=== PATIENT | male | born 1970 | race Caucasian/White ===

== ENCOUNTER 2017-08-20 18:58 | Emergency (ER) | payer OTHER ==
[~2017-08-20] VITALS: Ht 180.3 cm; Wt 113.4 kg
--- NOTE | 2017-08-20 19:17 | ED DYSPNEA/ASTHMA COMPLAINT ---
History of Present Illness General Chief Complaint: Dyspnea (COPD, CHF, Other) Stated Complaint: BIBA FOR EVAL DIFF BREATHING Source: patient, family Exam Limitations: no limitations Vital Signs & Intake/Output Vital Signs & Intake/Output Vital Signs Date Time Temp Pulse Resp B/P B/P Pulse O2 O2 Flow FiO2 Mean Ox Delivery Rate 08/20 2146 97.8 110 20 138/90 94 Room Air 08/20 1942 90 08/20 1903 97.9 124 26 178/99 94 Room Air Allergies Coded Allergies: No Known Allergies (08/20/17) Reconcile Medications Albuterol Sulfate (Proair Hfa) 90 MCG HFA.AER.AD 2 PUF INH Q4-6 PRN PRN SOB Amoxicillin/Potassium Clav (Augmentin 875-125 Tablet) 875 MG-125 MG TABLET 1 TAB PO BID PNEUMONIA Azithromycin 250 MG TABLET 1 DP PO AD PNEUMONIA 2 the first day followed by 1 for days 2-5 Codeine Phosphate/Guaifenesi (Codeine-Guaifen 10-100 MG/5 Ml) 10 MG-100 MG/5 ML LIQUID 15 ML PO Q12P PRN COUGH Prednisone 20 MG TABLET 1 TAB PO BID COUGH Triage Note: PT TO ED FOR WORSENING SOB OVER PAST WEEK, RECENTLY DX'ED WITH FLU. Triage Nurses Notes Reviewed? yes HPI: 47M PMH HTN, diet controlled DM with 1 week of viral syndrome with weakness, diffuse myalgia, and upper respiratory symptoms, diagnosed with flu by an online physician and given Tamiflu (no positive influenza test), was improving slightly , but for the past 3 days has had worsening dry cough, dyspnea, unable to take a deep breath, and dyspnea with minimal exertion. Denies fever, chills, headache, sore throat, chest pain, palpitations, abdominal pain, diarrhea, dysuria. Past History Travel History Traveled to [place] past 21 day No Medical History Any Pertinent Medical History? see below for history Neurological: NONE EENT: NONE Cardiovascular: hypertension Respiratory: NONE Gastrointestinal: NONE Hepatic: NONE Renal: NONE Musculoskeletal: NONE Psychiatric: NONE Endocrine: diabetes Blood Disorders: NONE Cancer(s): NONE Surgical History Surgical History: non-contributory Psychosocial History What is your primary language Indonesian Tobacco Use: Never used ETOH Use: occasional use Illicit Drug Use: denies illicit drug use Family History Hx Contributory? No Review of Systems Review of Systems Constitutional: Reports: no symptoms. EENTM: Reports: no symptoms. Respiratory: Reports: see HPI. Cardiovascular: Reports: no symptoms. GI: Reports: no symptoms. Genitourinary: Reports: no symptoms. Musculoskeletal: Reports: no symptoms. Skin: Reports: no symptoms. Neurological/Psychological: Reports: no symptoms. Hematologic/Endocrine: Reports: no symptoms. Immunologic/Allergic: Reports: no symptoms. All Other Systems: Reviewed and Negative Physical Exam Physical Exam General Appearance: well developed/nourished, moderate distress Head: atraumatic, normal appearance Eyes: Bilateral: normal appearance. Ears, Nose, Throat: normal pharynx, normal ENT inspection, hearing grossly normal Neck: normal inspection, supple, full range of motion Respiratory: bilateral wheezing Cardiovascular: regular rate/rhythm Gastrointestinal: soft, non-tender Extremities: normal inspection, normal capillary refill, normal range of motion Neurologic/Psych: awake, alert, oriented x 3, normal mood/affect Skin: intact, normal color, warm/dry Core Measures ACS in differential dx? No CVA/TIA Diagnosis No Sepsis Present: No Sepsis Focused Exam Completed? No Progress Differential Diagnosis: asthma, AMI, altitude sickness, bronchitis, costochondritis, CHF, COPD, musculoskeletal pain, pericarditis, pulmonary embolism, pneumonia, pneumothorax, rib fracture, unstable angina Plan of Care: Orders Procedure Date/time Status RAPID VIRAL INFLUENZA A 08/20 1922 Complete COMPREHENSIVE METABOLIC PANEL 08/20 1922 Complete CBC WITHOUT DIFFERENTIAL 08/20 1922 Complete EKG 08/20 1922 Active Laboratory Tests 08/20/17 2030: Anion Gap 12, Estimated GFR > 60, BUN/Creatinine Ratio 42.0 H, Glucose 324 H, Calcium 8.3 L, Total Bilirubin 1.6 H, AST 51, ALT 58, Alkaline Phosphatase 83, Total Protein 5.9 L, Albumin 3.2 L, Globulin 2.7, Albumin/Globulin Ratio 1.2 08/20/17 2015: CBC w Diff MAN DIFF ORDERED, RBC 5.98, MCV 81.0, MCH 26.9 L, MCHC 33.3, RDW 13.4, MPV 8.6, Gran % 86.1 H, Lymphocytes % 7.4 L, Monocytes % 6.1, Eosinophils % 0.3, Basophils % 0.1, Absolute Granulocytes 19.1 H, Segmented Neutrophils 71, Band Neutrophils 12 H, Absolute Lymphocytes 1.6, Lymphocytes 8 L, Monocytes 8, Absolute Monocytes 1.4 H, Eosinophils 1, Absolute Eosinophils 0.1, Absolute Basophils 0, Platelet Estimate ADEQUATE, Normocytic RBCs VERIFIED, Normochromic RBCs VERIFIED, Fld Total RBCs Counted 100 Microbiology 08/20 1939 NASOPHARYN: Influenza Virus A & B Rapid Smear - COMP Diagnostic Imaging: Viewed by Me: Radiology Read. Discussed w/RAD: Radiology Read. Radiology Impression: PATIENT: JERAD SHEA PRESENT AGE: 47 PATIENT ACCOUNT NO: [id number] : 68 LOCATION: [facility] ORDERING PHYSICIAN: Vish Stahl MD SERVICE DATE: 08/20/17 EXAM TYPE : RAD - XRY-CHEST XRAY, TWO VIEWS EXAMINATION: XR CHEST CLINICAL INFORMATION: Cough with dyspnea and right lower lobe rhonchi. COMPARISON: None TECHNIQUE: 2 views of the chest were obtained. FINDINGS: Mild reticular airspace opacities are noted of both lower lobes. There is a tiny right pleural effusion. No left pleural effusion. The upper lung quiñones are clear. Cardiomediastinal silhouette and pulmonary vasculature are within normal limits. No acute osseous findings. IMPRESSION: Mild bilateral reticular airspace opacities with a trace right pleural effusion. These constellation of findings suggests an atypical/viral pneumonia. Correlate clinically. DICTATED BY: Vitaliy Hendrickson MD DATE/TIME DICTATED:08/20/172010 SCHEDULING ASSISTANT:MAKAYLA DATE/TIME TRANSCRIBED:2010 Initial ED EKG: normal sinus rhythm, no ST T wave changes Departure Departure Disposition: LEFT AGAINST MEDICAL ADVICE Condition: Stable Clinical Impression Primary Impression: Pneumonia of both lower lobes Secondary Impressions: Hyponatremia Referrals: Jalyn TAPIA,Merrill Reza (PCP/Family) Additional Instructions: Follow up with your primary care provider. If your breathing worsens, if you experience chest pain, or if you have any new or worsening symptoms, return to emergency department. Departure Forms: Customer Survey General Discharge Information Prescriptions: Current Visit Scripts Prednisone 1 TAB PO BID #10 TAB Amoxicillin/Potassium Clav (Augmentin 875-125 Tablet) 1 TAB PO BID #14 TAB Azithromycin 1 DP PO AD #6 TAB 2 the first day followed by 1 for days 2-5 Albuterol Sulfate (Proair Hfa) 2 PUF INH Q4-6 PRN PRN SOB #1 INHAL Codeine Phosphate/Guaifenesi (Codeine-Guaifen 10-100 MG/5 Ml) 15 ML PO Q12P PRN COUGH #200 ML Critical Care Note Critical Care Note Critical Care Time: 30-74 min
--- NOTE | 2017-08-20 20:16 | RADIOLOGY REPORT ---
EXAMINATION: XR CHEST CLINICAL INFORMATION: Cough with dyspnea and right lower lobe rhonchi. COMPARISON: None TECHNIQUE: 2 views of the chest were obtained. FINDINGS: Mild reticular airspace opacities are noted of both lower lobes. There is a tiny right pleural effusion. No left pleural effusion. The upper lung quiñones are clear. Cardiomediastinal silhouette and pulmonary vasculature are within normal limits. No acute osseous findings. IMPRESSION: Mild bilateral reticular airspace opacities with a trace right pleural effusion. These constellation of findings suggests an atypical/viral pneumonia. Correlate clinically.
[2017-08-20 20:27] LABS: ABSOLUTE BASOPHIL COUNT 0 /CUMM (0.0-0.2); ABSOLUTE EOSINOPHIL COUNT 0.1 /CUMM (0.0-0.7); ABSOLUTE GRANULOCYTE CT 19.1 /CUMM (1.4-6.5); ABSOLUTE LYMPH COUNT 1.6 /CUMM (1.2-3.4); ABSOLUTE MONOCYTE COUNT 1.4 /CUMM (0.10-0.60); BASOPHIL % 0.1 % (0.0-2.0); EOSINOPHIL % 0.3 % (0-5); GRANULOCYTE % 86.1 % (42.2-75.2); HEMATOCRIT 48.5 % (42-52); MEAN CORPUSCULAR HGB 26.9 PG (27.0-31.0); MEAN CORPUSCULAR HGB CONC 33.3 G/DL (33.0-37.0); MEAN PLATELET VOLUME 8.6 FL (7.4-10.4); PLATELET COUNT 242 /CUMM (130-400); RBC DISTRIBUTION WIDTH 13.4 % (11.5-14.5); RED BLOOD CELL CT 5.98 /CUMM (4.70-6.10); WHITE BLOOD CELL COUNT 22.1 /CUMM (4.8-10.8)
[2017-08-20] MEDS ORDERED: AUGMENTIN 875-1 EACH PO (20:35)
[2017-08-20] MEDS ORDERED: PREDNISONE20 M1 PO (20:35)
[2017-08-20] MEDS ORDERED: PROAIR HFA8.5 GM INH (20:35)
[2017-08-20] MEDS ORDERED: AZITHROMYCIN250 M1 PO (20:35)
[2017-08-20] MEDS ORDERED: CODEINE-GUAIFE120 M1 PO (20:35)
[2017-08-20 21:47] VITALS: BP 138/90
== END 2017-08-20 23:26 | disposition left against medical advice (07) ==
LOC: ERH 18:58
PROVIDERS: Internal Medicine
DX: J18.9 Pneumonia, unspecified organism (principal); E87.1 Hypo-osmolality and hyponatremia; I10 Essential (primary) hypertension; E11.9 Type 2 diabetes mellitus without complications
CPT/HCPCS: 1263; 71046; 87804; 87804-59; 93005; 93010; 96374; 96375; J0696; J2930

== ENCOUNTER 2017-08-31 21:20 | Emergency (ER) | payer OTHER ==
[~2017-08-31] VITALS: Ht 180.3 cm; Wt 113.4 kg
[~2017-08-31 21:20] MED LIST: AUGMENTIN 875-1 EACH PO; AZITHROMYCIN250 M1 PO; CODEINE-GUAIFE120 M1 PO; PREDNISONE20 M1 PO; PROAIR HFA8.5 GM INH
[2017-08-31 21:29] VITALS: BP 151/97
--- NOTE | 2017-08-31 22:52 | RADIOLOGY REPORT ---
EXAMINATION: XR CHEST CLINICAL INFORMATION: Cough and fever COMPARISON: Chest x-ray 08/20/2017 TECHNIQUE: 2 views of the chest were obtained. FINDINGS: No significant abnormality is noted involving the heart, lungs, mediastinum, bony thorax or soft tissues. IMPRESSION: Unremarkable examination.
--- NOTE | 2017-08-31 23:17 | ED INFLUENZA/URI COMPLAINT ---
History of Present Illness General Chief Complaint: Upper Respiratory Sx/Fever Stated Complaint: SEEN ON 08/20 FOR PNEMONIA, SAME COMPLAINT Source: patient, old records Exam Limitations: no limitations Vital Signs & Intake/Output Vital Signs & Intake/Output Vital Signs Date Time Temp Pulse Resp B/P B/P Pulse O2 O2 Flow FiO2 Mean Ox Delivery Rate 09/01 0030 95 08/31 2154 Room Air 08/31 2154 125 95 Room Air 08/31 2129 97.7 125 18 151/97 95 Room Air ED Intake and Output 09/01 0000 08/31 1200 Intake Total Output Total Balance Patient 250 lb Weight Weight Reported by Patient Measurement Method Allergies Coded Allergies: No Known Allergies (08/20/17) Reconcile Medications Albuterol Sulfate (Proair Hfa) 90 MCG HFA.AER.AD 2 PUF INH Q4-6 PRN PRN SOB Albuterol Sulfate 1.25 MG/3 ML VIAL.NEB 1 Vial INH/MESHA Q4-6 PRN COUGH/SOB Amoxicillin/Potassium Clav (Augmentin 875-125 Tablet) 875 MG-125 MG TABLET 1 TAB PO BID PNEUMONIA Azithromycin 250 MG TABLET 1 DP PO AD PNEUMONIA 2 the first day followed by 1 for days 2-5 Codeine Phosphate/Guaifenesi (Codeine-Guaifen 10-100 MG/5 Ml) 10 MG-100 MG/5 ML LIQUID 15 ML PO Q12P PRN COUGH Codeine Phosphate/Guaifenesi (Cheratussin AC Syrup) 10 MG-100 MG/5 ML LIQUID 10 ML PO Q6H PRN COUGH Doxycycline Monohydrate (Avidoxy) 100 MG TABLET 1 TAB PO BID BRONCHITIS Prednisone 20 MG TABLET 1 TAB PO BID COUGH Prednisone (Deltasone) 20 MG TABLET 2 TAB PO ONCE DAILY BRONCHITIS Triage Note: PT FROM HOME C/O SOB, PRODUCTIVE COUGH WITH SPUTUM (CLEAR). PT STATES TREATED 08/20/17 FOR PNEUMONIA, PT STATES FINISHED FULL COURSE OF MEDICATION 3 DAYS PRIOR. PT STATES "I FEEL THE SAME, NOTHING HAS CHANGED" PT STATES USED INHALER LAST YESTERDAY WITH NO RELIEF. PT IN NO ACUTE DISTRESS IN TRIAGE, ALTHOUGH 02 SAT ON RA 94-95%. Triage Nurses Notes Reviewed? yes Onset: Abrupt Duration: week(s): (2), changing over time, continues in ED Timing: single episode today Severity: mild, moderate Severity Numbers: 7 Prior Episodes/Possible Cause: occassional episodes No Modifying Factors: none Associated Symptoms: cough, nasal congestion, nasal drainage, shortness of breath, wheezing HPI: 47-year-old male past medical history of hypertension diabetes presents for evaluation of cough, congestion, wheezing. Patient was diagnosed with pneumonia about 2 weeks ago. He completed a course of antibiotics and steroids. He states that he feels he's like he still has a significant cough wheezing and shortness of breath. He says the cough is dry. Some up at night. No fevers chest pain hemoptysis lower extremity edema. He has a nebulizer at home but does not have any medicine for it. He is not taking any cough medicine currently. He quit smoking many years ago. (Merrill Haider) Past History Travel History Traveled to [place] past 21 day No Medical History Any Pertinent Medical History? see below for history Neurological: NONE EENT: NONE Cardiovascular: hypertension Respiratory: NONE Gastrointestinal: NONE Hepatic: NONE Renal: NONE Musculoskeletal: NONE Psychiatric: NONE Endocrine: diabetes Blood Disorders: NONE Cancer(s): NONE Surgical History Surgical History: non-contributory Psychosocial History What is your primary language Syriac Tobacco Use: Quit >30 days ago Family History Hx Contributory? No (Merrill Haider) Review of Systems Review of Systems Constitutional: Reports: no symptoms. EENTM: Reports: no symptoms. Respiratory: Reports: see HPI, cough, short of breath, sputum production, wheezing. Cardiovascular: Reports: no symptoms. GI: Reports: no symptoms. Genitourinary: Reports: no symptoms. Musculoskeletal: Reports: no symptoms. Skin: Reports: no symptoms. Neurological/Psychological: Reports: no symptoms. Hematologic/Endocrine: Reports: no symptoms. Immunologic/Allergic: Reports: no symptoms. All Other Systems: Reviewed and Negative (Merrill Haider) Physical Exam Physical Exam General Appearance: well developed/nourished, no apparent distress, alert, awake Head: atraumatic, normal appearance Eyes: Bilateral: normal appearance, PERRL, EOMI. Ears, Nose, Throat: moist mucous membrane, hearing grossly normal, Tympanic normal, pharynx normal, nasal congestion, nasal drainage (CLEAR) Neck: normal inspection, supple, full range of motion Respiratory: chest non-tender, no respiratory distress, rhonchi, wheezing Cardiovascular: normal peripheral pulses, tachycardia (106 BPM) Peripheral Pulses: 2+ radial (R), 2+ radial (L) Gastrointestinal: normal bowel sounds, soft, non-tender, no organomegaly Back: normal inspection, normal range of motion, no vertebral tenderness Extremities: normal inspection, normal range of motion, no edema Neurologic/Psych: no motor/sensory deficits, awake, alert, oriented x 3, normal gait Skin: intact, normal color, warm/dry Core Measures Sepsis Present: No Sepsis Focused Exam Completed? No (Merrill Haider) Progress Differential Diagnosis: influenza, otitis, pneumonia, pharyngitis, sinusitis, copd EXACERBATION, ASTHMA EXACERBATION, ACUTE BRONCHITIS Plan of Care: Patient seen and evaluated. He was treated for pneumonia 2 weeks ago. He still is evidence of bronchitis on exam. Repeat chest x-ray is now clear. He is afebrile no signs of hypoxia. Patient was given a DuoNeb here he is feeling better. He will be discharged home with a short course of oral steroids doxycycline and albuterol. Also Cheratussin for cough. Follow up with primary care doctor. Discussed return precautions in detail. Patient appears well he agrees the plan. Initial ED EKG: none (Merrill Haider) Departure Departure Disposition: HOME OR SELF CARE Condition: Stable Clinical Impression Primary Impression: Acute bronchitis Qualifiers: Bronchitis organism: unspecified organism Qualified Code: J20.9 - Acute bronchitis, unspecified Referrals: Jalyn TAPIA,Merrill Reza (PCP/Family) Additional Instructions: Rest and drink plenty of fluids. Use albuterol nebulizer every 4-6 hours as needed. Cheratussin as needed for cough this may cause drowsiness. Prednisone as directed for the full course. Tylenol or ibuprofen as needed for pain or fever. Monitor symptoms closely. If you have fever or no improvement start the antibiotics for the full course. Make a follow-up appointment with YOUr primary care doctor for this coming week. Monitor symptoms return with any concerns. Departure Forms: Customer Survey General Discharge Information Prescriptions: Current Visit Scripts Prednisone (Deltasone) 2 TAB PO ONCE DAILY #10 TAB Albuterol Sulfate 1 Vial INH/MESHA Q4-6 PRN COUGH/SOB #15 ML Doxycycline Monohydrate (Avidoxy) 1 TAB PO BID #14 TAB Codeine Phosphate/Guaifenesi (Cheratussin AC Syrup) 10 ML PO Q6H PRN COUGH #240 ML (Merrill Haider) PA/SENIOR CYTOTECHNOLOGIST Co-Sign Statement Statement: ED Attending supervision documentation- I saw and evaluated the patient. I have also reviewed all the pertinent lab results and diagnostic results. I agree with the findings and the plan of care as documented in the PA's/SENIOR CYTOTECHNOLOGIST's documentation. x I have reviewed the ED Record and agree with the PA's/SENIOR CYTOTECHNOLOGIST's documentation. [] Additions or exceptions (if any) to the PAs/SENIOR CYTOTECHNOLOGIST's note and plan are summarized below: [] (Angelique TAPIA,Beny)
[2017-09-01] MEDS ORDERED: [UNRECOGNIZED DRUG - OTHER] PO (00:55)
[2017-09-01] MEDS ORDERED: DELTASONE20 MG PO (00:55)
[2017-09-01] MEDS ORDERED: ALBUTEROL1.25 MG/1 INH/SOL (00:55)
[2017-09-01] MEDS ORDERED: CHERATUSSIN AC118 M1 PO (00:56)
== END 2017-09-01 01:03 ==
LOC: ERH 21:20
DX: J20.9 Acute bronchitis, unspecified (principal); Z87.891 Personal history of nicotine dependence
CPT/HCPCS: 71046

== ENCOUNTER 2017-09-03 05:17 | Inpatient (IN) | payer OTHER ==
[~2017-09-03] VITALS: Ht 180.3 cm; Wt 116.6 kg
[~2017-09-03 05:17] MED LIST changes: +ALBUTEROL1.25 MG/1 INH/SOL; +CHERATUSSIN AC118 M1 PO; +DELTASONE20 MG PO; +[UNRECOGNIZED DRUG - OTHER] PO
--- NOTE | 2017-09-03 05:28 | ED GI/GU/ABDOMINAL COMPLAINT ---
History of Present Illness General Chief Complaint: Abdominal Pain/Flank Pain Stated Complaint: ABD PAIN Source: patient Exam Limitations: no limitations Vital Signs & Intake/Output Vital Signs & Intake/Output Vital Signs Date Time Temp Pulse Resp B/P B/P Pulse O2 O2 Flow FiO2 Mean Ox Delivery Rate 09/03 0825 98.2 104 18 112/80 95 Room Air 09/03 0822 98.2 104 18 112/80 95 Room Air 09/03 0819 98.2 104 18 112/80 95 09/03 0630 98.9 103 18 108/75 95 Room Air 09/03 0519 99.0 111 16 133/88 94 Room Air Allergies Coded Allergies: No Known Allergies (08/20/17) Reconcile Medications Albuterol Sulfate (Proair Hfa) 90 MCG HFA.AER.AD 2 PUF INH Q4-6 PRN PRN SOB Albuterol Sulfate 1.25 MG/3 ML VIAL.NEB 1 Vial INH/MESHA Q4-6 PRN COUGH/SOB Amoxicillin/Potassium Clav (Augmentin 875-125 Tablet) 875 MG-125 MG TABLET 1 TAB PO BID PNEUMONIA Azithromycin 250 MG TABLET 1 DP PO AD PNEUMONIA 2 the first day followed by 1 for days 2-5 Codeine Phosphate/Guaifenesi (Codeine-Guaifen 10-100 MG/5 Ml) 10 MG-100 MG/5 ML LIQUID 15 ML PO Q12P PRN COUGH Codeine Phosphate/Guaifenesi (Cheratussin AC Syrup) 10 MG-100 MG/5 ML LIQUID 10 ML PO Q6H PRN COUGH Doxycycline Monohydrate (Avidoxy) 100 MG TABLET 1 TAB PO BID BRONCHITIS Prednisone 20 MG TABLET 1 TAB PO BID COUGH Prednisone (Deltasone) 20 MG TABLET 2 TAB PO ONCE DAILY BRONCHITIS Triage Nurses Notes Reviewed? yes Onset: Gradual Quality/Severity: cramping Location: lower abdomen Radiation: lower abdomen Activities at Onset: coughing Prior Abdominal Problems: none Modifying Factors: Worsens With: palpation. Associated Symptoms: abdominal pain, loss of bladder control HPI: 47 yo gentleman, h/o recent influenza followed by pneumonia presentst with 2-3 days of abdominal pain. He notes that the pain is located in his lower abdomen. "I've been coughing a lot and I think that's what did it, but I noticed bruising in my lower abdomen.... I've been taking a lot of motrin and I think it really chewed up my stomach." He notes no dysuria, chest pain, fever. He notes that his stools appear loose. He has no nausea, vomiting. (Narciso Schumacher MD) Past History Travel History Traveled to [place] past 21 day No Medical History Any Pertinent Medical History? see below for history Neurological: NONE EENT: NONE Cardiovascular: hypertension Respiratory: NONE Gastrointestinal: NONE Hepatic: NONE Renal: NONE Musculoskeletal: NONE Psychiatric: NONE Endocrine: diabetes Blood Disorders: NONE Cancer(s): NONE Surgical History Surgical History: non-contributory Psychosocial History What is your primary language Bengali Family History Hx Contributory? No (Narciso Schumacher MD) Review of Systems Review of Systems Constitutional: Reports: no symptoms. EENTM: Reports: no symptoms. Respiratory: Reports: no symptoms. Cardiovascular: Reports: no symptoms. GI: Reports: no symptoms. Genitourinary: Reports: no symptoms. Musculoskeletal: Reports: no symptoms. Skin: Reports: no symptoms. Neurological/Psychological: Reports: no symptoms. Hematologic/Endocrine: Reports: no symptoms. Immunologic/Allergic: Reports: no symptoms. All Other Systems: Reviewed and Negative (Narciso Schumacher MD) Physical Exam Physical Exam General Appearance: well developed/nourished, mild distress Head: atraumatic, normal appearance Eyes: Bilateral: normal appearance. Ears, Nose, Throat, Mouth: hearing grossly normal, moist mucous membrane Neck: normal inspection, supple, full range of motion Respiratory: normal breath sounds, chest non-tender, no respiratory distress, quiet respiration, lungs clear Cardiovascular: regular rate/rhythm Gastrointestinal: normal bowel sounds, soft, tender in lower abdomen with mild ecchymosis in the midline, subumbilical space. Back: normal inspection, normal range of motion Extremities: normal range of motion, evidence of injury Neurologic/Psych: no motor/sensory deficits, awake, alert, oriented x 3 Skin: intact, normal color, warm/dry Core Measures ACS in differential dx? No Sepsis Present: No Sepsis Focused Exam Completed? No (Narciso Schumacher MD) Progress Differential Diagnosis: AAA, appendicitis, biliary colic, bowel obstruction, colon cancer, cholecystitis, diverticulitis, gastritis, hepatitis Plan of Care: Orders Procedure Date/time Status URINALYSIS 09/03 644 Active TROPONIN LEVEL 09/03 527 Complete LIPASE 09/03 527 Complete HEPATIC FUNCTION PANEL 09/03 527 Complete CBC WITHOUT DIFFERENTIAL 09/03 527 Complete BASIC METABOLIC PANEL 09/03 527 Complete AMYLASE 09/03 527 Complete EKG 09/03 527 Active Laboratory Tests 09/03/17 0700: Anion Gap 10, Estimated GFR > 60, BUN/Creatinine Ratio 41.7 H, Glucose 222 H, Calcium 9.0, Total Bilirubin 1.9 H, Direct Bilirubin 0.6 H, AST 18, ALT 51, Alkaline Phosphatase 148 H, Troponin I 0.01, Total Protein 5.8 L, Albumin 2.6 L, Amylase < 30 L, Lipase 27 09/03/17 0600: CBC w Diff MAN DIFF ORDERED, RBC 4.85, MCV 82.8, MCH 28.3, MCHC 34.2, RDW 13.8, MPV 8.1, Gran % 85.0 H, Lymphocytes % 7.2 L, Monocytes % 7.5, Eosinophils % 0.2, Basophils % 0.1, Absolute Granulocytes 22.7 H, Segmented Neutrophils 51, Band Neutrophils 26 H, Absolute Lymphocytes 1.9, Lymphocytes 11 L, Monocytes 11 H, Absolute Monocytes 2.0 H, Absolute Eosinophils 0.1, Absolute Basophils 0 , Metamyelocytes 1, Platelet Estimate INCREASED, Polychromasia 1+, Poikilocytosis 1+ Diagnostic Imaging: Viewed by Me: CT Scan. Discussed w/RAD: CT Scan. Initial ED EKG: normal axis, normal intervals, normal p-waves, normal QRS complex, nonspecific ST T wave chg Hand-Off Endorsed To: Mike Coughlin DO Endorsed Time: 0700 Pending: CT, labs (Winsome TAPIA,Narciso Escamilla) Departure Departure Disposition: STILL A PATIENT Condition: Stable Clinical Impression Primary Impression: Abdominal pain Referrals: Jalyn TAPIA,Merrill Reza (PCP/Family) Departure Forms: Customer Survey General Discharge Information (Winsome TAPIA,Narciso Escamilla) Departure Comments 09/03/17 8 AM I was notified by the radiologist that there is free air under the diaphragm. Surgical consultation was paged. I spoke to surgical PA and Dr. Leon. CT scan is pending. PATIENT: JERAD SHEA PRESENT AGE: 47 PATIENT ACCOUNT NO: [id number] : 68 LOCATION: [facility] ORDERING PHYSICIAN: Narciso Schumacher MD SERVICE DATE: 09/03/17 EXAM TYPE: CAT - CT ABD & PELVIS W IV CONTRAST EXAMINATION: CT ABDOMEN AND PELVIS WITH CONTRAST CLINICAL INFORMATION: Lower abdominal pain with ecchymosis. COMPARISON: None TECHNIQUE: Multidetector volumetric imaging was performed of the abdomen and pelvis following IV administration of 90 mL of Optiray 320 intravenous contrast. Sagittal and coronal reformatted images were obtained on the technologist's workstation. DLP: 1139 mGy-cm FINDINGS: LUNG BASES: Is patchy atelectasis in the lingula and patchy consolidation/atelectasis both lower lobes. There is underlying emphysema. No pleural effusion seen. Heart size is normal. LIVER, GALLBLADDER, AND BILIARY TREE: The liver is normal in size, shape, and attenuation. No focal hepatic lesion or biliary ductal dilatation is present. The gallbladder is unremarkable with no evidence of radiopaque gallstones, gallbladder wall thickening, or obvious pericholecystic inflammatory changes. PANCREAS: Unremarkable. SPLEEN: Unremarkable. ADRENAL GLANDS: Unremarkable. KIDNEYS AND URETERS: The kidneys are normal in size, shape, and attenuation. No hydronephrosis, hydroureter, or calculi seen. No perinephric stranding. There is a solid mass midpole right kidney measuring 2.5 x 2.5 cm suspicious for renal tumor unless proven otherwise. A 1.1 cm exophytic lesion upper pole right kidney is small but likely is cyst. BLADDER: Unremarkable. GASTROINTESTINAL TRACT: There is solitary significantly large air-fluid level collection in the small bowel mesentery secondary to perforation. The collection appears well capped and measures 16.8 x 16.5 cm. This area is surrounded by loops of small bowel containing fluid. Also visualized is fat stranding likely inflammatory process. Exact point of perforation is not seen but is most likely within proximal or mid small bowel. There is extensive scattered free air in the abdomen. There is scattered stool throughout the colon without any distention. There is small amount of free fluid in the pelvis. ABDOMINAL WALL: No significant hernia is appreciated. LYMPH NODES: Normal. VASCULAR: Abdominal aorta and the branches are widely patent. PELVIC VISCERA: Unremarkable. OSSEOUS STRUCTURES: There are degenerative disc changes at L5-S1 disc level with moderate ventral and posterior spondylosis. No lytic or sclerotic process seen. IMPRESSION: Small bowel perforation likely resulting in large free air and a large walled off air-fluid collection in the midabdomen in the small bowel mesentery. No enhancing mass seen to suggest any underlying tumor. No suggestion for ischemia or embolism. There is a solid mass midpole right kidney suspicious for primary renal tumor. Recommend further correlation with MRI abdomen. Likely small cyst upper pole right kidney. Results were discussed by phone with Dr. Coughlin at 8:25 AM. DICTATED BY: Lorne Mazariegos MD DATE/TIME DICTATED:09/03/17803 WIRELESS WATCHER:MAKAYLA DATE/TIME TRANSCRIBED:09/03/17803 CONFIDENTIAL, DO NOT COPY WITHOUT APPROPRIATE AUTHORIZATION. <Electronically signed in Other Vendor System> SIGNED BY: Lorne Mazariegos MD 09/03/1782609/03/17 The patient was evaluated by the surgical PA. He is being taken to the OR. OR/GI Note Spoke With: Edward TAPIA,Efrain Riddle ED Treatment Decision: JERAD SHEA requires urgent operative management or an emergent procedure that cannot be performed in the Emergency Room setting. (Mike Coughlin DO) <Electronically signed in Other Vendor System> SIGNED BY: Lorne Mazariegos MD 09/03/17826 (Mike Coughlin DO)
[2017-09-03 06:14] LABS: ABSOLUTE BASOPHIL COUNT 0 /CUMM (0.0-0.2); ABSOLUTE EOSINOPHIL COUNT 0.1 /CUMM (0.0-0.7); ABSOLUTE GRANULOCYTE CT 22.7 /CUMM (1.4-6.5); ABSOLUTE LYMPH COUNT 1.9 /CUMM (1.2-3.4); BASOPHIL % 0.1 % (0.0-2.0); EOSINOPHIL % 0.2 % (0-5); HEMATOCRIT 40.2 % (42-52); MEAN CORPUSCULAR HGB 28.3 PG (27.0-31.0); MEAN CORPUSCULAR HGB CONC 34.2 G/DL (33.0-37.0); MEAN CORPUSCULAR VOLUME 82.8 FL (80.0-94.0); MEAN PLATELET VOLUME 8.1 FL (7.4-10.4); PLATELET COUNT 454 /CUMM (130-400); RBC DISTRIBUTION WIDTH 13.8 % (11.5-14.5); RED BLOOD CELL CT 4.85 /CUMM (4.70-6.10); WHITE BLOOD CELL COUNT 26.7 /CUMM (4.8-10.8)
--- NOTE | 2017-09-03 07:43 | RADIOLOGY REPORT ---
EXAMINATION: XR CHEST CLINICAL INFORMATION: Pneumonia, leukocytosis. COMPARISON: None TECHNIQUE: 2 views of the chest were obtained. FINDINGS: Both lungs are well-expanded with patchy opacity air bronchogram left lower lobe suspicious for infiltrate. Rest of lungs are clear. There is mild blunting of right CP angle. Heart size and pulmonary vascularity is normal. No gross bony abnormality seen. Incidental finding of free air under both hemidiaphragms likely secondary to recent surgery or bowel perforation. IMPRESSION: Suspect left lower lobe developing infiltrate. Free air under both diaphragms suggestive of bowel perforation or recent abdominal surgery. Correlate with clinical history. Results were called immediately to Dr. Coughlin covering for Dr. Narciso Schumacher by phone at 7:38 exam.
--- NOTE | 2017-09-03 08:27 | CT SCAN REPORT ---
EXAMINATION: CT ABDOMEN AND PELVIS WITH CONTRAST CLINICAL INFORMATION: Lower abdominal pain with ecchymosis. COMPARISON: None TECHNIQUE: Multidetector volumetric imaging was performed of the abdomen and pelvis following IV administration of 90 mL of Optiray 320 intravenous contrast. Sagittal and coronal reformatted images were obtained on the technologist's workstation. DLP: 1139 mGy-cm FINDINGS: LUNG BASES: Is patchy atelectasis in the lingula and patchy consolidation/atelectasis both lower lobes. There is underlying emphysema. No pleural effusion seen. Heart size is normal. LIVER, GALLBLADDER, AND BILIARY TREE: The liver is normal in size, shape, and attenuation. No focal hepatic lesion or biliary ductal dilatation is present. The gallbladder is unremarkable with no evidence of radiopaque gallstones, gallbladder wall thickening, or obvious pericholecystic inflammatory changes. PANCREAS: Unremarkable. SPLEEN: Unremarkable. ADRENAL GLANDS: Unremarkable. KIDNEYS AND URETERS: The kidneys are normal in size, shape, and attenuation. No hydronephrosis, hydroureter, or calculi seen. No perinephric stranding. There is a solid mass midpole right kidney measuring 2.5 x 2.5 cm suspicious for renal tumor unless proven otherwise. A 1.1 cm exophytic lesion upper pole right kidney is small but likely is cyst. BLADDER: Unremarkable. GASTROINTESTINAL TRACT: There is solitary significantly large air-fluid level collection in the small bowel mesentery secondary to perforation. The collection appears well capped and measures 16.8 x 16.5 cm. This area is surrounded by loops of small bowel containing fluid. Also visualized is fat stranding likely inflammatory process. Exact point of perforation is not seen but is most likely within proximal or mid small bowel. There is extensive scattered free air in the abdomen. There is scattered stool throughout the colon without any distention. There is small amount of free fluid in the pelvis. ABDOMINAL WALL: No significant hernia is appreciated. LYMPH NODES: Normal. VASCULAR: Abdominal aorta and the branches are widely patent. PELVIC VISCERA: Unremarkable. OSSEOUS STRUCTURES: There are degenerative disc changes at L5-S1 disc level with moderate ventral and posterior spondylosis. No lytic or sclerotic process seen. IMPRESSION: Small bowel perforation likely resulting in large free air and a large walled off air-fluid collection in the midabdomen in the small bowel mesentery. No enhancing mass seen to suggest any underlying tumor. No suggestion for ischemia or embolism. There is a solid mass midpole right kidney suspicious for primary renal tumor. Recommend further correlation with MRI abdomen. Likely small cyst upper pole right kidney. Results were discussed by phone with Dr. Coughlin at 8:25 AM.
--- NOTE | 2017-09-03 09:48 | History & Physical ---
Narciso Mckenzie 09/03/17 0943: General Information and HPI History of Present Illness: This is a 47 y/o M w/ PMHx of HTN, DMII (uncontrolled), and recet hx of pneumonia that presents to [place] ED with 3 day history of abdominal pain. Patient reports being in his usual state of health until around 2 weeks ago he came to the ED for evaluation of cough, congestion, and wheezing. At that time he was diagnosed with pneumonia and sent home with abx and steroids. He began taking over the counter Motrin for pain relief. He continued this and was taking on average 20-24 pills of motrin daily. Last tuesday he had a acute onset of epigastric abdominal pain. This continued and worsened over the next couple of days to the point that he could not sleep last night. He endorses poor appetite and some nausea were present. Patient states "Penny been coughing a lot and thought that was causing my pain". The pain worsened to the point he came to the ED for evaluation. Allergies/Medications Allergies: Coded Allergies: No Known Allergies (08/20/17) Home Med list Albuterol Sulfate (Proair Hfa) 90 MCG HFA.AER.AD 2 PUF INH Q4-6 PRN PRN SOB Albuterol Sulfate 1.25 MG/3 ML VIAL.NEB 1 Vial INH/MESHA Q4-6 PRN COUGH/SOB Amoxicillin/Potassium Clav (Augmentin 875-125 Tablet) 875 MG-125 MG TABLET 1 TAB PO BID PNEUMONIA Azithromycin 250 MG TABLET 1 DP PO AD PNEUMONIA 2 the first day followed by 1 for days 2-5 Codeine Phosphate/Guaifenesi (Codeine-Guaifen 10-100 MG/5 Ml) 10 MG-100 MG/5 ML LIQUID 15 ML PO Q12P PRN COUGH Codeine Phosphate/Guaifenesi (Cheratussin AC Syrup) 10 MG-100 MG/5 ML LIQUID 10 ML PO Q6H PRN COUGH Doxycycline Monohydrate (Avidoxy) 100 MG TABLET 1 TAB PO BID BRONCHITIS Prednisone 20 MG TABLET 1 TAB PO BID COUGH Prednisone (Deltasone) 20 MG TABLET 2 TAB PO ONCE DAILY BRONCHITIS Past History Travel History Traveled to [place] past 21 day No Medical History Neurological: NONE EENT: NONE Cardiovascular: hypertension Respiratory: NONE Gastrointestinal: NONE Hepatic: NONE Renal: NONE Musculoskeletal: NONE Psychiatric: NONE Endocrine: diabetes Blood Disorders: NONE Cancer(s): NONE Surgical History Surgical History: non-contributory Past Family/Social History Psychosocial History ETOH Use: denies use Illicit Drug Use: denies illicit drug use Review of Systems Review of Systems Constitutional: Reports: see HPI. Exam & Diagnostic Data Last 24 Hrs of Vital Signs/I&O Vital Signs Date Time Temp Pulse Resp B/P B/P Pulse O2 O2 Flow FiO2 Mean Ox Delivery Rate 09/03 0949 95.7 09/03 0825 98.2 104 18 112/80 95 Room Air 09/03 0822 98.2 104 18 112/80 95 Room Air 09/03 0819 98.2 104 18 112/80 95 09/03 0630 98.9 103 18 108/75 95 Room Air 09/03 0519 99.0 111 16 133/88 94 Room Air Intake & Output 09/03 1600 09/03 0800 09/03 0000 Intake Total 1200 0 Output Total 200 Balance 1000 0 Intake, IV 1200 Intake, Oral 0 Output, Urine 200 Patient 250 lb Weight Physical Exam General Appearance Alert, Oriented X3 HEENT Atraumatic, PERRLA Neck Supple Cardiovascular Regular Rate, Normal S1, Normal S2 Lungs Some congestion in bilateral lower lung field, mild wheezing Abdomen Obese, moderate distention, typanic to percusion, bowel sounds hypoactive, moderate tenderness to palpation, eccymosis over lower abdomen and left flank Neurological Normal Speech, Strength at 5/5 X4 Ext, Cranial Nerves 3-12 NL Extremities No Edema Last 24 Hrs of Labs/Rosalino: Laboratory Tests 09/03/17 0930: Urine Color Pending, Urine Clarity Pending, Urine pH Pending, Ur Specific [place] Pending, Urine Protein Pending, Urine Ketones Pending, Urine Nitrite Pending, Urine Bilirubin Pending, Urine Urobilinogen Pending, Ur Leukocyte Esterase Pending, Ur Microscopic SEDIMENT EXAMINED, Urine RBC Pending, Urine Hemoglobin Pending, Urine Glucose Pending 09/03/17 0700: Anion Gap 10, Estimated GFR > 60, BUN/Creatinine Ratio 41.7 H, Glucose 222 H, Calcium 9.0, Total Bilirubin 1.9 H, Direct Bilirubin 0.6 H, AST 18, ALT 51, Alkaline Phosphatase 148 H, Troponin I 0.01, Total Protein 5.8 L, Albumin 2.6 L, Amylase < 30 L, Lipase 27 09/03/17 0600: CBC w Diff MAN DIFF ORDERED, RBC 4.85, MCV 82.8, MCH 28.3, MCHC 34.2, RDW 13.8, MPV 8.1, Gran % 85.0 H, Lymphocytes % 7.2 L, Monocytes % 7.5, Eosinophils % 0.2, Basophils % 0.1, Absolute Granulocytes 22.7 H, Segmented Neutrophils 51, Band Neutrophils 26 H, Absolute Lymphocytes 1.9, Lymphocytes 11 L, Monocytes 11 H, Absolute Monocytes 2.0 H, Absolute Eosinophils 0.1, Absolute Basophils 0 , Metamyelocytes 1, Platelet Estimate INCREASED, Polychromasia 1+, Poikilocytosis 1+ Assessment/Plan Assessment: This is a 47 y/o M w/ PMHx of HTN, DMII (uncontrolled), and recet hx of pneumonia that presents to [facility] ED with 3 day hx of abdominal pain with CT evidence of small bowel perforation with large amount of free air likely from perforated ulcer from overuse of Motrin. Pt is HD stable at this point and awaiting evaluation by Dr. Leon for operative intervention. Plan: -Admit to surgical service under Dr. Leon -Possible OR today -NPO -IV pain meds -IVFs -Will assess for pharm ac, diet advancement, and need for abx post op -Will d/w Dr. Leon As Ranked By This Provider Problem List: 1. Abdominal pain 2. Pneumonia of both lower lobes Core Measures/Misc (03/27) Acute Coronary Syndrome ACS Diagnosis: No Congestive Heart Failure Congestive Heart Failure Diagnosis No Cerebrovascular Accident CVA/TIA Diagnosis: No VTE (View Protocol) VTE Risk Factors Surgery No Mechanical VTE Prophylaxis d/t N/A MechProphylax Ordered No VTE Pharm Prophylaxis d/t NA PharmProphylax ordered Sepsis (View protocol) Sepsis Present: No Efrain Leon MD 09/03/17 1029: Past History Medical History Cardiovascular: hypertension, PVD Surgical History Surgical History: hernia repair-inguinal (bilateral) Past Family/Social History Psychosocial History Smoking Status: Former Smoker ETOH Use: occasional use Review of Systems Review of Systems Cardiovascular: Reports: no symptoms. Respiratory: Reports: cough. GI: Reports: see HPI. Genitourinary: Reports: no symptoms. Musculoskeletal: Reports: no symptoms. Skin: Denies: erythema. Exam & Diagnostic Data Last 24 Hrs of Vital Signs/I&O Vital Signs Date Time Temp Pulse Resp B/P B/P Pulse O2 O2 Flow FiO2 Mean Ox Delivery Rate 09/03 0951 96.7 97 18 129/83 98 09/03 0949 95.7 09/03 0825 98.2 104 18 112/80 95 Room Air 09/03 0822 98.2 104 18 112/80 95 Room Air 09/03 0819 98.2 104 18 112/80 95 09/03 0630 98.9 103 18 108/75 95 Room Air 09/03 0519 99.0 111 16 133/88 94 Room Air Intake & Output 09/03 1600 09/03 0800 09/03 0000 Intake Total 1200 0 Output Total 200 Balance 1000 0 Intake, IV 1200 Intake, Oral 0 Output, Urine 200 Patient 250 lb Weight Physical Exam Vascular non palpable pedal pulses, dependent rubor Attending MD Review Statement Attending Statement Attending MD Statement: examined this patient, discuss w/resident/PA/MISSION WORKER, reviewed images Attending Assessment/Plan: 47 yo male with uncontrolled DM presents after prolonged upper respiratory infection treated with prednisone taper and oral antibiotics. In addition to steroids, patient has been taking nonsteroidals orally for treatment of his pain symptoms. Since cessation of his oral antibiotics, he has noted for aggressive worsening periumbilical abdominal pain. There is been anorexia with nausea but no vomiting. Chills were noted at home. Examination is significant for palpable mass in the epigastric region without involuntary guarding. CT scan shows scattered free intraperitoneal air. There is additionally a very large intraperitoneal abscess contained my small bowel loops. Likely etiology is that of perforated viscus due to steroids and nonsteroidal anti-inflammatory drugs. Plan with IV broad-spectrum antibiotics and prompt exploratory laparotomy with drainage of abscess and possible bowel resection and/or Gram patch of ulcer, although by CT scan, peptic ulcer disease does not appear to be etiology. He is informed the risk of the operation going bleeding, recurrent infection and anastomotic leak. He agrees to proceed. He is at high risk for pulmonary complications given his recent pneumonia.
--- NOTE | 2017-09-03 13:37 | Operative Report ---
Operative/Inv Procedure Report Surgery Date: 09/03/17 Name of Procedure: Explored her laparotomy with drainage of 3 intraperitoneal abscesses Pre-Operative Diagnosis: Intraperitoneal abscess Perforated viscus Post-Operative Diagnosis: Peritoneal abscess Estimated Blood Loss: 200 Surgeon/Seed Production Field Supervisor: Efrain Leon M.D./Narciso KING Anesthesia: general endotracheal tube Drains: 19 [place] Iam-Spencer drain left upper quadrant exit goes to medial sigmoid colon 19 [place] Iam-Spencer drain right lower quadrant goes to pelvis Microbiology: Abscess fluid for culture Operative Indication: 47-year-old male with poorly controlled hypertension diabetes mellitus presents with 4 days of progressive abdominal pain. He is recently completed treatment for pneumonia with oral prednisone and antibiotics. Furthermore he was taking large doses of ibuprofen. He is found to have free intraperitoneal air as well as very large peritoneal abscess. He is taken for emergent exploration Operative/Procedure Note Note: After consent is brought to the operative room and laid supine. Gen. anesthesia was obtained and his abdomen was prepped and draped. A midline incision made sharply and subcutaneous tissues dissected with cautery. We incised the fascia with cautery and entered the peritoneum sharply. We encountered a very large mass in the epigastric region, below the transverse colon. It was quite fibrotic and composed of omentum encasing the abscess beneath it. We began by exploring the epigastric region. The stomach was pristine with no evidence of inflammatory changes. The duodenum looked the same. I went into the lesser sac with cautery and the area there was also pristine without evidence of infection or inflammation. It was impossible to explore the abdominal cavity further without entering this abscess. He found a plane inferiorly and and bluntly mobilized the omentum off of the small bowel loops. Copious amounts of air and approximately 400 mL of purulent material was evacuated. There was some vegetable matter as well, very scant amounts of it. A specimen of the purulence was sent for culture. Once the abscess was evacuated it was irrigated and we explored it. This cavity had been present for quite some time as noted by the chronic inflammation around it. The containment of it was medial sigmoid colon as well as multiple loops of small bowel. It was impossible to run the small bowel loops without taking down these dense adhesions. We elected to do so by first identifying the terminal ileum. Cecum was identified and was normal. The appendix was normal. We ran the small bowel loops backwards as it was easier. It appeared that the abscess was in the proximal small bowel loops. Of note the sigmoid colon was supple it out evidence of inflammation. The left colon and transverse colon was normal as well. We looked in the pelvis and there was scant amount of turbid fluid but no evidence of inflammatory process. We then proceeded to painstakingly take down these adhesions which were quite dense with small bowel loops plastered to one another. During the process we encountered 2 more discrete abscesses, interloop type. Eventually after an hour to an hour and a half of extensive lysis of adhesions, we were able to completely mobilize all small bowel loops. We ran the small bowel 3 times from the ligament Treitz to the terminal ileum. Many of the bowel loops had abscess wall on a portion of them. There is no evidence of any site of perforation. We really inspected the sigmoid colon and rectum and found no evidence of perforation there the entire peritoneal cavity above the transverse meso colon was pristine. We could not find a sinus perforation. There was no evidence of succus entericus throughout any of the exploration. The presumption was that there was a bowel perforation that had sealed spontaneously. Since the definitive site of perforation could not be identified, I elected to not perform any bowel resection. I placed 2 drains in the peritoneal cavity 1 emanating from the left upper quadrant that ended just to the medial aspect of the sigmoid colon mesentery the other came out through the right lower quadrant and into the pelvis. The peritoneal cavity was irrigated with normal saline. Omentum was placed over the small bowel and fascia closed with a running 0 Maxon suture. The wound was irrigated with saline and skin reapproximated loosely with edita. The drains were secured to the skin with 2-0 nylon sterile dressings were applied. Sponge and needle counts are correct Discharge Disposition: Critical Care Unit CC: Jalyn TAPIA,Merrill Reza
--- NOTE | 2017-09-03 15:22 | RADIOLOGY REPORT ---
EXAMINATION: XR PORTABLE CHEST CLINICAL INFORMATION: Status post central line placement. COMPARISON: Same day 09/03/2017 TECHNIQUE: Portable portable AP 95 degrees view of the chest was obtained. FINDINGS: Examination is limited by technical factors. A right-sided central line from in internal jugular venous approach is identified with tip projecting over the expected location of the mid SVC. There is no definite pneumothorax. A linear vertical structure projecting over the thoracic spine most likely represents nasogastric tube. The tip is not visualized. There is bibasilar subsegmental atelectasis. The cardiac silhouette appears stable. IMPRESSION: Technically limited portable examination. Right IJ line with tip at the mid SVC. No definite associated pneumothorax.
--- NOTE | 2017-09-03 15:36 | Cons- CRCU ---
Ignacio TAPIA,[facility] 09/03/17 1459: General Information and HPI Consulting Request Date of Consult: 09/03/17 Requested By: Reason for Consult: HTN DM Source of Information: old records History of Present Illness: Patient is 47-year-old gentleman with past medical history of diabetes mellitus and hypertension. He presented to [place] ED on 08/20/17 for 1 week of viral syndrome after taking Tamiflu prescribed by online physician. His chest x-ray was suggestive of atypical/viral pneumonia. During this visit patient left AGAINST MEDICAL ADVICE and was discharged on prednisone, Augmentin and azithromycin. He had another brief visit on 08/23/17 secondary to upper abdominal pain after coughing. He received Tylenol and breathing treatment and was discharged on his request. He presented to [place] ED again on 08/31/17 with complain of NO improvement in respiratory symptoms after being compliant to antibiotic and steroids treatment.Chest x-ray showed resolution of pnemonia but his ongoing symptoms were concerning for bronchitis This time patient was discharged on a steroid taper, doxycycline,Cheratussin AC Syrup and albuterol inhaler. Today patient presented to [place] ED with complaint of lower abdominal pain 2 to 3 days, gave history of noticing bruising in lower abdomen and consuming large dose of Motrin for pain relief to ED physician. Last tuesday patient had acute onset of epigastric pain which he attributed secondary to cough. He reported worsening of pain to a point he could not sleep. He has been consuming average 20-24 pills of motrin daily, as per surgical HnP. ROS chills and increased appetite. CXR was positive for Free air under both diaphragms suggestive of bowel perforation and left lower lobe developing infiltrate. CT scan showed scattered free intraperitoneal air Surgical service was consulted. Their examination was significant for palpable mass in the epigastric region without involuntary guarding. He underwent exploratory laparotomy with drainage of 3 intraperitoneal abscesses. There was no evidence of any site of perforation and bowel resection was not performed. Patient underwent placement of 2 drains in peritoneal cavity (left upper quadrant and right lower quadrant). He is status post right IJ placement and status post extubation The patient is being transferred to ICU. Medical team has been consulted for management of hypertension, diabetes and high risk for pulmonary complications given recent pneumonia. Allergies/Medications Allergies: Coded Allergies: No Known Allergies (08/20/17) Home Med List: Albuterol Sulfate (Proair Hfa) 90 MCG HFA.AER.AD 2 PUF INH Q4-6 PRN PRN SOB Albuterol Sulfate 1.25 MG/3 ML VIAL.NEB 1 Vial INH/MESHA Q4-6 PRN COUGH/SOB Amoxicillin/Potassium Clav (Augmentin 875-125 Tablet) 875 MG-125 MG TABLET 1 TAB PO BID PNEUMONIA Azithromycin 250 MG TABLET 1 DP PO AD PNEUMONIA 2 the first day followed by 1 for days 2-5 Codeine Phosphate/Guaifenesi (Codeine-Guaifen 10-100 MG/5 Ml) 10 MG-100 MG/5 ML LIQUID 15 ML PO Q12P PRN COUGH Codeine Phosphate/Guaifenesi (Cheratussin AC Syrup) 10 MG-100 MG/5 ML LIQUID 10 ML PO Q6H PRN COUGH Doxycycline Monohydrate (Avidoxy) 100 MG TABLET 1 TAB PO BID BRONCHITIS Prednisone 20 MG TABLET 1 TAB PO BID COUGH Prednisone (Deltasone) 20 MG TABLET 2 TAB PO ONCE DAILY BRONCHITIS Review of Systems Review of Systems Constitutional: Reports: see HPI. Past History Travel History Traveled to [place] past 21 day No Medical History Neurological: NONE EENT: NONE Cardiovascular: hypertension, PVD Respiratory: NONE Gastrointestinal: NONE Hepatic: NONE Renal: NONE Musculoskeletal: NONE Psychiatric: NONE Endocrine: diabetes Blood Disorders: NONE Cancer(s): NONE Surgical History Surgical History: hernia repair-inguinal (bilateral) Psychosocial History Primary Language: Eritre[place] Smoking Status: Former Smoker ETOH Use: occasional use Illicit Drug Use: denies illicit drug use Exam & Diagnostic Data Last 24 Hrs of Vital Signs/I&O Vital Signs Date Time Temp Pulse Resp B/P B/P Pulse O2 O2 Flow FiO2 Mean Ox Delivery Rate 09/03 0951 96.7 97 18 129/83 98 09/03 0949 95.7 09/03 0825 98.2 104 18 112/80 95 Room Air 09/03 0822 98.2 104 18 112/80 95 Room Air 09/03 0819 98.2 104 18 112/80 95 09/03 0630 98.9 103 18 108/75 95 Room Air 09/03 0519 99.0 111 16 133/88 94 Room Air Intake & Output 09/03 1600 09/03 0800 09/03 0000 Intake Total 1200 0 Output Total 200 Balance 1000 0 Intake, IV 1200 Intake, Oral 0 Output, Urine 200 Patient 250 lb Weight Last 48 Hrs of Labs/Rosalino: Laboratory Tests 09/03/17 0930: Urinalysis LIGHT H, Urine Color RENA, Urine Clarity CLEAR, Urine pH 6.5, Ur Specific [place] 1.010, Urine Protein 30 H, Urine Ketones NEG, Urine Nitrite POS H, Urine Bilirubin POS@ICTO H, Urine Urobilinogen 0.2, Ur Leukocyte Esterase NEG, Ur Microscopic SEDIMENT EXAMINED, Urine RBC 1-3, Urine WBC 3-5 H, Urine Bacteria RARE H, Hyaline Casts 50-75 H, Granular Casts 1-3 H, Urine Mucus MANY H, Urine Hemoglobin NEG, Urine Glucose NEG 09/03/17 0700: Anion Gap 10, Estimated GFR > 60, BUN/Creatinine Ratio 41.7 H, Glucose 222 H, Calcium 9.0, Total Bilirubin 1.9 H, Direct Bilirubin 0.6 H, AST 18, ALT 51, Alkaline Phosphatase 148 H, Troponin I 0.01, Total Protein 5.8 L, Albumin 2.6 L, Amylase < 30 L, Lipase 27 09/03/17 0600: CBC w Diff MAN DIFF ORDERED, RBC 4.85, MCV 82.8, MCH 28.3, MCHC 34.2, RDW 13.8, MPV 8.1, Gran % 85.0 H, Lymphocytes % 7.2 L, Monocytes % 7.5, Eosinophils % 0.2, Basophils % 0.1, Absolute Granulocytes 22.7 H, Segmented Neutrophils 51, Band Neutrophils 26 H, Absolute Lymphocytes 1.9, Lymphocytes 11 L, Monocytes 11 H, Absolute Monocytes 2.0 H, Absolute Eosinophils 0.1, Absolute Basophils 0 , Metamyelocytes 1, Platelet Estimate INCREASED, Polychromasia 1+, Poikilocytosis 1+ Diagnostic Data CXR Results Suspect left lower lobe developing infiltrate. Free air under both diaphragms suggestive of bowel perforation or recent abdominal surgery. Correlate with clinical history Other Results Small bowel perforation likely resulting in large free air and a large walled off air-fluid collection in the midabdomen in the small bowel mesentery. No enhancing mass seen to suggest any underlying tumor. No suggestion for ischemia or embolism. There is a solid mass midpole right kidney suspicious for primary renal tumor. Recommend further correlation with MRI abdomen. Likely small cyst upper pole right kidney. Assessment/Plan CRCU Impression/Plan: The patient is 47-year-old male with past medical history of diabetes mellitus, hypertension and prolonged respiratory illness (flu, ammonia, bronchitis). He presented to [place] ED on 09/03 with complaints of epigastric abdominal pain. -Vitals on presentation Tmax 99, heart rate ranging from 100s to 11 respiratory rate 18 blood pressure ranging 100s to 130s/70s to 80s and saturation 94-98 room air -Pertinent labs basic count 26.7 with left shift, bandemia 27, H/H 14/40, platelets 454 Sodium 128, potassium 5.1, creatinine 0.6, glucose 222, total bilirubin 1.9, direct bilirubin 0.6, alkaline phosphatase 148,amylase <30, lipase 27 UA positive for proteins, hyaline casts, granular casts, urine, nitrate positive , few bacteria, WBCs 3-5 -CXR and CT scan see above The patient is being treated evaluated for following conditions 1. Sepsis secondary to Intraperitoneal abscess 2. Perforated viscus 3. Thrombocytosis 4. Hyponatremia 5. Hyperbilirubinemia 6. DM 7. Questionable history of HTN 8. Solid mass midpole right kidney 9. Left lower lobe developing infiltrate #Sepsis secondary to intraperitoneal abscesses -Monitor fever and WBC curve -Follow-up abcess cultures -Consider getting BC x2 -Continue Unasyn for now pending sensitivities of culture -If spikes fever consider broadening antibiotic coverage to vancomycin and ceftazidime -Monitor drain output -Continue IVF #Perforated viscus No evidence of perforation found continue to monitor -Management per surgery -Consider IV protonix #Thrombocytosis likely in setting of sepsis -Continue to monitor #Moderate Hyponatremia Patient presented with sodium of 128 and in the past his sodium has been around 122 appears to be chronic -Continue to monitor -Consider checking serum osmolarity #Hyperbilirubinemia likely secondary insetting of sepsis -Continue to monitor -Repeat Lfts #Diabetes mellitus -Accu-Cheks before meals and at bedtime -Initiate low dose insulin sliding scale -Check HbA1c -When patient's diet was advanced as per surgical team consider starting patient on carbohydrate consistent #Questionable history of HTN -Continue to monitor blood pressures, I do not see any antihypertensive regimen in pt's EMR #Left lower lobe developing infiltrate Patient is high risk for pulmonary complications given recent history of flu, pneumonia, bronchitis. CXR positive for patchy opacity suggestive bronchogram left lower lobe suspicious for infiltrate. He is recovering from pneumonia, might be residual. As radiographic resolution can take upto 4weeks -[facility] -Incentive spirometry -Consider repeat chest x-ray in am to check for worsening -Continue Unasyn for now, if worsening consider adding atypical coverage #Solid mass midpole right kidney The finding is concerning for RCC patient will benefit from MRI evaluation -Consider Uro and nephro consult in am -Consider repeat UA in am #DVT prophylaxis all times #Consider carbohydrate consistent diet #CODE STATUS full code Problem List: 1. Hyponatremia Consult Acknowledgment - Thank you for your consult request. Sam Bocanegra MD 09/03/17 3062: Assessment/Plan CRCU Consult Acknowledgment - Thank you for your consult request. Resident Review Statement Resident Statement: examined this patient, discussed with international trade teacher, agreed with international trade teacher Other Findings: History of Present Illness 47 year old man with past medical history of diabetes mellitus, hypertension, and medication non-compliance seen for evaluation abdominal pain. Patient was seen in the [place] ED on 08/20/17 with complaints of weakness, muscle aches, and upper respiratory symptoms where Chest x-ray was suggestive of pneumonia for which he was prescribed Augmentin/Azithromycin and discharged to home. He was then seen several times for abdominal pain but declined evaluation and was given more support treatment medications. Patient returned to the ED today with persistence of his abdominal pain complaining of bruising of his abdomen. He admitted to taking excessive amounts of motrin. Abdominal X-ray demonstrated free air under the diaphragm for which a CT Abdomen/Pelvis was obtained which reported a small bowel perforation and incidentally a sold right kidney mass suspicious for RCC. General surgery consult was placed and patient subsequently underwent an exploratory laparotomy which identified three intraperitoneal abscesses. The abscesses were washed out and three drains were placed without any obvious perforation sites identified. Patient was given Unasyn for antibiotic coverage. Post-operatively patient was admitted to the ICU for closer monitoring. He is awake but not alert or following commands. He appears confused, most likely from the anesthesia, but in no acute distress. Subjective complaints and review of systems are unobtainable. Objective VS: TMAX 99.0, HR 97-111, RR 16-18, BP 108-133/75-83, O2 94-98% on Room air Physical -GEN: obese middle age man appearing confused but in no acute distress -HEENT: NCAT, PERRL, EOMI, anicteric sclera, MMM -NECK: Supple, no JVD, trachea midline, RIJ TLC in place -CARD: Normal S1/S2 w/o m/g/r; RRR -PULM: Diminished bibasilar airflow -ABD: Soft, obese, NT, ND, several drains in place draining a light red fluid, BS+ -NEURO: Awake but confused, not following commands, CN II-XII grossly intact -EXT: Normal pulses, no cyanosis, clubbing, or edema Labs/Imaging/Studies -CBC: WBC/Band 26.7/26, Hgb 13.7, Hgb 40.2, PLT 454 -BMP: Na 128, K 5.2, Cl 92, CO2 25, BUN 25, Cr 0.6, AG 10, Glu 222 -LFT: AST 18, ALT 51, ALP 148 -Misc: Trop 0.01, Amylase <30, Lipase 27 -UA: +Nitrate, 3-5 WBC with rare bacteria -CT abdomen/pelvis with IV contrast * Small bowel perforation likely resulting in large free air and a large walled off air-fluid collection in the midabdomen in the small bowel mesentery. No enhancing mass seen to suggest any underlying tumor. No suggestion for ischemia or embolism. * There is a solid mass midpole right kidney suspicious for primary renal tumor. Recommend further correlation with MRI abdomen. * Likely small cyst upper pole right kidney. Assessment 47 year old man with diabetes and hypertension seen for evaluation of abdominal pain found to have free peritoneal air concerning for perforation. Patient was urgently taken to surgery where several abscesses were identified and washed out but no obvious perforation identified. Postoperatively patient was admitted to the ICU for close monitoring. Patient remains awake and confused but otherwise hemodynamically stable. He should be empirically continue on antibiotics, Unasyn is acceptable however consideration for atypical coverage with Azithromycin should be considered if he becomes febrile or develops respiratory distress. Management of antibiotics, post-op care, and fluids by surgical team. Problem List 1. Sepsis secondary to Intraperitoneal abscess 2. Perforated viscus 3. Thrombocytosis 4. Hyponatremia 5. Hyperbilirubinemia 6. DM 7. Questionable history of HTN 8. Solid mass midpole right kidney 9. Left lower lobe developing infiltrate Recommendations: -Post op ICU monitoring -Post op care per surgical team -RIJ TLC in place -Accuchecks Q6H with Novolin SSI -Avoid NSAIDs / Nephrotoxic agents -Antitbiotics per surgical team -Zofran PRN for nausea -Fluid management per surgical team -Start protonix 40 mg IV Daily -Consult urology for renal mass -Follow cultures -Pain control PRN -NPO -DVT PPx with subcutaneous heparin -FULL CODE Resident Review Statement Pt examined & facts reviewed Yes Agree w/findings/assess/plan Yes Documenting Resident Daljit TAPIA,Sam PinaElijahamaury 09/03/17 1821: Assessment/Plan CRCU Consult Acknowledgment - Thank you for your consult request. Attending MD Review Statement Attending Statement Attending MD Statement: examined this patient, discuss w/resident/PA/AGRICULTURAL EQUIPMENT DESIGN ENGINEER, agreed w/resident/PA/AGRICULTURAL EQUIPMENT DESIGN ENGINEER, reviewed EMR data (avail) Attending Assessment/Plan: Agree with the above assessment and plan. cont iv unasyn. has high wbc and bandemia, if spikes fever will make abx broad spectrum. Add protonix given recent motrin use and surgery. pt snoring - should be screened for sleep apnea as an outpatient. DM- AIc f/u . put on SSI insulin for now.
[2017-09-03 17:00] VITALS: BP 108/64
--- NOTE | 2017-09-03 19:58 | PN- General Surgery ---
Subjective Subjective: POST OP CHECK Patient seen and evaluated in ICU. He is s/p exploratory laparotomy w/ evacuation of intra-abdominal abscess. Patient was admitted to ICU for close HD monitoring. Patient appears well, but is slightly confused - likely from anesthesia/pain meds. He remains stable and is making good UOP. Complains of mild to moderate shannon-incisional abdominal pain. Denies cp, sob, n/v, fever/ chills. All questions were answered. Objective Vital Signs and I&Os Vital Signs Date Time Temp Pulse Resp B/P B/P Pulse O2 O2 Flow FiO2 Mean Ox Delivery Rate 09/03 1700 96 Nasal 3.0L Cannula 09/03 1700 96.6 118 20 108/64 96 Nasal 3.0L Cannula 09/03 0951 96.7 97 18 129/83 98 09/03 0949 95.7 09/03 0825 98.2 104 18 112/80 95 Room Air 09/03 0822 98.2 104 18 112/80 95 Room Air 09/03 0819 98.2 104 18 112/80 95 09/03 0630 98.9 103 18 108/75 95 Room Air 09/03 0519 99.0 111 16 133/88 94 Room Air Intake & Output 09/03 1600 09/03 0800 09/03 0000 09/02 1600 09/02 0800 09/02 0000 Intake Total 1200 0 Output Total 200 Balance 1000 0 Intake, IV 1200 Intake, Oral 0 Output, Urine 200 Patient 250 lb Weight Physical Exam: General: middle age male, laying in bed, answering questions, NAD Cardiac: RRR, s1s2 Pulmonary: CTA in anterior quiñones, poor inspiratory effort abdomen: midline surgical dressings are clean/dry/intact, 2 JOSE drains present with sa discharge, moderate shannon-incisional tenderness, no gaurding extremities: warm and well perfused, a pumps in place Current Medications: Current Medications Sig/Lorie Start time Last Medication Dose Route Stop Time Status Admin Acetaminophen 1,000 MG Q6H 09/03 2000 AC N/A 1 UNIT IV 09/04 1414 Ampicillin Sodium/ 3,000 MG Q6 09/03 1800 AC 09/03 Sulbactam Sodium IV 1815 Sodium Chloride 100 ML Ampicillin Sodium/ 0 .STK-MED ONE 09/03 0916 DC Sulbactam Sodium .ROUTE Ampicillin Sodium/ 3,000 MG ONCE ONE 09/03 0830 DC 09/03 Sulbactam Sodium IV 09/03 0859 0939 Sodium Chloride 100 ML Heparin Sodium 5,000 UNIT Q8 09/03 2200 AC (Porcine) SC Hydromorphone HCl 0.5 MG Q3P PRN 09/03 1415 AC IV PUSH Hydromorphone HCl 1 MG Q3P PRN 09/03 1415 AC IV PUSH Influenza Virus 0.5 ML ONCE ONE 09/03 1930 DC Vaccine IM 09/03 193 Insulin Human Regular 0 Q6 09/03 1200 AC 09/03 SC 1816 Lactated Ringer's 1,000 ML Q10H 09/03 1430 AC 09/03 IV 1500 Morphine Sulfate 2 MG Q4P PRN 09/03 0945 DC IV Morphine Sulfate 4 MG Q3P PRN 09/03 0945 DC IV Morphine Sulfate 0 .STK-MED ONE 09/03 0915 DC .ROUTE Morphine Sulfate 4 MG ONCE ONE 09/03 0900 DC 09/03 IV 09/03 0901 0918 Ondansetron HCl 4 MG Q8P PRN 09/03 0930 AC IV Oxycodone/ 0 .STK-MED ONE 09/03 0607 DC Acetaminophen PO Oxycodone/ 1 TAB ONCE ONE 09/03 0600 DC 09/03 Acetaminophen PO 09/03 0601 0611 Pantoprazole Sodium 40 MG DAILY 09/03 1952 UNVr IV Potassium Chloride 20 MEQ .Q10H 09/03 0930 DC Dextrose/Sodium 1,000 ML IV Chloride Sodium Chloride 1,000 ML BOLUS ONE 09/03 0615 DC 09/03 IV 09/03 0714 0611 Results Last 48 Hours of Labs: Laboratory Tests 09/03 09/03 0930 0700 Chemistry Sodium (137 - 145 mmol/L) 128 L Potassium (3.5 - 5.1 mmol/L) 5.1 Chloride (98 - 107 mmol/L) 92 L Carbon Dioxide (22 - 30 mmol/L) 25 Anion Gap (5 - 16) 10 BUN (9 - 20 mg/dL) 25 H Creatinine (0.7 - 1.2 mg/dL) 0.6 L Estimated GFR (>60 ml/min) > 60 BUN/Creatinine Ratio (7 - 25 %) 41.7 H Glucose (65 - 99 mg/dL) 222 H Calcium (8.4 - 10.2 mg/dL) 9.0 Total Bilirubin (0.2 - 1.3 mg/dL) 1.9 H Direct Bilirubin (< 0.4 mg/dL) 0.6 H AST (17 - 59 U/L) 18 ALT (21 - 72 U/L) 51 Alkaline Phosphatase (< 127 U/L) 148 H Troponin I (<0.11 ng/ml) 0.01 Total Protein (6.3 - 8.2 g/dL) 5.8 L Albumin (3.5 - 5.0 g/dL) 2.6 L Amylase (30 - 110 U/L) < 30 L Lipase (23 - 300 U/L) 27 Urines Urinalysis LIGHT H Urine Color (YEL,AMB,STR) RENA Urine Clarity (CLEAR) CLEAR Urine pH (5.0 - 8.0) 6.5 Ur Specific [place] (1.001 - 1.035) 1.010 Urine Protein (NEG,<30 MG/DL) 30 H Urine Ketones (NEG) NEG Urine Nitrite (NEG) POS H Urine Bilirubin (NEG) POS@ICTO H Urine Urobilinogen (0.1 - 1.0 EU/dl) 0.2 Ur Leukocyte Esterase (NEG) NEG Ur Microscopic SEDIMENT EXAMINED Urine RBC (0 - 5 /HPF) 1-3 Urine WBC (0 - 2 /HPF) 3-5 H Urine Bacteria (NEG/NONE) RARE H Hyaline Casts (0/LPF) 50-75 H Granular Casts (NONE /LPF) 1-3 H Urine Mucus (FEW,NONE) MANY H Urine Hemoglobin (NEG) NEG Urine Glucose (N MG/DL) NEG 09/03 0600 Hematology CBC w Diff MAN DIFF ORDERED WBC (4.8 - 10.8 /CUMM) 26.7 H RBC (4.70 - 6.10 /CUMM) 4.85 Hgb (14.0 - 18.0 G/DL) 13.7 L Hct (42 - 52 %) 40.2 L MCV (80.0 - 94.0 FL) 82.8 MCH (27.0 - 31.0 PG) 28.3 MCHC (33.0 - 37.0 G/DL) 34.2 RDW (11.5 - 14.5 %) 13.8 Plt Count (130 - 400 /CUMM) 454 H MPV (7.4 - 10.4 FL) 8.1 Gran % (42.2 - 75.2 %) 85.0 H Lymphocytes % (20.5 - 51.1 %) 7.2 L Monocytes % (1.7 - 9.3 %) 7.5 Eosinophils % (0 - 5 %) 0.2 Basophils % (0.0 - 2.0 %) 0.1 Absolute Granulocytes (1.4 - 6.5 /CUMM) 22.7 H Segmented Neutrophils (42.2 - 75.2 %) 51 Band Neutrophils (0.0 - 5.0 %) 26 H Absolute Lymphocytes (1.2 - 3.4 /CUMM) 1.9 Lymphocytes (20.5 - 51.1 %) 11 L Monocytes (1.7 - 9.3 %) 11 H Absolute Monocytes (0.10 - 0.60 /CUMM) 2.0 H Absolute Eosinophils (0.0 - 0.7 /CUMM) 0.1 Absolute Basophils (0.0 - 0.2 /CUMM) 0 Metamyelocytes (0.0 - 1.0 %) 1 Platelet Estimate (ADEQUATE) INCREASED Polychromasia 1+ Poikilocytosis 1+ Assessment/Plan Assessment/Plan Assessment: This is a 47 y/o M w/ PMHx of HTN, DM, and recent pneumonia that was admitted for small bowel perforation. He is now POD#0 s/p exploratory laparotomy with evacuation of 3 abdominal abcess with washout. He remains HD and pain controlled. Making good UOP. Admitted to ICU overnight for continued HD monitoring. Plan: *Appreciate medical team recommendations GI: Keep NPO, IV protonix, NG tube to LCWS, avoid NSAIDS, zofran prn CV: monitor vitals per ICU protocol Pulm: f/u morning chest xray, high risk given recent hx of pneumonia, titrate 02 sats >92%, aggresive pulmonary toilet w/ deep breathing/coughing and frequent IS Neuro: Pain controlled with current meds - IV tylenol, PRN dilaudid ID: continue unasyn per Dr. Leon, f/u OR cultures, monitor WBC and for fevers Renal/: Will consult urology regarding renal mass tomorrow, strict monitoring of I&Os, continue lyman Endo: CBG q6hr, ISS Novolog q6hr, hypoglycemia protocol, f/u hga1c Fluids/E-lytes: Continue IVF w/ LR @100mL/hr, f/u chemistry/latic acid ordered for am Heme: f/u morning Cbc, Heparin sc, athrombic pumps Ortho: Will likely benifit from PT/OT once out of ICU Core Measures Venous Thromboembolism VTE Risk Factors Surgery No Mechanical VTE Prophylaxis d/t N/A MechProphylax Ordered No VTE Pharm Prophylaxis d/t NA PharmProphylax ordered
[2017-09-04] VITALS: BP 110/60
[2017-09-04 05:09] LABS: ABSOLUTE BASOPHIL COUNT 0.1 /CUMM (0.0-0.2); ABSOLUTE EOSINOPHIL COUNT 0 /CUMM (0.0-0.7); ABSOLUTE GRANULOCYTE CT 22.2 /CUMM (1.4-6.5); ABSOLUTE MONOCYTE COUNT 3.9 /CUMM (0.10-0.60); BASOPHIL % 0.2 % (0.0-2.0); EOSINOPHIL % 0.1 % (0-5); MEAN CORPUSCULAR HGB 29.6 PG (27.0-31.0); MEAN CORPUSCULAR HGB CONC 33.9 G/DL (33.0-37.0); MEAN PLATELET VOLUME 8.4 FL (7.4-10.4); PLATELET COUNT 445 /CUMM (130-400); RBC DISTRIBUTION WIDTH 13.4 % (11.5-14.5); RED BLOOD CELL CT 3.94 /CUMM (4.70-6.10); WHITE BLOOD CELL COUNT 29.2 /CUMM (4.8-10.8)
[2017-09-04 05:15] LABS: PT 17.4 SEC (9.4-12.5)
[2017-09-04 05:19] LABS: MEAN CORPUSCULAR VOLUME 87.3 FL (80.0-94.0)
[2017-09-04 05:20] LABS: HEMATOCRIT 34.4 % (42-52)
--- NOTE | 2017-09-04 06:03 | PN- General Surgery ---
Subjective Subjective: Patient seen and evaluated in ICU. Doing well. Reports mild/moderate abd pain with major movements. Pt states he did not sleep well overnight. remains hd stable. Denies cp, sob, n/v, fever/chills. All questions were answered. Objective Vital Signs and I&Os Vital Signs Date Time Temp Pulse Resp B/P B/P Pulse O2 O2 Flow FiO2 Mean Ox Delivery Rate 09/04 0400 96 Nasal 3.0L Cannula 09/04 0000 95 Nasal 3.0L Cannula 09/04 0000 96.0 114 22 110/60 95 Nasal 3.0L Cannula 09/03 1999 94 Nasal 3.0L Cannula 09/03 1700 96 Nasal 3.0L Cannula 09/03 1700 96.6 118 20 108/64 96 Nasal 3.0L Cannula 09/03 0951 96.7 97 18 129/83 98 09/03 0949 95.7 09/03 0825 98.2 104 18 112/80 95 Room Air 09/03 0822 98.2 104 18 112/80 95 Room Air 09/03 0819 98.2 104 18 112/80 95 09/03 0630 98.9 103 18 108/75 95 Room Air Intake & Output 09/04 0800 09/04 0000 09/03 1600 09/03 0800 09/03 0000 09/02 1600 Intake Total 1500 1200 0 Output Total 785 200 Balance 715 1000 0 Intake, IV 1500 1200 Intake, Oral 0 Output, 375 Drainage Output, 225 Gastric Drainage Output, Urine 185 200 Patient 258 lb 250 lb Weight Weight Bed scale Measurement Method Physical Exam: General: middle age male, laying in bed, answering questions, NAD Cardiac: RRR, s1s2 Pulmonary: CTA in anterior/post quiñones, poor inspiratory effort abdomen: midline surgical dressings are clean/dry/intact, 2 JOSE drains present with sa discharge, moderate shannon-incisional tenderness, no gaurding Extremities: warm and well perfused, a pumps in place : lyman draining dark yellow urine Current Medications: Current Medications Sig/Lorie Start time Last Medication Dose Route Stop Time Status Admin Acetaminophen 1,000 MG Q6H 09/03 1999 AC 09/04 N/A 1 UNIT IV 09/04 1414 0246 Ampicillin Sodium/ 3,000 MG Q6 09/03 1800 AC 09/03 Sulbactam Sodium IV 2343 Sodium Chloride 100 ML Ampicillin Sodium/ 0 .STK-MED ONE 09/03 0916 DC Sulbactam Sodium .ROUTE Ampicillin Sodium/ 3,000 MG ONCE ONE 09/03 0830 DC 09/03 Sulbactam Sodium IV 09/03 0859 0939 Sodium Chloride 100 ML Heparin Sodium 5,000 UNIT Q8 09/03 2200 AC 09/03 (Porcine) SC 2230 Hydromorphone HCl 0.5 MG Q3P PRN 09/03 1415 AC 09/03 IV PUSH 2036 Hydromorphone HCl 1 MG Q3P PRN 09/03 1415 AC IV PUSH Influenza Virus 0.5 ML ONCE ONE 09/03 1930 DC Vaccine IM 09/03 1931 Insulin Human Regular 0 Q6 09/03 1200 AC 09/03 SC 2349 Lactated Ringer's 1,000 ML ONCE ONE 09/03 2114 DC 09/03 IV 09/03 2314 2135 Lactated Ringer's 1,000 ML Q6H 09/03 2115 AC 09/03 IV 2135 Lactated Ringer's 1,000 ML Q10H 09/03 1430 DC 09/03 IV 1500 Lidocaine 20 ML .STK-MED ONE 09/03 1722 DC IA 09/03 1723 Morphine Sulfate 2 MG Q4P PRN 09/03 0945 DC IV Morphine Sulfate 4 MG Q3P PRN 09/03 0945 DC IV Morphine Sulfate 0 .STK-MED ONE 09/03 0915 DC .ROUTE Morphine Sulfate 4 MG ONCE ONE 09/03 0900 DC 09/03 IV 09/03 0901 0918 Ondansetron HCl 4 MG Q8P PRN 09/03 0930 AC IV Oxycodone/ 0 .STK-MED ONE 09/03 0607 DC Acetaminophen PO Pantoprazole Sodium 40 MG DAILY 09/03 195 AC 09/03 IV 203 Potassium Chloride 20 MEQ .Q10H 09/03 0930 DC Dextrose/Sodium 1,000 ML IV Chloride Sodium Chloride 1,000 ML BOLUS ONE 09/03 0615 DC 09/03 IV 09/03 0714 0611 Results Last 48 Hours of Labs: Laboratory Tests 09/04 09/04 0400 0400 Chemistry Sodium (137 - 145 mmol/L) 128 L Potassium (3.5 - 5.1 mmol/L) 5.5 H Chloride (98 - 107 mmol/L) 95 L Carbon Dioxide (22 - 30 mmol/L) 28 Anion Gap (5 - 16) 5 BUN (9 - 20 mg/dL) 33 H Creatinine (0.7 - 1.2 mg/dL) 1.1 Estimated GFR (>60 ml/min) > 60 BUN/Creatinine Ratio (7 - 25 %) 30.0 H Glucose (65 - 99 mg/dL) 163 H Hemoglobin A1c Pending Lactic Acid (0.7 - 2.1 mmol/L) 1.2 Calcium (8.4 - 10.2 mg/dL) 8.0 L Phosphorus (2.5 - 4.5 mg/dL) 4.9 H Magnesium (1.6 - 2.3 mg/dL) 1.6 Total Bilirubin (0.2 - 1.3 mg/dL) 2.1 H AST (17 - 59 U/L) 37 ALT (21 - 72 U/L) 46 Alkaline Phosphatase (< 127 U/L) 94 Total Protein (6.3 - 8.2 g/dL) 4.5 L Albumin (3.5 - 5.0 g/dL) 1.9 L Globulin (1.9 - 4.2 gm/dL) 2.6 Albumin/Globulin Ratio (1.1 - 2.2 %) 0.7 L Coagulation PT (9.4 - 12.5 SEC) 17.4 H INR (0.90 - 1.17) 1.67 H Hematology CBC w Diff MAN DIFF ORDERED WBC (4.8 - 10.8 /CUMM) 29.2 H RBC (4.70 - 6.10 /CUMM) 3.94 L Hgb (14.0 - 18.0 G/DL) 11.6 L Hct (42 - 52 %) 34.4 L MCV (80.0 - 94.0 FL) 87.3 MCH (27.0 - 31.0 PG) 29.6 MCHC (33.0 - 37.0 G/DL) 33.9 RDW (11.5 - 14.5 %) 13.4 Plt Count (130 - 400 /CUMM) 445 H MPV (7.4 - 10.4 FL) 8.4 Gran % (42.2 - 75.2 %) 76.0 H Lymphocytes % (20.5 - 51.1 %) 10.2 L Monocytes % (1.7 - 9.3 %) 13.5 H Eosinophils % (0 - 5 %) 0.1 Basophils % (0.0 - 2.0 %) 0.2 Absolute Granulocytes (1.4 - 6.5 /CUMM) 22.2 H Segmented Neutrophils (42.2 - 75.2 %) 67 Band Neutrophils (0.0 - 5.0 %) 12 H Absolute Lymphocytes (1.2 - 3.4 /CUMM) 3.0 Lymphocytes (20.5 - 51.1 %) 14 L Monocytes (1.7 - 9.3 %) 7 Absolute Monocytes (0.10 - 0.60 /CUMM) 3.9 H Absolute Eosinophils (0.0 - 0.7 /CUMM) 0 Absolute Basophils (0.0 - 0.2 /CUMM) 0.1 Platelet Estimate (ADEQUATE) INCREASED Normocytic RBCs VERIFIED Normochromic RBCs VERIFIED 09/03 09/03 0930 0700 Chemistry Sodium (137 - 145 mmol/L) 128 L Potassium (3.5 - 5.1 mmol/L) 5.1 Chloride (98 - 107 mmol/L) 92 L Carbon Dioxide (22 - 30 mmol/L) 25 Anion Gap (5 - 16) 10 BUN (9 - 20 mg/dL) 25 H Creatinine (0.7 - 1.2 mg/dL) 0.6 L Estimated GFR (>60 ml/min) > 60 BUN/Creatinine Ratio (7 - 25 %) 41.7 H Glucose (65 - 99 mg/dL) 222 H Calcium (8.4 - 10.2 mg/dL) 9.0 Total Bilirubin (0.2 - 1.3 mg/dL) 1.9 H Direct Bilirubin (< 0.4 mg/dL) 0.6 H AST (17 - 59 U/L) 18 ALT (21 - 72 U/L) 51 Alkaline Phosphatase (< 127 U/L) 148 H Troponin I (<0.11 ng/ml) 0.01 Total Protein (6.3 - 8.2 g/dL) 5.8 L Albumin (3.5 - 5.0 g/dL) 2.6 L Amylase (30 - 110 U/L) < 30 L Lipase (23 - 300 U/L) 27 Urines Urinalysis LIGHT H Urine Color (YEL,AMB,STR) RENA Urine Clarity (CLEAR) CLEAR Urine pH (5.0 - 8.0) 6.5 Ur Specific [place] (1.001 - 1.035) 1.010 Urine Protein (NEG,<30 MG/DL) 30 H Urine Ketones (NEG) NEG Urine Nitrite (NEG) POS H Urine Bilirubin (NEG) POS@ICTO H Urine Urobilinogen (0.1 - 1.0 EU/dl) 0.2 Ur Leukocyte Esterase (NEG) NEG Ur Microscopic SEDIMENT EXAMINED Urine RBC (0 - 5 /HPF) 1-3 Urine WBC (0 - 2 /HPF) 3-5 H Urine Bacteria (NEG/NONE) RARE H Hyaline Casts (0/LPF) 50-75 H Granular Casts (NONE /LPF) 1-3 H Urine Mucus (FEW,NONE) MANY H Urine Hemoglobin (NEG) NEG Urine Glucose (N MG/DL) NEG 09/03 0600 Hematology CBC w Diff MAN DIFF ORDERED WBC (4.8 - 10.8 /CUMM) 26.7 H RBC (4.70 - 6.10 /CUMM) 4.85 Hgb (14.0 - 18.0 G/DL) 13.7 L Hct (42 - 52 %) 40.2 L MCV (80.0 - 94.0 FL) 82.8 MCH (27.0 - 31.0 PG) 28.3 MCHC (33.0 - 37.0 G/DL) 34.2 RDW (11.5 - 14.5 %) 13.8 Plt Count (130 - 400 /CUMM) 454 H MPV (7.4 - 10.4 FL) 8.1 Gran % (42.2 - 75.2 %) 85.0 H Lymphocytes % (20.5 - 51.1 %) 7.2 L Monocytes % (1.7 - 9.3 %) 7.5 Eosinophils % (0 - 5 %) 0.2 Basophils % (0.0 - 2.0 %) 0.1 Absolute Granulocytes (1.4 - 6.5 /CUMM) 22.7 H Segmented Neutrophils (42.2 - 75.2 %) 51 Band Neutrophils (0.0 - 5.0 %) 26 H Absolute Lymphocytes (1.2 - 3.4 /CUMM) 1.9 Lymphocytes (20.5 - 51.1 %) 11 L Monocytes (1.7 - 9.3 %) 11 H Absolute Monocytes (0.10 - 0.60 /CUMM) 2.0 H Absolute Eosinophils (0.0 - 0.7 /CUMM) 0.1 Absolute Basophils (0.0 - 0.2 /CUMM) 0 Metamyelocytes (0.0 - 1.0 %) 1 Platelet Estimate (ADEQUATE) INCREASED Polychromasia 1+ Poikilocytosis 1+ Assessment/Plan Assessment/Plan Assessment: This is a 47 y/o M w/ PMHx of HTN, DM, and recent pneumonia that was admitted for small bowel perforation. He is now POD#1 s/p exploratory laparotomy with evacuation of 3 abdominal abcess with washout. He remains HD and pain controlled. Making good UOP. Admitted to ICU overnight for continued HD monitoring. Plan: *Appreciate medical team recommendations GI: Keep NPO will advance as tolerated, IV protonix, NG tube to LCWS, avoid NSAIDS, zofran prn CV: monitor vitals per ICU protocol Pulm: f/u morning chest xray, high risk given recent hx of pneumonia, titrate 02 sats >92%, aggresive pulmonary toilet w/ deep breathing/coughing and frequent IS Neuro: Pain controlled with current meds - IV tylenol, PRN dilaudid ID: continue unasyn per Dr. Leon, f/u OR cultures, monitor WBC and for fevers Renal/: Will consult urology regarding renal mass today, strict monitoring of I&Os, continue lyman Endo: CBG q6hr, ISS Novolog q6hr, hypoglycemia protocol, f/u hga1c Fluids/E-lytes: Continue IVF w/ LR @125mL/hr, f/u chemistry/latic acid ordered for am Heme: f/u morning Cbc, Heparin sc, athrombic pumps Ortho: Will likely benifit from PT/OT once out of ICU Core Measures Venous Thromboembolism VTE Risk Factors Surgery No Mechanical VTE Prophylaxis d/t N/A MechProphylax Ordered No VTE Pharm Prophylaxis d/t NA PharmProphylax ordered
[2017-09-04 08:00] VITALS: BP 104/72
--- NOTE | 2017-09-04 08:08 | RADIOLOGY REPORT ---
EXAMINATION:\H\ \N\XR CHEST CLINICAL INFORMATION: Shortness of breath, status post laparotomy, recent history of pneumonia COMPARISON: Multiple priors, most recent from 09/03/2017. TECHNIQUE: Frontal view of the chest was obtained. FINDINGS: Right IJ central line is again seen, terminating in the mid SVC. An enteric tube can be followed into the stomach. The cardiomediastinal silhouette is unchanged. Low lung volumes. Mild left basilar atelectasis. No additional focal airspace disease. No significant edema. No pleural effusion or pneumothorax. IMPRESSION: Low lung volumes with left basilar atelectasis.
--- NOTE | 2017-09-04 08:25 | PN- Medicine Consult ---
Robert Cruz 09/04/17 0824: Assessment/PlanMedical Consult Assessment/Plan Assessment: 47-year-old gentleman with past medical history of poorly controlled diabetes mellitus and hypertension. Recently presented on 08/20/17 upper respiratory symptoms, chest x-ray suggestive of atypical/viral pneumonia, he declined admission and left AMA and was discharged on prednisone, Augmentin and azithromycin. Visited [facility] again on 08/31/17 complaining of no improvement in respiratory symptoms after being compliant to antibiotic and steroids treatment. Chest x-ray showed resolution of pnemonia but his ongoing symptoms were concerning for bronchitis and at this time was patient was discharged on a steroid taper and doxycycline Current admission for 40s duration of epigastric pain found to have free intraperitoneal air as well as very large peritoneal abscess. Currently status post op day 1 exploratory laparotomy with drainage of 3 intraperitoneal abscesses He has been consuming average 20-24 pills of motrin daily, as per surgical HnP and patient mentioned this morning that he also took 7-8 pills of tylenol daily as well. Plan: problem list: 1. Sepsis secondary to Intraperitoneal abscess 2. Perforated viscus 3. Thrombocytosis 4. Hyponatremia 5. Hyperbilirubinemia 6. DM 7. Questionable history of HTN 8. Solid mass midpole right kidney 9. Left lower lobe developing infiltrate #Sepsis secondary to intraperitoneal abscesses -aFebrile overnight, labs significant for increasing leukocytosis with left shift and improving bandemia -Abcess cultures positive for GPC and GNR, continue Unasyn for now pending sensitivities of culture, recomend ID consult -Consider getting BC x2 -If spikes fever consider broadening antibiotic coverage to vancomycin and ceftazidime #Perforated viscus -Management per surgery -continue IV protonix #Thrombocytosis likely in setting of sepsis -Continue to monitor #Hyponatremia Patient presented with sodium of 128 and in the past his sodium has been around 122 appears to be chronic -recomend switching his IVFs to from ringer lactate to Normal saline -Continue to monitor #Hyperbilirubinemia likely secondary insetting of sepsis -Continue to monitor #elevated INR -secondary to NSAIDs use, LFTs normal, recommend salicylate and tyelenol level -dc IV tylenol -repeat INR tommorrow #Diabetes mellitus -Accu-Cheks before meals and at bedtime, FBS 163,196 -continue low dose NPO insulin sliding scale -HbA1c pending -carbohydrate consistent diet when able #Questionable history of HTN -stable , per pt's EMR not on antihypertensives #Left lower lobe developing infiltrate -TRC -Incentive spirometry -Consider repeat chest x-ray in am to check for worsening -Continue Unasyn for now, if worsening consider adding atypical coverage #Depression on venalfaxine, recommend restarting as soon as feasible to avoid withdrawal #Solid mass midpole right kidney The finding is concerning for RCC patient will benefit from MRI evaluation which can be done as outpatient -urology following -Consider repeat UA in am #DVT prophylaxis all times #CODE STATUS full code Thank you for your consult, will follow along with you. Problem List: 1. Pneumonia affecting 2. Bowel perforation Subjective Subjective: Seen and examined patient, family at bedside. States his pain is controlled. Eyes fever, chills, chest pain, shortness of breath Review of Systems Constitutional: Denies: chills, diaphoresis, fever, malaise, weakness, unexplained weight loss. Cardiovascular: Denies: chest pain, edema, orthopena, palpitations, peripheral edema, syncope. Respiratory: Denies: cough, hemoptysis, orthopnea, short of breath, sputum production, stridor, wheezing. Objective Last 24 Hrs of Vital Signs/I&O Vital Signs Date Time Temp Pulse Resp B/P B/P Pulse O2 O2 Flow FiO2 Mean Ox Delivery Rate 09/04 0800 99 Nasal 3.0L Cannula 09/04 0800 97.1 112 20 104/72 99 Nasal 3.0L Cannula 09/04 0400 96 Nasal 3.0L Cannula 09/04 0000 95 Nasal 3.0L Cannula 09/04 0000 96.0 114 22 110/60 95 Nasal 3.0L Cannula 09/03 1999 94 Nasal 3.0L Cannula 09/03 1700 96 Nasal 3.0L Cannula 09/03 1700 96.6 118 20 108/64 96 Nasal 3.0L Cannula Intake & Output 09/04 1600 09/04 0800 09/04 0000 Intake Total 1500 1500 Output Total 645 785 Balance 855 715 Intake, IV 1500 1500 Output, 250 375 Drainage Output, 50 225 Gastric Drainage Output, Urine 345 185 Patient 258 lb Weight Weight Bed scale Measurement Method Physical Exam General Appearance: alert, awake, comfortable Cardiovascular: regular rate/rhythm Respiratory: normal breath sounds Abdomen: distention, surgical dressing midline abdomen, 2JP drains present with serosanguinous discharge. Current Medications: Current Medications Sig/Lorie Start time Last Medication Dose Route Stop Time Status Admin Acetaminophen 1,000 MG Q6H 09/03 1999 DC 09/04 N/A 1 UNIT IV 09/04 1414 0246 Ampicillin Sodium/ 3,000 MG Q6 09/03 1800 AC 09/04 Sulbactam Sodium IV 1144 Sodium Chloride 100 ML Dextrose/Sodium 1,000 ML Q13H 09/04 1130 AC 09/04 Chloride IV 1144 Heparin Sodium 5,000 UNIT Q8 09/03 2200 AC 09/04 (Porcine) SC 0700 Hydromorphone HCl 0.5 MG Q3P PRN 09/03 1415 AC 09/03 IV PUSH 2036 Hydromorphone HCl 1 MG Q3P PRN 09/03 1415 09/04 IV PUSH 0614 Influenza Virus 0.5 ML ONCE ONE 09/03 1930 DC Vaccine IM 09/03 1931 Insulin Human Regular 0 Q6 09/03 1200 AC 09/04 SC 1232 Lactated Ringer's 1,000 ML ONCE ONE 09/03 2115 DC 09/03 IV 09/03 2314 2135 Lactated Ringer's 1,000 ML Q6H 09/03 2115 DC 09/04 IV 0615 Lactated Ringer's 1,000 ML Q10H 09/03 1430 DC 09/03 IV 1500 Lidocaine 20 ML .STK-MED ONE 09/03 1722 DC IA 09/03 1723 Morphine Sulfate 2 MG Q4P PRN 09/03 0945 DC IV Morphine Sulfate 4 MG Q3P PRN 09/03 0945 DC IV Ondansetron HCl 4 MG Q8P PRN 09/03 0930 AC IV Pantoprazole Sodium 40 MG DAILY 09/03 1953 AC 09/04 IV 1006 Potassium Chloride 20 MEQ .Q10H 09/03 0930 DC Dextrose/Sodium 1,000 ML IV Chloride Results Last 24 Hrs Lab/[place] Results: Laboratory Tests 09/04/17 0400: Hemoglobin A1c Pending 09/04/17 0400: Anion Gap 5, Estimated GFR > 60, BUN/Creatinine Ratio 30.0 H, Glucose 163 H, Lactic Acid 1.2, Calcium 8.0 L, Phosphorus 4.9 H, Magnesium 1.6, Total Bilirubin 2.1 H, AST 37, ALT 46, Alkaline Phosphatase 94, Total Protein 4.5 L, Albumin 1.9 L, Globulin 2.6, Albumin/Globulin Ratio 0.7 L, PT 17.4 H, INR 1.67 H, CBC w Diff MAN DIFF ORDERED, RBC 3.94 L, MCV 87.3, MCH 29.6, MCHC 33.9 , RDW 13.4, MPV 8.4, Gran % 76.0 H, Lymphocytes % 10.2 L, Monocytes % 13.5 H, Eosinophils % 0.1, Basophils % 0.2, Absolute Granulocytes 22.2 H, Segmented Neutrophils 67, Band Neutrophils 12 H, Absolute Lymphocytes 3.0, Lymphocytes 14 L, Monocytes 7, Absolute Monocytes 3.9 H, Absolute Eosinophils 0, Absolute Basophils 0.1, Platelet Estimate INCREASED, Normocytic RBCs VERIFIED, Normochromic RBCs VERIFIED, Acetaminophen 16.0 Microbiology 09/03 1710 GI: Surveillance Culture - RECD 09/03 165 UPPER RESP: Surveillance Culture - RECD Recent Imaging Studies: SERVICE DATE: 09/04/17-599 EXAM TYPE: RAD - XRY-CHEST XRAY, SINGLE VIEW FINDINGS: Right IJ central line is again seen, terminating in the mid SVC. An enteric tube can be followed into the stomach. The cardiomediastinal silhouette is unchanged. Low lung volumes. Mild left basilar atelectasis. No additional focal airspace disease. No significant edema. No pleural effusion or pneumothorax. IMPRESSION: Low lung volumes with left basilar atelectasis. Ny Pina 09/04/17 1425: Attending MD Review Statement Attending Sign Off Attending Cosign Statement: I have: examined this patient, reviewed [facility] EMR data, personally reviewd images, discussd w/resident/PA/[employer], discussed mgmt plan w/pt, agreed w/resident/ PA/[employer]. Reason for Cont Hospitalizatn: Medical management Other Findings: Spoke with pt and he says he has been taking tylenol 8-10 tabs a day over the last few days in addition to motrin. Added tylenol level to yest labs as well as to todays lab and they came out within normal range. NATALIE- his cr and BUN are both worse. will switch his iv fluids to NS . recheck in am the labs . Pt is npo for now . Hyponatremia- will change iv fluids to NS and will recheck in am. his sodium and chloride are both low. Leukocytosis with bandemia - in pt with sepsis secondary to intraabdomnial abscess secondary to perforation. Cultures grwoing polymicrobial infection. will get ID to evaluate the patient and will f/u on final culture results. his bandemia is better. Hyperkalemia- monitor closely. recheck in am. will hydrate . Increased INR- will recheck in am to see if it is trending down. Sleep apnea eval should be done as an ouptatient.
--- NOTE | 2017-09-04 10:20 | Cons- Urology ---
General Information and HPI Consulting Request Date of Consult: 09/04/17 Requested By: Edward TAPIA,Efrain Riddle Reason for Consult: Incidental finding of right renal mass Source of Information: patient, old records Exam Limitations: no limitations History of Present Illness: 47 year old with small bowel perforation:post op. Incidental finding of 2cm right renal mass:Discussed findings and plan for surveillance at this time until healed from SBPerf. Allergies/Medications Allergies: Coded Allergies: No Known Allergies (08/20/17) Home Med List: Albuterol Sulfate (Proair Hfa) 90 MCG HFA.AER.AD 2 PUF INH Q4-6 PRN PRN SOB Albuterol Sulfate 1.25 MG/3 ML VIAL.NEB 1 Vial INH/MESHA Q4-6 PRN COUGH/SOB Amoxicillin/Potassium Clav (Augmentin 875-125 Tablet) 875 MG-125 MG TABLET 1 TAB PO BID PNEUMONIA Azithromycin 250 MG TABLET 1 DP PO AD PNEUMONIA 2 the first day followed by 1 for days 2-5 Codeine Phosphate/Guaifenesi (Codeine-Guaifen 10-100 MG/5 Ml) 10 MG-100 MG/5 ML LIQUID 15 ML PO Q12P PRN COUGH Codeine Phosphate/Guaifenesi (Cheratussin AC Syrup) 10 MG-100 MG/5 ML LIQUID 10 ML PO Q6H PRN COUGH Doxycycline Monohydrate (Avidoxy) 100 MG TABLET 1 TAB PO BID BRONCHITIS Prednisone 20 MG TABLET 1 TAB PO BID COUGH Prednisone (Deltasone) 20 MG TABLET 2 TAB PO ONCE DAILY BRONCHITIS Current Medications: Current Medications Sig/Lorie Start time Last Medication Dose Route Stop Time Status Admin Acetaminophen 1,000 MG Q6H 09/03 1999 AC 09/04 N/A 1 UNIT IV 09/04 1414 0246 Ampicillin Sodium/ 3,000 MG Q6 09/03 1800 AC 09/04 Sulbactam Sodium IV 0614 Sodium Chloride 100 ML Heparin Sodium 5,000 UNIT Q8 09/03 2200 AC 09/04 (Porcine) SC 0700 Hydromorphone HCl 0.5 MG Q3P PRN 09/03 1415 AC 09/03 IV PUSH 2036 Hydromorphone HCl 1 MG Q3P PRN 09/03 1415 AC 09/04 IV PUSH 0614 Influenza Virus 0.5 ML ONCE ONE 09/03 1929 DC Vaccine IM 02/24 1931 Insulin Human Regular 0 Q6 09/03 1200 AC 09/04 SC 0615 Lactated Ringer's 1,000 ML ONCE ONE 09/03 2114 DC 09/03 IV 09/03 2314 2135 Lactated Ringer's 1,000 ML Q6H 09/03 2115 AC 09/04 IV 0615 Lactated Ringer's 1,000 ML Q10H 09/03 1430 DC 09/03 IV 1500 Lidocaine 20 ML .STK-MED ONE 09/03 1722 DC IA 09/03 1723 Morphine Sulfate 2 MG Q4P PRN 09/03 0945 DC IV Morphine Sulfate 4 MG Q3P PRN 09/03 0945 DC IV Ondansetron HCl 4 MG Q8P PRN 09/03 0930 AC IV Pantoprazole Sodium 40 MG DAILY 09/03 1952 AC 09/04 IV 1006 Potassium Chloride 20 MEQ .Q10H 09/03 0930 DC Dextrose/Sodium 1,000 ML IV Chloride Past History Medical History Neurological: NONE EENT: NONE Cardiovascular: hypertension, PVD Respiratory: NONE Gastrointestinal: NONE Hepatic: NONE Renal: NONE Musculoskeletal: NONE Psychiatric: NONE Endocrine: diabetes Blood Disorders: NONE Cancer(s): NONE Surgical History Pertinent Surgical History: hernia repair-inguinal (bilateral) Psychosocial History Where Do You Live? Home Primary Language: Pashto Smoking Status: Former Smoker ETOH Use: occasional use Illicit Drug Use: denies illicit drug use Review of Systems Review of Systems Constitutional: Reports: diaphoresis, malaise. EENTM: Denies: no symptoms. Cardiovascular: Denies: no symptoms. Respiratory: Denies: no symptoms. GI: Reports: abdominal pain, bloating. Genitourinary: Denies: no symptoms. Musculoskeletal: Denies: no symptoms. Exam & Diagnostic Data Vital Signs and I&O Vital Signs Date Time Temp Pulse Resp B/P B/P Pulse O2 O2 Flow FiO2 Mean Ox Delivery Rate 09/04 0400 96 Nasal 3.0L Cannula 09/04 0000 95 Nasal 3.0L Cannula 09/04 0000 96.0 114 22 110/60 95 Nasal 3.0L Cannula 09/03 1999 94 Nasal 3.0L Cannula 09/03 170 96 Nasal 3.0L Cannula 09/03 170 96.6 118 20 108/64 96 Nasal 3.0L Cannula Intake & Output 09/04 1600 09/04 0809/04 0000 09/03 1600 09/03 0800 09/03 0000 Intake Total 1500 1500 1200 0 Output Total 645 785 200 Balance 515 988 7253 0 Intake, IV 1500 1500 1200 Intake, Oral 0 Output, 250 375 Drainage Output, 50 225 Gastric Drainage Output, Urine 345 185 200 Patient 258 lb 250 lb Weight Weight Bed scale Measurement Method Physical Exam General Appearance: well developed/nourished, no apparent distress Head: atraumatic Eyes: Bilateral: normal appearance. Ears, Nose, Throat: normal pharynx Respiratory: normal breath sounds Cardiovascular: regular rate/rhythm Gastrointestinal: tenderness, incision/drains post op Back: no vertebral tenderness Extremities: normal inspection Neurologic/Psych: no motor/sensory deficits, awake, alert, oriented x 3 Reproductive: Normal male genitalia Last 24 Hours of Labs: Laboratory Tests 09/04 09/04 0400 0400 Chemistry Sodium (137 - 145 mmol/L) 128 L Potassium (3.5 - 5.1 mmol/L) 5.5 H Chloride (98 - 107 mmol/L) 95 L Carbon Dioxide (22 - 30 mmol/L) 28 Anion Gap (5 - 16) 5 BUN (9 - 20 mg/dL) 33 H Creatinine (0.7 - 1.2 mg/dL) 1.1 Estimated GFR (>60 ml/min) > 60 BUN/Creatinine Ratio (7 - 25 %) 30.0 H Glucose (65 - 99 mg/dL) 163 H Hemoglobin A1c Pending Lactic Acid (0.7 - 2.1 mmol/L) 1.2 Calcium (8.4 - 10.2 mg/dL) 8.0 L Phosphorus (2.5 - 4.5 mg/dL) 4.9 H Magnesium (1.6 - 2.3 mg/dL) 1.6 Total Bilirubin (0.2 - 1.3 mg/dL) 2.1 H AST (17 - 59 U/L) 37 ALT (21 - 72 U/L) 46 Alkaline Phosphatase (< 127 U/L) 94 Total Protein (6.3 - 8.2 g/dL) 4.5 L Albumin (3.5 - 5.0 g/dL) 1.9 L Globulin (1.9 - 4.2 gm/dL) 2.6 Albumin/Globulin Ratio (1.1 - 2.2 %) 0.7 L Coagulation PT (9.4 - 12.5 SEC) 17.4 H INR (0.90 - 1.17) 1.67 H Hematology CBC w Diff MAN DIFF ORDERED WBC (4.8 - 10.8 /CUMM) 29.2 H RBC (4.70 - 6.10 /CUMM) 3.94 L Hgb (14.0 - 18.0 G/DL) 11.6 L Hct (42 - 52 %) 34.4 L MCV (80.0 - 94.0 FL) 87.3 MCH (27.0 - 31.0 PG) 29.6 MCHC (33.0 - 37.0 G/DL) 33.9 RDW (11.5 - 14.5 %) 13.4 Plt Count (130 - 400 /CUMM) 445 H MPV (7.4 - 10.4 FL) 8.4 Gran % (42.2 - 75.2 %) 76.0 H Lymphocytes % (20.5 - 51.1 %) 10.2 L Monocytes % (1.7 - 9.3 %) 13.5 H Eosinophils % (0 - 5 %) 0.1 Basophils % (0.0 - 2.0 %) 0.2 Absolute Granulocytes (1.4 - 6.5 /CUMM) 22.2 H Segmented Neutrophils (42.2 - 75.2 %) 67 Band Neutrophils (0.0 - 5.0 %) 12 H Absolute Lymphocytes (1.2 - 3.4 /CUMM) 3.0 Lymphocytes (20.5 - 51.1 %) 14 L Monocytes (1.7 - 9.3 %) 7 Absolute Monocytes (0.10 - 0.60 /CUMM) 3.9 H Absolute Eosinophils (0.0 - 0.7 /CUMM) 0 Absolute Basophils (0.0 - 0.2 /CUMM) 0.1 Platelet Estimate (ADEQUATE) INCREASED Normocytic RBCs VERIFIED Normochromic RBCs VERIFIED Imaging Results: PATIENT: JERAD SHEA PRESENT AGE: 47 PATIENT ACCOUNT NO: [id number] : 68 LOCATION: [facility] ORDERING PHYSICIAN: Narciso Schumacher MD SERVICE DATE: 09/03/17 EXAM TYPE: CAT - CT ABD & PELVIS W IV CONTRAST There is mild mural thickening involving this redundant sigmoid colon lies adjacent to it. There are a few scattered diverticuli and there is some focal air trapping suggests into the medial border of the redundant sigmoid colon raising a possibility of perforation in the sigmoid colon more likely than small bowel. Addendum Signed by: Lorne Mazariegos MD 09/03/17 9156 EXAMINATION: CT ABDOMEN AND PELVIS WITH CONTRAST CLINICAL INFORMATION: Lower abdominal pain with ecchymosis. COMPARISON: None TECHNIQUE: Multidetector volumetric imaging was performed of the abdomen and pelvis following IV administration of 90 mL of Optiray 320 intravenous contrast. Sagittal and coronal reformatted images were obtained on the technologist's workstation. DLP: 1139 mGy-cm FINDINGS: LUNG BASES: Is patchy atelectasis in the lingula and patchy consolidation/atelectasis both lower lobes. There is underlying emphysema. No pleural effusion seen. Heart size is normal. LIVER, GALLBLADDER, AND BILIARY TREE: The liver is normal in size, shape, and attenuation. No focal hepatic lesion or biliary ductal dilatation is present. The gallbladder is unremarkable with no evidence of radiopaque gallstones, gallbladder wall thickening, or obvious pericholecystic inflammatory changes. PANCREAS: Unremarkable. SPLEEN: Unremarkable. ADRENAL GLANDS: Unremarkable. KIDNEYS AND URETERS: The kidneys are normal in size, shape, and attenuation. No hydronephrosis, hydroureter, or calculi seen. No perinephric stranding. There is a solid mass midpole right kidney measuring 2.5 x 2.5 cm suspicious for renal tumor unless proven otherwise. A 1.1 cm exophytic lesion upper pole right kidney is small but likely is cyst. BLADDER: Unremarkable. GASTROINTESTINAL TRACT: There is solitary significantly large air-fluid level collection in the small bowel mesentery secondary to perforation. The collection appears well capped and measures 16.8 x 16.5 cm. This area is surrounded by loops of small bowel containing fluid. Also visualized is fat stranding likely inflammatory process. Exact point of perforation is not seen but is most likely within proximal or mid small bowel. There is extensive scattered free air in the abdomen. There is scattered stool throughout the colon without any distention. There is small amount of free fluid in the pelvis. ABDOMINAL WALL: No significant hernia is appreciated. LYMPH NODES: Normal. VASCULAR: Abdominal aorta and the branches are widely patent. PELVIC VISCERA: Unremarkable. OSSEOUS STRUCTURES: There are degenerative disc changes at L5-S1 disc level with moderate ventral and posterior spondylosis. No lytic or sclerotic process seen. IMPRESSION: Small bowel perforation likely resulting in large free air and a large walled off air-fluid collection in the midabdomen in the small bowel mesentery. No enhancing mass seen to suggest any underlying tumor. No suggestion for ischemia or embolism. There is a solid mass midpole right kidney suspicious for primary renal tumor. Recommend further correlation with MRI abdomen. Likely small cyst upper pole right kidney. Results were discussed by phone with Dr. Coughlin at 8:25 AM. Assessment/Plan Assessment/Plan incidental finding of right renal mass; No operative intervention at this time- must recover from small bowel. small renal mass stage 1-surveillance is best for now. Copies To: Shaheed Domingo MD Consult Acknowledgment - Thank you for your consult request. Attending MD Review Statement Attending Statement Attending MD Statement: examined this patient, discuss w/resident/PA/[employer] Attending Assessment/Plan: pt with small stage 2.1 right renal mass incidentally found. would proceed with surveillance vs immediate surgical intervention at this time.
--- NOTE | 2017-09-04 14:51 | PN- General Surgery ---
Surgical Brief Attending Note Brief Attending Note: Patient recovering remarkably well. Remains hemodynamically stable with adequate uop. cultures pending. continue abx pending c/s. antipate prolonged ileus. npo/ ngt. consider d/c lyman and transfer to floor tomorrow pending overnight course. 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 Pt admits prior heavy alcohol intake. Tylenol levels normal.
[2017-09-04 16:00] VITALS: BP 108/70; BP 126/70
[2017-09-05 00:01] VITALS: BP 129/82
--- NOTE | 2017-09-05 07:43 | PN- Medicine Consult ---
Ignacio TAPIA,[facility] 09/05/17 0742: Assessment/PlanMedical Consult Assessment/Plan Assessment: The patient is 47-year-old male with past medical history of diabetes mellitus, hypertension and prolonged respiratory illness (flu, ammonia, bronchitis). He presented to [facility] ED on 09/03 with complaints of epigastric abdominal pain.He was admitted to surgical service with the constant abdominal pain and found to have intraperitoneal abscesses as well as free air under the diaphragm. Patient was taken for emergent exploration treated approximately and found to have intraperitoneal abscesses status post drainage. Respiratory #Suspected obstructive sleep apnea/Obesity hypoventilation syndrome -Outpatient evaluation for sleep study #Left lower lobe developing infiltrate likely residual Repeat chest x-ray not significant for worsening -TRC -Incentive spirometry Infection #Sepsis secondary to intraperitoneal abscesses and Perforated viscus -Aebrile overnight, labs significant for increasing leukocytosis with left shift and improving bandemia concerning for worsening of sepsis -The lab culture report has not been finalized. But specimen shows evidence of gram-negative rods, anaerobes, gram-positive cocci enterococcus and Staphylococcus. -His abx have been changed to Meropenem -Consider ID consult Cardiovascular #Questionable history of HTN -stable , per pt's EMR not on antihypertensive Hematology #Leukocytosis with bandemia secondary to sepsis -See above #Thrombocytosis likely in setting of sepsis-resvolved -Continue to monitor Metabolic #Hyponatremia-improving Patient presented with sodium of 128 and in the past his sodium has been around 122 appears to be chronic. today 134 improved with NS -Continue IVF with normal saline -Continue to monitor #Hyperbilirubinemia likely secondary insetting of sepsis-resolved -Continue to monitor #Elevated INR -secondary to NSAIDs use, LFTs normal -Salicylate and tyelenol level WNL -repeat INR tommorrow #Diabetes mellitus -FBS 127,144,121 and in acceptable range -Accu-Cheks before meals and at bedtime, -Continue low dose NPO insulin sliding scale -HbA1c 9.9 Endocrinology referral on d/c -carbohydrate consistent diet when able #Hyperkalemia-resolved -Continue to monitor Alimentary -continue IV protonix Neurology #AMS Sepsis versus alcohol/venalfaxine withdrawal versus hypercapnia -Most likely secondary to sepsis. -add on alcohol level to admission labs -Continue broad-spectrum antibiotics #Depression On venalfaxine, recommend restarting as soon as feasible to avoid withdrawal Nephrology #Solid mass midpole right kidney The finding is concerning for RCC patient will benefit from MRI evaluation which can be done as outpatient -Urology on board #NATALIE-Resolved -Continue to monitor DVT prophylaxis -Heparin Sq Plan: see above Subjective Subjective: Patient seen and examined. Early in the moring he was Resting comfortably. pain in control. Later during the day patient was hallucinating and was confused. According to patient's girlfriend, random extremity movements during sleep is very normal for him. Review of Systems Constitutional: Reports: see HPI. Objective Last 24 Hrs of Vital Signs/I&O Vital Signs Date Time Temp Pulse Resp B/P B/P Pulse O2 O2 Flow FiO2 Mean Ox Delivery Rate 09/05 0400 95 Nasal 2.0L Cannula 09/05 0001 95 Nasal 2.0L Cannula 09/05 0001 96.5 119 22 129/82 95 Nasal 2.0L Cannula 09/04 2000 96 Nasal 2.0L Cannula 09/04 1600 100 Nasal 2.0L Cannula 09/04 1600 97.1 112 21 108/70 100 Nasal 2.0L Cannula 09/04 1200 98 Nasal 3.0L Cannula Intake & Output 09/05 1600 09/05 0800 09/05 0000 Intake Total 600 600 Output Total 490 760 Balance 110 -160 Intake, IV 600 600 Output, 60 60 Drainage Output, 100 100 Gastric Drainage Output, Urine 330 600 Physical Exam General Appearance: well developed/nourished, no apparent distress, alert, awake , comfortable Head: atraumatic Neck: normal inspection Cardiovascular: regular rate/rhythm Respiratory: normal breath sounds, chest non-tender Other Physical Findings: Abdomen: distention, surgical dressing midline abdomen, 2JP drains present with serosanguinous discharge. Current Medications: Current Medications Sig/Lorie Start time Last Medication Dose Route Stop Time Status Admin Acetaminophen 1,000 MG Q6H 09/03 2000 DC 09/04 N/A 1 UNIT IV 09/04 1414 0246 Ampicillin Sodium/ 3,000 MG Q6 09/03 1800 AC 09/05 Sulbactam Sodium IV 0647 Sodium Chloride 100 ML Dextrose/Sodium 1,000 ML Q13H 09/04 1130 AC 09/05 Chloride IV 0648 Heparin Sodium 5,000 UNIT Q8 09/03 2200 AC 09/05 (Porcine) SC 0639 Hydromorphone HCl 0.5 MG Q3P PRN 09/03 1415 AC 09/05 IV PUSH 0839 Hydromorphone HCl 1 MG Q3P PRN 09/03 1415 AC 09/05 IV PUSH 0447 Insulin Human Regular 1 UNITS .STK-MED ONE 09/04 2317 DC IV 09/04 2318 Insulin Human Regular 4 UNITS .STK-MED ONE 09/04 1810 DC IV 09/04 1811 Insulin Human Regular 4 UNITS .STK-MED ONE 09/04 1231 DC IV 09/04 1232 Insulin Human Regular 0 Q6 09/03 1200 AC 09/05 SC 0640 Lactated Ringer's 1,000 ML Q6H 09/03 2115 DC 09/04 IV 0615 Lorazepam 1 MG Q4P PRN 09/04 1545 AC 09/05 IV 0828 Ondansetron HCl 4 MG Q8P PRN 09/03 0930 AC IV Pantoprazole Sodium 40 MG DAILY 09/03 1953 AC 09/04 IV 1006 Results Last 24 Hrs Lab/Rosalino Results: Laboratory Tests 09/05/17 0620: Anion Gap 7, Estimated GFR > 60, Glucose 117 H, Calcium 8.3 L, Phosphorus 3.3, Magnesium 1.9, Total Bilirubin 1.1, AST 38, ALT 45, Albumin 2.0 L, PT 15.1 H, INR 1.44 H, CBC w Diff MAN DIFF ORDERED, RBC 3.24 L, MCV 90.0, MCH 32.7 H, MCHC 36.3, RDW 13.7, MPV 8.1, Gran % 81.0 H, Lymphocytes % 9.8 L, Monocytes % 8.5, Eosinophils % 0.5, Basophils % 0.2, Absolute Granulocytes 26.5 H, Segmented Neutrophils 72, Band Neutrophils 10 H, Absolute Lymphocytes 3.2, Lymphocytes 9 L, Monocytes 7, Absolute Monocytes 2.8 H, Absolute Eosinophils 0.2, Absolute Basophils 0.1, Metamyelocytes 1, Myelocytes 1 H, Platelet Estimate INCREASED, Polychromasia 1+, Hypochromic-Microcytic 1+, Anisocytosis 1+ Malik TAPIA,Candy 09/05/17 1151: Attending MD Review Statement Attending Sign Off Attending Cosign Statement: I have: examined this patient, reviewed aval EMR data, personally reviewd images, discussd w/resident/PA/SMALL BUSINESS DIRECTOR, discussed mgmt plan w/olinda, discussed mgmt plan w/CM, agreed w/resident/PA/SMALL BUSINESS DIRECTOR, amended to note. Other Findings: Patient seen and examined, he is confused. Girl friend confirms that patient normally has restless sleep. He moves his arms and legs all the time during his sleep any event he sometimes talks. Girlfriend confirms that these random movements of his extremities is not unusual. Vital Signs Date Time Temp Pulse Resp B/P B/P Pulse O2 O2 Flow FiO2 Mean Ox Delivery Rate 09/05 0800 95 Nasal 2.0L Cannula 09/05 0800 96.7 120 20 145/0 95 Nasal 2.0L Cannula 09/05 0400 95 Nasal 2.0L Cannula 09/05 0001 95 Nasal 2.0L Cannula 09/05 0001 96.5 119 22 129/82 95 Nasal 2.0L Cannula 09/04 2000 96 Nasal 2.0L Cannula 09/04 1600 100 Nasal 2.0L Cannula 09/04 1600 97.1 112 21 108/70 100 Nasal 2.0L Cannula 09/04 1200 98 Nasal 3.0L Cannula on exam; awake, confused. cv; s1,s2, rrr resp; clear abd; soft, + dressing with drains. bs hypoactive. ext: no edema. Laboratory Tests 09/05 0620 Chemistry Sodium (137 - 145 mmol/L) 135 L Potassium (3.5 - 5.1 mmol/L) 4.8 Chloride (98 - 107 mmol/L) 97 L Carbon Dioxide (22 - 30 mmol/L) 31 H Anion Gap (5 - 16) 7 BUN (9 - 20 mg/dL) 25 H Creatinine (0.7 - 1.2 mg/dL) 0.7 Estimated GFR (>60 ml/min) > 60 Glucose (65 - 99 mg/dL) 117 H Calcium (8.4 - 10.2 mg/dL) 8.3 L Phosphorus (2.5 - 4.5 mg/dL) 3.3 Magnesium (1.6 - 2.3 mg/dL) 1.9 Total Bilirubin (0.2 - 1.3 mg/dL) 1.1 AST (17 - 59 U/L) 38 ALT (21 - 72 U/L) 45 Albumin (3.5 - 5.0 g/dL) 2.0 L Coagulation PT (9.4 - 12.5 SEC) 15.1 H INR (0.90 - 1.17) 1.44 H Hematology CBC w Diff MAN DIFF ORDERED WBC (4.8 - 10.8 /CUMM) 32.7 *H RBC (4.70 - 6.10 /CUMM) 3.24 L Hgb (14.0 - 18.0 G/DL) 10.6 L Hct (42 - 52 %) 29.2 L MCV (80.0 - 94.0 FL) 90.0 MCH (27.0 - 31.0 PG) 32.7 H MCHC (33.0 - 37.0 G/DL) 36.3 RDW (11.5 - 14.5 %) 13.7 Plt Count (130 - 400 /CUMM) 441 H MPV (7.4 - 10.4 FL) 8.1 Gran % (42.2 - 75.2 %) 81.0 H Lymphocytes % (20.5 - 51.1 %) 9.8 L Monocytes % (1.7 - 9.3 %) 8.5 Eosinophils % (0 - 5 %) 0.5 Basophils % (0.0 - 2.0 %) 0.2 Absolute Granulocytes (1.4 - 6.5 /CUMM) 26.5 H Segmented Neutrophils (42.2 - 75.2 %) 72 Band Neutrophils (0.0 - 5.0 %) 10 H Absolute Lymphocytes (1.2 - 3.4 /CUMM) 3.2 Lymphocytes (20.5 - 51.1 %) 9 L Monocytes (1.7 - 9.3 %) 7 Absolute Monocytes (0.10 - 0.60 /CUMM) 2.8 H Absolute Eosinophils (0.0 - 0.7 /CUMM) 0.2 Absolute Basophils (0.0 - 0.2 /CUMM) 0.1 Metamyelocytes (0.0 - 1.0 %) 1 Myelocytes (0 - 0 %) 1 H Platelet Estimate (ADEQUATE) INCREASED Polychromasia 1+ Hypochromic-Microcytic 1+ Anisocytosis 1+ Assessment and recommendations: 47-year-old male with past history significant for diabetes, hypertension recent treatment for pneumonia with the antibiotics and steroids who is admitted to surgical service with the constant abdominal pain and found to have intraperitoneal abscesses as well as free air under the diaphragm. Patient was taken for emergent exploration treated approximately and found two intraperitoneal drain abscesses status post drainage. Currently on broad- spectrum antibiotics. Blood sugars are running in acceptable range. We'll continue the sliding scale insulin. Upon discharge patient will be referred to customer response representative and ideally should be started on oral hypoglycemic agent. Blood pressure running in acceptable range. Body fluid growing gram-positive cocci. Patient currently on meropenem. Would recommend ID evaluation. Patient will require sleep study as an outpatient. According to patient's girlfriend, random extremity movements during sleep is very normal for him. Dvt px; hep sq. Thank you will follow along with you.
[2017-09-05 07:49] LABS: ABSOLUTE BASOPHIL COUNT 0.1 /CUMM (0.0-0.2); ABSOLUTE EOSINOPHIL COUNT 0.2 /CUMM (0.0-0.7); ABSOLUTE GRANULOCYTE CT 26.5 /CUMM (1.4-6.5); ABSOLUTE MONOCYTE COUNT 2.8 /CUMM (0.10-0.60); BASOPHIL % 0.2 % (0.0-2.0)
[2017-09-05 08:00] VITALS: BP 145/0
[2017-09-05 08:11] LABS: ABSOLUTE LYMPH COUNT 3.2 /CUMM (1.2-3.4); EOSINOPHIL % 0.5 % (0-5); MEAN CORPUSCULAR HGB CONC 36.3 G/DL (33.0-37.0); MEAN PLATELET VOLUME 8.1 FL (7.4-10.4); PLATELET COUNT 441 /CUMM (130-400); RBC DISTRIBUTION WIDTH 13.7 % (11.5-14.5); RED BLOOD CELL CT 3.24 /CUMM (4.70-6.10)
[2017-09-05 08:14] LABS: PT 15.1 SEC (9.4-12.5)
[2017-09-05 08:19] LABS: HEMATOCRIT 29.2 % (42-52); MEAN CORPUSCULAR HGB 32.7 PG (27.0-31.0); WHITE BLOOD CELL COUNT 32.7 /CUMM (4.8-10.8)
--- NOTE | 2017-09-05 08:43 | PN- General Surgery ---
See Addendum Subjective Subjective: feeling anxious. no oob, would like to get to chair today. per rn, pulling at lines/tubes while asleep. Wants lyman out. asking for food/drink. denies n/v, though has some belching. denies flatus/bm. no cp/sob/palps. Objective Vital Signs and I&Os Vital Signs Date Time Temp Pulse Resp B/P B/P Pulse O2 O2 Flow FiO2 Mean Ox Delivery Rate 09/05 0400 95 Nasal 2.0L Cannula 09/05 0001 95 Nasal 2.0L Cannula 09/05 0001 96.5 119 22 129/82 95 Nasal 2.0L Cannula 09/04 1999 96 Nasal 2.0L Cannula 09/04 1600 100 Nasal 2.0L Cannula 09/04 1599 97.1 112 21 108/70 100 Nasal 2.0L Cannula 09/04 1200 98 Nasal 3.0L Cannula Intake & Output 09/05 1600 09/05 0800 09/05 0000 09/04 1600 09/04 0800 09/04 0000 Intake Total 901 109 5405 1500 1500 Output Total 490 760 950 645 785 Balance 110 -160 426 855 715 Intake, IV 305 376 9490 1500 1500 Output, 60 60 200 250 375 Drainage Output, 100 100 100 50 225 Gastric Drainage Output, Urine 330 600 650 345 185 Patient 258 lb Weight Weight Bed scale Measurement Method Physical Exam: GEN- anxious, though NAD. disheveled, naked. CARD- s1s2 reg, tachy (hr 100s, 110s) PULM- bs thoughout, poor inspiratory effort ABD- obese, distended, no bs, dressings w minimal serosang drainage- mid- stapleline with inferior aspect open, draining scant serosang, no erythema, no flucuance. JPx2 w serosang, 30cc per shift from each, tubing milked and patent. dressings changed. - concentrated urine in lyman NGT: 100cc per shift, bilious. re-taped to nose. TLC RIJ: functioning per rn, not in use now. insertion site clean, dry. needs dressing change FS: 127 Current Medications: Current Medications Sig/Lorie Start time Last Medication Dose Route Stop Time Status Admin Acetaminophen 1,000 MG Q6H 09/03 1999 DC 09/04 N/A 1 UNIT IV 09/04 1414 0246 Ampicillin Sodium/ 3,000 MG Q6 09/03 1800 AC 09/05 Sulbactam Sodium IV 0647 Sodium Chloride 100 ML Dextrose/Sodium 1,000 ML Q13H 09/04 1130 09/05 Chloride IV 0648 Heparin Sodium 5,000 UNIT Q8 09/03 2200 AC 09/05 (Porcine) SC 0639 Hydromorphone HCl 0.5 MG Q3P PRN 09/03 1415 09/03 IV PUSH 2036 Hydromorphone HCl 1 MG Q3P PRN 09/03 1415 09/05 IV PUSH 0447 Insulin Human Regular 1 UNITS .STK-MED ONE 09/04 2317 DC IV 09/04 2318 Insulin Human Regular 4 UNITS .STK-MED ONE 09/04 1810 DC IV 09/04 1811 Insulin Human Regular 4 UNITS .STK-MED ONE 09/04 1231 DC IV 09/04 1232 Insulin Human Regular 0 Q6 09/03 1200 09/05 SC 0640 Lactated Ringer's 1,000 ML Q6H 09/03 2115 MN 09/04 IV 0615 Lorazepam 1 MG Q4P PRN 09/04 1545 09/05 IV 0828 Ondansetron HCl 4 MG Q8P PRN 09/03 0930 IV Pantoprazole Sodium 40 MG DAILY 09/03 195 09/04 IV 1006 Results Last 48 Hours of Labs: Laboratory Tests 09/05 09/04 0620 0400 Chemistry Sodium (137 - 145 mmol/L) 135 L Potassium (3.5 - 5.1 mmol/L) 4.8 Chloride (98 - 107 mmol/L) 97 L Carbon Dioxide (22 - 30 mmol/L) 31 H Anion Gap (5 - 16) 7 BUN (9 - 20 mg/dL) 25 H Creatinine (0.7 - 1.2 mg/dL) 0.7 Estimated GFR (>60 ml/min) > 60 Glucose (65 - 99 mg/dL) 117 H Hemoglobin A1c Pending Calcium (8.4 - 10.2 mg/dL) 8.3 L Phosphorus (2.5 - 4.5 mg/dL) 3.3 Magnesium (1.6 - 2.3 mg/dL) 1.9 Total Bilirubin (0.2 - 1.3 mg/dL) 1.1 AST (17 - 59 U/L) 38 ALT (21 - 72 U/L) 45 Albumin (3.5 - 5.0 g/dL) 2.0 L Coagulation PT (9.4 - 12.5 SEC) 15.1 H INR (0.90 - 1.17) 1.44 H Hematology CBC w Diff MAN DIFF ORDERED WBC (4.8 - 10.8 /CUMM) 32.7 *H RBC (4.70 - 6.10 /CUMM) 3.24 L Hgb (14.0 - 18.0 G/DL) 10.6 L Hct (42 - 52 %) 29.2 L MCV (80.0 - 94.0 FL) 90.0 MCH (27.0 - 31.0 PG) 32.7 H MCHC (33.0 - 37.0 G/DL) 36.3 RDW (11.5 - 14.5 %) 13.7 Plt Count (130 - 400 /CUMM) 441 H MPV (7.4 - 10.4 FL) 8.1 Gran % (42.2 - 75.2 %) 81.0 H Lymphocytes % (20.5 - 51.1 %) 9.8 L Monocytes % (1.7 - 9.3 %) 8.5 Eosinophils % (0 - 5 %) 0.5 Basophils % (0.0 - 2.0 %) 0.2 Absolute Granulocytes (1.4 - 6.5 /CUMM) 26.5 H Segmented Neutrophils (42.2 - 75.2 %) 72 Band Neutrophils (0.0 - 5.0 %) 10 H Absolute Lymphocytes (1.2 - 3.4 /CUMM) 3.2 Lymphocytes (20.5 - 51.1 %) 9 L Monocytes (1.7 - 9.3 %) 7 Absolute Monocytes (0.10 - 0.60 /CUMM) 2.8 H Absolute Eosinophils (0.0 - 0.7 /CUMM) 0.2 Absolute Basophils (0.0 - 0.2 /CUMM) 0.1 Metamyelocytes (0.0 - 1.0 %) 1 Myelocytes (0 - 0 %) 1 H Platelet Estimate (ADEQUATE) INCREASED Polychromasia 1+ Hypochromic-Microcytic 1+ Anisocytosis + 09/04 09/03 0400 0930 Chemistry Sodium (137 - 145 mmol/L) 128 L Potassium (3.5 - 5.1 mmol/L) 5.5 H Chloride (98 - 107 mmol/L) 95 L Carbon Dioxide (22 - 30 mmol/L) 28 Anion Gap (5 - 16) 5 BUN (9 - 20 mg/dL) 33 H Creatinine (0.7 - 1.2 mg/dL) 1.1 Estimated GFR (>60 ml/min) > 60 BUN/Creatinine Ratio (7 - 25 %) 30.0 H Glucose (65 - 99 mg/dL) 163 H Lactic Acid (0.7 - 2.1 mmol/L) 1.2 Calcium (8.4 - 10.2 mg/dL) 8.0 L Phosphorus (2.5 - 4.5 mg/dL) 4.9 H Magnesium (1.6 - 2.3 mg/dL) 1.6 Total Bilirubin (0.2 - 1.3 mg/dL) 2.1 H AST (17 - 59 U/L) 37 ALT (21 - 72 U/L) 46 Alkaline Phosphatase (< 127 U/L) 94 Total Protein (6.3 - 8.2 g/dL) 4.5 L Albumin (3.5 - 5.0 g/dL) 1.9 L Globulin (1.9 - 4.2 gm/dL) 2.6 Albumin/Globulin Ratio (1.1 - 2.2 %) 0.7 L Coagulation PT (9.4 - 12.5 SEC) 17.4 H INR (0.90 - 1.17) 1.67 H Hematology CBC w Diff MAN DIFF ORDERED WBC (4.8 - 10.8 /CUMM) 29.2 H RBC (4.70 - 6.10 /CUMM) 3.94 L Hgb (14.0 - 18.0 G/DL) 11.6 L Hct (42 - 52 %) 34.4 L MCV (80.0 - 94.0 FL) 87.3 MCH (27.0 - 31.0 PG) 29.6 MCHC (33.0 - 37.0 G/DL) 33.9 RDW (11.5 - 14.5 %) 13.4 Plt Count (130 - 400 /CUMM) 445 H MPV (7.4 - 10.4 FL) 8.4 Gran % (42.2 - 75.2 %) 76.0 H Lymphocytes % (20.5 - 51.1 %) 10.2 L Monocytes % (1.7 - 9.3 %) 13.5 H Eosinophils % (0 - 5 %) 0.1 Basophils % (0.0 - 2.0 %) 0.2 Absolute Granulocytes (1.4 - 6.5 /CUMM) 22.2 H Segmented Neutrophils (42.2 - 75.2 %) 67 Band Neutrophils (0.0 - 5.0 %) 12 H Absolute Lymphocytes (1.2 - 3.4 /CUMM) 3.0 Lymphocytes (20.5 - 51.1 %) 14 L Monocytes (1.7 - 9.3 %) 7 Absolute Monocytes (0.10 - 0.60 /CUMM) 3.9 H Absolute Eosinophils (0.0 - 0.7 /CUMM) 0 Absolute Basophils (0.0 - 0.2 /CUMM) 0.1 Platelet Estimate (ADEQUATE) INCREASED Normocytic RBCs VERIFIED Normochromic RBCs VERIFIED Toxicology Acetaminophen (10.0 - 30.0 ug/mL) 16.0 Urines Urinalysis LIGHT H Urine Color (YEL,AMB,STR) RENA Urine Clarity (CLEAR) CLEAR Urine pH (5.0 - 8.0) 6.5 Ur Specific Chicken (1.001 - 1.035) 1.010 Urine Protein (NEG,<30 MG/DL) 30 H Urine Ketones (NEG) NEG Urine Nitrite (NEG) POS H Urine Bilirubin (NEG) POS@ICTO H Urine Urobilinogen (0.1 - 1.0 EU/dl) 0.2 Ur Leukocyte Esterase (NEG) NEG Ur Microscopic SEDIMENT EXAMINED Urine RBC (0 - 5 /HPF) 1-3 Urine WBC (0 - 2 /HPF) 3-5 H Urine Bacteria (NEG/NONE) RARE H Hyaline Casts (0/LPF) 50-75 H Granular Casts (NONE /LPF) 1-3 H Urine Mucus (FEW,NONE) MANY H Urine Hemoglobin (NEG) NEG Urine Glucose (N MG/DL) NEG OR Cx: pending. GS: GPC, GNR, GPR Assessment/Plan Assessment/Plan A- POD2 sp ex lap/drainage of large multiloculated intraabdominal abscess, with persistent tachycardia due to infection vs anxiety/lack of effexor vs etoh wd ( though pt denies etoh [id number]), with leukocytosis of 32K on unasyn, gs with multiple bugs-final culture pending, with ileus- awaiting return of bowel fxn. P- OOB to chair Tasneem, hep sq dc lyman cont IVF, NGT, NPO, await bowel fxn trend daily labs watch HR ativan for anxiety cont unasyn- additional abx? ?transfer out of icu will dw atttending Core Measures Venous Thromboembolism VTE Risk Factors Surgery No Mechanical VTE Prophylaxis d/t N/A MechProphylax Ordered No VTE Pharm Prophylaxis d/t NA PharmProphylax ordered
--- NOTE | 2017-09-05 14:29 | Cons- Infect Disease ---
General Information and HPI Consulting Request Date of Consult: 09/05/17 Requested By: Edward TAPIA,Efrain Riddle Reason for Consult: antibiotic advice Source of Information: patient, primary team Exam Limitations: clinical condition History of Present Illness: This is a 47 y/o WM known w/HTN, DM2, and recent hx of pneumonia that presented to [facility] with worsening abdominal pain for few days [employer]. Patient reports being in his usual state of health until around 2 weeks ago he came to the ED for evaluation of cough, congestion, and wheezing. At that time he was diagnosed with pneumonia and sent home with abx and steroids. He began taking over the counter Motrin for pain relief. Underwent CT A/P; found to have intraperitoneal abscesses as well as free air under the diaphragm. Patient was taken for emergent exploratory laparatomy and drainage of large intraperitoneal abscess on 09/03. Currently afebrile, appears comfortable. Not passing gas. Family at the bedside inquiring about resuming Effexor. Allergies/Medications Allergies: Coded Allergies: No Known Allergies (08/20/17) Home Med List: Albuterol Sulfate (Proair Hfa) 90 MCG HFA.AER.AD 2 PUF INH Q4-6 PRN PRN SOB Albuterol Sulfate 1.25 MG/3 ML VIAL.NEB 1 Vial INH/MESHA Q4-6 PRN COUGH/SOB Amoxicillin/Potassium Clav (Augmentin 875-125 Tablet) 875 MG-125 MG TABLET 1 TAB PO BID PNEUMONIA Azithromycin 250 MG TABLET 1 DP PO AD PNEUMONIA 2 the first day followed by 1 for days 2-5 Codeine Phosphate/Guaifenesi (Codeine-Guaifen 10-100 MG/5 Ml) 10 MG-100 MG/5 ML LIQUID 15 ML PO Q12P PRN COUGH Codeine Phosphate/Guaifenesi (Cheratussin AC Syrup) 10 MG-100 MG/5 ML LIQUID 10 ML PO Q6H PRN COUGH Doxycycline Monohydrate (Avidoxy) 100 MG TABLET 1 TAB PO BID BRONCHITIS Prednisone 20 MG TABLET 1 TAB PO BID COUGH Prednisone (Deltasone) 20 MG TABLET 2 TAB PO ONCE DAILY BRONCHITIS Current Medications: Current Medications Sig/Lorie Start time Last Medication Dose Route Stop Time Status Admin Ampicillin Sodium/ 3,000 MG Q6 09/05 1200 CAN Sulbactam Sodium IV Sodium Chloride 100 ML Ampicillin Sodium/ 3,000 MG Q6 09/03 1800 DC 09/05 Sulbactam Sodium IV 0647 Sodium Chloride 100 ML Dextrose/Sodium 1,000 ML Q13H 09/04 1130 AC 09/05 Chloride IV 0648 Heparin Sodium 5,000 UNIT Q8 09/03 2200 AC 09/05 (Porcine) SC 0639 Hydromorphone HCl 0.5 MG Q3P PRN 09/03 1415 AC 09/05 IV PUSH 0839 Hydromorphone HCl 1 MG Q3P PRN 09/03 1415 AC 09/05 IV PUSH 0447 Insulin Human Regular 1 UNITS .STK-MED ONE 09/04 2317 DC IV 09/04 2318 Insulin Human Regular 4 UNITS .STK-MED ONE 09/04 1810 DC IV 09/04 1811 Insulin Human Regular 0 Q6 09/03 1200 AC 09/05 SC 0640 Lorazepam 1 MG Q4P PRN 09/04 1545 AC 09/05 IV 0828 Meropenem 1 GM Q8H 09/05 1000 AC 09/05 IV 1017 Ondansetron HCl 4 MG Q8P PRN 09/03 0930 AC IV Pantoprazole Sodium 40 MG DAILY 09/03 1953 AC 09/05 IV 1017 Past History Travel History Traveled to [place] past 21 day No Medical History Neurological: NONE EENT: NONE Cardiovascular: hypertension, PVD Respiratory: NONE Gastrointestinal: NONE Hepatic: NONE Renal: NONE Musculoskeletal: NONE Psychiatric: NONE Endocrine: diabetes Blood Disorders: NONE Cancer(s): NONE History of MRSA: No History of VRE: No History of CDIFF: No Isolation History: Standard Influenza Vaccine: 09/05/17 Surgical History Surgical History: hernia repair-inguinal (bilateral) Psychosocial History Where Do You Live? Home Primary Language: Somali Smoking Status: Former Smoker ETOH Use: occasional use Illicit Drug Use: denies illicit drug use Review of Systems Comments 12 points reviewed as noted, otherwise negative. On admission he reported poor appetite and nausea. Exam & Diagnostic Data Last 24 Hrs of Vital Signs/I&O Vital Signs Date Time Temp Pulse Resp B/P B/P Pulse O2 O2 Flow FiO2 Mean Ox Delivery Rate 09/05 0800 95 Nasal 2.0L Cannula 09/05 0800 96.7 120 20 145/0 95 Nasal 2.0L Cannula 09/05 0400 95 Nasal 2.0L Cannula 09/05 0001 95 Nasal 2.0L Cannula 09/05 0001 96.5 119 22 129/82 95 Nasal 2.0L Cannula 09/04 1999 96 Nasal 2.0L Cannula 09/04 1600 100 Nasal 2.0L Cannula 09/04 1600 97.1 112 21 108/70 100 Nasal 2.0L Cannula Intake & Output 09/05 1600 09/05 0800 09/05 0000 Intake Total 600 600 Output Total 490 760 Balance 110 -160 Intake, IV 600 600 Output, 60 60 Drainage Output, 100 100 Gastric Drainage Output, Urine 330 600 Physical Exam Other Physical Findings: GEN- NAD. d HEENT- AT, sclera anicteric NECK- No RICHARD, TLC RIJ in place, insertion site clean, dry. CARD- S1S2 present, tachycardic, no m/r/g PULM- BS thoughout, no wheezing ABD- obese, distended, no bs, dressings w minimal serosang drainage- mid- stapleline with inferior aspect open, scant SS drainage, no erythema, no flucuance. JPx2 w serosang, 30cc per shift from each. - concentrated urine in Pierson NGT: 100cc per shift Last 24 Hours of Lab Results: Laboratory Tests 09/05 0620 Chemistry Sodium (137 - 145 mmol/L) 135 L Potassium (3.5 - 5.1 mmol/L) 4.8 Chloride (98 - 107 mmol/L) 97 L Carbon Dioxide (22 - 30 mmol/L) 31 H Anion Gap (5 - 16) 7 BUN (9 - 20 mg/dL) 25 H Creatinine (0.7 - 1.2 mg/dL) 0.7 Estimated GFR (>60 ml/min) > 60 Glucose (65 - 99 mg/dL) 117 H Calcium (8.4 - 10.2 mg/dL) 8.3 L Phosphorus (2.5 - 4.5 mg/dL) 3.3 Magnesium (1.6 - 2.3 mg/dL) 1.9 Total Bilirubin (0.2 - 1.3 mg/dL) 1.1 AST (17 - 59 U/L) 38 ALT (21 - 72 U/L) 45 Albumin (3.5 - 5.0 g/dL) 2.0 L Coagulation PT (9.4 - 12.5 SEC) 15.1 H INR (0.90 - 1.17) 1.44 H Hematology CBC w Diff MAN DIFF ORDERED WBC (4.8 - 10.8 /CUMM) 32.7 *H RBC (4.70 - 6.10 /CUMM) 3.24 L Hgb (14.0 - 18.0 G/DL) 10.6 L Hct (42 - 52 %) 29.2 L MCV (80.0 - 94.0 FL) 90.0 MCH (27.0 - 31.0 PG) 32.7 H MCHC (33.0 - 37.0 G/DL) 36.3 RDW (11.5 - 14.5 %) 13.7 Plt Count (130 - 400 /CUMM) 441 H MPV (7.4 - 10.4 FL) 8.1 Gran % (42.2 - 75.2 %) 81.0 H Lymphocytes % (20.5 - 51.1 %) 9.8 L Monocytes % (1.7 - 9.3 %) 8.5 Eosinophils % (0 - 5 %) 0.5 Basophils % (0.0 - 2.0 %) 0.2 Absolute Granulocytes (1.4 - 6.5 /CUMM) 26.5 H Segmented Neutrophils (42.2 - 75.2 %) 72 Band Neutrophils (0.0 - 5.0 %) 10 H Absolute Lymphocytes (1.2 - 3.4 /CUMM) 3.2 Lymphocytes (20.5 - 51.1 %) 9 L Monocytes (1.7 - 9.3 %) 7 Absolute Monocytes (0.10 - 0.60 /CUMM) 2.8 H Absolute Eosinophils (0.0 - 0.7 /CUMM) 0.2 Absolute Basophils (0.0 - 0.2 /CUMM) 0.1 Metamyelocytes (0.0 - 1.0 %) 1 Myelocytes (0 - 0 %) 1 H Platelet Estimate (ADEQUATE) INCREASED Polychromasia 1+ Hypochromic-Microcytic 1+ Anisocytosis 1+ Toxicology Serum Alcohol (<10 MG/DL) < 10.0 Last 24 Hours of Rosalino Results: SPEC #: [id number] GIANA: 09/03/17 STATUS: RES RECD: 09/03/[address]: Edward TAPIA,Efrain Riddle SOURCE: BODY FLUID ENTR: 09/03/[address] [facility] [address]: Jalyn TAPIA,Merrill P. SPDESC: ASCITES [place] ORDERED: BODY FLD CULTUR COMMENT: ADDITIONAL INFORMATION: PERITONEAL ABCESS RECEIVED ~10CC TUBID,CARBAJAL FLUID IN STERILE CUP Procedure Result > GRAM STAIN Final 09/03/17-1457 WHITE BLOOD CELLS MANY GRAM POSITIVE COCCI MANY GRAM NEGATIVE RODS MANY GRAM POSITIVE RODS FEW > BODY FLUID CULTURE Preliminary 09/05/17-1222 Heavy growth of: 1.ENTEROCOCCUS Sensitivities to follow 2.ALPHA STREP 3.OTHER GRAM POSITIVE COCCI Identification to follow 4. PROBABLE ANAEROBIC GRAM NEGATIVE MERCY Scant growth of : 5.GRAM NEGATIVE RODS Identification and sensitivities to follow Called to/Readback by NEMA by [facility] 09/04/17 0871 Diagnostic Data Recent Imaging Findings: SERVICE DATE: 09/03/17 EXAM TYPE: CAT - CT ABD & PELVIS W IV CONTRAST There is mild mural thickening involving this redundant sigmoid colon lies adjacent to it. There are a few scattered diverticuli and there is some focal air trapping suggests into the medial border of the redundant sigmoid colon raising a possibility of perforation in the sigmoid colon more likely than small bowel. Addendum Signed by: Lorne Mazariegos MD 09/03/17 1143 EXAMINATION: CT ABDOMEN AND PELVIS WITH CONTRAST CLINICAL INFORMATION: Lower abdominal pain with ecchymosis. COMPARISON: None TECHNIQUE: Multidetector volumetric imaging was performed of the abdomen and pelvis following IV administration of 90 mL of Optiray 320 intravenous contrast. Sagittal and coronal reformatted images were obtained on the technologist's workstation. DLP: 1139 mGy-cm FINDINGS: LUNG BASES: Is patchy atelectasis in the lingula and patchy consolidation/atelectasis both lower lobes. There is underlying emphysema. No pleural effusion seen. Heart size is normal. LIVER, GALLBLADDER, AND BILIARY TREE: The liver is normal in size, shape, and attenuation. No focal hepatic lesion or biliary ductal dilatation is present. The gallbladder is unremarkable with no evidence of radiopaque gallstones, gallbladder wall thickening, or obvious pericholecystic inflammatory changes. PANCREAS: Unremarkable. SPLEEN: Unremarkable. ADRENAL GLANDS: Unremarkable. KIDNEYS AND URETERS: The kidneys are normal in size, shape, and attenuation. No hydronephrosis, hydroureter, or calculi seen. No perinephric stranding. There is a solid mass midpole right kidney measuring 2.5 x 2.5 cm suspicious for renal tumor unless proven otherwise. A 1.1 cm exophytic lesion upper pole right kidney is small but likely is cyst. BLADDER: Unremarkable. GASTROINTESTINAL TRACT: There is solitary significantly large air-fluid level collection in the small bowel mesentery secondary to perforation. The collection appears well capped and measures 16.8 x 16.5 cm. This area is surrounded by loops of small bowel containing fluid. Also visualized is fat stranding likely inflammatory process. Exact point of perforation is not seen but is most likely within proximal or mid small bowel. There is extensive scattered free air in the abdomen. There is scattered stool throughout the colon without any distention. There is small amount of free fluid in the pelvis. ABDOMINAL WALL: No significant hernia is appreciated. LYMPH NODES: Normal. VASCULAR: Abdominal aorta and the branches are widely patent. PELVIC VISCERA: Unremarkable. OSSEOUS STRUCTURES: There are degenerative disc changes at L5-S1 disc level with moderate ventral and posterior spondylosis. No lytic or sclerotic process seen. IMPRESSION: Small bowel perforation likely resulting in large free air and a large walled off air-fluid collection in the midabdomen in the small bowel mesentery. No enhancing mass seen to suggest any underlying tumor. No suggestion for ischemia or embolism. There is a solid mass midpole right kidney suspicious for primary renal tumor. Recommend further correlation with MRI abdomen. Likely small cyst upper pole right kidney. Results were discussed by phone with Dr. Coughlin at 8:25 AM. DICTATED BY: Lorne Mazariegos MD DATE/TIME DICTATED:09/03/17803 FRUIT FARMER:MAKAYLA DATE/TIME TRANSCRIBED:09/03/17803 CONFIDENTIAL, DO NOT COPY WITHOUT APPROPRIATE AUTHORIZATION. <Electronically signed in Other Vendor System> SIGNED BY: Delilah TAPIA,Lorne 09/03/17826 Assessment/Plan Assessment/Plan Impression: 47 y/o WM known w/HTN, DM2, and recent hx of pneumonia admitted 09/03 with abdominal pain, found to have likle large bowel perforation, resulting in large free air and a large walled off air-fluid collection in the midabdomen; now POD #2; intraop culture preliminary revealing polymicrobial infection, including Enterococcus, GNR, anaerobic GNR, GPC, alpha Strep spp (no yeast reported). Severe leukocytosis (WBC ~30K, 10% bands); WBC trending up; treated w/ iv Unasyn since admission Renal mass; evaluated by urology recom. Suggestion: 1. Consider broad antibiotic coverage treatment with Imipenem 500 mg iv q 6 h; adding vancomycin 1.25 gm q 12 h pending Enterococcus sensitivity. If Enterococcus sensitive to PCN, therapy with imipinem will provide adequate coverage (same is not true for Meropenem). 2. Trend CBC, BMP. 3. Call if fever. 4. Interval follow up CT abd/pelvis if WBC continues to trend up. Consult Acknowledgment - Thank you for your consult request.
[2017-09-05 16:00] VITALS: BP 144/74
--- NOTE | 2017-09-05 19:22 | Cons- Psychiatry ---
See Addendum Psychiatric Consult Date of Consult: 09/05/17 Reason for Consult: "DELIRIUM, AMS." History of Present Illness: 47 , employed, domiciled male presents to the ED on 09/03/17 @ 0531 with CC of mid-abdominal pain 02/17 for 3 days. He had previously presented on 08/20/17 with a CC of pneumonia, and was treated with antibiotics and released. Per the H &P, he was taking 20-24 Motrin pills daily for pain relief. He was taken to the OR 09/03/17 for a presumed perforated bowel, instead, a large abscess was found and evacuated of purulent material. Two additional abscesses were found, and adhesions were removed from interbowel loops. He is currently on IV vancomycin and imipenem for his infection. He is receiving dilaudid IV as needed for pain. He is receiving lorazepam 1 mg IV q 4 hours as needed. His Effexor XR 225 mg has been held. He has had periods of inconsolability and hallucinations today, but no agitation or violent outbursts. Allergies: Coded Allergies: No Known Allergies (08/20/17) Current Medications: Current Medications Sig/Lorie Start time Last Medication Dose Route Stop Time Status Admin Ampicillin Sodium/ 3,000 MG Q6 09/05 1200 CAN Sulbactam Sodium IV Sodium Chloride 100 ML Ampicillin Sodium/ 3,000 MG Q6 09/03 1800 DC 09/05 Sulbactam Sodium IV 0647 Sodium Chloride 100 ML Dextrose/Sodium 1,000 ML Q13H 09/04 1130 AC 09/05 Chloride IV 1700 Heparin Sodium 5,000 UNIT Q8 09/03 2200 AC 09/05 (Porcine) SC 1705 Hydromorphone HCl 0.5 MG Q3P PRN 09/03 1415 AC 09/05 IV PUSH 1655 Hydromorphone HCl 1 MG Q3P PRN 09/03 1415 AC 09/05 IV PUSH 0447 Imipenem/Cilastatin 500 MG Q6H 09/05 1443 AC 09/05 Sodium IV 1705 Sodium Chloride 100 ML Influenza Virus 0.5 ML .STK-MED ONE 09/05 0838 DC Vaccine IM 09/05 0839 Insulin Human Regular 1 UNITS .STK-MED ONE 09/05 0637 DC IV 09/05 0638 Insulin Human Regular 1 UNITS .STK-MED ONE 09/04 2317 DC IV 09/04 2318 Insulin Human Regular 0 Q6 09/03 1200 AC 09/05 SC 1200 Lorazepam 1 MG Q4P PRN 09/04 1545 AC 09/05 IV 1654 Meropenem 1 GM Q8H 09/05 1000 DC 09/05 IV 1017 Ondansetron HCl 4 MG Q8P PRN 09/03 0930 AC IV Pantoprazole Sodium 40 MG DAILY 09/03 1953 AC 09/05 IV 1017 Vancomycin HCl 1,250 MG Q12H 09/05 1449 AC 09/05 Dextrose/Water 250 ML IV 1706 Venlafaxine HCl 37.5 MG BID 09/05 1509 DC PO Past History Past Medical History Neurological: NONE EENT: NONE Cardiovascular: hypertension, PVD Respiratory: NONE Gastrointestinal: NONE Hepatic: NONE Renal: NONE Musculoskeletal: NONE Psychiatric: depression Endocrine: diabetes Blood Disorders: NONE Cancer(s): NONE Past Surgical History Surgical History: hernia repair-inguinal (bilateral) Psychosocial History Strengths/Capabilities: Very supportive family Physical Limitations (Interventions): Currently, Pierson catheter and NG tube to wall suction Psychiatric Treatment History Psych Treatment Psychiatric Treatment Yes Inpatient Treatment No (Denies) Outpatient Treatment Yes Location of Treatment PCP, Dr. Merrill Gunderson, [address] [place] [address], [phone] Reason for Treatment Depression Dates of Treatment Current Response to Treatment Unknown Diagnosis: By history, depression NOS Risk Factors: chronic/serious med cond., male Substance Use/Abuse History Drug Use/Abuse Substances Used/Abused Yes Substance Used/Abused Alcohol First Use Not evaluated Last Used Nov, 2016, per patient How much used/taken Large amounts How often Unknown Substance Abuse Treatment Substance Abuse Treatment Past Substance Abuse [place] No (Unknown) Assessment/Plan Mental Status Orientation: Confused, Oriented to person, knows his daughter, and that he is in [facility]. Affect: Hopeless, Labile Speech: Perseveration Neuro-vegetative: Helpless, Sleep Disturbance Mental Status Exam: Alert, hyperverbal, but not manic, orientd to person, place, but not day, month or year (Tuesday, September,). He states that the reason that he is here is abdominal pain that he has had since he was a young child. He can identify his daughter, Karime, and names his SO, Lizbet. He reports he takes only Effexor 75 mg, instead of the 225 mg in the medication claim report. He scales his anxiety as 7/10, he reports depression, endorsing hopelessness, helplessness, worthlessness and guilty feelings. He denies current auditory or visual hallucinations. He denies current SI or HI, but reports that yesterday, he had "Wanted to slam this body into the [rock] wall on [address]." He denies any history of suicide attempt. Lab Results: Laboratory Tests 09/05 0620 Chemistry Sodium (137 - 145 mmol/L) 135 L Potassium (3.5 - 5.1 mmol/L) 4.8 Chloride (98 - 107 mmol/L) 97 L Carbon Dioxide (22 - 30 mmol/L) 31 H Anion Gap (5 - 16) 7 BUN (9 - 20 mg/dL) 25 H Creatinine (0.7 - 1.2 mg/dL) 0.7 Estimated GFR (>60 ml/min) > 60 Glucose (65 - 99 mg/dL) 117 H Calcium (8.4 - 10.2 mg/dL) 8.3 L Phosphorus (2.5 - 4.5 mg/dL) 3.3 Magnesium (1.6 - 2.3 mg/dL) 1.9 Total Bilirubin (0.2 - 1.3 mg/dL) 1.1 AST (17 - 59 U/L) 38 ALT (21 - 72 U/L) 45 Albumin (3.5 - 5.0 g/dL) 2.0 L Coagulation PT (9.4 - 12.5 SEC) 15.1 H INR (0.90 - 1.17) 1.44 H Hematology CBC w Diff MAN DIFF ORDERED WBC (4.8 - 10.8 /CUMM) 32.7 *H RBC (4.70 - 6.10 /CUMM) 3.24 L Hgb (14.0 - 18.0 G/DL) 10.6 L Hct (42 - 52 %) 29.2 L MCV (80.0 - 94.0 FL) 90.0 MCH (27.0 - 31.0 PG) 32.7 H MCHC (33.0 - 37.0 G/DL) 36.3 RDW (11.5 - 14.5 %) 13.7 Plt Count (130 - 400 /CUMM) 441 H MPV (7.4 - 10.4 FL) 8.1 Gran % (42.2 - 75.2 %) 81.0 H Lymphocytes % (20.5 - 51.1 %) 9.8 L Monocytes % (1.7 - 9.3 %) 8.5 Eosinophils % (0 - 5 %) 0.5 Basophils % (0.0 - 2.0 %) 0.2 Absolute Granulocytes (1.4 - 6.5 /CUMM) 26.5 H Segmented Neutrophils (42.2 - 75.2 %) 72 Band Neutrophils (0.0 - 5.0 %) 10 H Absolute Lymphocytes (1.2 - 3.4 /CUMM) 3.2 Lymphocytes (20.5 - 51.1 %) 9 L Monocytes (1.7 - 9.3 %) 7 Absolute Monocytes (0.10 - 0.60 /CUMM) 2.8 H Absolute Eosinophils (0.0 - 0.7 /CUMM) 0.2 Absolute Basophils (0.0 - 0.2 /CUMM) 0.1 Metamyelocytes (0.0 - 1.0 %) 1 Myelocytes (0 - 0 %) 1 H Platelet Estimate (ADEQUATE) INCREASED Polychromasia 1+ Hypochromic-Microcytic 1+ Anisocytosis 1+ Toxicology Serum Alcohol (<10 MG/DL) < 10.0 Diffential Diagnosis: 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 Major depressive disorder, unspecified Alcohol use disorder, severe, in partial remission Impression: The patient's venlafaxine/Effexor has been held, with a question of whether a possible discontinuation syndrome is contributing to his current illness. The effect of the discontinuation, which does not always present after abrupt discontinuation of some antidepressants, such as Effexor usually consists of dizziness, fatigue, headache or nausea. Other symptoms reported as agitation, anxiety, chills, diaphoresis, dysphoria, insomnia, irritability, myalgias, parasthesias, rhinorrhea. Less common are electric-like shocks, ataxia, auditory or visual hallucinations. All the preceding, per UpToDate. The discontinuation syndrome is usually uncomfortable, treated symptomatically and is not life- threatening. It is possible that this may be contributing to the visual disturbances noted by nursing today, but those are also likely due to his infective process. The patient has no bowel sounds and can take nothing by mouth or feeding tube, due to an inactive bowel. There are no parenteral formulations of SSRIs or SNRIs (Effexor), and reassurance is recommended for mild symptoms. For more severe symptoms, such as disturbing or distressing hallucinations, a low dose of haloperidol IM might be considered. So far, the visual disturbances, such as seeing his nurse wearing a different color uniform are not distressing, and he is tolerating them with redirection or distraction. Lorazepam IV has been ordered to help with anxiety, which nursing reports has worked well. Please us caution with this class of medication, as it can worsen delirium. The most likely cause for the current confusion is the infective process. He denies any recent alcohol use, and denies the use of street drugs. [place] patient is employed as a teacher, but his recent work history is not known. Provisional Treatment Plan: 1. Continue lorazepam 1 mg PO every 4 hours, as needed, for anxiety and mild agitation. Caution, as this can worsen delirium. 2. Maintain a low threshold for placing a safety monitor. The patient denies SI today, but reports he was having thoughts with a plan to crash his car into a rock wall yesterday. He has promised to stay safe both here in the hospital and at home. 3. The patient may not leave AMA or otherwise until cleared by psychiatry, due to delirium. 4. If violent or dangerous agitation or aggression, consider haloperidol 1 mg IM (Never IV) every 4 hours, as needed. a. Hold for ovesedation or respiratory depression. b. Replete potassium and magnesium to the upper portion of the normal range. c. Hold for QTc greater thatn 475 mS. We will continue to follow along with you. Thank you for this consult.
[2017-09-06] VITALS: BP 158/80
[2017-09-06 05:04] LABS: ABSOLUTE EOSINOPHIL COUNT 0.4 /CUMM (0.0-0.7); RBC DISTRIBUTION WIDTH 13.9 % (11.5-14.5)
[2017-09-06 05:15] LABS: ABSOLUTE BASOPHIL COUNT 0.1 /CUMM (0.0-0.2); ABSOLUTE GRANULOCYTE CT 28.5 /CUMM (1.4-6.5); ABSOLUTE LYMPH COUNT 4.6 /CUMM (1.2-3.4); ABSOLUTE MONOCYTE COUNT 3.6 /CUMM (0.10-0.60); BASOPHIL % 0.3 % (0.0-2.0); GRANULOCYTE % 76.5 % (42.2-75.2); HEMATOCRIT 32.1 % (42-52); MEAN CORPUSCULAR HGB 30.5 PG (27.0-31.0); MEAN CORPUSCULAR HGB CONC 35.1 G/DL (33.0-37.0); MEAN CORPUSCULAR VOLUME 86.8 FL (80.0-94.0); MEAN PLATELET VOLUME 7.7 FL (7.4-10.4); PLATELET COUNT 612 /CUMM (130-400)
[2017-09-06 06:00] LABS: WHITE BLOOD CELL COUNT 37.2 /CUMM (4.8-10.8)
[2017-09-06 08:00] VITALS: BP 126/72
--- NOTE | 2017-09-06 08:32 | PN- General Surgery ---
Subjective Subjective: Overnight, patient pulled out his right JOSH drain, NGT and lyman and was placed in restraints. He is currently asleep, accompained by his girlfriend. Per nursing, patient has been lethargic since last night. He last recieved dilaudid and ativan at 2300 last night. Objective Vital Signs and I&Os Vital Signs Date Time Temp Pulse Resp B/P B/P Pulse O2 O2 Flow FiO2 Mean Ox Delivery Rate 09/06 0400 93 Nasal 4.0L Cannula 09/06 0253 125 30 180/90 09/06 0000 94 Nasal 4.0L Cannula 09/06 0000 98.9 120 28 158/80 94 Nasal 4.0L Cannula 09/05 1600 97.2 118 22 144/74 Room Air 09/05 1200 96 Room Air Intake & Output 09/06 1600 09/06 0800 09/06 0000 09/05 1600 09/05 0809/05 0000 Intake Total 875 695 600 600 600 Output Total 10 900 410 490 760 Balance 865 -205 190 110 -160 Intake, IV 875 695 600 600 600 Output, Chest 10 Tube Drainage Output, 20 60 60 Drainage Output, 400 100 100 Gastric Drainage Output, Urine 480 410 330 600 Physical Exam: Gen - lethargic in bed, accompained by his girlfriend, unresponsive to verbal stimuli Skin - right sided ij in place, warm and nondiaphoretic Cardiac - S1S2, tachycardic Lungs - coarse bs, increased work of breathing noted Abd - softly distended, absent bowel sounds, well-healing midline incision clsoed with edita with opening in inferior incision with scant drainage, right prev josh site with scant drainage, left sided josh with scant drainage, redressed with gauze, incision left jamal, no grimacing on palpation Ext - no edema or calf tenderness Current Medications: Current Medications Sig/Lorie Start time Last Medication Dose Route Stop Time Status Admin Ampicillin Sodium/ 3,000 MG Q6 09/05 1200 CAN Sulbactam Sodium IV Sodium Chloride 100 ML Ampicillin Sodium/ 3,000 MG Q6 09/03 1800 DC 09/05 Sulbactam Sodium IV 0647 Sodium Chloride 100 ML Dextrose/Sodium 1,000 ML Q13H 09/04 1130 AC 09/05 Chloride IV 1700 Heparin Sodium 5,000 UNIT Q8 09/03 2200 AC 09/06 (Porcine) SC 0628 Hydromorphone HCl 0.5 MG Q3P PRN 09/03 1415 AC 09/05 IV PUSH 1655 Hydromorphone HCl 1 MG Q3P PRN 09/03 1415 AC 09/05 IV PUSH 2228 Imipenem/Cilastatin 500 MG Q6H 09/05 1443 AC 09/06 Sodium IV 0218 Sodium Chloride 100 ML Influenza Virus 0.5 ML .STK-MED ONE 09/05 0838 DC Vaccine IM 09/05 0839 Insulin Human Regular 0 Q6 09/03 1200 AC 09/06 SC 0554 Lorazepam 1 MG Q4P PRN 09/04 1545 AC 09/05 IV 2326 Meropenem 1 GM Q8H 09/05 1000 DC 09/05 IV 1017 Metoprolol Tartrate 5 MG ONCE ONE 09/06 0245 DC 09/06 IV 09/06 0246 0253 Ondansetron HCl 4 MG Q8P PRN 09/03 0930 AC IV Pantoprazole Sodium 40 MG DAILY 09/03 1953 AC 09/05 IV 1017 Propofol 1,000 MG CONTINOUS INFUSION 09/06 0830 AC N/A 1 UNIT IV Vancomycin HCl 1,250 MG Q12H 09/05 1449 AC 09/06 Dextrose/Water 250 ML IV 0253 Venlafaxine HCl 37.5 MG BID 09/06 1000 AC PO Venlafaxine HCl 37.5 MG BID 09/05 1509 DC PO Results Last 48 Hours of Labs: Laboratory Tests 09/06 09/06 0600 0500 Chemistry Sodium Cancelled Potassium Cancelled Chloride Cancelled Carbon Dioxide Cancelled Anion Gap Cancelled BUN Cancelled Creatinine Cancelled Glucose Cancelled Calcium Cancelled Phosphorus Cancelled Magnesium Cancelled Total Bilirubin Cancelled AST Cancelled ALT Cancelled Albumin Cancelled Hematology CBC w Diff Cancelled WBC Cancelled RBC Cancelled Hgb Cancelled Hct Cancelled MCV Cancelled MCH Cancelled MCHC Cancelled RDW Cancelled Plt Count Cancelled MPV Cancelled 09/06 09/05 0400 0620 Chemistry Sodium (137 - 145 mmol/L) 139 135 L Potassium (3.5 - 5.1 mmol/L) 5.2 H 4.8 Chloride (98 - 107 mmol/L) 100 97 L Carbon Dioxide (22 - 30 mmol/L) 33 H 31 H Anion Gap (5 - 16) 6 7 BUN (9 - 20 mg/dL) 20 25 H Creatinine (0.7 - 1.2 mg/dL) 0.7 0.7 Estimated GFR (>60 ml/min) > 60 > 60 Glucose (65 - 99 mg/dL) 170 H 117 H Calcium (8.4 - 10.2 mg/dL) 8.5 8.3 L Phosphorus (2.5 - 4.5 mg/dL) 3.8 3.3 Magnesium (1.6 - 2.3 mg/dL) 2.0 1.9 Total Bilirubin (0.2 - 1.3 mg/dL) 1.4 H 1.1 AST (17 - 59 U/L) 35 38 ALT (21 - 72 U/L) 43 45 Albumin (3.5 - 5.0 g/dL) 2.4 L 2.0 L Coagulation PT (9.4 - 12.5 SEC) 15.1 H INR (0.90 - 1.17) 1.44 H Hematology CBC w Diff MAN DIFF ORDERED MAN DIFF ORDERED WBC (4.8 - 10.8 /CUMM) 37.2 *H 32.7 *H RBC (4.70 - 6.10 /CUMM) 3.70 L 3.24 L Hgb (14.0 - 18.0 G/DL) 11.3 L 10.6 L Hct (42 - 52 %) 32.1 L 29.2 L MCV (80.0 - 94.0 FL) 86.8 90.0 MCH (27.0 - 31.0 PG) 30.5 32.7 H MCHC (33.0 - 37.0 G/DL) 35.1 36.3 RDW (11.5 - 14.5 %) 13.9 13.7 Plt Count (130 - 400 /CUMM) 612 H 441 H MPV (7.4 - 10.4 FL) 7.7 8.1 Gran % (42.2 - 75.2 %) 76.5 H 81.0 H Lymphocytes % (20.5 - 51.1 %) 12.5 L 9.8 L Monocytes % (1.7 - 9.3 %) 9.7 H 8.5 Eosinophils % (0 - 5 %) 1.0 0.5 Basophils % (0.0 - 2.0 %) 0.3 0.2 Absolute Granulocytes (1.4 - 6.5 /CUMM) 28.5 H 26.5 H Segmented Neutrophils (42.2 - 75.2 %) 65 72 Band Neutrophils (0.0 - 5.0 %) 10 H 10 H Absolute Lymphocytes (1.2 - 3.4 /CUMM) 4.6 H 3.2 Lymphocytes (20.5 - 51.1 %) 12 L 9 L Monocytes (1.7 - 9.3 %) 4 7 Absolute Monocytes (0.10 - 0.60 /CUMM) 3.6 H 2.8 H Eosinophils (0 - 5.0 %) 1 Absolute Eosinophils (0.0 - 0.7 /CUMM) 0.4 0.2 Absolute Basophils (0.0 - 0.2 /CUMM) 0.1 0.1 Metamyelocytes (0.0 - 1.0 %) 5 H 1 Myelocytes (0 - 0 %) 3 H 1 H Platelet Estimate (ADEQUATE) INCREASED INCREASED Polychromasia 1+ 1+ Hypochromic-Microcytic 1+ 1+ Anisocytosis 1+ 1+ Stomatocytes RARE Toxicology Serum Alcohol (<10 MG/DL) < 10.0 Assessment/Plan Assessment/Plan 47 M POD3 s/p ex lap, drainage of large multiloculated intraabdominal abscess with preliminary cultures growing enterococcus, gram postive cocci, alpha strep and gnr, with persistent tachycardia, leukocytosis, ileus, postop delerium and acute respiratory failure requring intubation for airway protection Critial care consult Cont IVF, NPO, OGT, await bowel fxn Cont IV abx - meropenem, vanco Trend daily labs Monitor HR ALPs, hsq F/u abg, cxr Appreicate medicines, psych involvement Will d/w atttending Core Measures Venous Thromboembolism VTE Risk Factors Surgery No Mechanical VTE Prophylaxis d/t N/A MechProphylax Ordered No VTE Pharm Prophylaxis d/t NA PharmProphylax ordered
--- NOTE | 2017-09-06 08:35 | RADIOLOGY REPORT ---
EXAMINATION: XR PORTABLE CHEST CLINICAL INFORMATION: Respiratory distress. COMPARISON: Chest portable 09/04/2017. TECHNIQUE: Portable frontal view of the chest was obtained. FINDINGS: A right jugular central line tip is in mid SVC. Tip of endotracheal tube is 5.5 cm above the isabella. An enteric tube is below the diaphragm in stomach. The lungs are slightly hypoexpanded with minimal bibasilar atelectasis. Rest the lungs are clear. Heart size and pulmonary vascularity is normal. No gross bony abnormality seen. IMPRESSION: Slightly low lung volumes. No change in support lines and catheters.
--- NOTE | 2017-09-06 09:25 | PN- General Surgery ---
Surgical Brief Attending Note Brief Attending Note: Patient deteriorated overnight requiring intubation this morning. Mental status worsened with hypoxemia. Abdominal examination remains benign. Drain output scant ss fluid. He pulled out right sided pelvic drain. output prior to removal not concerning. remaining left sided drain is in region of prior abscess. WBC increasing. abx coverage broadened to imipenen/vanco. final OR cultures pending. Suspect this is a delayed septic/SIRS response to operative intervention related to recent predisone taper for treatment of pulmonary process last week. Other considerations are that of ARDS. Recommend CT chest with IV contrast and follow through abd/pelvis with oral contrast(to exclude unrecognized enteric leak.). Family concerned about patients status. There appears to be much discourse amongst his girlfriend, ex-, children and his mother(who called in and claimed to be the 'sole contact'). ex- interested in transfer to [place]. I urged her to delay until imaging and culture results completed today. Will get social work consult to sort out conservator.
--- NOTE | 2017-09-06 09:42 | Cons- CRCU ---
Ignacio TAPIA,[facility] 09/06/17 0942: General Information and HPI Consulting Request Date of Consult: 09/06/17 Requested By: Reason for Consult: sepsis Source of Information: patient, family, old records Exam Limitations: unable to give history History of Present Illness: angela is 47-year-old gentleman with past medical history of diabetes mellitus and hypertension. He presented to [facility] ED on 08/20/17 for 1 week of viral syndrome after taking Tamiflu prescribed by online physician. His chest x-ray was suggestive of atypical/viral pneumonia. During this visit patient left AGAINST MEDICAL ADVICE and was discharged on prednisone, Augmentin and azithromycin. He had another brief visit on 08/23/17 secondary to upper abdominal pain after coughing. He received Tylenol and breathing treatment and was discharged on his request. He presented to [facility] ED again on 08/31/17 with complain of NO improvement in respiratory symptoms after being compliant to antibiotic and steroids treatment.Chest x-ray showed resolution of pnemonia but his ongoing symptoms were concerning for bronchitis This time patient was discharged on a steroid taper, doxycycline,Cheratussin AC Syrup and albuterol inhaler. Today patient presented to [facility] ED with complaint of lower abdominal pain 2 to 3 days, gave history of noticing bruising in lower abdomen and consuming large dose of Motrin for pain relief to ED physician. Last tuesday patient had acute onset of epigastric pain which he attributed secondary to cough. He reported worsening of pain to a point he could not sleep. He has been consuming average 20-24 pills of motrin daily, as per surgical HnP. ROS chills and increased appetite. CXR was positive for Free air under both diaphragms suggestive of bowel perforation and left lower lobe developing infiltrate. CT scan showed scattered free intraperitoneal air Surgical service was consulted. Their examination was significant for palpable mass in the epigastric region without involuntary guarding. He underwent exploratory laparotomy with drainage of 3 intraperitoneal abscesses. There was no evidence of any site of perforation and bowel resection was not performed. Patient underwent placement of 2 drains in peritoneal cavity (left upper quadrant and right lower quadrant). He is status post right IJ placement and status post extubation. He was under medical consult, for management of HTN and DM He was initially started on Unasyn and ID was consulted and put her on vancomycin and imipenem. His abscess cultures are growing gram-negative rods plus anaerobic and remained negative trops plus enterococcus plus alpha strep. His course so far has been complicated for persistent up trending WBC count, bandemia, thrombocytosis, along with alteration in mentation. Patient has been reported to be having hallucination and has been agitated. Morning of 09/06 patient was having poor respiratory effort, decreasing respiratory rate and oxygen saturation up to 79%, patient was intubated for airway protection. He has been transferred under ICU service for further evaluation and treatment. Allergies/Medications Allergies: Coded Allergies: No Known Allergies (08/20/17) Review of Systems Review of Systems Constitutional: Reports: see HPI. Past History Travel History Traveled to [place] past 21 day No Medical History Neurological: NONE EENT: NONE Cardiovascular: hypertension, PVD Respiratory: NONE Gastrointestinal: NONE Hepatic: NONE Renal: NONE Musculoskeletal: NONE Psychiatric: depression Endocrine: diabetes Blood Disorders: NONE Cancer(s): NONE Surgical History Surgical History: hernia repair-inguinal (bilateral) Psychosocial History Where Do You Live? Home Primary Language: Sinhala Smoking Status: Former Smoker ETOH Use: occasional use Illicit Drug Use: denies illicit drug use Exam & Diagnostic Data Last 24 Hrs of Vital Signs/I&O Vital Signs Date Time Temp Pulse Resp B/P B/P Pulse O2 O2 Flow FiO2 Mean Ox Delivery Rate 09/06 0815 100 09/06 0400 93 Nasal 4.0L Cannula 09/06 0253 125 30 180/90 09/06 0000 94 Nasal 4.0L Cannula 09/06 0000 98.9 120 28 158/80 94 Nasal 4.0L Cannula 09/05 1600 97.2 118 22 144/74 Room Air 09/05 1200 96 Room Air Intake & Output 09/06 1600 09/06 0800 09/06 0000 Intake Total 875 695 Output Total 10 900 Balance 865 -205 Intake, IV 875 695 Output, Chest 10 Tube Drainage Output, 20 Drainage Output, 400 Gastric Drainage Output, Urine 480 Physical Exam General Appearance: intubated Head: atraumatic Ears, Nose, Throat: hearing grossly normal Neck: normal inspection Respiratory: accessory muscle use, rhonchi, stridor, wheezing Cardiovascular: regular rate/rhythm Gastrointestinal: normal bowel sounds, soft, non-tender Extremities: normal inspection, no edema Last 48 Hrs of Labs/Rosalino: Laboratory Tests 09/06/17 0915: pH 7.42, pCO2 44, pO2 329 H, HCO3 28, ABG O2 Sat (Measured) 98.0, P-50 (Temp Corrected) N, Carboxyhemoglobin 0.8 L, O2 Concentration % 100%, Temperature 98.9, Respiration Rate 20, O2 Delivery Method VENT, Vent Mode VC-AC, Expiratory Pressure 5, Tidal Volume 550, Phlebotomy Draw Site RIGHT RADIAL 09/06/17 0915: pH Cancelled, pCO2 Cancelled, pO2 Cancelled, HCO3 Cancelled, ABG O2 Sat ( Measured) Cancelled, P-50 (Temp Corrected) Cancelled, Carboxyhemoglobin Cancelled, O2 Concentration % Cancelled, Temperature Cancelled, Respiration Rate Cancelled, O2 Delivery Method Cancelled, Vent Mode Cancelled, Expiratory Pressure Cancelled, Tidal Volume Cancelled, Pressure Support Cancelled, Phlebotomy Draw Site Cancelled 09/06/17 0600: Sodium Cancelled, Potassium Cancelled, Chloride Cancelled, Carbon Dioxide Cancelled, Anion Gap Cancelled, BUN Cancelled, Creatinine Cancelled, Glucose Cancelled, Calcium Cancelled, Phosphorus Cancelled, Magnesium Cancelled, Total Bilirubin Cancelled, AST Cancelled, ALT Cancelled, Albumin Cancelled 09/06/17 0500: CBC w Diff Cancelled, WBC Cancelled, RBC Cancelled, Hgb Cancelled, Hct Cancelled , MCV Cancelled, MCH Cancelled, MCHC Cancelled, RDW Cancelled, Plt Count Cancelled, MPV Cancelled 09/06/17 0400: Anion Gap 6, Estimated GFR > 60, Glucose 170 H, Calcium 8.5, Phosphorus 3.8, Magnesium 2.0, Total Bilirubin 1.4 H, AST 35, ALT 43, Albumin 2.4 L, CBC w Diff MAN DIFF ORDERED, RBC 3.70 L, MCV 86.8, MCH 30.5, MCHC 35.1, RDW 13.9, MPV 7.7, Gran % 76.5 H, Lymphocytes % 12.5 L, Monocytes % 9.7 H, Eosinophils % 1.0, Basophils % 0.3, Absolute Granulocytes 28.5 H, Segmented Neutrophils 65, Band Neutrophils 10 H, Absolute Lymphocytes 4.6 H, Lymphocytes 12 L, Monocytes 4, Absolute Monocytes 3.6 H, Eosinophils 1, Absolute Eosinophils 0.4, Absolute Basophils 0.1, Metamyelocytes 5 H, Myelocytes 3 H, Platelet Estimate INCREASED, Polychromasia 1+, Hypochromic-Microcytic 1+, Anisocytosis 1+, Stomatocytes RARE 09/05/17 0620: Anion Gap 7, Estimated GFR > 60, Glucose 117 H, Calcium 8.3 L, Phosphorus 3.3, Magnesium 1.9, Total Bilirubin 1.1, AST 38, ALT 45, Albumin 2.0 L, PT 15.1 H, INR 1.44 H, CBC w Diff MAN DIFF ORDERED, RBC 3.24 L, MCV 90.0, MCH 32.7 H, MCHC 36.3, RDW 13.7, MPV 8.1, Gran % 81.0 H, Lymphocytes % 9.8 L, Monocytes % 8.5, Eosinophils % 0.5, Basophils % 0.2, Absolute Granulocytes 26.5 H, Segmented Neutrophils 72, Band Neutrophils 10 H, Absolute Lymphocytes 3.2, Lymphocytes 9 L, Monocytes 7, Absolute Monocytes 2.8 H, Absolute Eosinophils 0.2, Absolute Basophils 0.1, Metamyelocytes 1, Myelocytes 1 H, Platelet Estimate INCREASED, Polychromasia 1+, Hypochromic-Microcytic 1+, Anisocytosis 1+ , Serum Alcohol < 10.0 Assessment/Plan CRCU Impression/Plan: The patient is 47-year-old male with past medical history of diabetes mellitus, hypertension and prolonged respiratory illness (flu, ammonia, bronchitis). He presented to [facility] ED on 09/03 with complaints of epigastric abdominal pain.He was admitted to surgical service with the constant abdominal pain and found to have intraperitoneal abscesses as well as free air under the diaphragm. Patient was taken for emergent exploration treated approximately and found to have intraperitoneal abscesses status post drainage. Respiratory Acute respiratory failure requiring intubation Patient was intubated in the morning for inability to maintain airway 2/2 reduced mental status likely opiate induced. Possible differentials include aspiration versus ARDS versus medication induced (last dose of Dilaudid 1mg was around 10 PM last night and last dose of Ativan is 1mg dose around 11 PM) ABGs were ordered but were drawn after intubation so not really helpful. -Continue intubation and mechanical ventilation for now -Start weaning trials soon -Avoid Ativan and narcotics -Follow-up chest CT scan #Suspected obstructive sleep apnea/Obesity hypoventilation syndrome -Outpatient evaluation for sleep study #Left lower lobe developing infiltrate likely residual Repeat chest x-ray not significant for worsening -TRC -Incentive spirometry -F/U CT scan with IV contrast Infection #Sepsis secondary to intraperitoneal abscesses and Perforated viscus -Aebrile overnight, labs significant for increasing leukocytosis with left shift and bandemia concerning for worsening of sepsis -The lab culture report has not been finalized. But specimen shows evidence of gram-negative rods, anaerobes, gram-positive cocci enterococcus and Staphylococcus. Follow-up with final sensitivities -Currently on imipenem and vancomycin. -ID on board -Repeat CT scan abdomen and pelvis with oral contrast for any residual abscess/ any acute intra-abdominal pathology Cardiovascular #Questionable history of HTN -Stable , per pt's EMR not on antihypertensive Hematology #Leukocytosis with bandemia secondary to sepsis -See above #Thrombocytosis likely in setting of sepsis-worsening -Continue to monitor Metabolic #Hyponatremia-Resolved Patient presented with sodium of 128 and in the past his sodium has been around 122 appears to be chronic. today 139 improved with NS -Continue IVF with normal saline -Continue to monitor #Hyperbilirubinemia likely secondary insetting of sepsis -Continue to monitor #Elevated INR likely secondary to NSAIDs use, LFTs normal -Salicylate and tyelenol level WNL -repeat INR tommorrow #Diabetes mellitus -FBS 170,174,133,121 in acceptable range -Accu-Cheks before meals and at bedtime, -Continue low dose NPO insulin sliding scale -HbA1c 9.9 Endocrinology referral on d/c -carbohydrate consistent diet when able #Hyperkalemia- borderline -Continue to monitor Alimentary -Continue NPO for -Continue IV protonix Neurology #AMS Worsening mentation possible etiologies sepsis versus hypercapnia vs medication induced -Continue mechanical ventilation -Continue broad-spectrum antibiotics -Avoid narcotics #Depression -On venalfaxine Nephrology #Solid mass midpole right kidney The finding is concerning for RCC patient will benefit from MRI evaluation which can be done as outpatient -Urology on board -No acute intervention at this time #NATALIE-Resolved -Continue to monitor DVT prophylaxis -Heparin Sq Consult Acknowledgment - Thank you for your consult request. Melvin Barkley MD 09/06/17 1102: General Information and HPI Allergies/Medications Home Med List: Albuterol Sulfate (Proair Hfa) 90 MCG HFA.AER.AD 2 PUF INH Q4-6 PRN PRN SOB Albuterol Sulfate 1.25 MG/3 ML VIAL.NEB 1 Vial INH/MESHA Q4-6 PRN COUGH/SOB Amoxicillin/Potassium Clav (Augmentin 875-125 Tablet) 875 MG-125 MG TABLET 1 TAB PO BID PNEUMONIA Azithromycin 250 MG TABLET 1 DP PO AD PNEUMONIA 2 the first day followed by 1 for days 2-5 Codeine Phosphate/Guaifenesi (Codeine-Guaifen 10-100 MG/5 Ml) 10 MG-100 MG/5 ML LIQUID 15 ML PO Q12P PRN COUGH Codeine Phosphate/Guaifenesi (Cheratussin AC Syrup) 10 MG-100 MG/5 ML LIQUID 10 ML PO Q6H PRN COUGH Doxycycline Monohydrate (Avidoxy) 100 MG TABLET 1 TAB PO BID BRONCHITIS Heparin Sodium,Porcine (Heparin Sodium) 5,000 UNIT/ML VIAL 5,000 UNIT SC Q8 dvt ppx Pantoprazole Sodium 40 MG VIAL 40 MG IV DAILY gi ppx Prednisone 20 MG TABLET 1 TAB PO BID COUGH Prednisone (Deltasone) 20 MG TABLET 2 TAB PO ONCE DAILY BRONCHITIS Assessment/Plan CRCU Other Findings/Comments: IMelvin M.D. have examined this patient, reviewed available EMR data, personally reviewed images, discussed with resident/PA/PRESS OPERATOR ASSISTANT, discussed management plan with housestaff and nursing staff, discussed managment plan all of healthcare providers, discussed management plan with patient and/or family, agreed with resident/PA/PRESS OPERATOR ASSISTANT. The past history and parts of the chart have been autopopulated. Impression 47 year old man * respiratory failure, airway protection, reduced mental status, possible opiate induced * sepsis - multiloculated intra-abdominal abscess with multiple pathogens Plan -daughter will be primary decision maker -f/u surgery -mechanical ventilation -f/u all cx -f/u ID recs, on vanco, carbapenem, possible aspiration -discussion held with family they are concerned about the overall care and wish to consider [facility] transfer, this will be addressed with the surgical team and we will make a motion for a transfer DVT prophylaxis at all times TTS 35 min Consult Acknowledgment - Thank you for your consult request.
--- NOTE | 2017-09-06 12:14 | PN- Infect Dx ---
Subjective Subjective: Patient deteriorated overnight requiring intubation this morning. Mental status worsened with hypoxemia. Drain output scant ss fluid. He pulled out right sided pelvic drain. Review of Systems Comments: Limited 12 points ROS, as he is intubated. Objective Last 24 Hrs of Vital Signs/I&O Vital Signs Date Time Temp Pulse Resp B/P B/P Pulse O2 O2 Flow FiO2 Mean Ox Delivery Rate 09/06 0815 100 09/06 0400 93 Nasal 4.0L Cannula 09/06 0253 125 30 180/90 09/06 0000 94 Nasal 4.0L Cannula 09/06 0000 98.9 120 28 158/80 94 Nasal 4.0L Cannula 09/05 1600 97.2 118 22 144/74 Room Air Intake & Output 09/06 1600 09/06 0800 09/06 0000 Intake Total 875 695 Output Total 10 900 Balance 865 -205 Intake, IV 875 695 Output, Chest 10 Tube Drainage Output, 20 Drainage Output, 400 Gastric Drainage Output, Urine 480 Patient 257 lb Weight Physical Exam Other Physical Findings: GEN- Critically ill, intubated HEENT- AT, sclera anicteric, ETT in place NECK- No RICHARD, TLC RIJ in place CARD- S1S2 present, tachycardic, no m/r/g PULM- BS thoughout, no wheezing ABD- obese, distended, no bs, dressings w minimal serosang drainage- mid- stapleline with inferior aspect open, scant SS drainage, no erythema, no flucuance. JPx1 w serosang drainage. - Pierson patent Results Last 24 Hours of Lab Results: Laboratory Tests 09/06 09/06 09/06 09/06 0915 0915 0600 0500 Blood Gas pH (7.35 - 7.45 PH) 7.42 Cancelled pCO2 (35 - 45 TORR) 44 Cancelled pO2 (80 - 100 TORR) 329 H Cancelled HCO3 (21 - 28 MEQ/L) 28 Cancelled ABG O2 Sat (Measured) (>96.0 %) 98.0 Cancelled P-50 (Temp Corrected) N Cancelled Carboxyhemoglobin (1.5 - 5.0 %) 0.8 L Cancelled O2 Concentration % 100% Cancelled Temperature (97.0 - 100.0 FARH) 98.9 Cancelled Respiration Rate (BPM) 20 Cancelled O2 Delivery Method VENT Cancelled Vent Mode VC-AC Cancelled Expiratory Pressure (CMH2O/P) 5 Cancelled Tidal Volume (CC) 550 Cancelled Pressure Support Cancelled Chemistry Sodium Cancelled Potassium Cancelled Chloride Cancelled Carbon Dioxide Cancelled Anion Gap Cancelled BUN Cancelled Creatinine Cancelled Glucose Cancelled Calcium Cancelled Phosphorus Cancelled Magnesium Cancelled Total Bilirubin Cancelled AST Cancelled ALT Cancelled Albumin Cancelled Hematology CBC w Diff Cancelled WBC Cancelled RBC Cancelled Hgb Cancelled Hct Cancelled MCV Cancelled MCH Cancelled MCHC Cancelled RDW Cancelled Plt Count Cancelled MPV Cancelled Miscellaneous Phlebotomy Draw Site RIGHT RADIAL Cancelled 09/06 0400 Chemistry Sodium (137 - 145 mmol/L) 139 Potassium (3.5 - 5.1 mmol/L) 5.2 H Chloride (98 - 107 mmol/L) 100 Carbon Dioxide (22 - 30 mmol/L) 33 H Anion Gap (5 - 16) 6 BUN (9 - 20 mg/dL) 20 Creatinine (0.7 - 1.2 mg/dL) 0.7 Estimated GFR (>60 ml/min) > 60 Glucose (65 - 99 mg/dL) 170 H Calcium (8.4 - 10.2 mg/dL) 8.5 Phosphorus (2.5 - 4.5 mg/dL) 3.8 Magnesium (1.6 - 2.3 mg/dL) 2.0 Total Bilirubin (0.2 - 1.3 mg/dL) 1.4 H AST (17 - 59 U/L) 35 ALT (21 - 72 U/L) 43 Albumin (3.5 - 5.0 g/dL) 2.4 L Hematology CBC w Diff MAN DIFF ORDERED WBC (4.8 - 10.8 /CUMM) 37.2 *H RBC (4.70 - 6.10 /CUMM) 3.70 L Hgb (14.0 - 18.0 G/DL) 11.3 L Hct (42 - 52 %) 32.1 L MCV (80.0 - 94.0 FL) 86.8 MCH (27.0 - 31.0 PG) 30.5 MCHC (33.0 - 37.0 G/DL) 35.1 RDW (11.5 - 14.5 %) 13.9 Plt Count (130 - 400 /CUMM) 612 H MPV (7.4 - 10.4 FL) 7.7 Gran % (42.2 - 75.2 %) 76.5 H Lymphocytes % (20.5 - 51.1 %) 12.5 L Monocytes % (1.7 - 9.3 %) 9.7 H Eosinophils % (0 - 5 %) 1.0 Basophils % (0.0 - 2.0 %) 0.3 Absolute Granulocytes (1.4 - 6.5 /CUMM) 28.5 H Segmented Neutrophils (42.2 - 75.2 %) 65 Band Neutrophils (0.0 - 5.0 %) 10 H Absolute Lymphocytes (1.2 - 3.4 /CUMM) 4.6 H Lymphocytes (20.5 - 51.1 %) 12 L Monocytes (1.7 - 9.3 %) 4 Absolute Monocytes (0.10 - 0.60 /CUMM) 3.6 H Eosinophils (0 - 5.0 %) 1 Absolute Eosinophils (0.0 - 0.7 /CUMM) 0.4 Absolute Basophils (0.0 - 0.2 /CUMM) 0.1 Metamyelocytes (0.0 - 1.0 %) 5 H Myelocytes (0 - 0 %) 3 H Platelet Estimate (ADEQUATE) INCREASED Polychromasia 1+ Hypochromic-Microcytic 1+ Anisocytosis 1+ Stomatocytes RARE Last 24 Hours of Rosalino Results: Patient : JERAD SHEA Acct: [id number] DR: Efrain Leon MD Birthdate: [birth year] Age/Sex: 47/M Unit: [id number] Loc: [facility] 103- [id number] Status : ADM IN SPEC #: [id number] GIANA: 09/03/17 STATUS: RES RECD: 09/03/17-[address]: Efrain Leon MD SOURCE: BODY FLUID ENTR: 09/03/[address]: Jalyn TAPIA,Merrill Reza SPDESC: ASCITES [place] ORDERED: BODY FLD CULTUR COMMENT: ADDITIONAL INFORMATION: PERITONEAL ABCESS RECEIVED ~10CC TUBID,CARBAJAL FLUID IN STERILE CUP Procedure Result > GRAM STAIN Final 09/03/17-1457 WHITE BLOOD CELLS MANY GRAM POSITIVE COCCI MANY GRAM NEGATIVE RODS MANY GRAM POSITIVE RODS FEW > BODY FLUID CULTURE Preliminary 09/06/17-1118 Heavy growth of: 1.ENTEROCOCCUS Sensitivities to follow 2.ALPHA STREP 3.STAPH COAGULASE NEGATIVE 4. PROBABLE ANAEROBIC MIXED KEN UNABLE TO SEPARATE Scant growth of : 5. ESCHERICHIA COLI Called to/Readback by RILEY by LAB.[facility] 09/04/17 0857 Coag Neg E.coli RX AB RX AB ------ -- ------ -- AMPICILLIN R S CEFAZOLIN R S AMOX/CLAV AUGM R S AMP/SULB-UNASYN R S CIPROFLOXACIN R GENTAMICIN S TETRACYCLINE R TRIMETH/SULFA R S AZITHROMYCIN R CLINDAMYCIN S ERYTHROMYCIN R OXACILLIN R VANCOMYCIN S 3. STAPH COAGULASE NEGATIVE RX ABN ------ --- 3. STAPH COAGULASE NEGATIVE RX AB ------ -- AMPICILLIN R CEFAZOLIN R AMOXICILLIN/CLAVULINIC ACID R AMPICILLIN/SULBACTAM R TETRACYCLINE R TRIMETHOPRIM/SULFAMETHOXAZOLE R AZITHROMYCIN R CLINDAMYCIN S ERYTHROMYCIN R OXACILLIN R VANCOMYCIN S 5. ESCHERICHIA COLI RX AB ------ -- AMPICILLIN S CEFAZOLIN S AMOXICILLIN/CLAVULINIC ACID S AMPICILLIN/SULBACTAM S CIPROFLOXACIN R GENTAMICIN S TRIMETHOPRIM/SULFAMETHOXAZOLE S Recent Imaging Studies: CT A/P 09/06 IMPRESSION: 1. The previously seen large fluid collection is no longer evident, with a drainage catheter present in the abdomen. No significant residual collection present. 2. Diffuse congestion, edema and haziness within the mesentery. There is a wall thickening of long segments of multiple loops of the small bowel in the mid abdomen, concerning for enteritis. There is wall thickening of the proximal sigmoid colon as well, concerning for colitis. Differential consideration include sequela of surgery, infectious, inflammatory, ischemic etiologies. 3. Small amount of free fluid in the abdomen or pelvis. 4. Patient has a solid mass in the right kidney, better appreciated on the prior CT. Primary differential consideration is for a renal tumor. Recommend further evaluation with MRI abdomen. This critical result was discussed with Jules Lazo at 1:10 PM on 09/06/2017 and it was ascertained that the content and urgency of the report was understood at the time of direct communication. DICTATED BY: Justyn Shaffer MD DATE/TIME DICTATED:09/06/171239 POCKET MARKER:MAKAYLA DATE/TIME TRANSCRIBED:09/06/171239 CONFIDENTIAL, DO NOT COPY WITHOUT APPROPRIATE AUTHORIZATION. FINDINGS: A right jugular central line tip is in mid SVC. Tip of endotracheal tube is 5.5 cm above the isabella. An enteric tube is below the diaphragm in stomach. The lungs are slightly hypoexpanded with minimal bibasilar atelectasis. Rest the lungs are clear. Heart size and pulmonary vascularity is normal. No gross bony abnormality seen. IMPRESSION: Slightly low lung volumes. No change in support lines and catheters. DICTATED BY: Delilah TAPIA,Lorne DATE/TIME DICTATED:09/06/17827 POCKET MARKER:MAKAYLA DATE/TIME TRANSCRIBED:09/06/17827 Assessment/Plan ID Impression: 47 y/o WM known w/HTN, DM2, and recent hx of pneumonia admitted 09/03 with abdominal pain, found to have likle large bowel perforation, resulting in large free air and a large walled off air-fluid collection in the midabdomen; now POD #3; intraop culture preliminary revealing polymicrobial infection, including Enterococcus (sensitivity pending), E.coli, anaerobic GNR, and SCN). Severe leukocytosis (WBC ~37K); WBC trending up; treated w/ iv Unasyn until 09/05 ; currently receiving iv Vancomycin/Imipinem Ac resp failure Renal mass; r/o RCC; evaluated by urology. Suggestion: 1. Continue broad antibiotic coverage treatment with Imipenem 500 mg iv q 6 h and vancomycin 1.25 gm q 12 h pending Enterococcus sensitivity. Can deescalate from imipenem to pip/tazo (Zosyn 4.5 q 6 h). 2. Trend CBC, BMP, LFT's, lactic acid. 3. Interval follow up CT abd/pelvis results as noted concerning for ischemia.
--- NOTE | 2017-09-06 13:34 | CT SCAN REPORT ---
EXAMINATION: CT ABDOMEN AND PELVIS WITH CONTRAST CLINICAL INFORMATION: Intra-abdominal abscess. COMPARISON: 09/03/2017 TECHNIQUE: Multidetector volumetric imaging was performed of the abdomen and pelvis following IV administration of 95 mL of Optiray 320 intravenous contrast. Sagittal and coronal reformatted images were obtained on the technologist's workstation. FINDINGS: There is streak artifact extending across the abdomen, likely secondary to the extremities positioned along the abdomen. LUNG BASES: See chest CT report. LIVER, GALLBLADDER, AND BILIARY TREE: The liver is normal in size, shape, and attenuation. No focal hepatic lesion or biliary ductal dilatation is present. The gallbladder is unremarkable with no evidence of radiopaque gallstones, gallbladder wall thickening, or obvious pericholecystic inflammatory changes. PANCREAS: Unremarkable SPLEEN: Unremarkable ADRENAL GLANDS: Unremarkable KIDNEYS AND URETERS: Redemonstrated is a solid mass in the midpole of the right kidney measuring 2.5 cm transverse. Streak artifact limits evaluation, but evaluated/visualized on the previous CT. The small exophytic right renal lesion, better visualized on the prior CT. Mild bilateral perinephric stranding. No hydronephrosis. BLADDER: Pierson catheter present, under distended, small focus of air within the bladder, likely secondary to the catheterization. GASTROINTESTINAL TRACT: There is a drainage catheter present, with the tip in the midline of the lower abdomen. The previously seen collection is no longer evident. No significant residual collection present. There is a diffuse congestion, edema and haziness within the mesentery. There is apparent wall thickening of the proximal colon, concerning for colitis. In addition, there is wall thickening of long segments of multiple loops of small bowel within the mid abdomen. The appearance is concerning for enteritis. Differential consideration would include infectious, inflammatory etiologies. Ischemic etiology cannot be excluded. No convincing evidence of pneumatosis at this stage. No evidence of bowel obstruction. Small amount of free fluid in the abdomen or pelvis. Small foci of free air in the abdomen, improved from previous. Focus of air in the subcutaneous tissues as well. ABDOMINAL WALL: No significant hernia is appreciated. LYMPH NODES: No pathologically enlarged lymph nodes. VASCULAR: Normal caliber aorta. PELVIC VISCERA: Within normal limits. OSSEOUS STRUCTURES: Multilevel degenerative changes in the spine. IMPRESSION: 1. The previously seen large fluid collection is no longer evident, with a drainage catheter present in the abdomen. No significant residual collection present. 2. Diffuse congestion, edema and haziness within the mesentery. There is a wall thickening of long segments of multiple loops of the small bowel in the mid abdomen, concerning for enteritis. There is wall thickening of the proximal sigmoid colon as well, concerning for colitis. Differential consideration include sequela of surgery, infectious, inflammatory, ischemic etiologies. 3. Small amount of free fluid in the abdomen or pelvis. 4. Patient has a solid mass in the right kidney, better appreciated on the prior CT. Primary differential consideration is for a renal tumor. Recommend further evaluation with MRI abdomen. This critical result was discussed with Jules Lazo at 1:10 PM on 09/06/2017 and it was ascertained that the content and urgency of the report was understood at the time of direct communication.
--- NOTE | 2017-09-06 14:24 | PN- General Surgery ---
Surgical Brief Attending Note Brief Attending Note: CT abdomen images reviewed. Bowel edema is expected after an operation such as his. There is no evidence for persistent intraabdominal infection or enteric leak.
[2017-09-06 16:00] VITALS: BP 133/80
--- NOTE | 2017-09-06 16:28 | CT SCAN REPORT ---
EXAMINATION: CT ANGIOGRAM OF THE CHEST WITH AND WITHOUT CONTRAST (CT PULMONARY ANGIOGRAM FOR PE) CLINICAL INFORMATION: Tachycardia. COMPARISON: None TECHNIQUE: Prior to contrast administration, noncontrast localization images were obtained. Subsequently, multidetector volumetric imaging was performed from the thoracic inlet to below the diaphragms following the administration of 95 mL Optiray 320 intravenous contrast. No contrast reaction reported. Sagittal, coronal, and MIP oblique sagittal reformatted images were obtained on the CT workstation, uploaded to PACS, and reviewed. Total exam dose-length product 2191.00 mGy-cm. FINDINGS: QUALITY OF STUDY/CONTRAST BOLUS: Satisfactory. PULMONARY ARTERIES: Markedly limited evaluation of the segmental pulmonary arteries due to respiratory motion, streak artifact from the patient's arms being down within the gantry as well as patchy lung consolidations bilaterally. Hypoventilatory changes also crowd the bronchovascular structures which limits their evaluation. The main pulmonary artery, right pulmonary artery and left pulmonary artery are without filling defects. The proximalmost aspect of the segmental pulmonary arteries are also without filling defects. THORACIC AORTA: No aneurysm or dissection. LUNG: Patchy consolidations within the upper lobes. Small bilateral pleural effusions with bibasilar compressive atelectasis. The endotracheal tube tip is approximately 4 cm above the isabella. PLEURA: No pneumothorax. Small bilateral pleural effusions. MEDIASTINUM: Heart size is normal. No pericardial effusion. No mediastinal or hilar lymphadenopathy. No evidence of septal bowing or right heart strain. Right central venous catheter within the internal jugular vein with tip in the distal SVC. CHEST WALL/AXILLA: No axillary or internal mammary lymphadenopathy. OSSEOUS STRUCTURES: No acute or suspicious osseous abnormality. UPPER ABDOMEN: Refer to the dedicated abdominal CT performed contemporaneously for details regarding the abdomen. No reflux of contrast into the hepatic veins to suggest elevated right heart pressures. IMPRESSION: 1. Patchy opacities within the upper lobes of the lungs may represent an acute infectious or inflammatory condition. Small bilateral pleural effusions are now seen with consolidations of the posterior lower lobes in a dependent location, likely on the basis of compressive atelectasis. 2. Markedly limited evaluation for pulmonary embolism. Only the main pulmonary artery, right pulmonary artery, left pulmonary artery and proximal most aspects of the segmental arteries are evaluated well enough to exclude pulmonary embolism. I cannot exclude the possibility of segmental or subsegmental pulmonary emboli. 3. Endotracheal tube tip 4 cm above the isabella. Right internal jugular central venous catheter with tip in the SVC. VTE: indeterminate.
--- NOTE | 2017-09-06 16:53 | Surgical Discharge Summary ---
Visit Information Visit Dates Admission Date: 09/03/17 Discharge Date: 09/06/17 History of Present Illness Chief Complaint: Three day history of abdominal pain Medical History Neurological: NONE EENT: NONE Cardiovascular: hypertension, PVD Respiratory: NONE Gastrointestinal: NONE Hepatic: NONE Renal: NONE Musculoskeletal: NONE Psychiatric: depression Endocrine: diabetes Blood Disorders: NONE Cancer(s): NONE History of MRSA: No History of VRE: No History of CDIFF: No Isolation History: Standard Influenza Vaccine: 09/05/17 Surgical History Pertinent Surgical History: hernia repair-inguinal (bilateral), ex lap with intraperitoneal abscess drainage x3 09/03/17 Psychosocial History Where Do You Live? Home What is Your Primary Language? Malawian ETOH Use: occasional use Review of Systems: Refer to H&P Physical Exam: Gen - intubated an sedated in ICU Skin - right sided ij in place, warm and nondiaphoretic Cardiac - S1S2, tachycardic Lungs - coarse bs throughout Abd - softly distended, absent bowel sounds, well-healing midline incision closed with edita with opening in inferior incision with scant drainage, right prev josh site with scant drainage, left sided josh with scant serosanguineous drainage, redressed with gauze, incision left rotary cutter feeder, no grimacing on palpation Ext - no edema or calf tenderness Hospital Course Course Attending Physician: Edward TAPIA,Efrain Riddle Primary Care Physician: Merrill Gunderson MD Hospital Course: This is a 47 year-old male with a past medical history significant for HTN, uncontrolled DMII, depression and recent history of a prolonged URI that was treated with prednisone taper, oral antibiotics and NSAIDs who presented to [facility] with a three day history of abdominal pain. Exam was significant for palpable mass in the epigastric region without involuntary guarding and CT scan revealed evidence of small bowel perforation with scattered free air. In addition, a very large intraperitoneal abscess contained small bowel loops was noted. He recieved broad-spectrum IV antibiotics proceeded emergently to OR for exploratory laparotomy with drainage of abscess. Initially, he was recovering well, until postoperative day 3, he became agitated, confused with hypoxia and respiratory failure requiring intubation. In addition, white count increased and antiobiotic coverage was broadened to imipenen, vanco. A CT of the abdomen/pelvis was preformed, which revealed no concerning intraabdominal process and CTA of the chest was indeterminate for PE due to acute pulmonary process. Patient family is requesting family driven transfer to [place] at this time. Complications: Acute respiratory failure likely secondary to sepsis Allergies: Coded Allergies: No Known Allergies (08/20/17) Significant Procedures: Surgery Date: 09/03/17 Name of Procedure: Exploratory laparotomy with drainage of 3 intraperitoneal abscesses Pre-Operative Diagnosis: Intraperitoneal abscess Perforated viscus Post-Operative Diagnosis: Peritoneal abscess Pertinent Lab Results: SOURCE: BODY FLUID ENTR: 09/03/17-[address]: Jalyn TAPIA,Merrill Reza SPDESC: ASCITES FL ORDERED: BODY FLD CULTUR COMMENT: ADDITIONAL INFORMATION: PERITONEAL ABCESS RECEIVED ~10CC TUBID,CARBAJAL FLUID IN STERILE CUP Procedure Result > GRAM STAIN Final 09/03/17-1457 WHITE BLOOD CELLS MANY GRAM POSITIVE COCCI MANY GRAM NEGATIVE RODS MANY GRAM POSITIVE RODS FEW > BODY FLUID CULTURE Final 09/06/17-1305 Heavy growth of: 1.ENTEROCOCCUS 2.ALPHA STREP 3.STAPH COAGULASE NEGATIVE 4. STREP BOVIS 5. PROBABLE ANAEROBIC MIXED KEN UNABLE TO SEPARATE Scant growth of : 6. ESCHERICHIA COLI Called to/Readback by NEMA by LAB[facility] 09/04/17 0857 Enteroc Coag Neg STR BOVIS E.coli RX AB RX AB RX AB RX AB ------ -- ------ -- ------ -- ------ -- AMPICILLIN S R S S CEFAZOLIN R S AMOX/CLAV AUGM R S AMP/SULB-UNASYN R S CIPROFLOXACIN R GENTAMICIN S TETRACYCLINE R TRIMETH/SULFA R S AZITHROMYCIN R CLINDAMYCIN S ERYTHROMYCIN R OXACILLIN R VANCOMYCIN S S 1. ENTEROCOCCUS RX AB ------ -- AMPICILLIN S VANCOMYCIN S 3. STAPH COAGULASE NEGATIVE RX ABN ------ --- 3. STAPH COAGULASE NEGATIVE RX AB ------ -- AMPICILLIN R CEFAZOLIN R AMOXICILLIN/CLAVULINIC ACID R AMPICILLIN/SULBACTAM R TETRACYCLINE R TRIMETHOPRIM/SULFAMETHOXAZOLE R AZITHROMYCIN R CLINDAMYCIN S ERYTHROMYCIN R OXACILLIN R VANCOMYCIN S 4. STREP BOVIS RX AB ------ -- AMPICILLIN S 6. ESCHERICHIA COLI RX AB ------ -- AMPICILLIN S CEFAZOLIN S AMOXICILLIN/CLAVULINIC ACID S AMPICILLIN/SULBACTAM S CIPROFLOXACIN R GENTAMICIN S TRIMETHOPRIM/SULFAMETHOXAZOLE S Disposition Summary Disposition Principal Diagnosis: 1. Intraperitoneal abscess 2. Perforated viscus Additional Diagnosis: KI s/p exploratory laparotomy with drainage of 3 intraperitoneal abscesses Right renal mass Acute respiratory failure Discharge Disposition: [facility] ([place]) Discharge Instructions General Discharge Information Code Status: Full Code Patient's Diet: NPO Patient's Activity: N/A Follow-Up Instructions/Appts: Urologist, Dr. Domingo for incidential right renal mass Medications at Discharge Discharge Medications: Continue taking these medications: Prednisone (Prednisone) 20 MG TABLET 1 Tablet ORAL TWICE DAILY Qty = 10 Amoxicillin/Potassium Clav (Augmentin 875-125 Tablet) 875 MG-125 MG TABLET 1 Tablet ORAL TWICE DAILY Qty = 14 Azithromycin (Azithromycin) 250 MG TABLET 1 Dose Pack ORAL As Directed Qty = 6 Instructions: 2 the first day followed by 1 for days 2-5 Albuterol Sulfate (Proair Hfa) 90 MCG HFA.AER.AD 2 Puff Inhale through mouth EVERY 4-6 HOURS NEEDED as needed for SOB Qty = 1 Codeine Phosphate/Guaifenesi (Codeine-Guaifen 10-100 MG/5 Ml) 10 MG-100 MG/5 ML LIQUID 15 Milliliters ORAL Every 12 hours as needed as needed for COUGH Qty = 200 Prednisone (Deltasone) 20 MG TABLET 2 Tablet ORAL ONCE DAILY Qty = 10 Albuterol Sulfate (Albuterol Sulfate) 1.25 MG/3 ML VIAL.NEB 1 Vial Inhale Solution EVERY 4-6 HOURS as needed for COUGH/SOB Qty = 15 Doxycycline Monohydrate (Avidoxy) 100 MG TABLET 1 Tablet ORAL TWICE DAILY Qty = 14 Codeine Phosphate/Guaifenesi (Cheratussin AC Syrup) 10 MG-100 MG/5 ML LIQUID 10 Milliliters ORAL Q6H as needed for COUGH Qty = 240 Start taking the following new medications: Heparin Sodium,Porcine (Heparin Sodium) 5,000 UNIT/ML VIAL 5,000 Unit Inject into fatty tissue EVERY 8 HOURS Qty = 30 No Refills Pantoprazole Sodium (Pantoprazole Sodium) 40 MG VIAL 40 Milligram INTRAVEN DAILY Qty = 30 No Refills
[2017-09-06] MEDS ORDERED: PANTOPRAZOLE SO40 M2 IV (16:56)
[2017-09-06] MEDS ORDERED: HEPARIN SO5000 UNIT3 SC (16:56)
--- NOTE | 2017-09-06 17:05 | Patient Discharge Instructions ---
Discharge Instructions General Discharge Information You were seen/treated for: Intraperitoneal abscess Perforated viscus You had these procedures: Exploratory laparotomy with drainage of 3 intraperitoneal abscesses followed by IR drainage of abscess. Watch for these problems: Increased abdominal pain or nausea, temp>101, chills Do not soak the wound: Yes No bath, but you may shower: Yes Other wound care: Drain care per home nursing. Flushes as instructed twice daily. Keep dressing clean and dry. Change as necessary. Special Instructions: Follow up with primary care physician. Follow up with Dr Domingo (urology) regarding renal mass. Follow up with a GI specialist for continued care as well as for reommendations regarding strep bovis in the abdominal cultures and potential complications. Schedule a CT scan for Tuesday 09/26 and get labsork drawn here at [facility] followed by an appointment with Dr Leon. Call Dr Leon's office to schedule the appointment. Call radiology at [phone] scan. They will have an order in their system. Stop by the blood draw desk, they will have an order in their system. Diet Recommended Diet: Full Liquids, Low Residue Activity Activity Self Limited: Yes Pounds, do NOT lift more than: 10 Acute Coronary Syndrome Inclusion Criteria At DC or during hospital stay patient has or had the following: ACS DIAGNOSIS No Discharge Core Measures Meds if any: Prescribed or Continued at Discharge Meds if any: NOT Prescribed or Continued at Discharge Congestive Heart Failure Inclusion Criteria At DC or during hospital stay patient has or had the following: CHF DIAGNOSIS No Discharge Core Measures Meds if any: Prescribed or Continued at Discharge Meds if any: NOT Prescribed or Continued at Discharge Cerebrovascular accident Inclusion Criteria At DC or during hospital stay patient has or had the following: CVA/TIA Diagnosis No Discharge Core Measures Meds if any: Prescribed or Continued at Discharge Meds if any: NOT Prescribed or Continued at Discharge Venous thromboembolism Inclusion Criteria VTE Diagnosis No VTE Type NONE VTE Confirmed by (Test) NONE Discharge Core Measures - Per Current guidelines, there needs to be overlap - treatment for the first 5 days of Warfarin therapy. - If discharged on Warfarin prior to 5 days of - overlap therapy, the patient will need to be - assessed for post discharge needs including - *Post discharge parental anticoagulation - *Warfarin and/or parental anticoagulation education - *Follow up date to check INR post discharge At least 5 days overlap therapy as Inpatient No Meds if any: Prescribed or Continued at Discharge Note: Overlap Therapy is Warfarin and Anticoagulant Meds if any: NOT Prescribed or Continued at Discharge
[2017-09-06 18:02] VITALS: BP 133/80
[2017-09-07] VITALS: BP 120/84
[2017-09-07 04:39] LABS: ABSOLUTE BASOPHIL COUNT 0 /CUMM (0.0-0.2); ABSOLUTE EOSINOPHIL COUNT 0.3 /CUMM (0.0-0.7); ABSOLUTE GRANULOCYTE CT 14.8 /CUMM (1.4-6.5); ABSOLUTE LYMPH COUNT 3.1 /CUMM (1.2-3.4); ABSOLUTE MONOCYTE COUNT 1.6 /CUMM (0.10-0.60); BASOPHIL % 0.1 % (0.0-2.0); EOSINOPHIL % 1.5 % (0-5); GRANULOCYTE % 74.9 % (42.2-75.2); MEAN CORPUSCULAR HGB 28.3 PG (27.0-31.0); MEAN PLATELET VOLUME 7.6 FL (7.4-10.4); PLATELET COUNT 430 /CUMM (130-400); RBC DISTRIBUTION WIDTH 14.2 % (11.5-14.5); RED BLOOD CELL CT 3.49 /CUMM (4.70-6.10); WHITE BLOOD CELL COUNT 19.8 /CUMM (4.8-10.8)
[2017-09-07 04:50] LABS: PT 14.6 SEC (9.4-12.5)
--- NOTE | 2017-09-07 05:47 | PN- General Surgery ---
See Addendum Subjective Subjective: Intubated, awake and alert, no complaints of pain, patient motions he would like his tube was removed from his throat He states that he has passed gas 4 times overnight. Objective Vital Signs and I&Os Vital Signs Date Time Temp Pulse Resp B/P B/P Pulse O2 O2 Flow FiO2 Mean Ox Delivery Rate 09/07 0413 30 09/07 0400 96 Ventilator 30% 09/07 0043 30 09/07 0000 98.5 105 20 120/84 95 Ventilator 30% 09/07 0000 94 Ventilator 30% 09/06 2148 30 09/06 2000 98 Ventilator 30% 09/06 1917 35 09/06 1802 97.9 112 20 133/80 09/06 1623 35 09/06 1600 95 Ventilator 35% 09/06 1600 97.9 112 20 133/80 98 Ventilator 35% 09/06 1357 40 09/06 1200 99 Ventilator 60% 09/06 1130 60 09/06 0815 100 09/06 0800 99 Ventilator 100% 09/06 0800 98.0 110 10 126/72 83 Nasal 4.0L Cannula Intake & Output 09/07 0800 09/07 0000 09/06 1600 09/06 0800 09/06 0000 09/05 1600 Intake Total 792.6 700 875 695 600 Output Total 360 320 10 900 410 Balance 432.6 380 865 -205 190 Intake, IV 792.6 700 875 695 600 Number 0 Bowel Movements Output, Chest 10 Tube Drainage Output, 10 20 Drainage Output, 400 Gastric Drainage Output, Urine 350 320 480 410 Patient 257 lb Weight Weight Bed scale Measurement Method Physical Exam: Well-developed well-nourished no apparent distress. HEENT: Atraumatic, extraocular motion intact ET tube and OG tube in place, OG tube draining thin dark bilious material Neck: Supple, no lymphadenopathy Heart: Regular rate and rhythm Respiratory: No respiratory distress Mild Coarse breath sounds throughout Abdomen: Moderately distended, absent bowel sounds. Midline incision is clean dry and intact. bulb syringe with small amount of serosanguineous drainage mild central tenderness Pierson catheter in place draining job urine with large amounts of sediment. Extremities: no edema, no calf pain Neuro: Alert and oriented x3 Skin: Warm and dry, no rash on exposed skin Results Last 48 Hours of Labs: Laboratory Tests 09/07 09/06 0338 0915 Blood Gas pH (7.35 - 7.45 PH) 7.42 pCO2 (35 - 45 TORR) 44 pO2 (80 - 100 TORR) 329 H HCO3 (21 - 28 MEQ/L) 28 ABG O2 Sat (Measured) (>96.0 %) 98.0 P-50 (Temp Corrected) N Carboxyhemoglobin (1.5 - 5.0 %) 0.8 L O2 Concentration % 100% Temperature (97.0 - 100.0 FARH) 98.9 Respiration Rate (BPM) 20 O2 Delivery Method VENT Vent Mode VC-AC Expiratory Pressure (CMH2O/P) 5 Tidal Volume (CC) 550 Chemistry Sodium (137 - 145 mmol/L) 139 Potassium (3.5 - 5.1 mmol/L) 4.4 Chloride (98 - 107 mmol/L) 102 Carbon Dioxide (22 - 30 mmol/L) 30 Anion Gap (5 - 16) 7 BUN (9 - 20 mg/dL) 19 Creatinine (0.7 - 1.2 mg/dL) 0.7 Estimated GFR (>60 ml/min) > 60 Glucose (65 - 99 mg/dL) 141 H Calcium (8.4 - 10.2 mg/dL) 8.2 L Phosphorus (2.5 - 4.5 mg/dL) 2.6 Magnesium (1.6 - 2.3 mg/dL) 1.9 Total Bilirubin (0.2 - 1.3 mg/dL) 1.0 AST (17 - 59 U/L) 34 ALT (21 - 72 U/L) 41 Albumin (3.5 - 5.0 g/dL) 2.0 L Coagulation PT (9.4 - 12.5 SEC) 14.6 H INR (0.90 - 1.17) 1.40 H Hematology CBC w Diff MAN DIFF ORDERED WBC (4.8 - 10.8 /CUMM) 19.8 H RBC (4.70 - 6.10 /CUMM) 3.49 L Hgb (14.0 - 18.0 G/DL) 9.9 L Hct (42 - 52 %) 29.0 L MCV (80.0 - 94.0 FL) 83.0 MCH (27.0 - 31.0 PG) 28.3 MCHC (33.0 - 37.0 G/DL) 34.0 RDW (11.5 - 14.5 %) 14.2 Plt Count (130 - 400 /CUMM) 430 H MPV (7.4 - 10.4 FL) 7.6 Gran % (42.2 - 75.2 %) 74.9 Lymphocytes % (20.5 - 51.1 %) 15.5 L Monocytes % (1.7 - 9.3 %) 8.0 Eosinophils % (0 - 5 %) 1.5 Basophils % (0.0 - 2.0 %) 0.1 Absolute Granulocytes (1.4 - 6.5 /CUMM) 14.8 H Segmented Neutrophils (42.2 - 75.2 %) 73 Band Neutrophils (0.0 - 5.0 %) 4 Absolute Lymphocytes (1.2 - 3.4 /CUMM) 3.1 Lymphocytes (20.5 - 51.1 %) 12 L Monocytes (1.7 - 9.3 %) 7 Absolute Monocytes (0.10 - 0.60 /CUMM) 1.6 H Eosinophils (0 - 5.0 %) 1 Absolute Eosinophils (0.0 - 0.7 /CUMM) 0.3 Absolute Basophils (0.0 - 0.2 /CUMM) 0 Metamyelocytes (0.0 - 1.0 %) 3 H Platelet Estimate (ADEQUATE) INCREASED Polychromasia 1+ Poikilocytosis 1+ Ovalocytes 1+ Miscellaneous Phlebotomy Draw Site RIGHT RADIAL Other Body Source Fld Total RBCs Counted (%) 100 09/06 09/06 09/06 0915 0600 0500 Blood Gas pH Cancelled pCO2 Cancelled pO2 Cancelled HCO3 Cancelled ABG O2 Sat (Measured) Cancelled P-50 (Temp Corrected) Cancelled Carboxyhemoglobin Cancelled O2 Concentration % Cancelled Temperature Cancelled Respiration Rate Cancelled O2 Delivery Method Cancelled Vent Mode Cancelled Expiratory Pressure Cancelled Tidal Volume Cancelled Pressure Support Cancelled Chemistry Sodium Cancelled Potassium Cancelled Chloride Cancelled Carbon Dioxide Cancelled Anion Gap Cancelled BUN Cancelled Creatinine Cancelled Glucose Cancelled Calcium Cancelled Phosphorus Cancelled Magnesium Cancelled Total Bilirubin Cancelled AST Cancelled ALT Cancelled Albumin Cancelled Hematology CBC w Diff Cancelled WBC Cancelled RBC Cancelled Hgb Cancelled Hct Cancelled MCV Cancelled MCH Cancelled MCHC Cancelled RDW Cancelled Plt Count Cancelled MPV Cancelled Miscellaneous Phlebotomy Draw Site Cancelled 02/27 02/26 0400 0620 Chemistry Sodium (137 - 145 mmol/L) 139 135 L Potassium (3.5 - 5.1 mmol/L) 5.2 H 4.8 Chloride (98 - 107 mmol/L) 100 97 L Carbon Dioxide (22 - 30 mmol/L) 33 H 31 H Anion Gap (5 - 16) 6 7 BUN (9 - 20 mg/dL) 20 25 H Creatinine (0.7 - 1.2 mg/dL) 0.7 0.7 Estimated GFR (>60 ml/min) > 60 > 60 Glucose (65 - 99 mg/dL) 170 H 117 H Calcium (8.4 - 10.2 mg/dL) 8.5 8.3 L Phosphorus (2.5 - 4.5 mg/dL) 3.8 3.3 Magnesium (1.6 - 2.3 mg/dL) 2.0 1.9 Total Bilirubin (0.2 - 1.3 mg/dL) 1.4 H 1.1 AST (17 - 59 U/L) 35 38 ALT (21 - 72 U/L) 43 45 Albumin (3.5 - 5.0 g/dL) 2.4 L 2.0 L Coagulation PT (9.4 - 12.5 SEC) 15.1 H INR (0.90 - 1.17) 1.44 H Hematology CBC w Diff MAN DIFF ORDERED MAN DIFF ORDERED WBC (4.8 - 10.8 /CUMM) 37.2 *H 32.7 *H RBC (4.70 - 6.10 /CUMM) 3.70 L 3.24 L Hgb (14.0 - 18.0 G/DL) 11.3 L 10.6 L Hct (42 - 52 %) 32.1 L 29.2 L MCV (80.0 - 94.0 FL) 86.8 90.0 MCH (27.0 - 31.0 PG) 30.5 32.7 H MCHC (33.0 - 37.0 G/DL) 35.1 36.3 RDW (11.5 - 14.5 %) 13.9 13.7 Plt Count (130 - 400 /CUMM) 612 H 441 H MPV (7.4 - 10.4 FL) 7.7 8.1 Gran % (42.2 - 75.2 %) 76.5 H 81.0 H Lymphocytes % (20.5 - 51.1 %) 12.5 L 9.8 L Monocytes % (1.7 - 9.3 %) 9.7 H 8.5 Eosinophils % (0 - 5 %) 1.0 0.5 Basophils % (0.0 - 2.0 %) 0.3 0.2 Absolute Granulocytes (1.4 - 6.5 /CUMM) 28.5 H 26.5 H Segmented Neutrophils (42.2 - 75.2 %) 65 72 Band Neutrophils (0.0 - 5.0 %) 10 H 10 H Absolute Lymphocytes (1.2 - 3.4 /CUMM) 4.6 H 3.2 Lymphocytes (20.5 - 51.1 %) 12 L 9 L Monocytes (1.7 - 9.3 %) 4 7 Absolute Monocytes (0.10 - 0.60 /CUMM) 3.6 H 2.8 H Eosinophils (0 - 5.0 %) 1 Absolute Eosinophils (0.0 - 0.7 /CUMM) 0.4 0.2 Absolute Basophils (0.0 - 0.2 /CUMM) 0.1 0.1 Metamyelocytes (0.0 - 1.0 %) 5 H 1 Myelocytes (0 - 0 %) 3 H 1 H Platelet Estimate (ADEQUATE) INCREASED INCREASED Polychromasia 1+ 1+ Hypochromic-Microcytic 1+ 1+ Anisocytosis 1+ 1+ Stomatocytes RARE Toxicology Serum Alcohol (<10 MG/DL) < 10.0 Assessment/Plan Assessment/Plan 47 M POD4 s/p ex lap, drainage of large multiloculated intraabdominal abscess with cultures growing mutiple bacteria and acute respiratory failure requring intubation for airway protection Critial care consult appreciated, start weaning Cont IVF, NPO, OGT, await bowel fxn Cont JOSE drain Cont IV abx - imipenem, vanco Trend daily labs, white blood cell count significantly improved, chemistry stable Urinalysis and urine culture sent ALPs, hsq F/u cxr this am Regarding family requested transfer yesterday to [place], this was not approved by insurance. Will discuss with family later today further options and request case management work on transfer approval by insurance if family continues to wish for this. Core Measures Venous Thromboembolism VTE Risk Factors Surgery No Mechanical VTE Prophylaxis d/t N/A MechProphylax Ordered No VTE Pharm Prophylaxis d/t NA PharmProphylax ordered
--- NOTE | 2017-09-07 07:14 | PN- CRCU ---
See Addendum Subjective HPI/Critical Care Issues: Patient seen and examined. Currently intubated. awake, alert and talking by writing on the paper. Wants the tube to be removed. Overall status improved. Children at bedside. Plan for the patient got yesterday. Objective Current Medications: Current Medications Sig/Lorie Start time Last Medication Dose Route Stop Time Status Admin Dextrose/Sodium 1,000 ML Q13H 09/04 1130 09/06 Chloride IV 1655 Heparin Sodium 5,000 UNIT Q8 09/03 2200 AC 09/07 (Porcine) SC 0616 Hydromorphone HCl 0.5 MG Q3P PRN 09/03 1415 VT 09/05 IV PUSH 1655 Hydromorphone HCl 1 MG Q3P PRN 09/03 1415 VT 09/05 IV PUSH 2228 Imipenem/Cilastatin 500 MG Q6H 09/05 1443 09/07 Sodium IV 0226 Sodium Chloride 100 ML Insulin Human Regular 4 UNITS .STK-MED ONE 09/06 1815 DC IV 09/06 1816 Insulin Human Regular 4 UNITS .STK-MED ONE 09/06 1333 DC IV 09/06 1334 Insulin Human Regular 0 Q6 09/03 1200 AC 09/07 SC 0615 Ondansetron HCl 4 MG Q8P PRN 09/03 0930 DC IV Pantoprazole Sodium 40 MG DAILY 09/03 1953 AC 09/06 IV 1019 Phenol 2 SPRAY Q2P PRN 09/07 0030 AC EXT Propofol 1,000 MG Q5H 09/07 0300 AC 09/07 N/A 1 UNIT IV 0337 Propofol 1,000 MG .STK-MED ONE 09/06 2150 DC IV 09/06 2151 Propofol 1,000 MG .STK-MED ONE 09/06 1559 DC IV 09/06 1600 Propofol 1,000 MG CONTINOUS INFUSION 09/06 0830 DC 09/06 N/A 1 UNIT IV 2154 Vancomycin HCl 1,250 MG Q12H 09/05 1449 09/07 Dextrose/Water 250 ML IV 0301 Venlafaxine HCl 37.5 MG BID 09/06 1000 DC PO Vital Signs & I&O Last 24 Hrs of Vitals and I&O: Vital Signs Date Time Temp Pulse Resp B/P B/P Pulse O2 O2 Flow FiO2 Mean Ox Delivery Rate 09/07 0605 30 09/07 0413 30 09/07 0400 96 Ventilator 30% 09/07 0043 30 09/07 0000 98.5 105 20 120/84 95 Ventilator 30% 09/07 0000 94 Ventilator 30% 09/06 2148 30 09/06 2000 98 Ventilator 30% 09/06 1917 35 09/06 1802 97.9 112 20 133/80 09/06 1623 35 09/06 1600 95 Ventilator 35% 09/06 1600 97.9 112 20 133/80 98 Ventilator 35% 09/06 1357 40 09/06 1200 99 Ventilator 60% 09/06 1130 60 Intake & Output 09/07 1600 09/07 0800 09/07 0000 Intake Total 929 792.6 Output Total 525 360 Balance 404 432.6 Intake, IV 929 792.6 Intake, Oral 0 Number 0 0 Bowel Movements Output, 0 10 Drainage Output, 150 Gastric Drainage Output, Urine 375 350 Exam General Appearance: well developed/nourished, no apparent distress, alert, awake , comfortable, intubated Head: atraumatic Neck: normal inspection Respiratory: rhonchi, stridor, wheezing Cardiovascular: regular rate/rhythm Abdomen: normal bowel sounds, soft, non-tender Extremities: normal inspection Neurologic/Psychiatric: awake, alert Cranial Nerves: normal hearing, normal speech Results Last 24 Hrs of Lab Results: Laboratory Tests 09/07/17 0552: Urinalysis LIGHT H, Urine Color ORANG H, Urine Clarity CLDY H, Urine pH 6.0, Ur Specific [place] 1.020, Urine Protein TRACE H, Urine Ketones 15 H, Urine Nitrite POS H, Urine Bilirubin NEG@ICTO, Urine Urobilinogen 1.0, Ur Leukocyte Esterase TRACE H, Ur Microscopic SEDIMENT EXAMINED, Urine RBC >75 H, Urine WBC 1-3 H, Urine Bacteria MOD H, Urine Hemoglobin LARGE H, Urine Glucose NEG 09/07/17 0338: Anion Gap 7, Estimated GFR > 60, Glucose 141 H, Calcium 8.2 L, Phosphorus 2.6, Magnesium 1.9, Total Bilirubin 1.0, AST 34, ALT 41, Albumin 2.0 L, PT 14.6 H, INR 1.40 H, CBC w Diff MAN DIFF ORDERED, RBC 3.49 L, MCV 83.0, MCH 28.3, MCHC 34.0, RDW 14.2, MPV 7.6, Gran % 74.9, Lymphocytes % 15.5 L, Monocytes % 8.0, Eosinophils % 1.5, Basophils % 0.1, Absolute Granulocytes 14.8 H, Segmented Neutrophils 73, Band Neutrophils 4, Absolute Lymphocytes 3.1, Lymphocytes 12 L, Monocytes 7, Absolute Monocytes 1.6 H, Eosinophils 1, Absolute Eosinophils 0.3, Absolute Basophils 0, Metamyelocytes 3 H, Platelet Estimate INCREASED, Polychromasia 1+, Poikilocytosis 1+, Ovalocytes 1+, Fld Total RBCs Counted 100 09/06/17914: pH 7.42, pCO2 44, pO2 329 H, HCO3 28, ABG O2 Sat (Measured) 98.0, P-50 (Temp Corrected) N, Carboxyhemoglobin 0.8 L, O2 Concentration % 100%, Temperature 98.9, Respiration Rate 20, O2 Delivery Method VENT, Vent Mode VC-AC, Expiratory Pressure 5, Tidal Volume 550, Phlebotomy Draw Site RIGHT RADIAL 09/06/17914: pH Cancelled, pCO2 Cancelled, pO2 Cancelled, HCO3 Cancelled, ABG O2 Sat ( Measured) Cancelled, P-50 (Temp Corrected) Cancelled, Carboxyhemoglobin Cancelled, O2 Concentration % Cancelled, Temperature Cancelled, Respiration Rate Cancelled, O2 Delivery Method Cancelled, Vent Mode Cancelled, Expiratory Pressure Cancelled, Tidal Volume Cancelled, Pressure Support Cancelled, Phlebotomy Draw Site Cancelled Impression/Plan Impression/Plan Impression/Plan: The patient is 47-year-old male with past medical history of diabetes mellitus, hypertension and prolonged respiratory illness (flu, ammonia, bronchitis). He presented to [place] ED on 09/03 with complaints of epigastric abdominal pain.He was admitted to surgical service with the constant abdominal pain and found to have intraperitoneal abscesses as well as free air under the diaphragm. Patient was taken for emergent exploration treated approximately and found to have intraperitoneal abscesses status post drainage. Respiratory Acute respiratory failure requiring intubation on 09/[address] Patient was intubated yesterday for inability to maintain airway desatting upto 79% 08/12 reduced mental status likely opiate induced. Possible differentials include aspiration versus ARDS versus medication induced (last dose of Dilaudid 1mg was around 10 PM last night and last dose of Ativan is 1mg dose around 11 PM) -ABGs today -Avoid Ativan and narcotics -Liberation trials today #Right upper lobe pneumonia likely secondary to aspiration Confirmed by CTA yesterday and says his chest x-ray today as well -TRC/Incentive spirometry -Liberation trials -Currently on broad-spectrum antibiotics #Suspected obstructive sleep apnea/Obesity hypoventilation syndrome -Outpatient evaluation for sleep study Infection #Sepsis secondary to intraperitoneal abscesses and Perforated viscus -Aebrile overnight, no bands WBC count improving -Repeat CT scan abdomen and pelvis with oral contrast negative for residual abscess/any acute intra-abdominal pathology, suggestive of postop changes -Currently on imipenem and vancomycin. Consider deescalation from imipenem to Zosyn -ID on board Cardiovascular #Questionable history of HTN -Stable , per pt's EMR not on antihypertensive Hematology #Leukocytosis with bandemia secondary to sepsis- improving -See above #Thrombocytosis likely in setting of sepsis-improving -Continue to monitor Metabolic #Diabetes mellitus -FBS 164,118,160,168 -Accu-Cheks before meals and at bedtime -Continue low dose NPO insulin sliding scale -HbA1c 9.9 Endocrinology referral on d/c -carbohydrate consistent diet when able #Hyponatremia-Resolved Patient presented with sodium of 128 and in the past his sodium has been around 122 appears to be chronic. Resolved with NS -Continue IVF with D51/2NS -Continue to monitor #Hyperkalemia-resolved -Continue to monitor #Hyperbilirubinemia likely secondary insetting of sepsis-resolved -Continue to monitor #Elevated INR likely secondary to NSAIDs use, LFTs normal- improving Alimentary -Continue NPO for now -Continue IV protonix Neurology #AMS Worsening mentation possible etiologies sepsis versus hypercapnia vs medication induced -Liberation trials today -Continue broad-spectrum antibiotics -Avoid narcotics #Depression -On venalfaxine Nephrology #Solid mass midpole right kidney The finding is concerning for RCC patient will benefit from MRI evaluation which can be done as outpatient -Urology on board -No acute intervention at this time #NATALIE-Resolved -Continue to monitor DVT prophylaxis -Heparin Sq Code Status: Full Code
[2017-09-07 08:00] VITALS: BP 110/60
--- NOTE | 2017-09-07 08:16 | RADIOLOGY REPORT ---
EXAMINATION: XR PORTABLE CHEST CLINICAL INFORMATION: 47-year-old male patient with respiratory compromise. Recent pneumonia. COMPARISON: CTA of the chest on 09/06/2017. Portable chest x-rays from August 20 through 09/06/2017. TECHNIQUE: Portable AP portable semierect view of the chest was obtained. FINDINGS: The tip of the endotracheal tube is approximately 5 cm above the isabella. Right IJ catheter tip is in the mid SVC. An NG tube is in place, but the tip is difficult to localize due to technique. Ill-defined opacity seen in the right upper lobe. Bilateral upper lobe airspace opacities best seen on the CT exam performed yesterday. IMPRESSION: 1. Tip of ET tube 5 cm above the isabella. 2. Right IJ catheter in the mid SVC. 3. Small effusions. 4. Right upper lobe pneumonia. The left sided airspace disease is difficult to perceive on this portable exam.
--- NOTE | 2017-09-07 11:15 | PN- Psychiatry ---
See Addendum Assessment/Plan Impression: The patient has been extubated within the last hour, and is alert and visiting with his supportive family. We are not in a hurry to re-start venlafaxine XR 225 mg PO daily, and, in fact, it should not be restarted at the home dosing. We will have recommendation for a re-start and titration schedule when we re-visit in the next few days. He is much clearer, cognitively, than when we visited on 09/05/17. He was delirious and intubated later that day. Suggestion: 1. The patient is not suicidal nor psychotic, and does not need a safety monitor for these reasons. He may still be at risk for some delirium, and nursing may have other reasons for monitoring the patient for safety. 2. Continue to hold venlafaxine. Subjective Subjective: The patient is alert, lying calmly in his bed. He is oriented to person, place, year, but not month or day, he is off by one date. He denies AH or VH and presents no thao delusions. He denies SI or HI. Review of Systems Comments: The patient denies psychiatric symptoms, but family is present. His mentation is clearing, but not at baseline. Objective Last 24 Hrs of Vital Signs/I&O Vital Signs Date Time Temp Pulse Resp B/P B/P Pulse O2 O2 Flow FiO2 Mean Ox Delivery Rate 09/07 0845 30 09/07 0800 98 Ventilator 30% 09/07 0800 98.6 100 20 110/60 98 Ventilator 30% 09/07 0605 30 09/07 0413 30 09/07 0400 96 Ventilator 30% 09/07 0043 30 09/07 0000 98.5 105 20 120/84 95 Ventilator 30% 09/07 0000 94 Ventilator 30% 09/06 2148 30 09/06 2000 98 Ventilator 30% 09/06 1917 35 09/06 1802 97.9 112 20 133/80 09/06 1623 35 09/06 1600 95 Ventilator 35% 09/06 1600 97.9 112 20 133/80 98 Ventilator 35% 09/06 1357 40 09/06 1200 99 Ventilator 60% 09/06 1130 60 Intake & Output 09/07 1600 09/07 0800 09/07 0000 Intake Total 929 792.6 Output Total 525 360 Balance 404 432.6 Intake, IV 929 792.6 Intake, Oral 0 Number 0 0 Bowel Movements Output, 0 10 Drainage Output, 150 Gastric Drainage Output, Urine 375 350 Physical Exam: Not performed. Physical Exam General Appearance: no apparent distress, alert, awake, comfortable Neurologic/Psychiatric: awake, alert Current Medications: Current Medications Sig/Lorie Start time Last Medication Dose Route Stop Time Status Admin Dextrose/Sodium 1,000 ML Q13H 09/04 1130 09/06 Chloride IV 1655 Heparin Sodium 5,000 UNIT Q8 09/03 2200 09/07 (Porcine) SC 0616 Imipenem/Cilastatin 500 MG Q6H 09/05 1443 09/07 Sodium IV 0907 Sodium Chloride 100 ML Insulin Human Regular 4 UNITS .STK-MED ONE 09/06 1815 DC IV 09/06 1816 Insulin Human Regular 4 UNITS .STK-MED ONE 09/06 1333 DC IV 09/06 1334 Insulin Human Regular 0 Q6 09/03 1200 09/07 SC 0615 Pantoprazole Sodium 40 MG DAILY 09/03 1953 09/07 IV 0907 Phenol 2 SPRAY Q2P PRN 09/07 0030 AC EXT Propofol 1,000 MG Q5H 09/07 0300 09/07 N/A 1 UNIT IV 0337 Propofol 1,000 MG .STK-MED ONE 09/07 0246 DC IV 09/07 0247 Propofol 1,000 MG .STK-MED ONE 09/06 2150 DC IV 09/06 2151 Propofol 1,000 MG .STK-MED ONE 09/06 1559 DC IV 09/06 1600 Propofol 1,000 MG CONTINOUS INFUSION 09/06 0830 DC 09/06 N/A 1 UNIT IV 2154 Vancomycin HCl 1,250 MG Q12H 09/05 1449 09/07 Dextrose/Water 250 ML IV 0301 Results Last 24 Hrs of Labs/Mics: Laboratory Tests 09/07 09/07 0955 0552 Blood Gas pH (7.35 - 7.45 PH) 7.50 H pCO2 (35 - 45 TORR) 38 pO2 (80 - 100 TORR) 93 HCO3 (21 - 28 MEQ/L) 29 H ABG O2 Sat (Measured) (>96.0 %) 96.0 Carboxyhemoglobin (1.5 - 5.0 %) 0.3 L O2 Concentration % 30% Respiration Rate (BPM) 21 O2 Delivery Method VENT Vent Mode CPAP/PSV TRIAL Expiratory Pressure (CMH2O/P) 5 Tidal Volume (CC) 541 Pressure Support (CMH2O/P) 6 Miscellaneous Phlebotomy Draw Site RIGHT BRACHIAL Urines Urinalysis LIGHT H Urine Color (YEL,AMB,STR) ORANG H Urine Clarity (CLEAR) CLDY H Urine pH (5.0 - 8.0) 6.0 Ur Specific [place] (1.001 - 1.035) 1.020 Urine Protein (NEG,<30 MG/DL) TRACE H Urine Ketones (NEG) 15 H Urine Nitrite (NEG) POS H Urine Bilirubin (NEG) NEG@ICTO Urine Urobilinogen (0.1 - 1.0 EU/dl) 1.0 Ur Leukocyte Esterase (NEG) TRACE H Ur Microscopic SEDIMENT EXAMINED Urine RBC (0 - 5 /HPF) >75 H Urine WBC (0 - 2 /HPF) 1-3 H Urine Bacteria (NEG/NONE) MOD H Urine Hemoglobin (NEG) LARGE H Urine Glucose (N MG/DL) NEG 09/07 0338 Chemistry Sodium (137 - 145 mmol/L) 139 Potassium (3.5 - 5.1 mmol/L) 4.4 Chloride (98 - 107 mmol/L) 102 Carbon Dioxide (22 - 30 mmol/L) 30 Anion Gap (5 - 16) 7 BUN (9 - 20 mg/dL) 19 Creatinine (0.7 - 1.2 mg/dL) 0.7 Estimated GFR (>60 ml/min) > 60 Glucose (65 - 99 mg/dL) 141 H Calcium (8.4 - 10.2 mg/dL) 8.2 L Phosphorus (2.5 - 4.5 mg/dL) 2.6 Magnesium (1.6 - 2.3 mg/dL) 1.9 Total Bilirubin (0.2 - 1.3 mg/dL) 1.0 AST (17 - 59 U/L) 34 ALT (21 - 72 U/L) 41 Albumin (3.5 - 5.0 g/dL) 2.0 L Coagulation PT (9.4 - 12.5 SEC) 14.6 H INR (0.90 - 1.17) 1.40 H Hematology CBC w Diff MAN DIFF ORDERED WBC (4.8 - 10.8 /CUMM) 19.8 H RBC (4.70 - 6.10 /CUMM) 3.49 L Hgb (14.0 - 18.0 G/DL) 9.9 L Hct (42 - 52 %) 29.0 L MCV (80.0 - 94.0 FL) 83.0 MCH (27.0 - 31.0 PG) 28.3 MCHC (33.0 - 37.0 G/DL) 34.0 RDW (11.5 - 14.5 %) 14.2 Plt Count (130 - 400 /CUMM) 430 H MPV (7.4 - 10.4 FL) 7.6 Gran % (42.2 - 75.2 %) 74.9 Lymphocytes % (20.5 - 51.1 %) 15.5 L Monocytes % (1.7 - 9.3 %) 8.0 Eosinophils % (0 - 5 %) 1.5 Basophils % (0.0 - 2.0 %) 0.1 Absolute Granulocytes (1.4 - 6.5 /CUMM) 14.8 H Segmented Neutrophils (42.2 - 75.2 %) 73 Band Neutrophils (0.0 - 5.0 %) 4 Absolute Lymphocytes (1.2 - 3.4 /CUMM) 3.1 Lymphocytes (20.5 - 51.1 %) 12 L Monocytes (1.7 - 9.3 %) 7 Absolute Monocytes (0.10 - 0.60 /CUMM) 1.6 H Eosinophils (0 - 5.0 %) 1 Absolute Eosinophils (0.0 - 0.7 /CUMM) 0.3 Absolute Basophils (0.0 - 0.2 /CUMM) 0 Metamyelocytes (0.0 - 1.0 %) 3 H Platelet Estimate (ADEQUATE) INCREASED Polychromasia 1+ Poikilocytosis 1+ Ovalocytes 1+ Other Body Source Fld Total RBCs Counted (%) 100 Off vent during this visit at 1050.
--- NOTE | 2017-09-07 11:53 | PN- Infect Dx ---
Subjective Subjective: No fever; awake. Extubated. Dry cough. Mild abd pain. Review of Systems Comments: 12 points reviewed as noted, otherwise negative. Objective Last 24 Hrs of Vital Signs/I&O Vital Signs Date Time Temp Pulse Resp B/P B/P Pulse O2 O2 Flow FiO2 Mean Ox Delivery Rate 09/07 0845 30 09/07 0800 98 Ventilator 30% 09/07 0800 98.6 100 20 110/60 98 Ventilator 30% 09/07 0605 30 09/07 0413 30 09/07 0400 96 Ventilator 30% 09/07 0043 30 09/07 0000 98.5 105 20 120/84 95 Ventilator 30% 09/07 0000 94 Ventilator 30% 09/06 2148 30 09/06 2000 98 Ventilator 30% 09/06 1917 35 09/06 1802 97.9 112 20 133/80 09/06 1623 35 09/06 1600 95 Ventilator 35% 09/06 1600 97.9 112 20 133/80 98 Ventilator 35% 09/06 1357 40 09/06 1200 99 Ventilator 60% Intake & Output 09/07 1600 09/07 0800 09/07 0000 Intake Total 929 792.6 Output Total 525 360 Balance 404 432.6 Intake, IV 929 792.6 Intake, Oral 0 Number 0 0 Bowel Movements Output, 0 10 Drainage Output, 150 Gastric Drainage Output, Urine 375 350 Physical Exam Other Physical Findings: GEN- NAD, extubated HEENT- AT, sclera anicteric NECK- No RICHARD, TLC RIJ in place CARD- S1S2 present, tachycardic, no m/r/g PULM- BS thoughout, no wheezing ABD- obese, distended, no bs, dressings w minimal serosang drainage- mid- stapleline with inferior aspect open, scant SS drainage, no erythema, no flucuance. JPx1 w serosang drainage. - Pierson patent Results Last 24 Hours of Lab Results: Laboratory Tests 09/07 09/07 0955 0552 Blood Gas pH (7.35 - 7.45 PH) 7.50 H pCO2 (35 - 45 TORR) 38 pO2 (80 - 100 TORR) 93 HCO3 (21 - 28 MEQ/L) 29 H ABG O2 Sat (Measured) (>96.0 %) 96.0 Carboxyhemoglobin (1.5 - 5.0 %) 0.3 L O2 Concentration % 30% Respiration Rate (BPM) 21 O2 Delivery Method VENT Vent Mode CPAP/PSV TRIAL Expiratory Pressure (CMH2O/P) 5 Tidal Volume (CC) 541 Pressure Support (CMH2O/P) 6 Miscellaneous Phlebotomy Draw Site RIGHT BRACHIAL Urines Urinalysis LIGHT H Urine Color (YEL,AMB,STR) ORANG H Urine Clarity (CLEAR) CLDY H Urine pH (5.0 - 8.0) 6.0 Ur Specific [place] (1.001 - 1.035) 1.020 Urine Protein (NEG,<30 MG/DL) TRACE H Urine Ketones (NEG) 15 H Urine Nitrite (NEG) POS H Urine Bilirubin (NEG) NEG@ICTO Urine Urobilinogen (0.1 - 1.0 EU/dl) 1.0 Ur Leukocyte Esterase (NEG) TRACE H Ur Microscopic SEDIMENT EXAMINED Urine RBC (0 - 5 /HPF) >75 H Urine WBC (0 - 2 /HPF) 1-3 H Urine Bacteria (NEG/NONE) MOD H Urine Hemoglobin (NEG) LARGE H Urine Glucose (N MG/DL) NEG 09/07 0338 Chemistry Sodium (137 - 145 mmol/L) 139 Potassium (3.5 - 5.1 mmol/L) 4.4 Chloride (98 - 107 mmol/L) 102 Carbon Dioxide (22 - 30 mmol/L) 30 Anion Gap (5 - 16) 7 BUN (9 - 20 mg/dL) 19 Creatinine (0.7 - 1.2 mg/dL) 0.7 Estimated GFR (>60 ml/min) > 60 Glucose (65 - 99 mg/dL) 141 H Calcium (8.4 - 10.2 mg/dL) 8.2 L Phosphorus (2.5 - 4.5 mg/dL) 2.6 Magnesium (1.6 - 2.3 mg/dL) 1.9 Total Bilirubin (0.2 - 1.3 mg/dL) 1.0 AST (17 - 59 U/L) 34 ALT (21 - 72 U/L) 41 Albumin (3.5 - 5.0 g/dL) 2.0 L Coagulation PT (9.4 - 12.5 SEC) 14.6 H INR (0.90 - 1.17) 1.40 H Hematology CBC w Diff MAN DIFF ORDERED WBC (4.8 - 10.8 /CUMM) 19.8 H RBC (4.70 - 6.10 /CUMM) 3.49 L Hgb (14.0 - 18.0 G/DL) 9.9 L Hct (42 - 52 %) 29.0 L MCV (80.0 - 94.0 FL) 83.0 MCH (27.0 - 31.0 PG) 28.3 MCHC (33.0 - 37.0 G/DL) 34.0 RDW (11.5 - 14.5 %) 14.2 Plt Count (130 - 400 /CUMM) 430 H MPV (7.4 - 10.4 FL) 7.6 Gran % (42.2 - 75.2 %) 74.9 Lymphocytes % (20.5 - 51.1 %) 15.5 L Monocytes % (1.7 - 9.3 %) 8.0 Eosinophils % (0 - 5 %) 1.5 Basophils % (0.0 - 2.0 %) 0.1 Absolute Granulocytes (1.4 - 6.5 /CUMM) 14.8 H Segmented Neutrophils (42.2 - 75.2 %) 73 Band Neutrophils (0.0 - 5.0 %) 4 Absolute Lymphocytes (1.2 - 3.4 /CUMM) 3.1 Lymphocytes (20.5 - 51.1 %) 12 L Monocytes (1.7 - 9.3 %) 7 Absolute Monocytes (0.10 - 0.60 /CUMM) 1.6 H Eosinophils (0 - 5.0 %) 1 Absolute Eosinophils (0.0 - 0.7 /CUMM) 0.3 Absolute Basophils (0.0 - 0.2 /CUMM) 0 Metamyelocytes (0.0 - 1.0 %) 3 H Platelet Estimate (ADEQUATE) INCREASED Polychromasia 1+ Poikilocytosis 1+ Ovalocytes 1+ Other Body Source Fld Total RBCs Counted (%) 100 Last 24 Hours of [place] Results: SPEC #: [id number] GIANA: 09/03/17 STATUS: COMP RECD: 09/03/[address]: Edward TAPIA,Efrain Riddle SOURCE: BODY FLUID ENTR: 09/03/[address] [facility] [address]: Jalyn TAPIA,Merrill Reza SPDESC: ASCITES FL ORDERED: BODY FLD CULTUR COMMENT: ADDITIONAL INFORMATION: PERITONEAL ABCESS RECEIVED ~10CC TUBID,CARBAJAL FLUID IN STERILE CUP Procedure Result > GRAM STAIN Final 09/03/17-1457 WHITE BLOOD CELLS MANY GRAM POSITIVE COCCI MANY GRAM NEGATIVE RODS MANY GRAM POSITIVE RODS FEW > BODY FLUID CULTURE Final 09/06/17-1305 Heavy growth of: 1.ENTEROCOCCUS 2.ALPHA STREP 3.STAPH COAGULASE NEGATIVE 4. STREP BOVIS 5. PROBABLE ANAEROBIC MIXED KEN UNABLE TO SEPARATE Scant growth of : 6. ESCHERICHIA COLI Called to/Readback by BANNERA by [facility] 09/04/17 0857 Enteroc Coag Neg STR BOVIS E.coli RX AB RX AB RX AB RX AB ------ -- ------ -- ------ -- ------ -- AMPICILLIN S R S S CEFAZOLIN R S AMOX/CLAV AUGM R S AMP/SULB-UNASYN R S CIPROFLOXACIN R GENTAMICIN S TETRACYCLINE R TRIMETH/SULFA R S AZITHROMYCIN R CLINDAMYCIN S ERYTHROMYCIN R OXACILLIN R VANCOMYCIN S S 1. ENTEROCOCCUS RX AB ------ -- AMPICILLIN S VANCOMYCIN S 3. STAPH COAGULASE NEGATIVE RX ABN ------ --- 3. STAPH COAGULASE NEGATIVE RX AB ------ -- AMPICILLIN R CEFAZOLIN R AMOXICILLIN/CLAVULINIC ACID R AMPICILLIN/SULBACTAM R TETRACYCLINE R TRIMETHOPRIM/SULFAMETHOXAZOLE R AZITHROMYCIN R CLINDAMYCIN S ERYTHROMYCIN R OXACILLIN R VANCOMYCIN S 4. STREP BOVIS RX AB ------ -- AMPICILLIN S 6. ESCHERICHIA COLI RX AB ------ -- AMPICILLIN S CEFAZOLIN S AMOXICILLIN/CLAVULINIC ACID S AMPICILLIN/SULBACTAM S CIPROFLOXACIN R GENTAMICIN S TRIMETHOPRIM/SULFAMETHOXAZOLE S Recent Imaging Studies: CTA 09/06 IMPRESSION: 1. Patchy opacities within the upper lobes of the lungs may represent an acute infectious or inflammatory condition. Small bilateral pleural effusions are now seen with consolidations of the posterior lower lobes in a dependent location, likely on the basis of compressive atelectasis. 2. Markedly limited evaluation for pulmonary embolism. Only the main pulmonary artery, right pulmonary artery, left pulmonary artery and proximal most aspects of the segmental arteries are evaluated well enough to exclude pulmonary embolism. I cannot exclude the possibility of segmental or subsegmental pulmonary emboli. 3. Endotracheal tube tip 4 cm above the isabella. Right internal jugular central venous catheter with tip in the SVC. VTE: indeterminate. Assessment/Plan ID Impression: 47 y/o WM known w/HTN, DM2, and recent hx of pneumonia admitted 09/03 with abdominal pain, found to have likle large bowel perforation, resulting in large free air and a large walled off air-fluid collection in the midabdomen; now POD #4; intraop culture preliminary revealing polymicrobial infection, including Enterococcus and strep bovis both sensitivitive to ampicillin, E.coli, anaerobic GNR, and SCN resistant penicillin). Severe leukocytosis (WBC trending down from 37K to 19K ); received iv Unasyn from admission until 09/05; currently receiving iv Vancomycin/Imipinem Ac resp failure; aspiration pneumonia CT abd/pelvis results noted; will require colonoscopy as OP. Renal mass; r/o RCC; evaluated by urology. Suggestion: 1. D/C Imipenem 500 mg iv q 6 h; 2. Continue vancomycin 1.25 gm q 12 h D#3 and start pip/tazo (Zosyn) 4.5 q 6 h. Vancomycin trough 3/ in am; 30 min before the due dose; goal trough 15-20. 3. Trend CBC, BMP.
--- NOTE | 2017-09-07 12:35 | PN- General Surgery ---
Surgical Brief Attending Note Brief Attending Note: Patient is now extubated. His mental status is normal. Clinical course has markedly improved and he elects to stay at [facility]. Plan will be to begin clear liquid diet, continue antibiotics per infectious disease, transfer to the floor.
--- NOTE | 2017-09-07 13:51 | Event Note ---
Event Note Event Note: Per ICU team patient would benefit from 24 hours of monitoring in the ICU status post extubation today. Patient however is very keen to be transferred to the general medicine floor.
[2017-09-07 15:48] VITALS: BP 140/86
[2017-09-07 17:30] VITALS: BP 142/90
[2017-09-07 22:28] VITALS: BP 126/90
[2017-09-08 06:46] VITALS: BP 142/90
--- NOTE | 2017-09-08 08:09 | PN- General Surgery ---
See Addendum Subjective Subjective: Awake, alert Had a good night No specific complaints Tolerating clear liquids without any pain or nausea - drank "lots" and wants to have food. Still coughing - has had a cough/pna/bronhitis over the past several weeks which is still bothering him. Incisional pain is present with movement but tolerable without meds Has not ambulated yet Objective Vital Signs and I&Os Vital Signs Date Time Temp Pulse Resp B/P B/P Pulse O2 O2 Flow FiO2 Mean Ox Delivery Rate 09/08 0646 98.1 92 18 142/90 97 Room Air 09/07 2228 99.0 104 20 126/90 99 Room Air 09/07 1730 99.3 108 20 142/90 96 Room Air 09/07 1548 97 Room Air 09/07 1548 97.4 108 20 140/86 97 Room Air 09/07 0845 30 Intake & Output 09/08 1600 09/08 0800 09/08 0000 09/07 1600 09/07 0800 09/07 0000 Intake Total 1020 525 950 929 792.6 Output Total 1130 800 260 525 360 Balance -110 -275 690 404 432.6 Intake, IV 600 225 600 929 792.6 Intake, Oral 420 300 350 0 Number 0 0 0 Bowel Movements Output, 10 10 0 10 Drainage Output, 150 Gastric Drainage Output, Urine 1120 800 250 375 350 Physical Exam: Tmax 99.3, current 98 HR increases at times to 110 - currently 90's all other vss General: alert and oriented times three Chest: clear anteriorly bilaterally, no rales/rhonchi/wheezes, RRR Abd: soft, good bowel sounds throughout, nondistended Ext: warm, trace to 1+edema all 4 ext Wd: midline incision looks good, edita intact, no erythema, small amount of yellow staining to dressing from the very lower edge of the incision which is open about 1 cm. Dressing changed, no active oozing. JOSE: about 10cc/shift, yellow drainage Current Medications: Current Medications Sig/Lorie Start time Last Medication Dose Route Stop Time Status Admin Dextrose/Sodium 1,000 ML Q13H 09/04 1130 AC 09/07 Chloride IV 1737 Heparin Sodium 5,000 UNIT Q8 09/03 2200 AC 09/08 (Porcine) SC 0647 Imipenem/Cilastatin 500 MG Q6H 09/05 1443 DC 09/07 Sodium IV 0907 Sodium Chloride 100 ML Insulin Human Regular 4 UNITS .STK-MED ONE 09/07 1733 DC IV 09/07 1734 Insulin Human Regular 0 Q6 09/03 1200 09/08 SC 0647 Non-Formulary 0 SEE ADMIN CRITERIA 09/07 1445 CAN Medication ANY Pantoprazole Sodium 40 MG DAILY 09/03 1953 09/07 IV 0907 Phenol 2 SPRAY Q2P PRN 09/07 0030 AC EXT Piperacillin Sod/ 4.5 GM Q6 09/07 1800 AC 09/08 Tazobactam Sod IV 0647 Sodium Chloride 100 ML Propofol 1,000 MG Q5H 09/07 0300 DC 09/07 N/A 1 UNIT IV 0337 Vancomycin HCl 1,250 MG Q12H 09/05 1449 09/08 Dextrose/Water 250 ML IV 0333 Results Last 48 Hours of Labs: Laboratory Tests 09/08 09/07 0230 0955 Blood Gas pH (7.35 - 7.45 PH) 7.50 H pCO2 (35 - 45 TORR) 38 pO2 (80 - 100 TORR) 93 HCO3 (21 - 28 MEQ/L) 29 H ABG O2 Sat (Measured) (>96.0 %) 96.0 Carboxyhemoglobin (1.5 - 5.0 %) 0.3 L O2 Concentration % 30% Respiration Rate (BPM) 21 O2 Delivery Method VENT Vent Mode CPAP/PSV TRIAL Expiratory Pressure (CMH2O/P) 5 Tidal Volume (CC) 541 Pressure Support (CMH2O/P) 6 Miscellaneous Phlebotomy Draw Site RIGHT BRACHIAL Toxicology Vancomycin Trough (10.0 - 20.0 ug/mL) 7.6 L 09/07 09/07 0552 0338 Chemistry Sodium (137 - 145 mmol/L) 139 Potassium (3.5 - 5.1 mmol/L) 4.4 Chloride (98 - 107 mmol/L) 102 Carbon Dioxide (22 - 30 mmol/L) 30 Anion Gap (5 - 16) 7 BUN (9 - 20 mg/dL) 19 Creatinine (0.7 - 1.2 mg/dL) 0.7 Estimated GFR (>60 ml/min) > 60 Glucose (65 - 99 mg/dL) 141 H Calcium (8.4 - 10.2 mg/dL) 8.2 L Phosphorus (2.5 - 4.5 mg/dL) 2.6 Magnesium (1.6 - 2.3 mg/dL) 1.9 Total Bilirubin (0.2 - 1.3 mg/dL) 1.0 AST (17 - 59 U/L) 34 ALT (21 - 72 U/L) 41 Albumin (3.5 - 5.0 g/dL) 2.0 L Coagulation PT (9.4 - 12.5 SEC) 14.6 H INR (0.90 - 1.17) 1.40 H Hematology CBC w Diff MAN DIFF ORDERED WBC (4.8 - 10.8 /CUMM) 19.8 H RBC (4.70 - 6.10 /CUMM) 3.49 L Hgb (14.0 - 18.0 G/DL) 9.9 L Hct (42 - 52 %) 29.0 L MCV (80.0 - 94.0 FL) 83.0 MCH (27.0 - 31.0 PG) 28.3 MCHC (33.0 - 37.0 G/DL) 34.0 RDW (11.5 - 14.5 %) 14.2 Plt Count (130 - 400 /CUMM) 430 H MPV (7.4 - 10.4 FL) 7.6 Gran % (42.2 - 75.2 %) 74.9 Lymphocytes % (20.5 - 51.1 %) 15.5 L Monocytes % (1.7 - 9.3 %) 8.0 Eosinophils % (0 - 5 %) 1.5 Basophils % (0.0 - 2.0 %) 0.1 Absolute Granulocytes (1.4 - 6.5 /CUMM) 14.8 H Segmented Neutrophils (42.2 - 75.2 %) 73 Band Neutrophils (0.0 - 5.0 %) 4 Absolute Lymphocytes (1.2 - 3.4 /CUMM) 3.1 Lymphocytes (20.5 - 51.1 %) 12 L Monocytes (1.7 - 9.3 %) 7 Absolute Monocytes (0.10 - 0.60 /CUMM) 1.6 H Eosinophils (0 - 5.0 %) 1 Absolute Eosinophils (0.0 - 0.7 /CUMM) 0.3 Absolute Basophils (0.0 - 0.2 /CUMM) 0 Metamyelocytes (0.0 - 1.0 %) 3 H Platelet Estimate (ADEQUATE) INCREASED Polychromasia 1+ Poikilocytosis 1+ Ovalocytes 1+ Other Body Source Fld Total RBCs Counted (%) 100 Urines Urinalysis LIGHT H Urine Color (YEL,AMB,STR) ORANG H Urine Clarity (CLEAR) CLDY H Urine pH (5.0 - 8.0) 6.0 Ur Specific [place] (1.001 - 1.035) 1.020 Urine Protein (NEG,<30 MG/DL) TRACE H Urine Ketones (NEG) 15 H Urine Nitrite (NEG) POS H Urine Bilirubin (NEG) NEG@ICTO Urine Urobilinogen (0.1 - 1.0 EU/dl) 1.0 Ur Leukocyte Esterase (NEG) TRACE H Ur Microscopic SEDIMENT EXAMINED Urine RBC (0 - 5 /HPF) >75 H Urine WBC (0 - 2 /HPF) 1-3 H Urine Bacteria (NEG/NONE) MOD H Urine Hemoglobin (NEG) LARGE H Urine Glucose (N MG/DL) NEG 09/06 09/06 0915 0915 Blood Gas pH (7.35 - 7.45 PH) 7.42 Cancelled pCO2 (35 - 45 TORR) 44 Cancelled pO2 (80 - 100 TORR) 329 H Cancelled HCO3 (21 - 28 MEQ/L) 28 Cancelled ABG O2 Sat (Measured) (>96.0 %) 98.0 Cancelled P-50 (Temp Corrected) N Cancelled Carboxyhemoglobin (1.5 - 5.0 %) 0.8 L Cancelled O2 Concentration % 100% Cancelled Temperature (97.0 - 100.0 FARH) 98.9 Cancelled Respiration Rate (BPM) 20 Cancelled O2 Delivery Method VENT Cancelled Vent Mode VC-AC Cancelled Expiratory Pressure (CMH2O/P) 5 Cancelled Tidal Volume (CC) 550 Cancelled Pressure Support Cancelled Miscellaneous Phlebotomy Draw Site RIGHT RADIAL Cancelled Assessment/Plan Assessment/Plan 47yo male pod 5 s/p ex lap for free air - drainage of intraabd abscess, extended intubation now day one post extubation Abx per ID - changed to vanc/zosyn yesterday labs pending tolerating clears - ?advance to fulls PT - ambulate wbat cough - respiratory therapy/is/nebs as needed Core Measures Venous Thromboembolism VTE Risk Factors Surgery No Mechanical VTE Prophylaxis d/t N/A MechProphylax Ordered No VTE Pharm Prophylaxis d/t NA PharmProphylax ordered
--- NOTE | 2017-09-08 09:59 | PN- Gen Med ---
Assessment/Plan Medical Assessment: The patient is 47-year-old male with past medical history of diabetes mellitus, hypertension and prolonged respiratory illness (flu, ammonia, bronchitis) was admitted for sepsis secondary to multiobulated intraperitoneal abscesses, Patient was taken for emergent exploration treated approximately and found to have intraperitoneal abscesses status post drainage. Respiratory Acute respiratory failure medication induced, 2/2 ?ARDS and left lower lobe pneumonia, requiring intubation on 09/[address]ection and extubation on 09/07/2017. Patient has improved dramatically. Today he is seating in chair not in respiratory distress. Uses full sentences for communication. Vanco through lvl is well bellow 10. patient needs about 50% increase in his current dose, if ID is agreeable. This increase will take through lvl up by 50%. #Right upper lobe pneumonia continue the current Abx regimen #Suspected obstructive sleep apnea/Obesity hypoventilation syndrome -Outpatient evaluation for sleep study Infection #Sepsis secondary to intraperitoneal abscesses and Perforated viscus -Aebrile overnight, no cbc from today; the trend of changes are positive. -patient is on Imipenem and vanco that covers his INP abcess and pneumonia - Follow ID recommendation and plan accordingly to tailor Abx therapy and prepare for discharge Cardiovascular #Questionable history of HTN -Stable , per pt's EMR not on antihypertensive Hematology #Leukocytosis with bandemia No labs for today improving #Thrombocytosis reactive- improving Metabolic # uncontrolled Diabetes mellitus Insulin premeal SS and FS TIDAC/HS #cholestatic abnormality of liver function test- if persisted, recommend obtaining adding GGt to labs and obtaining a RUQ US to asses the Gallbladder #Elevated INR likely secondary to NSAIDs use, LFTs normal- improving Alimentary -clear liquid - advance as tolerates #Depression -On venalfaxine Nephrology #Solid mass midpole right kidney The finding is concerning for RCC patient will benefit from MRI evaluation which can be done as outpatient -Urology on board -No acute intervention at this time Problem List: 1. Pneumonia of both lower lobes 2. Hyponatremia 3. Abdominal pain 4. Acute bronchitis 5. Bowel perforation 6. Pneumonia affecting 7. Peritoneal abscess Subjective Follow-up For: sepsis 2/2 multiloculated intra-abdominal abscess and bowel perforation respiratory failure 2/2 to pneumonia and/pr medication induced Complaints: no complaints Subjective: visietd and examined today. No complains. on RA, sitting in chair chatting w/ family members. AStarted on clear liquid diet and tolerating well. No incident over night. Review of Systems Constitutional: Reports: see HPI. Objective Last 24 Hrs of Vital Signs/I&O Vital Signs Date Time Temp Pulse Resp B/P B/P Pulse O2 O2 Flow FiO2 Mean Ox Delivery Rate 09/08 0646 98.1 92 18 142/90 97 Room Air 09/07 2228 99.0 104 20 126/90 99 Room Air 09/07 1730 99.3 108 20 142/90 96 Room Air 09/07 1548 97 Room Air 09/07 1548 97.4 108 20 140/86 97 Room Air Intake & Output 09/08 1600 09/08 0800 09/08 0000 Intake Total 1020 525 Output Total 1130 800 Balance -110 -275 Intake, IV 600 225 Intake, Oral 420 300 Number 0 Bowel Movements Output, 10 Drainage Output, Urine 1120 800 Physical Exam General Appearance: Alert, Oriented X3, Cooperative, No Acute Distress Neck: Supple, No JVD Lymphatic: Axillary nl, Cervical nl Cardiovascular: Normal S1, Normal S2, No Murmurs Lungs: Clear to Auscultation, Normal Air Movement Abdomen: Soft Current Medications: Current Medications Sig/Lorie Start time Last Medication Dose Route Stop Time Status Admin Dextrose/Sodium 1,000 ML Q13H 09/04 1130 AC 09/07 Chloride IV 1737 Heparin Sodium 5,000 UNIT Q8 09/03 2200 AC 09/08 (Porcine) LA 0647 Imipenem/Cilastatin 500 MG Q6H 09/05 1443 DC 09/07 Sodium IV 0907 Sodium Chloride 100 ML Insulin Human Regular 2 UNITS .STK-MED ONE 09/08 0030 DC IV 09/08 0031 Insulin Human Regular 4 UNITS .STK-MED ONE 09/07 1733 DC IV 09/07 1734 Insulin Human Regular 0 Q6 09/03 1200 AC 09/08 SC 0647 Non-Formulary 0 SEE ADMIN CRITERIA 09/07 1445 CAN Medication ANY Pantoprazole Sodium 40 MG DAILY 09/03 1953 AC 09/08 IV 1058 Phenol 2 SPRAY Q2P PRN 09/07 0030 AC EXT Piperacillin Sod/ 4.5 GM Q6 09/07 1800 AC 09/08 Tazobactam Sod IV 0647 Sodium Chloride 100 ML Propofol 1,000 MG Q5H 09/07 0300 DC 02/28 N/A 1 UNIT IV 0337 Vancomycin HCl 1,250 MG Q12H 09/05 1449 AC 09/08 Dextrose/Water 250 ML IV 0333 Last 24 Hrs of Labs/Mics: Laboratory Tests 09/08/17 0230: Vancomycin Trough 7.6 L
--- NOTE | 2017-09-08 11:34 | Incdntl Nt Psy ---
Incidental Note Notation: TC placed to the patient's PCP, Dr. Merrill Gunderson, at 0830 to confirm Effexor XR dosing and to discuss plan. Pharmacy record shows 225 mg total dose daily, but the patient states that he only takes 150 mg daily. I left a message with the advertising sales executive, and expect a return call. No return call by 1130. Call recieved from the patient's RN, who reports the patient wishes to restaret the medication, as I discussed with him yesterday. Effexor XR 75 mg PO daily started today. R/B/SE were reviewed with the patient on 09/07/17 in the evening, who verbalized understanding. The patient to followup with Dr. Gunderson. Please send a discharge summary to Dr. Gunderson.
--- NOTE | 2017-09-08 12:06 | PN- Att Addend ---
See Addendum Attending Addendum Attending Brief Note Patient seen and examined, overall doing much better. Not requiring any oxygen at this time. Has been started on clear liquid diet by surgery. Vital Signs Date Time Temp Pulse Resp B/P B/P Pulse O2 O2 Flow FiO2 Mean Ox Delivery Rate 09/08 1133 Room Air Room Air 09/08 0646 98.1 92 18 142/90 97 Room Air 09/07 2228 99.0 104 20 126/90 99 Room Air 09/07 1730 99.3 108 20 142/90 96 Room Air 09/07 1548 97 Room Air 09/07 1548 97.4 108 20 140/86 97 Room Air on exam; aox3, nad. cv; s1,s2, rrr resp; clear abd; soft, bs+ ext; no edema. Laboratory Tests 09/08 0230 Toxicology Vancomycin Trough (10.0 - 20.0 ug/mL) 7.6 L Assessment and recommendations: 47-year-old male with past history significant for diabetes, hypertension recent treatment for pneumonia with the antibiotics and steroids who is admitted to surgical service with the constant abdominal pain and found to have intraperitoneal abscesses as well as free air under the diaphragm. Patient was taken for emergent exploratory laparotomy and found two intraperitoneal abscesses status post drainage. Was started on broad-spectrum antibiotics. Continued to do worse and developed acute respiratory failure requiring intubation. Now stabilized and transferred out of ICU. Patient on Dr. Leon service and medical is consulted to manage his medical problems. Please clarify with psychiatry about his dosing for effects are. Overall improving and not requiring any oxygen at this time. Patient on full liquid diet, will defer diet advancement to surgery. Patient on broad-spectrum and Lu and has been followed by ID. DVT prophylaxis: Heparin subcutaneous. Thank you will follow along with you.
--- NOTE | 2017-09-08 13:01 | PN- Infect Dx ---
Subjective Subjective: No fever; mild abd discomfort. On clear liquids. Review of Systems Comments: 12 points reviewed as noted, otherwise negative. Objective Last 24 Hrs of Vital Signs/I&O Vital Signs Date Time Temp Pulse Resp B/P B/P Pulse O2 O2 Flow FiO2 Mean Ox Delivery Rate 09/08 1133 Room Air Room Air 09/08 0646 98.1 92 18 142/90 97 Room Air 09/07 2228 99.0 104 20 126/90 99 Room Air 09/07 1730 99.3 108 20 142/90 96 Room Air 09/07 1548 97 Room Air 09/07 1548 97.4 108 20 140/86 97 Room Air Intake & Output 09/08 1600 09/08 0800 09/08 0000 Intake Total 1020 525 Output Total 1130 800 Balance -110 -275 Intake, IV 600 225 Intake, Oral 420 300 Number 0 Bowel Movements Output, 10 Drainage Output, Urine 1120 800 Physical Exam Other Physical Findings: GEN- NAD, sitting comfortable in the chair HEENT- AT, sclera anicteric NECK- No RICHARD CARD- S1, S2 present, tachycardic, no m/r/g PULM- BS thoughout, no wheezing ABD- obese, distended, diminished BS, dressings in place, no erythema. Results Last 24 Hours of Lab Results: Laboratory Tests 09/08 0230 Toxicology Vancomycin Trough (10.0 - 20.0 ug/mL) 7.6 L Last 24 Hours of Rosalino Results: SPEC #: [id number] GIANA: 09/03/17 STATUS: COMP RECD: 09/03/[address]: Edward TAPIA,Efrain Riddle SOURCE: BODY FLUID ENTR: 09/03/[address] [facility] [address]: Jalyn TAPIA,Merrill Reza SPDESC: [place]ITES [place] ORDERED: BODY FLD CULTUR COMMENT: ADDITIONAL INFORMATION: PERITONEAL ABCESS RECEIVED ~10CC TUBID,CARBAJAL FLUID IN STERILE CUP Procedure Result > GRAM STAIN Final 09/03/17 WHITE BLOOD CELLS MANY GRAM POSITIVE COCCI MANY GRAM NEGATIVE RODS MANY GRAM POSITIVE RODS FEW > BODY FLUID CULTURE Final 09/06/17 Heavy growth of: 1.ENTEROCOCCUS 2.ALPHA STREP 3.STAPH COAGULASE NEGATIVE 4. STREP BOVIS 5. PROBABLE ANAEROBIC MIXED KEN UNABLE TO SEPARATE Scant growth of : 6. ESCHERICHIA COLI Called to/Readback by NEMA by [facility] 09/04/17 0857 Enteroc Coag Neg STR BOVIS E.coli RX AB RX AB RX AB RX AB ------ -- ------ -- ------ -- ------ -- AMPICILLIN S R S S CEFAZOLIN R S AMOX/CLAV AUGM R S AMP/SULB-UNASYN R S CIPROFLOXACIN R GENTAMICIN S TETRACYCLINE R TRIMETH/SULFA R S AZITHROMYCIN R CLINDAMYCIN S ERYTHROMYCIN R OXACILLIN R VANCOMYCIN S S 1. ENTEROCOCCUS RX AB ------ -- AMPICILLIN S VANCOMYCIN S 3. STAPH COAGULASE NEGATIVE RX ABN ------ --- 3. STAPH COAGULASE NEGATIVE RX AB ------ -- AMPICILLIN R CEFAZOLIN R AMOXICILLIN/CLAVULINIC ACID R AMPICILLIN/SULBACTAM R TETRACYCLINE R TRIMETHOPRIM/SULFAMETHOXAZOLE R AZITHROMYCIN R CLINDAMYCIN S ERYTHROMYCIN R OXACILLIN R VANCOMYCIN S 4. STREP BOVIS RX AB ------ -- AMPICILLIN S 6. ESCHERICHIA COLI RX AB ------ -- AMPICILLIN S CEFAZOLIN S AMOXICILLIN/CLAVULINIC ACID S AMPICILLIN/SULBACTAM S CIPROFLOXACIN R GENTAMICIN S TRIMETHOPRIM/SULFAMETHOXAZOLE S Recent Imaging Studies: Reviewed Assessment/Plan ID Impression: 47 y/o WM known w/HTN, DM2, and recent hx of pneumonia admitted 09/03 with abdominal pain, found to have likle large bowel perforation, resulting in large free air and a large walled off air-fluid collection in the midabdomen; now POD #4; intraop culture preliminary revealing polymicrobial infection, including Enterococcus and strep bovis both sensitivitive to ampicillin, E.coli, anaerobic GNR, and SCN resistant penicillin). Leukocytosis (WBC trending down from 37K to 19K ); no CBC 3/ Ac resp failure; aspiration pneumonia CT abd/pelvis results noted; will require colonoscopy as OP. Renal mass; r/o RCC; evaluated by urology. Suggestion: 1. Continue vancomycin 1.5 gm q 12 h and pip/tazo (Zosyn) 4.5 q 6 h D #2. 2. Trend CBC, BMP. 3. Call if fever. 2. Trend CBC, BMP daily for now. 3. Call if fever.
[2017-09-08 15:19] VITALS: BP 138/88
[2017-09-08 22:57] VITALS: BP 145/97
[2017-09-09 06:53] VITALS: BP 140/98
--- NOTE | 2017-09-09 07:35 | PN- General Surgery ---
See Addendum Subjective Subjective: Feeling well, able to tolerate is full liquid diet, no nausea no vomiting. No acute events overnight. No fever, no cough or flulike illness. Positive flatus , no bowel movements. Pain is well controlled. Objective Vital Signs and I&Os Vital Signs Date Time Temp Pulse Resp B/P B/P Pulse O2 O2 Flow FiO2 Mean Ox Delivery Rate 09/09 0653 98.2 92 18 140/98 97 Room Air 09/08 2257 98.3 96 18 145/97 98 Room Air 09/08 1519 98.4 100 20 138/88 99 09/08 1133 Room Air Room Air Intake & Output 09/09 0809/09 0000 09/08 1600 09/08 0809/08 0000 09/07 1600 Intake Total 625 1400 1020 525 950 Output Total 850 1130 800 260 Balance -823 071 6176 -110 -275 690 Intake, IV 225 600 600 225 600 Intake, Oral 400 800 420 300 350 Number 0 Bowel Movements Output, 10 10 Drainage Output, Urine 850 1120 800 250 Physical Exam: Well-developed well-nourished no apparent distress. HEENT: Atraumatic, extraocular motion intact Neck: Supple, no lymphadenopathy Respiratory: No respiratory distress Abdomen: Healing midline surgical incision, edita intact, mild amount of serous drainage noted from the inferior abdominal wound and portal site. No signs of infection. Mild distention, no tympany, tenderness in the midline and left lower quadrant mostly. Positive bowel sounds Extremities: No edema, no calf pain Neuro: Alert and oriented x3 Psych: Mood affect normal, normal memory normal judgment. Skin: Warm and dry, no rash on exposed skin Results Last 48 Hours of Labs: Laboratory Tests 09/09 09/08 09/07 0250 0230 0955 Blood Gas pH (7.35 - 7.45 PH) 7.50 H pCO2 (35 - 45 TORR) 38 pO2 (80 - 100 TORR) 93 HCO3 (21 - 28 MEQ/L) 29 H ABG O2 Sat (Measured) (>96.0 %) 96.0 Carboxyhemoglobin (1.5 - 5.0 %) 0.3 L O2 Concentration % 30% Respiration Rate (BPM) 21 O2 Delivery Method VENT Vent Mode CPAP/PSV TRIAL Expiratory Pressure (CMH2O/P) 5 Tidal Volume (CC) 541 Pressure Support (CMH2O/P) 6 Miscellaneous Phlebotomy Draw Site RIGHT BRACHIAL Toxicology Vancomycin Trough (10.0 - 20.0 ug/mL) 7.9 L 7.6 L Assessment/Plan Assessment/Plan 47yo male pod 6 s/p ex lap for free air - drainage of intraabd abscess Acute respiratory distress, resolved Abx per ID - vanc/zosyn labs pending Tolerating full liquid diet., Awaiting return of bowel function, advance diet as tolerated PT, out of bed encouragement Continue incentive spirometer appreciate med/ID follow Effexor restarted hep sq for dvt ppx Core Measures Venous Thromboembolism VTE Risk Factors Surgery No Mechanical VTE Prophylaxis d/t N/A MechProphylax Ordered No VTE Pharm Prophylaxis d/t NA PharmProphylax ordered
[2017-09-09 11:54] LABS: ABSOLUTE BASOPHIL COUNT 0.1 /CUMM (0.0-0.2); ABSOLUTE EOSINOPHIL COUNT 0.4 /CUMM (0.0-0.7); ABSOLUTE GRANULOCYTE CT 17.2 /CUMM (1.4-6.5); ABSOLUTE LYMPH COUNT 2.6 /CUMM (1.2-3.4); BASOPHIL % 0.3 % (0.0-2.0); GRANULOCYTE % 81.1 % (42.2-75.2); MEAN CORPUSCULAR HGB 28.5 PG (27.0-31.0); MEAN CORPUSCULAR HGB CONC 34.6 G/DL (33.0-37.0); MEAN CORPUSCULAR VOLUME 82.3 FL (80.0-94.0); MEAN PLATELET VOLUME 7.8 FL (7.4-10.4); PLATELET COUNT 383 /CUMM (130-400); RBC DISTRIBUTION WIDTH 13.5 % (11.5-14.5); WHITE BLOOD CELL COUNT 21.1 /CUMM (4.8-10.8)
[2017-09-09 12:08] LABS: HEMATOCRIT 36.2 % (42-52)
--- NOTE | 2017-09-09 14:30 | PN- Infect Dx ---
Subjective Subjective: No fever; feels tired and bloated Review of Systems Comments: 12 points reviewed as noted, otherwise negative. Objective Last 24 Hrs of Vital Signs/I&O Vital Signs Date Time Temp Pulse Resp B/P B/P Pulse O2 O2 Flow FiO2 Mean Ox Delivery Rate 09/09 0653 98.2 92 18 140/98 97 Room Air 09/08 2257 98.3 96 18 145/97 98 Room Air 09/08 1519 98.4 100 20 138/88 99 Intake & Output 09/09 1600 09/09 0800 09/09 0000 Intake Total 900 625 Output Total 900 1300 Balance -900 -400 625 Intake, IV 600 225 Intake, Oral 300 400 Number 0 Bowel Movements Output, Urine 900 1300 Physical Exam Other Physical Findings: GEN- NAD, sitting comfortable in the chair HEENT- AT, sclera anicteric NECK- No RICHARD CARD- S1, S2 present, tachycardic, no m/r/g PULM- BS thoughout, no wheezing ABD- obese, distended, diminished BS, dressings in place, no erythema. Results Last 24 Hours of Lab Results: Laboratory Tests 09/09 09/09 1041 0250 Chemistry Sodium (137 - 145 mmol/L) 136 L Potassium (3.5 - 5.1 mmol/L) 4.4 Chloride (98 - 107 mmol/L) 102 Carbon Dioxide (22 - 30 mmol/L) 28 Anion Gap (5 - 16) 6 BUN (9 - 20 mg/dL) 7 L Creatinine (0.7 - 1.2 mg/dL) 0.6 L Estimated GFR (>60 ml/min) > 60 BUN/Creatinine Ratio (7 - 25 %) 11.7 Hematology CBC w Diff NO MAN DIFF REQ WBC (4.8 - 10.8 /CUMM) 21.1 H RBC (4.70 - 6.10 /CUMM) 4.40 L Hgb (14.0 - 18.0 G/DL) 12.5 L Hct (42 - 52 %) 36.2 L MCV (80.0 - 94.0 FL) 82.3 MCH (27.0 - 31.0 PG) 28.5 MCHC (33.0 - 37.0 G/DL) 34.6 RDW (11.5 - 14.5 %) 13.5 Plt Count (130 - 400 /CUMM) 383 MPV (7.4 - 10.4 FL) 7.8 Gran % (42.2 - 75.2 %) 81.1 H Lymphocytes % (20.5 - 51.1 %) 12.1 L Monocytes % (1.7 - 9.3 %) 4.5 Eosinophils % (0 - 5 %) 2.0 Basophils % (0.0 - 2.0 %) 0.3 Absolute Granulocytes (1.4 - 6.5 /CUMM) 17.2 H Absolute Lymphocytes (1.2 - 3.4 /CUMM) 2.6 Absolute Monocytes (0.10 - 0.60 /CUMM) 1.0 H Absolute Eosinophils (0.0 - 0.7 /CUMM) 0.4 Absolute Basophils (0.0 - 0.2 /CUMM) 0.1 Toxicology Vancomycin Trough (10.0 - 20.0 ug/mL) 7.9 L Last 24 Hours of Rosalino Results: SPEC #: [id number] GIANA: 09/03/17 STATUS: COMP RECD: 09/03/[address]: Edward TAPIA,Efrain Riddle SOURCE: BODY FLUID ENTR: 09/03/[address]: Jalyn TAPIA,Merrill Reza SPDESC: ASCITES [place] ORDERED: BODY FLD CULTUR COMMENT: ADDITIONAL INFORMATION: PERITONEAL ABCESS RECEIVED ~10CC TUBID,CARBAJAL FLUID IN STERILE CUP Procedure Result > GRAM STAIN Final 09/03/171457 WHITE BLOOD CELLS MANY GRAM POSITIVE COCCI MANY GRAM NEGATIVE RODS MANY GRAM POSITIVE RODS FEW > BODY FLUID CULTURE Final 09/06/17 Heavy growth of: 1.ENTEROCOCCUS 2.ALPHA STREP 3.STAPH COAGULASE NEGATIVE 4. STREP BOVIS 5. PROBABLE ANAEROBIC MIXED KEN UNABLE TO SEPARATE Scant growth of : 6. ESCHERICHIA COLI Called to/Readback by NEMA by [facility] [[email or web address]] 09/04/17 0857 Enteroc Coag Neg STR BOVIS E.coli RX AB RX AB RX AB RX AB ------ -- ------ -- ------ -- ------ -- AMPICILLIN S R S S CEFAZOLIN R S AMOX/CLAV AUGM R S AMP/SULB-UNASYN R S CIPROFLOXACIN R GENTAMICIN S TETRACYCLINE R TRIMETH/SULFA R S AZITHROMYCIN R CLINDAMYCIN S ERYTHROMYCIN R OXACILLIN R VANCOMYCIN S S 1. ENTEROCOCCUS RX AB ------ -- AMPICILLIN S VANCOMYCIN S 3. STAPH COAGULASE NEGATIVE RX ABN ------ --- 3. STAPH COAGULASE NEGATIVE RX AB ------ -- AMPICILLIN R CEFAZOLIN R AMOXICILLIN/CLAVULINIC ACID R AMPICILLIN/SULBACTAM R TETRACYCLINE R TRIMETHOPRIM/SULFAMETHOXAZOLE R AZITHROMYCIN R CLINDAMYCIN S ERYTHROMYCIN R OXACILLIN R VANCOMYCIN S 4. STREP BOVIS RX AB ------ -- AMPICILLIN S 6. ESCHERICHIA COLI RX AB ------ -- AMPICILLIN S CEFAZOLIN S AMOXICILLIN/CLAVULINIC ACID S AMPICILLIN/SULBACTAM S CIPROFLOXACIN R GENTAMICIN S TRIMETHOPRIM/SULFAMETHOXAZOLE S Recent Imaging Studies: SPEC #: [id number] GIANA: 09/03/17 STATUS: COMP RECD: 09/03/[address]: Edward TAPIA,Efrain Riddle SOURCE: BODY FLUID ENTR: 09/03/[address]: Jalyn TAPIA,Merrill Reza SPDESC: ASCITES [place] ORDERED: BODY FLD CULTUR COMMENT: ADDITIONAL INFORMATION: PERITONEAL ABCESS RECEIVED ~10CC TUBID,CARBAJAL FLUID IN STERILE CUP Procedure Result > GRAM STAIN Final 09/03/17145 WHITE BLOOD CELLS MANY GRAM POSITIVE COCCI MANY GRAM NEGATIVE RODS MANY GRAM POSITIVE RODS FEW > BODY FLUID CULTURE Final 09/06/17 Heavy growth of: 1.ENTEROCOCCUS 2.ALPHA STREP 3.STAPH COAGULASE NEGATIVE 4. STREP BOVIS 5. PROBABLE ANAEROBIC MIXED KEN UNABLE TO SEPARATE Scant growth of : 6. ESCHERICHIA COLI Called to/Readback by RILEY by [facility] [[email or web address]] 09/04/17 0857 Enteroc Coag Neg STR BOVIS E.coli RX AB RX AB RX AB RX AB ------ -- ------ -- ------ -- ------ -- AMPICILLIN S R S S CEFAZOLIN R S AMOX/CLAV AUGM R S AMP/SULB-UNASYN R S CIPROFLOXACIN R GENTAMICIN S TETRACYCLINE R TRIMETH/SULFA R S AZITHROMYCIN R CLINDAMYCIN S ERYTHROMYCIN R OXACILLIN R VANCOMYCIN S S 1. ENTEROCOCCUS RX AB ------ -- AMPICILLIN S VANCOMYCIN S 3. STAPH COAGULASE NEGATIVE RX ABN ------ --- 3. STAPH COAGULASE NEGATIVE RX AB ------ -- AMPICILLIN R CEFAZOLIN R AMOXICILLIN/CLAVULINIC ACID R AMPICILLIN/SULBACTAM R TETRACYCLINE R TRIMETHOPRIM/SULFAMETHOXAZOLE R AZITHROMYCIN R CLINDAMYCIN S ERYTHROMYCIN R OXACILLIN R VANCOMYCIN S 4. STREP BOVIS RX AB ------ -- AMPICILLIN S 6. ESCHERICHIA COLI RX AB ------ -- AMPICILLIN S CEFAZOLIN S AMOXICILLIN/CLAVULINIC ACID S AMPICILLIN/SULBACTAM S CIPROFLOXACIN R GENTAMICIN S TRIMETHOPRIM/SULFAMETHOXAZOLE S Assessment/Plan ID Impression: 47 y/o WM known w/HTN, DM2, and recent hx of pneumonia admitted 09/03 with abdominal pain, found to have likle large bowel perforation, resulting in large free air and a large walled off air-fluid collection in the midabdomen; now POD #4; intraop culture preliminary revealing polymicrobial infection, including Enterococcus and strep bovis both sensitivitive to ampicillin, E.coli, anaerobic GNR, and SCN resistant penicillin). Persistent leukocytosis Ac resp failure; aspiration pneumonia CT abd/pelvis results noted; will require colonoscopy as OP. Renal mass; r/o RCC; evaluated by urology. Suggestion: 1. Continue vancomycin 1.5 gm q 12 h D#5 and pip/tazo (Zosyn) 4.5 q 6 h D #3 . 2. Trend CBC, BMP. 3. Call if fever. 4. Low fiber diet for now.
--- NOTE | 2017-09-09 15:09 | PN- Medicine Consult ---
Britt Chaves 09/09/17 1509: Assessment/PlanMedical Consult Assessment/Plan Assessment: The patient is 47-year-old male with past medical history of diabetes mellitus, hypertension and prolonged respiratory illness (flu, ammonia, bronchitis) was admitted for sepsis secondary to multiobulated intraperitoneal abscesses, Patient was taken for emergent exploration treated approximately and found to have intraperitoneal abscesses status post drainage. Plan: Respiratory Acute respiratory failure medication induced, 2 ?ARDS and left lower lobe pneumonia, requiring intubation on 09/[address]ection and extubation on 09/07/2017. Patient has improved dramatically. Today he is seating in chair not in respiratory distress. Uses full sentences for communication. incentive spirometry Low vanc through lvl; dose was not increased; We discussed this finding with the primary surgical team #Right upper lobe pneumonia stable; O2 Sat%> 90% in RA #Suspected obstructive sleep apnea/Obesity hypoventilation syndrome -Outpatient evaluation for sleep study Infection #Sepsis secondary to intraperitoneal abscesses and Perforated viscus -Aebrile overnight, no cbc from today; the trend of changes are positive. -patient is on Imipenem and vanco that covers his INP abcess and pneumonia - Follow ID recommendation and plan accordingly to tailor Abx therapy and prepare for discharge Cardiovascular #Questionable history of HTN -Stable , per pt's EMR not on antihypertensive Hematology #Leukocytosis with bandemia No labs for today improving #Thrombocytosis reactive- improving Metabolic # uncontrolled Diabetes mellitus: FS:185, 138,138,138,137,137 mg/dl Recommend starting 10 U leveir bedtime diabetic education Insulin premeal SS and FS TIDAC/HS- medium dose Endocrinology consult Alimentary no bowel movement clear liquid diet Problem List: 1. Pneumonia of both lower lobes 2. Hyponatremia 3. Abdominal pain 4. Acute bronchitis 5. Bowel perforation 6. Pneumonia affecting 7. Peritoneal abscess Subjective Subjective: Feeling well, able to tolerate is full liquid diet, no nausea no vomiting. No acute events overnight. No fever, no cough or flulike illness. gas pass + no bowel movement well pain management Review of Systems Constitutional: Reports: see HPI. Objective Last 24 Hrs of Vital Signs/I&O Vital Signs Date Time Temp Pulse Resp B/P B/P Pulse O2 O2 Flow FiO2 Mean Ox Delivery Rate 09/09 0653 98.2 92 18 140/98 97 Room Air 09/08 2257 98.3 96 18 145/97 98 Room Air Intake & Output 09/09 1600 09/09 0800 09/09 0000 Intake Total 900 625 Output Total 900 1300 Balance -900 -400 625 Intake, IV 600 225 Intake, Oral 300 400 Number 0 Bowel Movements Output, Urine 900 1300 Physical Exam General Appearance: well developed/nourished, no apparent distress, alert Head: atraumatic, normal appearance Abdomen: soft, non-tender, healing midline surgical wound no erythem, little drainage, no induration , no distention, NOrmal BS Rectal: normal exam, normal rectal tone Back: normal inspection Extremities: no edema Current Medications: Current Medications Sig/Lorie Start time Last Medication Dose Route Stop Time Status Admin Dextrose/Sodium 1,000 ML Q13H 09/04 1130 DC 09/08 Chloride IV 2107 Heparin Sodium 5,000 UNIT Q8 09/03 2200 AC 09/09 (Porcine) SC 1430 Insulin Human Regular 0 TIDAC/HS 09/09 1700 AC SC Insulin Human Regular 2 UNITS .STK-MED ONE 09/09 0606 DC IV 09/09 0607 Insulin Human Regular 4 UNITS .STK-MED ONE 09/09 0001 DC IV 09/09 0002 Insulin Human Regular 4 UNITS .STK-MED ONE 09/08 1837 DC IV 09/08 1838 Insulin Human Regular 0 Q6 09/03 1200 DC 09/09 SC 1429 Pantoprazole Sodium 40 MG DAILY 09/03 1953 AC 09/09 IV 0845 Phenol 2 SPRAY Q2P PRN 09/07 0030 DC EXT Piperacillin Sod/ 4.5 GM Q6H 09/09 0200 AC 09/09 Tazobactam Sod IV 0845 Sodium Chloride 100 ML Piperacillin Sod/ 4.5 GM Q6 09/07 1800 DC 09/08 Tazobactam Sod IV 2014 Sodium Chloride 100 ML Vancomycin HCl 1,500 MG Q12H 09/08 1700 AC 09/09 Sodium Chloride 250 ML IV 0610 Vancomycin HCl 1,500 MG BID 09/08 1630 CAN IV Vancomycin HCl 1,250 MG Q12H 09/05 1449 DC 09/08 Dextrose/Water 250 ML IV 0333 Venlafaxine HCl 75 MG DAILY 09/08 1128 AC 09/09 PO 0843 Results Last 24 Hrs Lab/[facility] Results: Laboratory Tests 09/09/17 1041: Anion Gap 6, Estimated GFR > 60, BUN/Creatinine Ratio 11.7, CBC w Diff NO MAN DIFF REQ, RBC 4.40 L, MCV 82.3, MCH 28.5, MCHC 34.6, RDW 13.5, MPV 7.8, Gran % 81.1 H, Lymphocytes % 12.1 L, Monocytes % 4.5, Eosinophils % 2.0, Basophils % 0.3, Absolute Granulocytes 17.2 H, Absolute Lymphocytes 2.6, Absolute Monocytes 1.0 H, Absolute Eosinophils 0.4, Absolute Basophils 0.1 09/09/17 0250: Vancomycin Trough 7.9 L Ny Pina 09/13/17 1438: Attending MD Review Statement Attending Sign Off Attending Cosign Statement: I have: examined this patient, reviewed avalbl EMR data, discussd w/resident/PA/ MICROFILM CLERK, discussed mgmt plan w/olinda, discussed mgmt plan w/pt, agreed w/resident/PA/ MICROFILM CLERK. Other Findings: please see my separate attending note for more details.
--- NOTE | 2017-09-09 15:25 | PN- Att Addend ---
Attending MD Review Statement Attending Statement Attending MD Statement: examined this patient, discuss w/resident/PA/FLASH DESIGNER, agreed w/resident/PA/FLASH DESIGNER, discussed w/case mgmt Attending Assessment/Plan: Laboratory Tests 09/09/17 1041: Anion Gap 6, Estimated GFR > 60, BUN/Creatinine Ratio 11.7, CBC w Diff NO MAN DIFF REQ, RBC 4.40 L, MCV 82.3, MCH 28.5, MCHC 34.6, RDW 13.5, MPV 7.8, Gran % 81.1 H, Lymphocytes % 12.1 L, Monocytes % 4.5, Eosinophils % 2.0, Basophils % 0.3, Absolute Granulocytes 17.2 H, Absolute Lymphocytes 2.6, Absolute Monocytes 1.0 H, Absolute Eosinophils 0.4, Absolute Basophils 0.1 09/09/17 0250: Vancomycin Trough 7.9 L Vital Signs Date Time Temp Pulse Resp B/P B/P Pulse O2 O2 Flow FiO2 Mean Ox Delivery Rate 09/09 0653 98.2 92 18 140/98 97 Room Air 09/08 2257 98.3 96 18 145/97 98 Room Air 09/08 1519 98.4 100 20 138/88 99 Pt seen at bedside. plan is to have endo see him for his DM with aic of 9.9. Abx managment per ID. still having high wbc count. need to cont to follow that. d/w pt the care plan .
[2017-09-09 15:26] VITALS: BP 131/88
[2017-09-09 21:58] VITALS: BP 131/86
[2017-09-10 07:38] VITALS: BP 138/96
[2017-09-10 08:39] LABS: ABSOLUTE BASOPHIL COUNT 0.1 /CUMM (0.0-0.2); ABSOLUTE EOSINOPHIL COUNT 0.4 /CUMM (0.0-0.7); ABSOLUTE GRANULOCYTE CT 16.8 /CUMM (1.4-6.5); ABSOLUTE LYMPH COUNT 2.6 /CUMM (1.2-3.4); ABSOLUTE MONOCYTE COUNT 1.4 /CUMM (0.10-0.60); BASOPHIL % 0.2 % (0.0-2.0); EOSINOPHIL % 2.1 % (0-5); GRANULOCYTE % 78.8 % (42.2-75.2); HEMATOCRIT 33.4 % (42-52); MEAN CORPUSCULAR HGB 28.4 PG (27.0-31.0); MEAN CORPUSCULAR HGB CONC 33.8 G/DL (33.0-37.0); MEAN PLATELET VOLUME 7.5 FL (7.4-10.4); PLATELET COUNT 253 /CUMM (130-400); RBC DISTRIBUTION WIDTH 13.8 % (11.5-14.5); RED BLOOD CELL CT 3.98 /CUMM (4.70-6.10); WHITE BLOOD CELL COUNT 21.4 /CUMM (4.8-10.8)
--- NOTE | 2017-09-10 11:29 | PN- Att Addend ---
Attending Addendum Attending Brief Note S: The patient noted gradual improvement. Still going lightly on food due to stomach not feeling back to normal. Some cough. O: VS: Vital Signs Date Time Temp Pulse Resp B/P B/P Pulse O2 O2 Flow FiO2 Mean Ox Delivery Rate 09/109 99.0 95 20 130/88 97 09/10 1600 Room Air 09/10 1434 98.8 84 18 133/91 98 Room Air 09/10 0738 97.5 88 20 138/96 98 Room Air Intake & Output 09/11 0800 09/11 0000 09/10 1600 Intake Total 800 300 Output Total Balance 800 300 Intake, Oral 800 300 Current Medications Sig/Lorie Start time Last Medication Dose Route Stop Time Status Admin Acetaminophen 650 MG Q4-6 PRN PRN 09/10 1715 AC PO Benzocaine/Menthol 1 KRAIG Q2P PRN 09/10 1145 AC 09/10 PO 2234 Heparin Sodium 5,000 UNIT Q8 09/03 2200 AC 09/10 (Porcine) SC 211 Insulin Aspart 0 TIDAC 09/09 1700 AC 09/10 SC 1313 Insulin Detemir 10 UNITS AT BEDTIME 09/09 2200 AC 09/10 SC 2117 Pantoprazole Sodium 40 MG DAILY 09/03 1953 AC 09/10 IV 0822 Piperacillin Sod/ 4.5 GM Q6H 09/09 0200 AC 09/10 Tazobactam Sod IV 2117 Sodium Chloride 100 ML Vancomycin HCl 1,500 MG Q12H 09/08 1700 AC 09/10 Sodium Chloride 250 ML IV 1717 Venlafaxine HCl 150 MG DAILY 09/11 1000 AC PO Venlafaxine HCl 75 MG ONCE ONE 09/10 1145 DC PO 09/10 1146 Venlafaxine HCl 75 MG DAILY 09/08 1128 DC 09/10 PO 0822 Physical Exam: Chest: diminished BS at bases Cor: RRR nl S1, S2 w/o murm Abd: BS quiet, distendted, no significant tenderness Ext: no edema Labs/Tests: Laboratory Tests 09/10/17 0750: CBC w Diff MAN DIFF ORDERED, RBC 3.98 L, MCV 84.0, MCH 28.4, MCHC 33.8, RDW 13.8, MPV 7.5, Gran % 78.8 H, Lymphocytes % 12.1 L, Monocytes % 6.8, Eosinophils % 2.1, Basophils % 0.2, Absolute Granulocytes 16.8 H, Segmented Neutrophils 78 H, Band Neutrophils 4, Absolute Lymphocytes 2.6, Lymphocytes 7 L, Monocytes 7, Absolute Monocytes 1.4 H, Eosinophils 3, Absolute Eosinophils 0.4, Absolute Basophils 0.1, Metamyelocytes 1, Platelet Estimate ADEQUATE, Hypochromic-Microcytic 2+, Anisocytosis 1+ Impression/Plan: #S/P Bowel Perforation/Abscess- Appreciate ID and Surgical notes. Plan: Continue Antibiotics as per ID. #Leukocytosis- did not decrease since yesterday. Plan: Continue to follow WBC as per ID. Zozyn/Vanco while IV access- Augmentin and Flagyl if lose IV access.
[2017-09-10 14:34] VITALS: BP 133/91
--- NOTE | 2017-09-10 14:54 | PN- Infect Dx ---
Subjective Subjective: No fever; 2 BM's. C/o pain at the injection site. Review of Systems Comments: 12 points reviewed as noted, otherwise negative. Objective Last 24 Hrs of Vital Signs/I&O Vital Signs Date Time Temp Pulse Resp B/P B/P Pulse O2 O2 Flow FiO2 Mean Ox Delivery Rate 09/10 1434 98.8 84 18 133/91 98 Room Air 09/10 0738 97.5 88 20 138/96 98 Room Air 09/09 2158 98.4 96 20 131/86 98 Room Air 09/09 1526 97.5 100 18 131/88 100 Intake & Output 09/10 1600 09/10 0800 09/10 0000 Intake Total 300 1050 360 Output Total 1300 300 Balance 300 -250 60 Intake, IV 250 Intake, Oral 300 800 360 Output, Urine 1300 300 Physical Exam Other Physical Findings: GEN- NAD, sitting comfortable in the chair HEENT- AT, sclera anicteric NECK- No RICHARD CARD- S1, S2 present, tachycardic, no m/r/g PULM- BS thoughout, no wheezing ABD- obese, distended, diminished BS, dressings in place, no erythema. Results Last 24 Hours of Lab Results: Laboratory Tests 09/10 0750 Hematology CBC w Diff MAN DIFF ORDERED WBC (4.8 - 10.8 /CUMM) 21.4 H RBC (4.70 - 6.10 /CUMM) 3.98 L Hgb (14.0 - 18.0 G/DL) 11.3 L Hct (42 - 52 %) 33.4 L MCV (80.0 - 94.0 FL) 84.0 MCH (27.0 - 31.0 PG) 28.4 MCHC (33.0 - 37.0 G/DL) 33.8 RDW (11.5 - 14.5 %) 13.8 Plt Count (130 - 400 /CUMM) 253 MPV (7.4 - 10.4 FL) 7.5 Gran % (42.2 - 75.2 %) 78.8 H Lymphocytes % (20.5 - 51.1 %) 12.1 L Monocytes % (1.7 - 9.3 %) 6.8 Eosinophils % (0 - 5 %) 2.1 Basophils % (0.0 - 2.0 %) 0.2 Absolute Granulocytes (1.4 - 6.5 /CUMM) 16.8 H Segmented Neutrophils (42.2 - 75.2 %) 78 H Band Neutrophils (0.0 - 5.0 %) 4 Absolute Lymphocytes (1.2 - 3.4 /CUMM) 2.6 Lymphocytes (20.5 - 51.1 %) 7 L Monocytes (1.7 - 9.3 %) 7 Absolute Monocytes (0.10 - 0.60 /CUMM) 1.4 H Eosinophils (0 - 5.0 %) 3 Absolute Eosinophils (0.0 - 0.7 /CUMM) 0.4 Absolute Basophils (0.0 - 0.2 /CUMM) 0.1 Metamyelocytes (0.0 - 1.0 %) 1 Platelet Estimate (ADEQUATE) ADEQUATE Hypochromic-Microcytic 2+ Anisocytosis 1+ Last 24 Hours of [place] Results: Procedure Result > GRAM STAIN Final 09/03/17-1457 WHITE BLOOD CELLS MANY GRAM POSITIVE COCCI MANY GRAM NEGATIVE RODS MANY GRAM POSITIVE RODS FEW > BODY FLUID CULTURE Final 09/06/17-1305 Heavy growth of: 1.ENTEROCOCCUS 2.ALPHA STREP 3.STAPH COAGULASE NEGATIVE 4. STREP BOVIS 5. PROBABLE ANAEROBIC MIXED KEN UNABLE TO SEPARATE Scant growth of : 6. ESCHERICHIA COLI Called to[facility] by [facility] 09/04/17 0857 Enteroc Coag Neg STR BOVIS E.coli RX AB RX AB RX AB RX AB ------ -- ------ -- ------ -- ------ -- AMPICILLIN S R S S CEFAZOLIN R S AMOX/CLAV AUGM R S AMP/SULB-UNASYN R S CIPROFLOXACIN R GENTAMICIN S TETRACYCLINE R TRIMETH/SULFA R S AZITHROMYCIN R CLINDAMYCIN S ERYTHROMYCIN R OXACILLIN R VANCOMYCIN S S 1. ENTEROCOCCUS RX AB ------ -- AMPICILLIN S VANCOMYCIN S 3. STAPH COAGULASE NEGATIVE RX ABN ------ --- 3. STAPH COAGULASE NEGATIVE RX AB ------ -- AMPICILLIN R CEFAZOLIN R AMOXICILLIN/CLAVULINIC ACID R AMPICILLIN/SULBACTAM R TETRACYCLINE R TRIMETHOPRIM/SULFAMETHOXAZOLE R AZITHROMYCIN R CLINDAMYCIN S ERYTHROMYCIN R OXACILLIN R VANCOMYCIN S 4. STREP BOVIS RX AB ------ -- AMPICILLIN S 6. ESCHERICHIA COLI RX AB ------ -- AMPICILLIN S CEFAZOLIN S AMOXICILLIN/CLAVULINIC ACID S AMPICILLIN/SULBACTAM S CIPROFLOXACIN R GENTAMICIN S TRIMETHOPRIM/SULFAMETHOXAZOLE S Recent Imaging Studies: Reviewed Assessment/Plan ID Impression: 47 y/o WM known w/HTN, DM2, and recent hx of pneumonia admitted 09/03 with abdominal pain, found to have likle large bowel perforation, resulting in large free air and a large walled off air-fluid collection in the midabdomen; now POD #4; intraop culture preliminary revealing polymicrobial infection, including Enterococcus and strep bovis both sensitivitive to ampicillin, E.coli, anaerobic GNR, and SCN resistant penicillin). Persistent leukocytosis Ac resp failure; aspiration pneumonia CT abd/pelvis results noted; will require colonoscopy as OP. Renal mass; r/o RCC; evaluated by urology. Suggestion: 1. If iv access available continue vancomycin 1.5 gm q 12 h D#6 and pip/tazo (Zosyn) 4.5 q 6 h D #4. If no iv access oral Augmentin 1000 mg po bid and Flagyl 500 mg po q 8. F/U CT abd/pelvis on Tuesday if persistent leukocytosis. 2. Trend CBC, BMP. 3. Call if fever.
[2017-09-10 22:29] VITALS: BP 130/88
--- NOTE | 2017-09-10 23:21 | PN- General Surgery ---
Subjective Subjective: postop 1 week tolerating solids no nausea no new abdom pain Objective Vital Signs and I&Os I rev Vital Signs Date Time Temp Pulse Resp B/P B/P Pulse O2 O2 Flow FiO2 Mean Ox Delivery Rate 09/10 2229 99.0 95 20 130/88 97 09/10 1600 Room Air 09/10 1434 98.8 84 18 133/91 98 Room Air 09/10 0738 97.5 88 20 138/96 98 Room Air I rev Intake & Output 09/10 1600 09/10 0800 09/10 0000 09/09 1600 09/09 0800 09/09 0000 Intake Total 300 1050 360 900 625 Output Total 1300 232 200 1951 Balance 300 -250 60 -900 -400 625 Intake, IV 250 600 225 Intake, Oral 300 800 360 300 400 Number 0 Bowel Movements Output, Urine [phone] Physical Exam: Constitutional: no acute distress no pain Eyes: sclera anicteric ENMT: moist mucous membranes Cardiovascular: S1-S2 no murmurs no peripheral edema Respiratory: clear to auscultation with normal respiratory effort and no intercostal retractions GI: abdomen soft nontender nondistended Extremities / lymphatics: free range of motion no peripheral edema Skin: no jaundice no rashes warm, nondiaphoretic Psychiatric: mood and affect are appropriate and alert and oriented to person place and time Current Medications: I rev Current Medications Sig/Lorie Start time Last Medication Dose Route Stop Time Status Admin Acetaminophen 650 MG Q4-6 PRN PRN 09/10 1715 AC PO Benzocaine/Menthol 1 KRAIG Q2P PRN 09/10 1145 AC 09/10 PO 2234 Heparin Sodium 5,000 UNIT Q8 09/03 2199 AC 09/10 (Porcine) SC 2115 Insulin Aspart 0 TIDAC 09/09 170 AC 09/10 SC 1313 Insulin Detemir 10 UNITS AT BEDTIME 09/09 220 AC 09/10 SC 211 Pantoprazole Sodium 40 MG DAILY 09/03 1953 AC 09/10 IV 0822 Piperacillin Sod/ 4.5 GM Q6H 09/09 0200 AC 09/10 Tazobactam Sod IV 2117 Sodium Chloride 100 ML Vancomycin HCl 1,500 MG Q12H 09/08 1700 AC 09/10 Sodium Chloride 250 ML IV 1717 Venlafaxine HCl 150 MG DAILY 09/11 1000 AC PO Venlafaxine HCl 75 MG ONCE ONE 09/10 1145 DC PO 09/10 1146 Venlafaxine HCl 75 MG DAILY 09/08 1128 DC 09/10 PO 0822 Results Last 48 Hours of Labs: I rev Laboratory Tests 09/10 09/09 0750 1041 Chemistry Sodium (137 - 145 mmol/L) 136 L Potassium (3.5 - 5.1 mmol/L) 4.4 Chloride (98 - 107 mmol/L) 102 Carbon Dioxide (22 - 30 mmol/L) 28 Anion Gap (5 - 16) 6 BUN (9 - 20 mg/dL) 7 L Creatinine (0.7 - 1.2 mg/dL) 0.6 L Estimated GFR (>60 ml/min) > 60 BUN/Creatinine Ratio (7 - 25 %) 11.7 Hematology CBC w Diff MAN DIFF ORDERED NO MAN DIFF REQ WBC (4.8 - 10.8 /CUMM) 21.4 H 21.1 H RBC (4.70 - 6.10 /CUMM) 3.98 L 4.40 L Hgb (14.0 - 18.0 G/DL) 11.3 L 12.5 L Hct (42 - 52 %) 33.4 L 36.2 L MCV (80.0 - 94.0 FL) 84.0 82.3 MCH (27.0 - 31.0 PG) 28.4 28.5 MCHC (33.0 - 37.0 G/DL) 33.8 34.6 RDW (11.5 - 14.5 %) 13.8 13.5 Plt Count (130 - 400 /CUMM) 253 383 MPV (7.4 - 10.4 FL) 7.5 7.8 Gran % (42.2 - 75.2 %) 78.8 H 81.1 H Lymphocytes % (20.5 - 51.1 %) 12.1 L 12.1 L Monocytes % (1.7 - 9.3 %) 6.8 4.5 Eosinophils % (0 - 5 %) 2.1 2.0 Basophils % (0.0 - 2.0 %) 0.2 0.3 Absolute Granulocytes (1.4 - 6.5 /CUMM) 16.8 H 17.2 H Segmented Neutrophils (42.2 - 75.2 %) 78 H Band Neutrophils (0.0 - 5.0 %) 4 Absolute Lymphocytes (1.2 - 3.4 /CUMM) 2.6 2.6 Lymphocytes (20.5 - 51.1 %) 7 L Monocytes (1.7 - 9.3 %) 7 Absolute Monocytes (0.10 - 0.60 /CUMM) 1.4 H 1.0 H Eosinophils (0 - 5.0 %) 3 Absolute Eosinophils (0.0 - 0.7 /CUMM) 0.4 0.4 Absolute Basophils (0.0 - 0.2 /CUMM) 0.1 0.1 Metamyelocytes (0.0 - 1.0 %) 1 Platelet Estimate (ADEQUATE) ADEQUATE Hypochromic-Microcytic 2+ Anisocytosis 1+ 03/02 0250 Toxicology Vancomycin Trough (10.0 - 20.0 ug/mL) 7.9 L Assessment/Plan Assessment/Plan Stable, tolerating diet, consider DC soon if WBC starts to trend down. Core Measures Venous Thromboembolism VTE Risk Factors Surgery No Mechanical VTE Prophylaxis d/t N/A MechProphylax Ordered No VTE Pharm Prophylaxis d/t NA PharmProphylax ordered
[2017-09-11 06:33] VITALS: BP 150/105
[2017-09-11 06:59] VITALS: BP 140/100
--- NOTE | 2017-09-11 08:49 | PN- General Surgery ---
See Addendum Subjective Subjective: pt in bed, very minimal pain. no nausea. Tolerating reg diet. had loose BM yesterday. Voiding. Ambulating. Hoping to be discharged soon Objective Vital Signs and I&Os Vital Signs Date Time Temp Pulse Resp B/P B/P Pulse O2 O2 Flow FiO2 Mean Ox Delivery Rate 09/11 0659 140/100 09/11 0633 97.4 91 20 150/105 99 Room Air 09/10 2229 99.0 95 20 130/88 97 09/10 1600 Room Air 09/10 1434 98.8 84 18 133/91 98 Room Air Intake & Output 09/11 1600 09/11 0800 09/11 0000 09/10 1600 09/10 0800 09/10 0000 Intake Total 1200 390 088 7155 360 Output Total 1800 1300 300 Balance -600 800 300 -250 60 Intake, IV 400 250 Intake, Oral 800 800 300 800 360 Output, Urine 1800 1300 300 Physical Exam: gen- NAD resp- clear cardio- RRR abd- +BS, soft, appropriately tender. edita in midline. dressing clean and dry Assessment/Plan Assessment/Plan 47yo male pod 8 s/p ex lap for free air - drainage of intraabd abscess Acute respiratory distress, resolved Abx per ID - vanc/zosyn. will discuss if pt can be switched to PO abx or if he will need PICC for a longer course of IV ABX AM labs pending Tolerating reg diet PT, out of bed encouragement Continue incentive spirometer appreciate med/ID follow hep sq for dvt ppx Core Measures Venous Thromboembolism VTE Risk Factors Surgery No Mechanical VTE Prophylaxis d/t N/A MechProphylax Ordered No VTE Pharm Prophylaxis d/t NA PharmProphylax ordered
--- NOTE | 2017-09-11 12:31 | PN- Att Addend ---
Attending Addendum Attending Brief Note S: The patient notes gradual improvement in abdominal symptoms and is gradually increasing po intake. No chills or other significant symptoms. Had difficulty with blood draw this morning, however was eventually obtained. O: VS: Vital Signs Date Time Temp Pulse Resp B/P B/P Pulse O2 O2 Flow FiO2 Mean Ox Delivery Rate 09/11 0659 140/100 09/11 0633 97.4 91 20 150/105 99 Room Air 09/10 2229 99.0 95 20 130/88 97 09/10 1600 Room Air 09/10 1434 98.8 84 18 133/91 98 Room Air Intake & Output 09/11 1600 09/11 0800 / 0000 Intake Total 1200 800 Output Total 300 1800 Balance -300 -600 800 Intake, IV 400 Intake, Oral 800 800 Output, Urine 300 1800 Current Medications Sig/Lorie Start time Last Medication Dose Route Stop Time Status Admin Acetaminophen 650 MG Q4-6 PRN PRN 09/10 1715 AC 09/11 PO 0618 Benzocaine/Menthol 1 KRAIG Q2P PRN 09/10 1145 AC 09/11 PO 1258 Heparin Sodium 5,000 UNIT Q8 09/03 2200 AC 09/11 (Porcine) SC 1253 Insulin Aspart 0 TIDAC 09/09 1700 AC 09/11 SC 1253 Insulin Detemir 10 UNITS AT BEDTIME 09/09 2200 AC 09/10 SC 2117 Pantoprazole Sodium 40 MG DAILY 09/03 1953 AC 09/11 IV 0851 Piperacillin Sod/ 4.5 GM Q6H 09/09 0200 AC 09/11 Tazobactam Sod IV 1253 Sodium Chloride 100 ML Vancomycin HCl 1,500 MG Q12H 09/08 1700 AC 09/11 Sodium Chloride 250 ML IV 0405 Venlafaxine HCl 150 MG DAILY 09/11 1000 AC / PO 0831 Physical Exam: Chest: diminished BS at bases Cor: RRR nl S1, S2 w/o murm Abd: BS quiet, distended, no significant tenderness Ext: no edema Laboratory Tests 09/11/17 1253: CBC w Diff NO MAN DIFF REQ, RBC 4.19 L, MCV 82.9, MCH 27.3, MCHC 33.0, RDW 14.4 , MPV 7.8, Gran % 76.2 H, Lymphocytes % 14.7 L, Monocytes % 5.7, Eosinophils % 2.8, Basophils % 0.6, Absolute Granulocytes 14.0 H, Absolute Lymphocytes 2.7, Absolute Monocytes 1.0 H, Absolute Eosinophils 0.5, Absolute Basophils 0.1 09/10/17 0750: CBC w Diff MAN DIFF ORDERED, RBC 3.98 L, MCV 84.0, MCH 28.4, MCHC 33.8, RDW 13.8, MPV 7.5, Gran % 78.8 H, Lymphocytes % 12.1 L, Monocytes % 6.8, Eosinophils % 2.1, Basophils % 0.2, Absolute Granulocytes 16.8 H, Segmented Neutrophils 78 H, Band Neutrophils 4, Absolute Lymphocytes 2.6, Lymphocytes 7 L, Monocytes 7, Absolute Monocytes 1.4 H, Eosinophils 3, Absolute Eosinophils 0.4, Absolute Basophils 0.1, Metamyelocytes 1, Platelet Estimate ADEQUATE, Hypochromic-Microcytic 2+, Anisocytosis 1+ Impression/Plan: #S/P Bowel Perforation/Abscess- slowly improving. Plan: Continue Antibiotics as per ID. IV access still in place. #Leukocytosis- WBC decreased today from 21.4 yesterday to 18.4 today. Plan: Continue to follow WBC as per ID. Zosyn/Vanco while IV access- Augmentin and Flagyl if lose IV access.
[2017-09-11 13:12] LABS: ABSOLUTE BASOPHIL COUNT 0.1 /CUMM (0.0-0.2); ABSOLUTE EOSINOPHIL COUNT 0.5 /CUMM (0.0-0.7); ABSOLUTE LYMPH COUNT 2.7 /CUMM (1.2-3.4); BASOPHIL % 0.6 % (0.0-2.0); EOSINOPHIL % 2.8 % (0-5); GRANULOCYTE % 76.2 % (42.2-75.2); HEMATOCRIT 34.8 % (42-52); MEAN CORPUSCULAR HGB 27.3 PG (27.0-31.0); MEAN CORPUSCULAR VOLUME 82.9 FL (80.0-94.0); MEAN PLATELET VOLUME 7.8 FL (7.4-10.4); PLATELET COUNT 371 /CUMM (130-400); RBC DISTRIBUTION WIDTH 14.4 % (11.5-14.5); RED BLOOD CELL CT 4.19 /CUMM (4.70-6.10); WHITE BLOOD CELL COUNT 18.4 /CUMM (4.8-10.8)
[2017-09-11 14:30] VITALS: BP 123/85
--- NOTE | 2017-09-11 14:45 | PN- Infect Dx ---
Subjective Subjective: No fever or chills; tolerating solid foods; although bloating reported. No abd pain. Review of Systems Comments: 12 points reviewed as noted, otherwise negative. Objective Last 24 Hrs of Vital Signs/I&O Vital Signs Date Time Temp Pulse Resp B/P B/P Pulse O2 O2 Flow FiO2 Mean Ox Delivery Rate 09/11 1430 98.7 97 20 123/85 100 Room Air 09/11 0659 140/100 09/11 0633 97.4 91 20 150/105 99 Room Air 09/10 2229 99.0 95 20 130/88 97 09/10 1600 Room Air Intake & Output 09/11 1600 09/11 0800 09/11 0000 Intake Total 250 1200 800 Output Total 300 1800 Balance -50 -600 800 Intake, IV 400 Intake, Oral 250 800 800 Output, Urine 300 1800 Physical Exam Other Physical Findings: GEN- NAD, sitting comfortable in the chair NECK- no RICHARD HEENT- AT, sclera anicteric CARD- S1, S2 present, no m/r/g PULM- BS diminished bases, no wheezing ABD- obese, distended, diminished BS, dressings in place, no erythema. EXTR; LE's w/o c/c SKIN - warm and dry; sx incision healing well. Results Last 24 Hours of Lab Results: Laboratory Tests 09/11 1253 Hematology CBC w Diff NO MAN DIFF REQ WBC (4.8 - 10.8 /CUMM) 18.4 H RBC (4.70 - 6.10 /CUMM) 4.19 L Hgb (14.0 - 18.0 G/DL) 11.5 L Hct (42 - 52 %) 34.8 L MCV (80.0 - 94.0 FL) 82.9 MCH (27.0 - 31.0 PG) 27.3 MCHC (33.0 - 37.0 G/DL) 33.0 RDW (11.5 - 14.5 %) 14.4 Plt Count (130 - 400 /CUMM) 371 MPV (7.4 - 10.4 FL) 7.8 Gran % (42.2 - 75.2 %) 76.2 H Lymphocytes % (20.5 - 51.1 %) 14.7 L Monocytes % (1.7 - 9.3 %) 5.7 Eosinophils % (0 - 5 %) 2.8 Basophils % (0.0 - 2.0 %) 0.6 Absolute Granulocytes (1.4 - 6.5 /CUMM) 14.0 H Absolute Lymphocytes (1.2 - 3.4 /CUMM) 2.7 Absolute Monocytes (0.10 - 0.60 /CUMM) 1.0 H Absolute Eosinophils (0.0 - 0.7 /CUMM) 0.5 Absolute Basophils (0.0 - 0.2 /CUMM) 0.1 Last 24 Hours of Rosalino Results: SPEC #: [id number] GIANA: 09/03/17 STATUS: COMP RECD: 09/03/[address]: Edward TAPIA,Efrain Riddle SOURCE: BODY FLUID ENTR: 09/03/[address]: Jalyn TAPIA,Merrill Reza SPDESC: ASCITES FL ORDERED: BODY FLD CULTUR COMMENT: ADDITIONAL INFORMATION: PERITONEAL ABCESS RECEIVED ~10CC TUBID,CARBAJAL FLUID IN STERILE CUP Procedure Result > GRAM STAIN Final 09/03/17 WHITE BLOOD CELLS MANY GRAM POSITIVE COCCI MANY GRAM NEGATIVE RODS MANY GRAM POSITIVE RODS FEW > BODY FLUID CULTURE Final 09/06/17 Heavy growth of: 1.ENTEROCOCCUS 2.ALPHA STREP 3.STAPH COAGULASE NEGATIVE 4. STREP BOVIS 5. PROBABLE ANAEROBIC MIXED KEN UNABLE TO SEPARATE Scant growth of : 6. ESCHERICHIA COLI Called to/Readback by NEMMarquis by [facility] 09/04/17 0857 Enteroc Coag Neg STR BOVIS E.coli RX AB RX AB RX AB RX AB ------ -- ------ -- ------ -- ------ -- AMPICILLIN S R S S CEFAZOLIN R S AMOX/CLAV AUGM R S AMP/SULB-UNASYN R S CIPROFLOXACIN R GENTAMICIN S TETRACYCLINE R TRIMETH/SULFA R S AZITHROMYCIN R CLINDAMYCIN S ERYTHROMYCIN R OXACILLIN R VANCOMYCIN S S 1. ENTEROCOCCUS RX AB ------ -- AMPICILLIN S VANCOMYCIN S 3. STAPH COAGULASE NEGATIVE RX ABN ------ --- 3. STAPH COAGULASE NEGATIVE RX AB ------ -- AMPICILLIN R CEFAZOLIN R AMOXICILLIN/CLAVULINIC ACID R AMPICILLIN/SULBACTAM R TETRACYCLINE R TRIMETHOPRIM/SULFAMETHOXAZOLE R AZITHROMYCIN R CLINDAMYCIN S ERYTHROMYCIN R OXACILLIN R VANCOMYCIN S 4. STREP BOVIS RX AB ------ -- AMPICILLIN S 6. ESCHERICHIA COLI RX AB ------ -- AMPICILLIN S CEFAZOLIN S AMOXICILLIN/CLAVULINIC ACID S AMPICILLIN/SULBACTAM S CIPROFLOXACIN R GENTAMICIN S TRIMETHOPRIM/SULFAMETHOXAZOLE S Recent Imaging Studies: CT A/P 09/06 IMPRESSION: 1. The previously seen large fluid collection is no longer evident, with a drainage catheter present in the abdomen. No significant residual collection present. 2. Diffuse congestion, edema and haziness within the mesentery. There is a wall thickening of long segments of multiple loops of the small bowel in the mid abdomen, concerning for enteritis. There is wall thickening of the proximal sigmoid colon as well, concerning for colitis. Differential consideration include sequela of surgery, infectious, inflammatory, ischemic etiologies. 3. Small amount of free fluid in the abdomen or pelvis. 4. Patient has a solid mass in the right kidney, better appreciated on the prior CT. Primary differential consideration is for a renal tumor. Recommend further evaluation with MRI abdomen. This critical result was discussed with Jules Lazo at 1:10 PM on 09/06/2017 and it was ascertained that the content and urgency of the report was understood at the time of direct communication. DICTATED BY: Justyn Shaffer MD DATE/TIME DICTATED:09/06/171239 NATURAL SCIENCES MANAGER:MAKAYLA DATE/TIME TRANSCRIBED:09/06/171239 Assessment/Plan ID Impression: 47 y/o WM known w/HTN, DM2, and recent hx of pneumonia admitted 09/03 with abdominal pain, found to have likle large bowel perforation, resulting in large free air and a large walled off air-fluid collection in the midabdomen; now POD #5; intraop culture preliminary revealing polymicrobial infection, including Enterococcus and strep bovis both sensitive to ampicillin, E.coli, anaerobic GNR , and SCN resistant penicillin). Of note patient previously on iv Unasyn, clinically deterioration; required 2 days of broad abx civerage w/ Imipenem, clinically doing well on present abx regimen (Zosyn/Vanco); plan to d/c vancomycin after 7 d empiric therapy (question if SCN representing just contamination). Leukocytosis Ac resp failure (resolved); aspiration pneumonia CT abd/pelvis results noted; will require colonoscopy; consider GI eval in am. Renal mass; r/o RCC; evaluated by urology. Suggestion: 1. Treated w/ vancomycin 1.5 gm q 12 h D#01/14 and pip/tazo (Zosyn) 4.5 q 6 h D #11/14. If no iv access oral Augmentin 1000 mg po bid and Flagyl 500 mg po q 8. F/U CT abd/pelvis on Tuesday. 2. Trend CBC, BMP. 3. Call if fever. Dr. Small bact 09/12.
[2017-09-11 21:35] VITALS: BP 145/93
[2017-09-12 06:35] VITALS: BP 144/92
--- NOTE | 2017-09-12 08:39 | PN- General Surgery ---
See Addendum Subjective Subjective: Patient reports feeling gradual improvement. Notes that his abdomen in still somewhat bloated but that he has been able to intermittently pass flatus and he moved his bowels two days ago. He is hopeful that will have bm today. Denies chest pain, shortness of breath and difficulty breathing. Denies nausea and vomitting. Has been ambulating. Objective Vital Signs and I&Os Vital Signs Date Time Temp Pulse Resp B/P B/P Pulse O2 O2 Flow FiO2 Mean Ox Delivery Rate 09/12 0535 97.3 87 18 144/92 99 Room Air 09/11 2135 98.1 101 20 145/93 99 / 1600 Room Air 09/11 1430 98.7 97 20 123/85 100 Room Air Intake & Output 09/12 1600 09/12 0800 09/12 0000 09/11 1600 09/11 0800 / 0000 Intake Total 1000 431 279 8690 800 Output Total 6946 186 5553 Balance -175 900 -50 -600 800 Intake, IV 400 400 Intake, Oral 600 900 250 800 800 Output, Urine 6086 312 5727 Physical Exam: General: Alert and oriented x3, no acute distress Cardiac: RRR, s1s2 Pulm: Dry cough noted, bilateral lung sounds clear to auscultation HEENT: ?scleral icterus r>l Abd: Softly distended, no localized tenderness on exam, +bs Extremities: Moves all extremities, distal sensation grossly intact. Skin warm and well perfused. DP pulses palpable. Bilateral calves soft and nontender Assessment/Plan Assessment/Plan This is a 47 year old male, POD 9 s/p elap for intraabdominal abscess -f/u AM labs, added lfts to chemistry -f/u CBC, wbc has been trending down -Switch to po abx, will confirm with Dr. Small -Continue diet as tolerated -Will discuss re-imaging of abdomen with Dr. Leon/Blanka Core Measures Venous Thromboembolism VTE Risk Factors Surgery No Mechanical VTE Prophylaxis d/t N/A MechProphylax Ordered No VTE Pharm Prophylaxis d/t NA PharmProphylax ordered
[2017-09-12 08:55] LABS: ABSOLUTE BASOPHIL COUNT 0.1 /CUMM (0.0-0.2); ABSOLUTE EOSINOPHIL COUNT 0.6 /CUMM (0.0-0.7); ABSOLUTE GRANULOCYTE CT 15.9 /CUMM (1.4-6.5); ABSOLUTE LYMPH COUNT 2.3 /CUMM (1.2-3.4); ABSOLUTE MONOCYTE COUNT 1.1 /CUMM (0.10-0.60); BASOPHIL % 0.3 % (0.0-2.0); EOSINOPHIL % 3.2 % (0-5); GRANULOCYTE % 79.8 % (42.2-75.2); HEMATOCRIT 32.5 % (42-52); MEAN CORPUSCULAR HGB 28.5 PG (27.0-31.0); MEAN CORPUSCULAR HGB CONC 34.6 G/DL (33.0-37.0); MEAN CORPUSCULAR VOLUME 82.3 FL (80.0-94.0); MEAN PLATELET VOLUME 8.5 FL (7.4-10.4); PLATELET COUNT 329 /CUMM (130-400); RBC DISTRIBUTION WIDTH 14.1 % (11.5-14.5); RED BLOOD CELL CT 3.95 /CUMM (4.70-6.10); WHITE BLOOD CELL COUNT 19.9 /CUMM (4.8-10.8)
--- NOTE | 2017-09-12 12:10 | PN- Att Addend ---
Attending Addendum Attending Brief Note Patient seen and examined, overall feeling well. Patient able to tolerate solid diet. His right patella count remains on the higher side. Patient remains on IV antibiotics. Vital Signs Date Time Temp Pulse Resp B/P B/P Pulse O2 O2 Flow FiO2 Mean Ox Delivery Rate 09/12 0635 97.3 87 18 144/92 99 Room Air 09/11 2135 98.1 101 20 145/93 99 / 1600 Room Air 09/11 1430 98.7 97 20 123/85 100 Room Air on exam; aox3, nad. cv; s1,s2, rrr resp; clear abd; soft, bs+, drains are out, edita are clean. ext; no edema. Laboratory Tests 09/12 09/11 0808 1253 Chemistry Sodium (137 - 145 mmol/L) 135 L Potassium (3.5 - 5.1 mmol/L) 4.2 Chloride (98 - 107 mmol/L) 101 Carbon Dioxide (22 - 30 mmol/L) 28 Anion Gap (5 - 16) 6 BUN (9 - 20 mg/dL) 8 L Creatinine (0.7 - 1.2 mg/dL) 0.5 L Estimated GFR (>60 ml/min) > 60 BUN/Creatinine Ratio (7 - 25 %) 16.0 Total Bilirubin (0.2 - 1.3 mg/dL) 0.8 Direct Bilirubin (< 0.4 mg/dL) 0.4 AST (17 - 59 U/L) 20 ALT (21 - 72 U/L) 40 Alkaline Phosphatase (< 127 U/L) 154 H Total Protein (6.3 - 8.2 g/dL) 5.2 L Albumin (3.5 - 5.0 g/dL) 2.2 L Hematology CBC w Diff NO MAN DIFF REQ NO MAN DIFF REQ WBC (4.8 - 10.8 /CUMM) 19.9 H 18.4 H RBC (4.70 - 6.10 /CUMM) 3.95 L 4.19 L Hgb (14.0 - 18.0 G/DL) 11.3 L 11.5 L Hct (42 - 52 %) 32.5 L 34.8 L MCV (80.0 - 94.0 FL) 82.3 82.9 MCH (27.0 - 31.0 PG) 28.5 27.3 MCHC (33.0 - 37.0 G/DL) 34.6 33.0 RDW (11.5 - 14.5 %) 14.1 14.4 Plt Count (130 - 400 /CUMM) 329 371 MPV (7.4 - 10.4 FL) 8.5 7.8 Gran % (42.2 - 75.2 %) 79.8 H 76.2 H Lymphocytes % (20.5 - 51.1 %) 11.3 L 14.7 L Monocytes % (1.7 - 9.3 %) 5.4 5.7 Eosinophils % (0 - 5 %) 3.2 2.8 Basophils % (0.0 - 2.0 %) 0.3 0.6 Absolute Granulocytes (1.4 - 6.5 /CUMM) 15.9 H 14.0 H Absolute Lymphocytes (1.2 - 3.4 /CUMM) 2.3 2.7 Absolute Monocytes (0.10 - 0.60 /CUMM) 1.1 H 1.0 H Absolute Eosinophils (0.0 - 0.7 /CUMM) 0.6 0.5 Absolute Basophils (0.0 - 0.2 /CUMM) 0.1 0.1 Assessment and recommendation: 47-year-old male with past history significant for diabetes, hypertension recent treatment for pneumonia with the antibiotics and steroids who is admitted to surgical service with the constant abdominal pain and found to have intraperitoneal abscesses as well as free air under the diaphragm. Patient was taken for emergent exploratory laparotomy and found two intraperitoneal abscesses status post drainage. Was started on broad-spectrum antibiotics. Continued to do worse and developed acute respiratory failure requiring intubation. Transferred to the medicine floor after stabilization. Medical consult was obtained to manage his medical issues. Blood sugars are running in acceptable range. Vital signs are stable. Patient remains on IV antibiotics due to having leukocytosis. Please discuss with infectious disease about switching antibiotics to oral. Further imaging per surgery. Patient tolerating diet well. Denies any shortness of breath. Patient on Effexor. Medical issues are overall stable. We'll sign off. Please call with questions.
--- NOTE | 2017-09-12 14:52 | PN- Infect Dx ---
Subjective Subjective: Afebrile without complaints. Objective Last 24 Hrs of Vital Signs/I&O Vital Signs Date Time Temp Pulse Resp B/P B/P Pulse O2 O2 Flow FiO2 Mean Ox Delivery Rate 09/12 0535 97.3 87 18 144/92 99 Room Air 09/11 2135 98.1 101 20 145/93 99 09/11 1600 Room Air Intake & Output 09/12 1600 09/12 0800 09/12 0000 Intake Total 1000 900 Output Total 1175 Balance -175 900 Intake, IV 400 Intake, Oral 600 900 Output, Urine 1175 Physical Exam Other Physical Findings: He appears comfortable in no acute distress Lungs bibasilar crackles Heart regular rhythm with no murmur Abdomen is soft, mildly tender on palpation of the left upper quadrant, with no guarding or rebound, positive bowel sounds; incision clean, with no erythema or drainage Results Last 24 Hours of Lab Results: Laboratory Tests 09/13 807 Chemistry Sodium (137 - 145 mmol/L) 135 L Potassium (3.5 - 5.1 mmol/L) 4.2 Chloride (98 - 107 mmol/L) 101 Carbon Dioxide (22 - 30 mmol/L) 28 Anion Gap (5 - 16) 6 BUN (9 - 20 mg/dL) 8 L Creatinine (0.7 - 1.2 mg/dL) 0.5 L Estimated GFR (>60 ml/min) > 60 BUN/Creatinine Ratio (7 - 25 %) 16.0 Total Bilirubin (0.2 - 1.3 mg/dL) 0.8 Direct Bilirubin (< 0.4 mg/dL) 0.4 AST (17 - 59 U/L) 20 ALT (21 - 72 U/L) 40 Alkaline Phosphatase (< 127 U/L) 154 H Total Protein (6.3 - 8.2 g/dL) 5.2 L Albumin (3.5 - 5.0 g/dL) 2.2 L Hematology CBC w Diff NO MAN DIFF REQ WBC (4.8 - 10.8 /CUMM) 19.9 H RBC (4.70 - 6.10 /CUMM) 3.95 L Hgb (14.0 - 18.0 G/DL) 11.3 L Hct (42 - 52 %) 32.5 L MCV (80.0 - 94.0 FL) 82.3 MCH (27.0 - 31.0 PG) 28.5 MCHC (33.0 - 37.0 G/DL) 34.6 RDW (11.5 - 14.5 %) 14.1 Plt Count (130 - 400 /CUMM) 329 MPV (7.4 - 10.4 FL) 8.5 Gran % (42.2 - 75.2 %) 79.8 H Lymphocytes % (20.5 - 51.1 %) 11.3 L Monocytes % (1.7 - 9.3 %) 5.4 Eosinophils % (0 - 5 %) 3.2 Basophils % (0.0 - 2.0 %) 0.3 Absolute Granulocytes (1.4 - 6.5 /CUMM) 15.9 H Absolute Lymphocytes (1.2 - 3.4 /CUMM) 2.3 Absolute Monocytes (0.10 - 0.60 /CUMM) 1.1 H Absolute Eosinophils (0.0 - 0.7 /CUMM) 0.6 Absolute Basophils (0.0 - 0.2 /CUMM) 0.1 Last 24 Hours of Rosalino Results: No new cultures Assessment/Plan ID Impression: Overall improved now 9 days status post exploratory laparotomy for a perforated viscus, with the source not identified, but with 3 intraperitoneal abscesses requiring drainage. He is currently afebrile but he has a persistent leukocytosis and further imaging will be necessary to rule out any residual collections. He is on Vancomycin and Zosyn but, based on his OR cultures, his antibiotics can be adjusted. The isolation of strep bovis from his OR culture is of interest and warrants further evaluation for an underlying colonic malignancy given its association with strep bovis. The solitary mass in the right kidney is also of concern and will warrant further evaluation. Suggestion: 1. Would repeat CT of the abdomen and pelvis with IV contrast 2. Will need GI evaluation at some point for a colonoscopy 3. Further evaluation of his right renal mass per his primary care team 4. Discontinue Vancomycin and Zosyn 5. Begin Unasyn 3 g IV every 6 hours
[2017-09-12 14:54] VITALS: BP 144/102
--- NOTE | 2017-09-12 16:25 | CT SCAN REPORT ---
EXAMINATION: CT ABDOMEN AND PELVIS WITH CONTRAST CLINICAL INFORMATION: Follow-up intra-abdominal abscess status post-post exploratory laparotomy; leukocytosis and abdominal pain. COMPARISON: Prior CT examinations dated 09/06/2017 and 09/03/2017. TECHNIQUE: Multidetector volumetric imaging was performed of the abdomen and pelvis following IV administration of 95 mL of Optiray 320 intravenous contrast. Sagittal and coronal reformatted images were obtained on the technologist's workstation. DLP: 1249.56 mGy-cm FINDINGS: LUNG BASES: There is mild posterior bibasilar airspace disease with air bronchograms. There are small right and very small left pleural effusions. LIVER, GALLBLADDER, AND BILIARY TREE: The liver is normal in size, shape, and attenuation. In the anterior segment of the right hepatic lobe (2:24), there is a 7 mm low-attenuation probable cyst which is too small to fully characterize with CT. This is unchanged from 09/03/2017 (2:18). No biliary ductal dilatation is present. The gallbladder is unremarkable, without calculi or wall thickening. PANCREAS: Unremarkable. SPLEEN: Unremarkable. ADRENAL GLANDS: Unremarkable. KIDNEYS AND URETERS: The kidneys are normal in size, shape, and attenuation. No hydronephrosis, hydroureter, or calculi seen. No perinephric stranding. BLADDER: Unremarkable. GASTROINTESTINAL TRACT: There is free intraperitoneal air. The previously seen left abdominopelvic abscess is has recurred, measuring 10.0 cm transverse by 11.5 cm AP by 9.8 cm craniocaudad (2:64 and 601:61). There is moderate diverticulosis. There is diffuse mesenteric fat stranding, most pronounced in the anterior pelvis and peripheral to the intra-abdominal abscess. No obstruction is seen. The appendix is unremarkable. ABDOMINAL WALL: No significant hernia is appreciated. There is an anterior midline vertical staple line with a small amount of subcutaneous gas (2:75). LYMPH NODES: Normal. VASCULAR: Unremarkable. PELVIC VISCERA: The prostate and seminal vesicles are unremarkable. FREE FLUID: There is mild perihepatic, perisplenic, mesenteric and right paracolic gutter free fluid. OSSEOUS STRUCTURES: There is multi-level mild spondylosis. There is degenerative disc disease with vacuum phenomenon at T11-T12 and L5-S1. No acute or aggressive osseous abnormality is seen. IMPRESSION: 1. There is a large recurrent left abdominopelvic abscess. There is associated free intraperitoneal air or mesenteric fat stranding. 2. There is mild ascites, as detailed. 3. There is mild posterior bibasilar airspace disease with air bronchograms. There are small right and very small left pleural effusions. 4. There is a right hepatic lobe small probable cyst, too small to fully characterize with CT. 5. There are thoracolumbar degenerative changes. This critical result was discussed with Reynaldo Mays R.N. at 4:20 PM on 09/12/2017, and it was ascertained that the content and urgency of this report was understood at the time of direct communication.
--- NOTE | 2017-09-12 19:01 | PN- General Surgery ---
Surgical Brief Attending Note Brief Attending Note: CT images personally viewed. There is recurrence of the left mid-abdomen abscess with scattered free intraperitoneal air, similar in appearance to preoperative CT. There is oral contrast that progressed throughout the entire GI tract without evidence of extravasation. My impression is that this represents a persistent diverticular process that recurred after moving his bowels over the past 24 hours. Unfortunately in his current post operative state there is significant bowel edema that would make operative intervention frought with complications. Bowel edema at index operation was severe from abscess, it will be even worse now. Furthermore, I may still not be able to identify the perforation site. For that reason, I feel that IR drainage of the abscess should be the next step. Since there is no contrast extravasation, the visceral hole must be very small and may heal with adequate drainage. If not, a controlled fistula will allow operative intervention to take place after he has convalesced in 6 weeks. Case discussed with IR. He is reluctant to perform drainage. I have convinced him that it in the patients best interest. If it fails, reoperative surgery will be the next step.
[2017-09-12 22:25] VITALS: BP 130/80
[2017-09-13 07:33] VITALS: BP 134/92
--- NOTE | 2017-09-13 08:18 | PN- General Surgery ---
Subjective Subjective: pain controlled. no acute events overnight. no fever, no flu like illness. mild producive cough- improving per pt. + flaus and bm. sp IR drainage of abscess last evening. Objective Vital Signs and I&Os Vital Signs Date Time Temp Pulse Resp B/P B/P Pulse O2 O2 Flow FiO2 Mean Ox Delivery Rate 09/13 732 98.4 87 19 134/92 96 Room Air 09/12 2225 98.1 99 19 130/80 95 Room Air 09/12 1454 98.0 92 20 144/102 98 Intake & Output 09/13 1600 09/13 0800 09/13 0000 09/12 1600 09/12 0800 09/12 0000 Intake Total 1450 1000 900 Output Total 2150 300 1175 Balance -2150 1150 -175 900 Intake, IV 100 400 Intake, Oral 1350 600 900 Output, Urine 2150 300 1175 Physical Exam: Well-developed well-nourished no apparent distress. HEENT: Atraumatic, extraocular motion intact Neck: Supple, no lymphadenopathy Respiratory: No respiratory distress Abdomen: Incision clean dry and intact, staple line in place, no drainage. Catheter site clean dry and intact. Minimal amount of serous drainage noted from IR catheter. Positive bowel sounds, mild tenderness left lower quadrant and mid abdominal region, mild to moderately distended Extremities: No edema, no calf pain Neuro: Alert and oriented x3 Psych: Mood affect normal, normal memory normal judgment. Skin: Warm and dry, no rash on exposed skin Results Last 48 Hours of Labs: Laboratory Tests 09/13 09/12 0754 0808 Chemistry Sodium (137 - 145 mmol/L) Pending 135 L Potassium (3.5 - 5.1 mmol/L) Pending 4.2 Chloride (98 - 107 mmol/L) Pending 101 Carbon Dioxide (22 - 30 mmol/L) Pending 28 Anion Gap (5 - 16) Pending 6 BUN (9 - 20 mg/dL) Pending 8 L Creatinine (0.7 - 1.2 mg/dL) Pending 0.5 L Estimated GFR (>60 ml/min) > 60 BUN/Creatinine Ratio (7 - 25 %) Pending 16.0 Phosphorus Pending Magnesium Pending Total Bilirubin (0.2 - 1.3 mg/dL) 0.8 Direct Bilirubin (< 0.4 mg/dL) 0.4 AST (17 - 59 U/L) 20 ALT (21 - 72 U/L) 40 Alkaline Phosphatase (< 127 U/L) 154 H Total Protein (6.3 - 8.2 g/dL) 5.2 L Albumin (3.5 - 5.0 g/dL) 2.2 L Hematology CBC w Diff Pending NO MAN DIFF REQ WBC (4.8 - 10.8 /CUMM) Pending 19.9 H RBC (4.70 - 6.10 /CUMM) Pending 3.95 L Hgb (14.0 - 18.0 G/DL) Pending 11.3 L Hct (42 - 52 %) Pending 32.5 L MCV (80.0 - 94.0 FL) Pending 82.3 MCH (27.0 - 31.0 PG) Pending 28.5 MCHC (33.0 - 37.0 G/DL) Pending 34.6 RDW (11.5 - 14.5 %) Pending 14.1 Plt Count (130 - 400 /CUMM) Pending 329 MPV (7.4 - 10.4 FL) Pending 8.5 Gran % (42.2 - 75.2 %) 79.8 H Lymphocytes % (20.5 - 51.1 %) 11.3 L Monocytes % (1.7 - 9.3 %) 5.4 Eosinophils % (0 - 5 %) 3.2 Basophils % (0.0 - 2.0 %) 0.3 Absolute Granulocytes (1.4 - 6.5 /CUMM) 15.9 H Absolute Lymphocytes (1.2 - 3.4 /CUMM) 2.3 Absolute Monocytes (0.10 - 0.60 /CUMM) 1.1 H Absolute Eosinophils (0.0 - 0.7 /CUMM) 0.6 Absolute Basophils (0.0 - 0.2 /CUMM) 0.1 09/11 1253 Hematology CBC w Diff NO MAN DIFF REQ WBC (4.8 - 10.8 /CUMM) 18.4 H RBC (4.70 - 6.10 /CUMM) 4.19 L Hgb (14.0 - 18.0 G/DL) 11.5 L Hct (42 - 52 %) 34.8 L MCV (80.0 - 94.0 FL) 82.9 MCH (27.0 - 31.0 PG) 27.3 MCHC (33.0 - 37.0 G/DL) 33.0 RDW (11.5 - 14.5 %) 14.4 Plt Count (130 - 400 /CUMM) 371 MPV (7.4 - 10.4 FL) 7.8 Gran % (42.2 - 75.2 %) 76.2 H Lymphocytes % (20.5 - 51.1 %) 14.7 L Monocytes % (1.7 - 9.3 %) 5.7 Eosinophils % (0 - 5 %) 2.8 Basophils % (0.0 - 2.0 %) 0.6 Absolute Granulocytes (1.4 - 6.5 /CUMM) 14.0 H Absolute Lymphocytes (1.2 - 3.4 /CUMM) 2.7 Absolute Monocytes (0.10 - 0.60 /CUMM) 1.0 H Absolute Eosinophils (0.0 - 0.7 /CUMM) 0.5 Absolute Basophils (0.0 - 0.2 /CUMM) 0.1 Assessment/Plan Assessment/Plan This is a 47 year old male, POD 10 s/p exlap for intraabdominal abscess, postop respiratory failure requiring intubation which has resolved, recurrence of intra -abdominal abscess requiring interventional radiology drainage and catheter placement into the abscess -f/u AM labs, trending white blood cell count -Continue Unasyn, follow cultures from abscess drainage yesterday -Nothing by mouth, will discuss with Dr. Leon regarding advancement to clears -IV fluids -pain meds prn -monitor bowel function -Appreciate ID follow. Core Measures Venous Thromboembolism VTE Risk Factors Surgery No Mechanical VTE Prophylaxis d/t N/A MechProphylax Ordered No VTE Pharm Prophylaxis d/t NA PharmProphylax ordered
[2017-09-13 08:45] LABS: ABSOLUTE BASOPHIL COUNT 0 /CUMM (0.0-0.2); ABSOLUTE EOSINOPHIL COUNT 0.3 /CUMM (0.0-0.7); ABSOLUTE GRANULOCYTE CT 9.5 /CUMM (1.4-6.5); ABSOLUTE LYMPH COUNT 1.9 /CUMM (1.2-3.4); BASOPHIL % 0.3 % (0.0-2.0); EOSINOPHIL % 2.7 % (0-5); GRANULOCYTE % 74.3 % (42.2-75.2); HEMATOCRIT 33.6 % (42-52); MEAN CORPUSCULAR HGB CONC 33.9 G/DL (33.0-37.0); MEAN CORPUSCULAR VOLUME 82.8 FL (80.0-94.0); MEAN PLATELET VOLUME 8.1 FL (7.4-10.4); PLATELET COUNT 360 /CUMM (130-400); RED BLOOD CELL CT 4.06 /CUMM (4.70-6.10); WHITE BLOOD CELL COUNT 12.8 /CUMM (4.8-10.8)
--- NOTE | 2017-09-13 08:45 | PN- General Surgery ---
Surgical Brief Attending Note Brief Attending Note: S/P PERC DRAINAGE OF RECURRENT INTRAABDOMINAL INFECTION/PERFORATION. DRAIN OUTPUT SCANT NOW. PAIN IMPROVED. PLAN IV ABX. UNCLEAR RATIONAL BEHIND CESSATION OF VANCOMYCIN, ESPECIALLY IN LIGHT OF UNCLEAR NATURE OF SOURCE CONTROL. SURGICAL PLAN FOR SIPS WATER ONLY. REPEAT CT WITH DRAIN FISTULOGRAM TUESDAY.
--- NOTE | 2017-09-13 12:19 | CT SCAN REPORT ---
CLINICAL HISTORY: This patient is a 47 year old diabetic Male with a history of free air and abscess on 09/03/2017 when he underwent open laparotomy, abscess drainage with a Iam-Spencer drainage catheter, inspection of the intestine for perforation. However, inspection for perforation was unsuccessful at finding a perforation in the bowel. The patient underwent a repeat CT scan on 09/06/2017 which revealed minimal residual free air. It also demonstrated the presence of a Iam-Spencer drain with resolution of the abdominal abscess. The patient's symptoms subsequently resolved. The patient reports that the drainage catheter was then removed by the medical staff. The patient returned to the emergency room today with abdominal pain, leukocytosis. A repeat CT scan today at 1540 hours demonstrates abdominal free air and a large left mid abdominal abscess. The abscess appears to be in a similar location to the previous abscess but smaller. The free air appears to be increased. This is consistent with a perforated viscus. An emergency drainage catheter is requested. I objected to the procedure on the basis of the clinical indication as this patient likely has a perforated viscus and drainage may delay or harm the patient from the underlying pathology. I am concerned about the possibility of a perforation in the proximal small intestine. I've reviewed this with 4 separate interventional radiologists and this is not the standard of care and communicated this. I've been compelled to proceed with this procedure by order of Dr. Leon and, I will do so, but in protest. I also informed Dr. Leon that my objection would be here in the medical record. This critical result was communicated and discussed directly by telephone with Dr. Leon at 1800 and 2200 hrs on 09/12/2017 and the content and urgency of the communication was understood. PROCEDURES: 1. Limited CT of the left upper quadrant of the abdomen. 2. Emergency placement of a 12 Fr locking all-purpose drainage catheter under CT-guidance. PHYSICIANS: Interventional Radiologist: Javier Bosch M.D., F.S.I.R., F.A.C.R. MONITORING: The procedure was performed without conscious sedation but with analgesia under my direct supervision. Continuous blood pressure, pulse oximetry as well as heartrate monitoring was performed by an independent registered nurse. MEDICATIONS: 1. 50 micrograms of fentanyl were administered. 2. 10 mL of 1% lidocaine SQ. COMPLICATIONS: None. ESTIMATED BLOOD LOSS: <5 mL SPECIMENS: Succus entericus fluid. TOTAL DLP: 796 mGy-cm. PROCEDURE NOTE: Informed consent was obtained from the patient prior to the procedure. During this process, the procedure and potential alternatives were explained along with the intended outcome and benefits. The risks of the procedure, including the possibility of an unsuccessful procedure, as well as the risk of not doing the procedure, were discussed. The patient was given the opportunity to ask questions regarding the procedure and appeared competent to make decisions. A signed consent form documenting this discussion was placed in the medical record. A time-out procedure was performed. SITE MARKING: As part of the preprocedure verification policy, a site marking procedure was initiated. Due to the nature the procedure, the insertion site could not be predetermined thus invoking the policy of exemption to site laterality and marking. Insertion site marking was performed in the procedure room in conjunction with imaging confirmation. All elements of maximal sterile barrier technique followed including use of catheter, mask, sterile gown, sterile gloves, a sterile full body drape and hand hygiene. Also followed skin preparation with 2% chlorhexidine for cutaneous antisepsis, and sterile ultrasound preparation with sterile gel and probe cover when applicable. The patient was placed in the supine position on the CT table. A limited CT of the abdomen was performed to localize the collection and choose appropriate needle access entry point and trajectory. The abdomen was prepped and draped in usual sterile fashion. The skin and subcutaneous tissues were anesthetized with lidocaine. Under CT-guidance, a Yueh needle was advanced into the fluid collection. Succus entericus fluid was aspirated. A 0.035 in Amplatz super stiff wire was advanced through the needle and coiled in the fluid collection. The needle was removed and exchanged for serial fascial dilators followed by a 12 Fr locking all-purpose catheter. Catheter position within the fluid collection was confirmed by CT evaluation. Initial and final images with the catheter and drainage procedure were obtained and confirmed by CT scan. The wire was removed from the catheter and the tip was coiled within the fluid collection, again confirmed by CT evaluation. The drain was sutured to skin with 0 silk suture. The patient tolerated the procedure well was discharged from the room in unchanged condition. Orders were written into the chart. The post procedure findings were reviewed with Dr. Leon at 2200 hours. Samples were sent for microbiology. FINDINGS: 1. Fluid collection located in the left mid abdomen with CT appearance of succus entericus fluid. 80 cc of fluid and a large amount of air immediately drained. 2. Successful placement of a 12 Fr locking all-purpose drainage catheter into the fluid collection. Complications: None. IMPRESSION: Successful drainage of a left mid abdominal air and fluid collection and placement of a drainage catheter. The drainage fluid is visibly consistent with succus entericus confirming the suspicion for small bowel perforation. There is also a large amount of air draining from the tube. A fluoroscopic- or cat scan-guided tube injection in 48 hours, or less, is recommended. PLAN: 1. The patient was stable after the procedure and was transferred to the interventional recovery area. The patient will be discharged to his room when stable by sedation protocol. 2. The tube should be open to external gravity drainage via drainage bag. 3. Tube should be flushed Q shift with 5 mL normal saline.
[2017-09-13 14:31] VITALS: BP 137/92
--- NOTE | 2017-09-13 15:22 | PN- Infect Dx ---
Subjective Subjective: Afebrile. He feels well with no complaints. Objective Last 24 Hrs of Vital Signs/I&O Vital Signs Date Time Temp Pulse Resp B/P B/P Pulse O2 O2 Flow FiO2 Mean Ox Delivery Rate 09/13 1431 97.5 90 18 137/92 99 Room Air 09/13 0733 98.4 87 19 134/92 96 Room Air 09/12 2225 98.1 99 19 130/80 95 Room Air Intake & Output 09/13 1600 09/13 0800 09/13 0000 Intake Total 250 250 Output Total 2590 575 Balance -2340 -325 Intake, IV 250 250 Output, 40 175 Drainage Output, Urine 2550 400 Physical Exam Other Physical Findings: He appears comfortable in no acute distress Lungs are clear Heart regular rhythm with no murmur Abdomen is obese, soft, minimally tender in the left upper quadrant, with positive bowel sounds; drainage catheter in place with 175 mL up yesterday and 40 mL overnight Extremities no cyanosis, clubbing or edema Results Last 24 Hours of Lab Results: Laboratory Tests 09/13 0754 Chemistry Sodium (137 - 145 mmol/L) 138 Potassium (3.5 - 5.1 mmol/L) 4.1 Chloride (98 - 107 mmol/L) 100 Carbon Dioxide (22 - 30 mmol/L) 32 H Anion Gap (5 - 16) 6 BUN (9 - 20 mg/dL) 6 L Creatinine (0.7 - 1.2 mg/dL) 0.5 L Estimated GFR (>60 ml/min) > 60 BUN/Creatinine Ratio (7 - 25 %) 12.0 Phosphorus (2.5 - 4.5 mg/dL) 3.1 Magnesium (1.6 - 2.3 mg/dL) 1.9 Hematology CBC w Diff NO MAN DIFF REQ WBC (4.8 - 10.8 /CUMM) 12.8 H RBC (4.70 - 6.10 /CUMM) 4.06 L Hgb (14.0 - 18.0 G/DL) 11.4 L Hct (42 - 52 %) 33.6 L MCV (80.0 - 94.0 FL) 82.8 MCH (27.0 - 31.0 PG) 28.0 MCHC (33.0 - 37.0 G/DL) 33.9 RDW (11.5 - 14.5 %) 14.0 Plt Count (130 - 400 /CUMM) 360 MPV (7.4 - 10.4 FL) 8.1 Gran % (42.2 - 75.2 %) 74.3 Lymphocytes % (20.5 - 51.1 %) 15.1 L Monocytes % (1.7 - 9.3 %) 7.6 Eosinophils % (0 - 5 %) 2.7 Basophils % (0.0 - 2.0 %) 0.3 Absolute Granulocytes (1.4 - 6.5 /CUMM) 9.5 H Absolute Lymphocytes (1.2 - 3.4 /CUMM) 1.9 Absolute Monocytes (0.10 - 0.60 /CUMM) 1.0 H Absolute Eosinophils (0.0 - 0.7 /CUMM) 0.3 Absolute Basophils (0.0 - 0.2 /CUMM) 0 Last 24 Hours of Rosalino Results: Abdominal abscess culture September 12 positive for Staph species Recent Imaging Studies: CT of the abdomen and pelvis September 12 revealed a large recurrent left abdominal pelvic abscess with associated free air and mesenteric fat stranding; mild ascites; mild posterior bibasilar airspace disease with air bronchograms with small right and very small left pleural effusions Assessment/Plan ID Impression: Stable status post drainage of 80 mL of fluid from a left midabdominal air and fluid collection yesterday by IR, suggesting a recurrent or residual abscess, now 10 days status post exploratory laparotomy for a perforated viscus. A drainage catheter was placed, with the culture so far growing Staph species, which is of unclear significance. He remains afebrile with white blood cell count decreased on Unasyn, which should provide adequate coverage for all of the pathogens isolated from the initial OR culture. As previously noted the isolation of strep bovis from his OR culture is of interest and warrants further evaluation for an underlying colonic malignancy given its association with strep bovis. The solitary mass in the right kidney is also of concern and will warrant further evaluation. Suggestion: 1. Follow-up final culture from the recent aspiration 2. Will need a follow-up CT of the abdomen and pelvis once the drainage has decreased 3. GI evaluation at some point for a colonoscopy 4. Further evaluation of his right renal mass per his primary care team 5. Continue Unasyn
[2017-09-13 22:05] VITALS: BP 142/94
--- NOTE | 2017-09-14 07:36 | PN- General Surgery ---
See Addendum Subjective Subjective: No complaints. Asking for clears. Taking sips. Denies pain. No nausea/vomiting. +flatus and +bms. Reports ambulating without difficulty. No dizziness. No shortness of breath. No chest pains. Objective Vital Signs and I&Os Vital Signs Date Time Temp Pulse Resp B/P B/P Pulse O2 O2 Flow FiO2 Mean Ox Delivery Rate 09/13 2204 98.0 87 20 142/94 97 Room Air 09/13 1431 97.5 90 18 137/92 99 Room Air Intake & Output 09/14 0809/14 0000 09/13 1600 09/13 0809/13 0000 09/12 1600 Intake Total 900 960 300 806 088 6027 Output Total 1560 449 99 8965 575 300 Balance -660 100 270 -2340 -325 1150 Intake, IV 900 600 100 250 250 100 Intake, Oral 184 098 1853 Output, 10 10 30 40 175 Drainage Output, Urine 9566 220 5842 400 300 Physical Exam: General - alert & oriented x 3. comfortable. no acute distress. Lungs - clear bilaterally. no w/r/r. Cardiac - s1s2. reg Abdomen - soft. midline incision approximated with edita. perc drain in place, with scant drainage overnight. Extremities - warm bilaterally. no c/c/e. calves soft and nontender b/l. Current Medications: Current Medications Sig/Lorie Start time Last Medication Dose Route Stop Time Status Admin Acetaminophen 1,000 MG .STK-MED ONE 09/13 1031 DC IV 09/13 1032 Acetaminophen 1,000 MG Q6P PRN 09/12 2199 09/13 N/A 1 UNIT IV 1034 Ampicillin Sodium/ 3,000 MG Q6 09/12 1800 AC 09/14 Sulbactam Sodium IV 0626 Sodium Chloride 100 ML Dextrose/Sodium 1,000 ML Q13H 09/14 0800 UNVr Chloride IV Dextrose/Sodium 1,000 ML ONCE ONE 09/14 0015 DC 09/14 Chloride IV 09/14 1334 0022 Heparin Sodium 5,000 UNIT Q8 09/03 2199 09/14 (Porcine) SC 0626 Insulin Human Regular 0 Q6 09/12 2359 09/14 SC 0700 Morphine Sulfate 2 MG Q2P PRN 09/12 2199 IV Pantoprazole Sodium 40 MG DAILY 09/03 1952 AC 09/13 IV 1028 Sodium Chloride 1,000 ML ONCE ONE 09/13 1700 DC 09/13 IV 09/13 2339 1657 Venlafaxine HCl 150 MG DAILY 09/11 1000 AC 09/13 PO 1026 Results Last 48 Hours of Labs: Laboratory Tests 09/13 09/12 0754 0808 Chemistry Sodium (137 - 145 mmol/L) 138 135 L Potassium (3.5 - 5.1 mmol/L) 4.1 4.2 Chloride (98 - 107 mmol/L) 100 101 Carbon Dioxide (22 - 30 mmol/L) 32 H 28 Anion Gap (5 - 16) 6 6 BUN (9 - 20 mg/dL) 6 L 8 L Creatinine (0.7 - 1.2 mg/dL) 0.5 L 0.5 L Estimated GFR (>60 ml/min) > 60 > 60 BUN/Creatinine Ratio (7 - 25 %) 12.0 16.0 Phosphorus (2.5 - 4.5 mg/dL) 3.1 Magnesium (1.6 - 2.3 mg/dL) 1.9 Total Bilirubin (0.2 - 1.3 mg/dL) 0.8 Direct Bilirubin (< 0.4 mg/dL) 0.4 AST (17 - 59 U/L) 20 ALT (21 - 72 U/L) 40 Alkaline Phosphatase (< 127 U/L) 154 H Total Protein (6.3 - 8.2 g/dL) 5.2 L Albumin (3.5 - 5.0 g/dL) 2.2 L Hematology CBC w Diff NO MAN DIFF REQ NO MAN DIFF REQ WBC (4.8 - 10.8 /CUMM) 12.8 H 19.9 H RBC (4.70 - 6.10 /CUMM) 4.06 L 3.95 L Hgb (14.0 - 18.0 G/DL) 11.4 L 11.3 L Hct (42 - 52 %) 33.6 L 32.5 L MCV (80.0 - 94.0 FL) 82.8 82.3 MCH (27.0 - 31.0 PG) 28.0 28.5 MCHC (33.0 - 37.0 G/DL) 33.9 34.6 RDW (11.5 - 14.5 %) 14.0 14.1 Plt Count (130 - 400 /CUMM) 360 329 MPV (7.4 - 10.4 FL) 8.1 8.5 Gran % (42.2 - 75.2 %) 74.3 79.8 H Lymphocytes % (20.5 - 51.1 %) 15.1 L 11.3 L Monocytes % (1.7 - 9.3 %) 7.6 5.4 Eosinophils % (0 - 5 %) 2.7 3.2 Basophils % (0.0 - 2.0 %) 0.3 0.3 Absolute Granulocytes (1.4 - 6.5 /CUMM) 9.5 H 15.9 H Absolute Lymphocytes (1.2 - 3.4 /CUMM) 1.9 2.3 Absolute Monocytes (0.10 - 0.60 /CUMM) 1.0 H 1.1 H Absolute Eosinophils (0.0 - 0.7 /CUMM) 0.3 0.6 Absolute Basophils (0.0 - 0.2 /CUMM) 0 0.1 Assessment/Plan Assessment/Plan This is a 47 year old male, POD#11 s/p exlap for intraabdominal abscess, postop respiratory failure requiring intubation which has resolved, recurrence of intra -abdominal abscess requiring IR perc drain currently npo, except for sips. do not advance to clears unasyn ordered. f/u cxs oob/ambulation encouraged hep sc - dvt ppx monitor perc drain f/u labs and cxs repeat CT with drain fistulogram d/w Core Measures Venous Thromboembolism VTE Risk Factors Surgery No Mechanical VTE Prophylaxis d/t N/A MechProphylax Ordered No VTE Pharm Prophylaxis d/t NA PharmProphylax ordered
[2017-09-14 08:34] LABS: ABSOLUTE BASOPHIL COUNT 0.1 /CUMM (0.0-0.2); ABSOLUTE EOSINOPHIL COUNT 0.5 /CUMM (0.0-0.7); ABSOLUTE GRANULOCYTE CT 10.7 /CUMM (1.4-6.5); ABSOLUTE LYMPH COUNT 2.2 /CUMM (1.2-3.4); BASOPHIL % 0.4 % (0.0-2.0); EOSINOPHIL % 3.3 % (0-5); GRANULOCYTE % 74.2 % (42.2-75.2); HEMATOCRIT 33.4 % (42-52); MEAN CORPUSCULAR HGB 27.8 PG (27.0-31.0); MEAN CORPUSCULAR HGB CONC 33.7 G/DL (33.0-37.0); MEAN CORPUSCULAR VOLUME 82.5 FL (80.0-94.0); MEAN PLATELET VOLUME 7.9 FL (7.4-10.4); PLATELET COUNT 371 /CUMM (130-400); RBC DISTRIBUTION WIDTH 14.8 % (11.5-14.5); RED BLOOD CELL CT 4.05 /CUMM (4.70-6.10); WHITE BLOOD CELL COUNT 14.4 /CUMM (4.8-10.8)
[2017-09-14 13:58] VITALS: BP 163/121
[2017-09-14 22:10] VITALS: BP 136/95
[2017-09-15 06:46] VITALS: BP 146/110
--- NOTE | 2017-09-15 07:27 | PN- General Surgery ---
Surgical Brief Attending Note Brief Attending Note: CASE DISCUSSED WITH IR YESTERDAY, DR. KIM. PLAN FOR SINOGRAM UNDER FLUORO. FURTHER IMAGING PENDING THE FINDINGS OR LACK THEREOF.
--- NOTE | 2017-09-15 11:00 | PN- General Surgery ---
See Addendum Subjective Subjective: OOB in chair No complaints overnight Tolerating sips - wants to have a full diet +flatus "lots", + small, solid, dark bm this morning awaiting fistulagram this morning Objective Vital Signs and I&Os Vital Signs Date Time Temp Pulse Resp B/P B/P Pulse O2 O2 Flow FiO2 Mean Ox Delivery Rate 09/15 0834 98.3 95 20 146/110 09/15 0646 98.3 95 20 146/110 96 Room Air 09/14 2210 97.3 101 20 136/95 95 Room Air 09/14 1358 97.5 109 20 163/121 98 Room Air Intake & Output 09/15 1600 09/15 0800 09/15 0000 09/14 1600 09/14 0800 09/14 0000 Intake Total 770 720 875 900 960 Output Total 770 1380 1380 1560 860 Balance 0 -660 -505 -660 100 Intake, IV 650 600 625 900 600 Intake, Oral 120 120 250 360 Number 1 Bowel Movements Output, 20 10 10 10 Drainage Output, Urine 750 1370 1380 1550 850 Physical Exam: bp 146/110 this morning JOSE: 30cc in 24 hrs, yellow/purulent drainage Has not had his amlodipine yet this am OOB in chair General: alert and oriented times three Chest: clear anteriorly bilaterally, RRR Abd: soft, good bs, nondistended Ext: warm, no edema Wd: midline looks good, edita intact, no drainage or erythema Drain site clean and dry *Sensitivities returned resistant to ampicillin from IR culture on 09/13 Current Medications: Current Medications Sig/Lorie Start time Last Medication Dose Route Stop Time Status Admin Acetaminophen 1,000 MG Q6P PRN 09/12 220 AC 09/13 N/A 1 UNIT IV 1034 Amlodipine Besylate 5 MG DAILY 09/14 1433 AC 09/15 PO 0834 Ampicillin Sodium/ 3,000 MG Q6 09/12 1800 AC 09/15 Sulbactam Sodium IV 0607 Sodium Chloride 100 ML Dextrose/Sodium 1,000 ML Q13H 09/14 0800 AC 09/14 Chloride IV 2239 Diphenhydramine HCl 50 MG AT BEDTIME NEED.. 09/14 1115 AC 09/14 PO 2245 Heparin Sodium 5,000 UNIT Q8 09/03 2200 AC 09/15 (Porcine) SC 0607 Insulin Human Regular 0 Q6 09/12 2359 AC 09/15 SC 0621 Lidocaine 0 .STK-MED ONE 09/15 0936 DC .ROUTE Morphine Sulfate 2 MG Q2P PRN 09/12 2199 AC IV Pantoprazole Sodium 40 MG DAILY 09/03 1952 AC 09/15 IV 0833 Venlafaxine HCl 150 MG DAILY 09/11 1000 AC 09/14 PO 1010 Results Last 48 Hours of Labs: Laboratory Tests 09/14 0800 Chemistry Sodium (137 - 145 mmol/L) 139 Potassium (3.5 - 5.1 mmol/L) 4.0 Chloride (98 - 107 mmol/L) 100 Carbon Dioxide (22 - 30 mmol/L) 31 H Anion Gap (5 - 16) 8 BUN (9 - 20 mg/dL) 7 L Creatinine (0.7 - 1.2 mg/dL) 0.6 L Estimated GFR (>60 ml/min) > 60 BUN/Creatinine Ratio (7 - 25 %) 11.7 Hematology CBC w Diff NO MAN DIFF REQ WBC (4.8 - 10.8 /CUMM) 14.4 H RBC (4.70 - 6.10 /CUMM) 4.05 L Hgb (14.0 - 18.0 G/DL) 11.3 L Hct (42 - 52 %) 33.4 L MCV (80.0 - 94.0 FL) 82.5 MCH (27.0 - 31.0 PG) 27.8 MCHC (33.0 - 37.0 G/DL) 33.7 RDW (11.5 - 14.5 %) 14.8 H Plt Count (130 - 400 /CUMM) 371 MPV (7.4 - 10.4 FL) 7.9 Gran % (42.2 - 75.2 %) 74.2 Lymphocytes % (20.5 - 51.1 %) 15.0 L Monocytes % (1.7 - 9.3 %) 7.1 Eosinophils % (0 - 5 %) 3.3 Basophils % (0.0 - 2.0 %) 0.4 Absolute Granulocytes (1.4 - 6.5 /CUMM) 10.7 H Absolute Lymphocytes (1.2 - 3.4 /CUMM) 2.2 Absolute Monocytes (0.10 - 0.60 /CUMM) 1.0 H Absolute Eosinophils (0.0 - 0.7 /CUMM) 0.5 Absolute Basophils (0.0 - 0.2 /CUMM) 0.1 Assessment/Plan Assessment/Plan 47yo male s/e ex lap intraabdominal abscess on 09/03, IR drain placement 09/12 This morning fistulogram - fu results further recommendations to follow Will discuss with ID the antibiotics as new sensitiviities returned yesterday afternoon Continue sips for now pending imaging results unasyn for now dvt ppx-hep sc and alps Core Measures Venous Thromboembolism VTE Risk Factors Surgery No Mechanical VTE Prophylaxis d/t N/A MechProphylax Ordered No VTE Pharm Prophylaxis d/t NA PharmProphylax ordered
[2017-09-15 13:25] LABS: ABSOLUTE BASOPHIL COUNT 0.1 /CUMM (0.0-0.2); ABSOLUTE EOSINOPHIL COUNT 0.4 /CUMM (0.0-0.7); ABSOLUTE GRANULOCYTE CT 9.7 /CUMM (1.4-6.5); ABSOLUTE LYMPH COUNT 2.6 /CUMM (1.2-3.4); ABSOLUTE MONOCYTE COUNT 1.1 /CUMM (0.10-0.60); BASOPHIL % 0.8 % (0.0-2.0); EOSINOPHIL % 3.2 % (0-5); GRANULOCYTE % 69.5 % (42.2-75.2); HEMATOCRIT 35.6 % (42-52); MEAN CORPUSCULAR HGB CONC 33.3 G/DL (33.0-37.0); MEAN CORPUSCULAR VOLUME 84.3 FL (80.0-94.0); MEAN PLATELET VOLUME 8.6 FL (7.4-10.4); PLATELET COUNT 467 /CUMM (130-400); RBC DISTRIBUTION WIDTH 15.1 % (11.5-14.5); RED BLOOD CELL CT 4.22 /CUMM (4.70-6.10); WHITE BLOOD CELL COUNT 13.9 /CUMM (4.8-10.8)
--- NOTE | 2017-09-15 13:57 | PN- General Surgery ---
Surgical Brief Attending Note Brief Attending Note: Patient feels well. bowel function continues. drain output reduced. cultures show sens enterococcus and anaerobes. Unasyn continues. IR sinogram reviewed. No evidence for fistula. WBC pending. Overall, it appears that enteric fistula is closed, site still indeterminant. If wbc continues to decrease, start trial of clears and observe drain output.
[2017-09-15 14:52] VITALS: BP 138/100
--- NOTE | 2017-09-15 16:43 | INTERVENTIONAL RADIOLOGY RPT ---
CLINICAL HISTORY: This patient is a 47-year-old male with history of intra-abdominal abscess status post expiratory laparotomy who underwent percutaneous drainage catheter placement on 09/12/2017. He presents to Interventional Radiology for evaluation of drainage catheter and possible exchange. PROCEDURES: 1. Existing tube sinogram. 2. Tube exchange over wire. PHYSICIANS: Dr. Boone Sivla (attending). MEDICATIONS: 1. Lidocaine 1%, 8 mL, SQ. CONTRAST: 45 mL Optiray 320 FLUOROSCOPY TIME: 3 minutes 1 seconds DAP: 43 uGym2 COMPLICATIONS: None ESTIMATED BLOOD LOSS: <5 mL SPECIMENS: None IMPLANT: None SITE MARKING: As part of the preprocedure verification policy, a site marking procedure was initiated. Due to the nature the procedure, the insertion site could not be predetermined thus invoking the policy of exemption to site laterality and marking. Insertion site marking was performed in the procedure room in conjunction with imaging confirmation. PROCEDURE NOTE: Informed consent was obtained from the patient prior to the procedure. During this process, the procedure and potential alternatives were explained along with the intended outcome and benefits. The risks of the procedure, including the possibility of an unsuccessful procedure, as well as the risk of not doing the procedure, were discussed. The patient was given the opportunity to ask questions regarding the procedure and appeared competent to make decisions. A signed consent form documenting this discussion was placed in the medical record. A time-out procedure was performed. The patient was placed supine on the fluoroscopy table. Next, the left abdomen and external portion of the indwelling drainage catheter were prepped and draped in the usual sterile fashion. Preliminary fluoroscopic imaging demonstrated the abscess drainage catheter to be in expected position. Contrast was then gently injected through the catheter. Several images were obtained in the frontal and oblique projections. There was no evidence of a fistula to the bowel. Of note, the collection cavity was not located adjacent to colon. The pigtail catheter was noted to be located along the superior aspect of the collection. The decision was made to exchange the catheter to reposition it centrally within the collection. 10 mL of 1% lidocaine was used to obtain local anesthesia of the skin and deeper tissues. The catheter sutures were cut. A short Amplatz wire was advanced through the catheter and coiled within the collection. The indwelling catheter was exchanged over the wire for a new 12 Sammarinese locking all-purpose drainage catheter. The catheter was sutured to skin with 0 silk and sterile dressing was applied. The catheter was left attached to gravity drainage bag. The patient tolerated the procedure well. FINDINGS/IMPRESSION: Small to moderate size residual fluid collection. No fistula to bowel identified. Indwelling catheter was exchanged over a wire for a new 12 Sammarinese locking all-purpose drainage catheter which was positioned more centrally within the residual collection. PLAN: The patient was stable after the procedure and was transferred to the interventional recovery area. The patient will be transferred back to his medical room.
[2017-09-15 21:34] VITALS: BP 127/80
[2017-09-16 06:53] VITALS: BP 122/76
--- NOTE | 2017-09-16 07:31 | PN- General Surgery ---
See Addendum Subjective Subjective: Patient resting in bed. "I had a good night". Voiding spontaneously. Tolerating clears (started for dinner) without nausea or vomiting. Ambulating well. Drain flushed 4 hours prior to interview. Objective Vital Signs and I&Os Vital Signs Date Time Temp Pulse Resp B/P B/P Pulse O2 O2 Flow FiO2 Mean Ox Delivery Rate 09/16 0553 98.7 94 20 122/76 96 Room Air 09/15 2134 98.6 96 20 127/80 97 09/15 1600 96 Room Air 09/15 1452 98.5 100 18 138/100 99 09/15 0834 98.3 95 20 146/110 Intake & Output 09/16 0000 09/15 1600 09/15 0000 09/14 1600 Intake Total 780 600 600 770 720 875 Output Total 860 1998 339 6277 1380 Balance -80 -760 600 0 -660 -505 Intake, IV 300 600 200 650 600 625 Intake, Oral 480 400 120 120 250 Number 1 Bowel Movements Output, 10 10 20 10 Drainage Output, Urine 850 2505 404 6712 1380 Drain: - Physical Exam: Gen: AAOx3 in NAD Cor: S1+S2+ Lungs: CTA ortiz Abd: soft, NT, ND, incision C/D/I with edita. No surrounding erythema or drainage noted. Drain to left side of abdomen in place, greenish brown fluid in bag. Ext: no edema or calf tenderness to ortiz lower extremities. Current Medications: Current Medications Sig/Lorie Start time Last Medication Dose Route Stop Time Status Admin Acetaminophen 1,000 MG .STK-MED ONE 09/15 1257 DC IV 09/15 1258 Acetaminophen 1,000 MG Q6P PRN 09/12 2200 AC 09/15 N/A 1 UNIT IV 1401 Amlodipine Besylate 5 MG DAILY 09/14 1433 AC 09/15 PO 0834 Ampicillin Sodium/ 3,000 MG Q6 09/12 1800 AC 09/16 Sulbactam Sodium IV 0546 Sodium Chloride 100 ML Dextrose/Sodium 1,000 ML Q13H 09/14 0800 DC 09/15 Chloride IV 1834 Diphenhydramine HCl 50 MG .STK-MED ONE 09/15 2149 DC PO 09/15 2150 Diphenhydramine HCl 50 MG .STK-MED ONE 09/15 2145 DC IM 09/15 2146 Diphenhydramine HCl 50 MG AT BEDTIME NEED.. 09/14 1115 AC 09/15 PO 2150 Heparin Sodium 5,000 UNIT Q8 09/030 AC 09/16 (Porcine) SC 0546 Insulin Human Regular 0 Q6 09/12 2359 AC 09/16 SC 0625 Lidocaine 0 .STK-MED ONE 09/15 0936 DC .ROUTE Morphine Sulfate 2 MG Q2P PRN 09/12 2199 AC IV Pantoprazole Sodium 40 MG DAILY 09/03 195 AC 09/15 IV 0833 Patient Medication 1 ED ONE ONE 09/15 1600 DC Teaching ED 09/15 1601 Venlafaxine HCl 150 MG DAILY 09/11 1000 AC 09/15 PO 1058 Results Last 48 Hours of Labs: Laboratory Tests 09/15 09/14 1137 0800 Chemistry Sodium (137 - 145 mmol/L) 139 Potassium (3.5 - 5.1 mmol/L) 4.0 Chloride (98 - 107 mmol/L) 100 Carbon Dioxide (22 - 30 mmol/L) 31 H Anion Gap (5 - 16) 8 BUN (9 - 20 mg/dL) 7 L Creatinine (0.7 - 1.2 mg/dL) 0.6 L Estimated GFR (>60 ml/min) > 60 BUN/Creatinine Ratio (7 - 25 %) 11.7 Hematology CBC w Diff NO MAN DIFF REQ NO MAN DIFF REQ WBC (4.8 - 10.8 /CUMM) 13.9 H 14.4 H RBC (4.70 - 6.10 /CUMM) 4.22 L 4.05 L Hgb (14.0 - 18.0 G/DL) 11.8 L 11.3 L Hct (42 - 52 %) 35.6 L 33.4 L MCV (80.0 - 94.0 FL) 84.3 82.5 MCH (27.0 - 31.0 PG) 28.0 27.8 MCHC (33.0 - 37.0 G/DL) 33.3 33.7 RDW (11.5 - 14.5 %) 15.1 H 14.8 H Plt Count (130 - 400 /CUMM) 467 H 371 MPV (7.4 - 10.4 FL) 8.6 7.9 Gran % (42.2 - 75.2 %) 69.5 74.2 Lymphocytes % (20.5 - 51.1 %) 18.3 L 15.0 L Monocytes % (1.7 - 9.3 %) 8.2 7.1 Eosinophils % (0 - 5 %) 3.2 3.3 Basophils % (0.0 - 2.0 %) 0.8 0.4 Absolute Granulocytes (1.4 - 6.5 /CUMM) 9.7 H 10.7 H Absolute Lymphocytes (1.2 - 3.4 /CUMM) 2.6 2.2 Absolute Monocytes (0.10 - 0.60 /CUMM) 1.1 H 1.0 H Absolute Eosinophils (0.0 - 0.7 /CUMM) 0.4 0.5 Absolute Basophils (0.0 - 0.2 /CUMM) 0.1 0.1 Assessment/Plan Assessment/Plan A: s/p IR drain for intraabdominal abscess d/t perforated viscus; fistulogram yesterday without evidence of fistula to bowel. Small to moderate sized fluid collection persists. Remains on IV Unasyn. Plan: ?advancement of diet today. Will d/w Dr. Leon. OOB and ambulate. Continue IV Unasyn. Core Measures Venous Thromboembolism VTE Risk Factors Surgery No Mechanical VTE Prophylaxis d/t N/A MechProphylax Ordered No VTE Pharm Prophylaxis d/t NA PharmProphylax ordered
[2017-09-16 09:04] LABS: ABSOLUTE BASOPHIL COUNT 0.1 /CUMM (0.0-0.2); ABSOLUTE EOSINOPHIL COUNT 0.5 /CUMM (0.0-0.7); ABSOLUTE GRANULOCYTE CT 8.4 /CUMM (1.4-6.5); ABSOLUTE LYMPH COUNT 2.2 /CUMM (1.2-3.4); ABSOLUTE MONOCYTE COUNT 1.1 /CUMM (0.10-0.60); BASOPHIL % 0.5 % (0.0-2.0); EOSINOPHIL % 4.4 % (0-5); GRANULOCYTE % 67.7 % (42.2-75.2); HEMATOCRIT 33.3 % (42-52); MEAN CORPUSCULAR HGB 28.3 PG (27.0-31.0); MEAN CORPUSCULAR HGB CONC 33.4 G/DL (33.0-37.0); MEAN CORPUSCULAR VOLUME 84.6 FL (80.0-94.0); MEAN PLATELET VOLUME 8.3 FL (7.4-10.4); PLATELET COUNT 372 /CUMM (130-400); RBC DISTRIBUTION WIDTH 15.9 % (11.5-14.5); RED BLOOD CELL CT 3.94 /CUMM (4.70-6.10); WHITE BLOOD CELL COUNT 12.3 /CUMM (4.8-10.8)
--- NOTE | 2017-09-16 12:09 | PN- Infect Dx ---
Subjective Subjective: Afebrile. He notes mild discomfort at the site of the catheter in the left lower quadrant. He continues to note a dry cough. Objective Last 24 Hrs of Vital Signs/I&O Vital Signs Date Time Temp Pulse Resp B/P B/P Pulse O2 O2 Flow FiO2 Mean Ox Delivery Rate 09/16 1032 98.7 94 20 122/76 09/16 0653 98.7 94 20 122/76 96 Room Air 09/15 2134 98.6 96 20 127/80 97 09/15 1600 96 Room Air 09/15 1452 98.5 100 18 138/100 99 Intake & Output 09/16 1600 09/16 0800 09/16 0000 Intake Total 780 600 Output Total 1160 1360 Balance -380 -760 Intake, IV 300 600 Intake, Oral 480 Output, 10 10 Drainage Output, Urine 1150 1350 Physical Exam Other Physical Findings: He appears comfortable in no acute distress Lungs are clear Heart regular rhythm with no murmur Abdomen is obese, soft, tender around the catheter in the left lower quadrant, with 30 mL output yesterday and 10 mL overnight Extremities bilateral lower extremity edema, left greater than right Results Last 24 Hours of Lab Results: Laboratory Tests 09/16 0730 Chemistry Sodium (137 - 145 mmol/L) 139 Potassium (3.5 - 5.1 mmol/L) 4.1 Chloride (98 - 107 mmol/L) 103 Carbon Dioxide (22 - 30 mmol/L) 31 H Anion Gap (5 - 16) 5 BUN (9 - 20 mg/dL) 5 L Creatinine (0.7 - 1.2 mg/dL) 0.6 L Estimated GFR (>60 ml/min) > 60 BUN/Creatinine Ratio (7 - 25 %) 8.3 Hematology CBC w Diff NO MAN DIFF REQ WBC (4.8 - 10.8 /CUMM) 12.3 H RBC (4.70 - 6.10 /CUMM) 3.94 L Hgb (14.0 - 18.0 G/DL) 11.1 L Hct (42 - 52 %) 33.3 L MCV (80.0 - 94.0 FL) 84.6 MCH (27.0 - 31.0 PG) 28.3 MCHC (33.0 - 37.0 G/DL) 33.4 RDW (11.5 - 14.5 %) 15.9 H Plt Count (130 - 400 /CUMM) 372 MPV (7.4 - 10.4 FL) 8.3 Gran % (42.2 - 75.2 %) 67.7 Lymphocytes % (20.5 - 51.1 %) 18.1 L Monocytes % (1.7 - 9.3 %) 9.3 Eosinophils % (0 - 5 %) 4.4 Basophils % (0.0 - 2.0 %) 0.5 Absolute Granulocytes (1.4 - 6.5 /CUMM) 8.4 H Absolute Lymphocytes (1.2 - 3.4 /CUMM) 2.2 Absolute Monocytes (0.10 - 0.60 /CUMM) 1.1 H Absolute Eosinophils (0.0 - 0.7 /CUMM) 0.5 Absolute Basophils (0.0 - 0.2 /CUMM) 0.1 Last 24 Hours of Rosalino Results: Abdominal abscess September 12 positive for Enterococcus sensitive to Ampicillin and Clostridium species Recent Imaging Studies: Fistulogram September 15 reveals a small to moderate size residual fluid collection, with no fistula to the bowel identified Assessment/Plan ID Impression: Stable, status post exchange of the drainage catheter yesterday to provide more effective drainage of the residual abdominal abscess, now 13 days status post exploratory laparotomy for a perforated viscus, with the source unclear. He remains afebrile with his white blood cell count decreased on Unasyn, which should provide adequate coverage for the Clostridium and Enterococcus isolated from the recent cultures. As previously noted the isolation of strep bovis from his OR culture is of interest and warrants further evaluation for an underlying colonic malignancy given its association with strep bovis. The solitary mass in the right kidney will also warrant further evaluation once he is stable. His persistent cough, with lower extremity edema, may suggest some residual fluid overload. Suggestion: 1. Further management of his abscess/catheter drainage per Surgery 2. Consider lower extremity Dopplers 3. GI evaluation at some point for a colonoscopy 4. Further evaluation of his right renal mass per his primary care team 5. Continue Unasyn
[2017-09-16 15:36] VITALS: BP 120/80
[2017-09-16 22:35] VITALS: BP 134/90
[2017-09-17 06:20] VITALS: BP 114/68
--- NOTE | 2017-09-17 08:21 | PN- General Surgery ---
Surgical Brief Attending Note Brief Attending Note: patient progressing well. drain output is scant but stool-like. await cbc. if wbc continued improvement, advance to low fiber diet. reCT before discharge next 1-2 days. d/c edita prior to discharge.
[2017-09-17 10:53] LABS: ABSOLUTE BASOPHIL COUNT 0.1 /CUMM (0.0-0.2); ABSOLUTE EOSINOPHIL COUNT 0.5 /CUMM (0.0-0.7); ABSOLUTE GRANULOCYTE CT 6.9 /CUMM (1.4-6.5); ABSOLUTE LYMPH COUNT 2.2 /CUMM (1.2-3.4); ABSOLUTE MONOCYTE COUNT 0.7 /CUMM (0.10-0.60); BASOPHIL % 0.6 % (0.0-2.0); EOSINOPHIL % 4.8 % (0-5); GRANULOCYTE % 66.3 % (42.2-75.2); HEMATOCRIT 33.8 % (42-52); MEAN CORPUSCULAR HGB 28.1 PG (27.0-31.0); MEAN CORPUSCULAR HGB CONC 33.4 G/DL (33.0-37.0); MEAN CORPUSCULAR VOLUME 84.2 FL (80.0-94.0); MEAN PLATELET VOLUME 8.6 FL (7.4-10.4); PLATELET COUNT 426 /CUMM (130-400); RBC DISTRIBUTION WIDTH 16.5 % (11.5-14.5); RED BLOOD CELL CT 4.01 /CUMM (4.70-6.10); WHITE BLOOD CELL COUNT 10.4 /CUMM (4.8-10.8)
[2017-09-17 15:06] VITALS: BP 131/85
[2017-09-17 22:16] VITALS: BP 143/88
[2017-09-18 06:20] VITALS: BP 157/90
--- NOTE | 2017-09-18 08:21 | PN- General Surgery ---
See Addendum Subjective Subjective: feeling well. denies pain. doreen lr diet, no n/v. no cp/sob, +dry cough. +oob. +flatus, no bm. looking forward to leaving hospital. Objective Vital Signs and I&Os Vital Signs Date Time Temp Pulse Resp B/P B/P Pulse O2 O2 Flow FiO2 Mean Ox Delivery Rate 09/18 0620 98.1 96 20 157/90 100 Room Air 09/17 2216 98.4 101 20 143/88 99 Room Air 09/17 1506 98.0 101 20 131/85 99 Room Air Intake & Output 09/18 1600 09/18 0800 09/18 0000 09/17 1600 09/17 0800 09/17 0000 Intake Total 780 1320 1200 300 300 Output Total 1610 332 300 8401 800 Balance -830 1060 950 -3310 -500 Intake, IV 300 120 200 Intake, Oral 480 1200 1000 300 300 Output, 10 10 10 Drainage Output, Urine 1600 918 955 5325 800 Physical Exam: GEN: NAD CARD: S1S2 RRR PULM: CTAB ABD: soft, nt, +bs, midline edita cdi- well healed. ir drain site dressed- cdi. brown drainage in bag EXT: calves soft nt, ALPS on bl, slight edema bl Current Medications: Current Medications Sig/Lorei Start time Last Medication Dose Route Stop Time Status Admin Acetaminophen 1,000 MG .STK-MED ONE 09/17 1513 DC IV 09/17 1514 Acetaminophen 1,000 MG Q6P PRN 09/12 2200 AC 09/17 N/A 1 UNIT IV 1516 Amlodipine Besylate 5 MG DAILY 09/14 1433 AC 09/17 PO 0911 Ampicillin Sodium/ 3,000 MG Q6 09/12 1800 AC 09/18 Sulbactam Sodium IV 0555 Sodium Chloride 100 ML Diphenhydramine HCl 50 MG AT BEDTIME NEED.. 09/14 1115 AC 09/15 PO 2150 Heparin Sodium 5,000 UNIT Q8 09/03 2200 AC 09/16 (Porcine) SC 0546 Insulin Human Regular 4 UNITS .STK-MED ONE 09/17 1813 DC IV 09/17 1814 Insulin Human Regular 4 UNITS .STK-MED ONE 09/17 1251 DC IV 09/17 1252 Insulin Human Regular 2 UNITS .STK-MED ONE 09/17 0859 DC IV 09/17 09 Insulin Human Regular 0 TIDAC/HS 09/16 08 AC 09/17 SC 1820 Morphine Sulfate 2 MG Q2P PRN 09/12 2199 DC IV Pantoprazole Sodium 40 MG DAILY 09/03 1952 AC 09/17 IV 0912 Venlafaxine HCl 150 MG DAILY 09/11 1000 AC 09/17 PO 0911 Results Last 48 Hours of Labs: Laboratory Tests 09/18 09/17 0800 0925 Hematology CBC w Diff Pending NO MAN DIFF REQ WBC (4.8 - 10.8 /CUMM) Pending 10.4 RBC (4.70 - 6.10 /CUMM) Pending 4.01 L Hgb (14.0 - 18.0 G/DL) Pending 11.3 L Hct (42 - 52 %) Pending 33.8 L MCV (80.0 - 94.0 FL) Pending 84.2 MCH (27.0 - 31.0 PG) Pending 28.1 MCHC (33.0 - 37.0 G/DL) Pending 33.4 RDW (11.5 - 14.5 %) Pending 16.5 H Plt Count (130 - 400 /CUMM) Pending 426 H MPV (7.4 - 10.4 FL) Pending 8.6 Gran % (42.2 - 75.2 %) 66.3 Lymphocytes % (20.5 - 51.1 %) 21.2 Monocytes % (1.7 - 9.3 %) 7.1 Eosinophils % (0 - 5 %) 4.8 Basophils % (0.0 - 2.0 %) 0.6 Absolute Granulocytes (1.4 - 6.5 /CUMM) 6.9 H Absolute Lymphocytes (1.2 - 3.4 /CUMM) 2.2 Absolute Monocytes (0.10 - 0.60 /CUMM) 0.7 H Absolute Eosinophils (0.0 - 0.7 /CUMM) 0.5 Absolute Basophils (0.0 - 0.2 /CUMM) 0.1 Assessment/Plan Assessment/Plan A- POD6 sp IR drainage of recurrent intraabdominal abscess, POD15 sp ex lap, drainage of intraabdominal abscess, improving clinically with resolving leukocytosis. P- cont lr diet ?repeat CT to evaluate for intraabdominal collection progress- ?today dc planning dc edita prior to dc ir drain care- likey dc with drain, ?vna cont unasyn- ?augmentin outpt, ?length of course will dw attending Core Measures Venous Thromboembolism VTE Risk Factors Surgery No Mechanical VTE Prophylaxis d/t N/A MechProphylax Ordered No VTE Pharm Prophylaxis d/t NA PharmProphylax ordered
[2017-09-18 08:54] LABS: ABSOLUTE BASOPHIL COUNT 0.1 /CUMM (0.0-0.2); ABSOLUTE EOSINOPHIL COUNT 0.6 /CUMM (0.0-0.7); ABSOLUTE LYMPH COUNT 2.3 /CUMM (1.2-3.4); ABSOLUTE MONOCYTE COUNT 0.9 /CUMM (0.10-0.60); BASOPHIL % 0.7 % (0.0-2.0); EOSINOPHIL % 4.8 % (0-5); GRANULOCYTE % 67.2 % (42.2-75.2); HEMATOCRIT 33.3 % (42-52); MEAN CORPUSCULAR HGB 28.7 PG (27.0-31.0); MEAN CORPUSCULAR VOLUME 84.4 FL (80.0-94.0); MEAN PLATELET VOLUME 8.5 FL (7.4-10.4); PLATELET COUNT 357 /CUMM (130-400); RBC DISTRIBUTION WIDTH 16.7 % (11.5-14.5); RED BLOOD CELL CT 3.94 /CUMM (4.70-6.10); WHITE BLOOD CELL COUNT 11.9 /CUMM (4.8-10.8)
--- NOTE | 2017-09-18 11:13 | PN- Infect Dx ---
Subjective Subjective: Afebrile. He notes minimal discomfort at the drainage catheter site in his left lower quadrant. Objective Last 24 Hrs of Vital Signs/I&O Vital Signs Date Time Temp Pulse Resp B/P B/P Pulse O2 O2 Flow FiO2 Mean Ox Delivery Rate 09/18 0620 98.1 96 20 157/90 100 Room Air 09/17 2216 98.4 101 20 143/88 99 Room Air 09/17 1506 98.0 101 20 131/85 99 Room Air Intake & Output 09/18 1600 09/18 0800 09/18 0000 Intake Total 780 1320 Output Total 500 1610 260 Balance -500 -830 1060 Intake, IV 300 120 Intake, Oral 480 1200 Output, 10 10 Drainage Output, Urine 500 1600 250 Physical Exam Other Physical Findings: He appears comfortable in no acute distress Lungs are clear Heart regular rhythm with no murmur Abdomen is soft, minimally tender on palpation of the left lower quadrant; drainage catheter remains in place in the left lower quadrant with 20 mL output yesterday and 10 mL overnight Results Last 24 Hours of Lab Results: Laboratory Tests 09/18 0800 Hematology CBC w Diff NO MAN DIFF REQ WBC (4.8 - 10.8 /CUMM) 11.9 H RBC (4.70 - 6.10 /CUMM) 3.94 L Hgb (14.0 - 18.0 G/DL) 11.3 L Hct (42 - 52 %) 33.3 L MCV (80.0 - 94.0 FL) 84.4 MCH (27.0 - 31.0 PG) 28.7 MCHC (33.0 - 37.0 G/DL) 34.0 RDW (11.5 - 14.5 %) 16.7 H Plt Count (130 - 400 /CUMM) 357 MPV (7.4 - 10.4 FL) 8.5 Gran % (42.2 - 75.2 %) 67.2 Lymphocytes % (20.5 - 51.1 %) 19.5 L Monocytes % (1.7 - 9.3 %) 7.8 Eosinophils % (0 - 5 %) 4.8 Basophils % (0.0 - 2.0 %) 0.7 Absolute Granulocytes (1.4 - 6.5 /CUMM) 8.0 H Absolute Lymphocytes (1.2 - 3.4 /CUMM) 2.3 Absolute Monocytes (0.10 - 0.60 /CUMM) 0.9 H Absolute Eosinophils (0.0 - 0.7 /CUMM) 0.6 Absolute Basophils (0.0 - 0.2 /CUMM) 0.1 Last 24 Hours of Rosalino Results: No new cultures Assessment/Plan ID Impression: Stable, status post exchange of the abdominal drainage catheter 3 days ago to provide more effective drainage of the residual abdominal abscess, now 15 days status post exploratory laparotomy for a perforated viscus, with the source unclear. He remains afebrile on Unasyn, which should provide adequate coverage for the Clostridium and Enterococcus isolated from his recent culture as well as the organisms isolated from his initial OR culture. His white blood cell count had normalized yesterday, but it has increased today and, though this is of unclear significance, a repeat CT scan, apparently scheduled for the a.m., will be helpful in ruling out a residual collection or malpositioning of the catheter. As previously noted the isolation of strep bovis from his OR culture warrants further evaluation for an underlying colonic malignancy given its association with strep bovis. The solitary mass in the right kidney will also warrant further evaluation. Suggestion: 1. Await repeat CT of the abdomen and pelvis in the a.m. 2. GI evaluation at some point for colonoscopy 3. Further evaluation of his right renal mass per primary care team 4. Continue Unasyn
[2017-09-18 14:39] VITALS: BP 144/93
[2017-09-18 22:30] VITALS: BP 154/100
[2017-09-19 06:20] VITALS: BP 114/80
--- NOTE | 2017-09-19 07:47 | PN- General Surgery ---
Subjective Subjective: OOB, feels well No complaints overnight Tolerating diet without pain or nausea +Bm, + flatus Wants to go home Objective Vital Signs and I&Os Vital Signs Date Time Temp Pulse Resp B/P B/P Pulse O2 O2 Flow FiO2 Mean Ox Delivery Rate 09/19 0620 98.4 102 20 114/80 98 Room Air 09/18 2230 98.2 105 20 154/100 100 Room Air 09/18 1439 98.0 101 18 144/93 97 Intake & Output 09/19 0800 09/19 0000 09/18 1600 09/18 0800 09/18 0000 09/17 1600 Intake Total 900 3587 040 3991 1200 Output Total 2600 380 1500 1610 260 250 Balance -1700 -380 -500 -830 1060 950 Intake, IV 300 200 300 120 200 Intake, Oral 600 343 730 1784 1000 Number 0 Bowel Movements Output, 10 10 Drainage Output, Urine 2600 380 1500 1600 250 250 Physical Exam: afebrile Mild tachycardia which has been his baseline all along - to 105 General: alert and oriented times three chest: clear bilaterally, Reg Rhythm Abd: soft, good bs, nondistended Ext: warm, no edema Wd: well healed - edita removed - steri strips placed, drain dressing clean and dry Assessment/Plan Assessment/Plan 47yo male POD 7 sp IR drainage of recurrent intraabdominal abscess, POD16 sp ex lap, drainage of intraabdominal abscess afebrile, tolerating LR diet follow up labs CT abd/pelvis ordered for today to evaluate abscess Possibly dc home on augmentin - pending CT results Per ID: He remains afebrile on Unasyn, which should provide adequate coverage for the Clostridium and Enterococcus isolated from his recent culture as well as the organisms isolated from his initial OR culture. A repeat CT scan, apparently scheduled for the a.m., will be helpful in ruling out a residual collection or malpositioning of the catheter. As previously noted the isolation of strep bovis from his OR culture warrants further evaluation for an underlying colonic malignancy given its association with strep bovis. The solitary mass in the right kidney will also warrant further evaluation. Suggestion: 1. Await repeat CT of the abdomen and pelvis in the a.m. 2. GI evaluation at some point for colonoscopy 3. Further evaluation of his right renal mass per primary care team 4. Continue Unasyn Core Measures Venous Thromboembolism VTE Risk Factors Surgery No Mechanical VTE Prophylaxis d/t N/A MechProphylax Ordered No VTE Pharm Prophylaxis d/t NA PharmProphylax ordered
[2017-09-19 09:10] LABS: ABSOLUTE BASOPHIL COUNT 0.1 /CUMM (0.0-0.2); ABSOLUTE EOSINOPHIL COUNT 0.6 /CUMM (0.0-0.7); ABSOLUTE GRANULOCYTE CT 7.5 /CUMM (1.4-6.5); ABSOLUTE LYMPH COUNT 2.7 /CUMM (1.2-3.4); ABSOLUTE MONOCYTE COUNT 1.2 /CUMM (0.10-0.60); BASOPHIL % 0.6 % (0.0-2.0); EOSINOPHIL % 4.9 % (0-5); GRANULOCYTE % 62.3 % (42.2-75.2); HEMATOCRIT 35.2 % (42-52); MEAN CORPUSCULAR HGB CONC 33.2 G/DL (33.0-37.0); MEAN CORPUSCULAR VOLUME 84.4 FL (80.0-94.0); MEAN PLATELET VOLUME 8.3 FL (7.4-10.4); PLATELET COUNT 426 /CUMM (130-400); RBC DISTRIBUTION WIDTH 17.4 % (11.5-14.5); RED BLOOD CELL CT 4.17 /CUMM (4.70-6.10); WHITE BLOOD CELL COUNT 12.1 /CUMM (4.8-10.8)
--- NOTE | 2017-09-19 13:57 | PN- Infect Dx ---
Subjective Subjective: Afebrile without complaints Objective Last 24 Hrs of Vital Signs/I&O Vital Signs Date Time Temp Pulse Resp B/P B/P Pulse O2 O2 Flow FiO2 Mean Ox Delivery Rate 09/19 1018 102 114/80 09/19 0620 98.4 102 20 114/80 98 Room Air 09/18 2230 98.2 105 20 154/100 100 Room Air 09/18 1439 98.0 101 18 144/93 97 Intake & Output 09/19 1600 09/19 0800 09/19 0000 Intake Total 900 Output Total 500 2600 380 Balance -500 -1700 -380 Intake, IV 300 Intake, Oral 600 Number 0 Bowel Movements Output, Urine 500 2600 380 Physical Exam Other Physical Findings: He appears comfortable in no acute distress Lungs are clear Heart regular rhythm with no murmur Abdomen is soft, nontender, with left lower quadrant catheter in place, with 10 mL output yesterday and none overnight Extremities minimal edema both lower extremities Results Last 24 Hours of Lab Results: Laboratory Tests 09/19 0815 Hematology CBC w Diff NO MAN DIFF REQ WBC (4.8 - 10.8 /CUMM) 12.1 H RBC (4.70 - 6.10 /CUMM) 4.17 L Hgb (14.0 - 18.0 G/DL) 11.7 L Hct (42 - 52 %) 35.2 L MCV (80.0 - 94.0 FL) 84.4 MCH (27.0 - 31.0 PG) 28.0 MCHC (33.0 - 37.0 G/DL) 33.2 RDW (11.5 - 14.5 %) 17.4 H Plt Count (130 - 400 /CUMM) 426 H MPV (7.4 - 10.4 FL) 8.3 Gran % (42.2 - 75.2 %) 62.3 Lymphocytes % (20.5 - 51.1 %) 21.9 Monocytes % (1.7 - 9.3 %) 10.3 H Eosinophils % (0 - 5 %) 4.9 Basophils % (0.0 - 2.0 %) 0.6 Absolute Granulocytes (1.4 - 6.5 /CUMM) 7.5 H Absolute Lymphocytes (1.2 - 3.4 /CUMM) 2.7 Absolute Monocytes (0.10 - 0.60 /CUMM) 1.2 H Absolute Eosinophils (0.0 - 0.7 /CUMM) 0.6 Absolute Basophils (0.0 - 0.2 /CUMM) 0.1 Last 24 Hours of Rosalino Results: No new cultures Assessment/Plan ID Impression: Stable, status post exchange of the abdominal drainage catheter 4 days ago to provide more effective drainage of the residual abdominal abscess, now 16 days status post exploratory laparotomy for a perforated viscus, with the source unclear. He remains afebrile on Unasyn, with his white blood cell count still mildly elevated today and will await the results of the repeat CT scan, scheduled for later today, to rule out the possibility of a a residual collection or malpositioning of the catheter. As previously noted the isolation of strep bovis from his OR culture warrants further evaluation for an underlying colonic malignancy. The solitary mass in the right kidney will also warrant further evaluation. Suggestion: 1. Await repeat CT of the abdomen and pelvis 2. Further management with regard to the catheter based on above 3. GI evaluation at some point for colonoscopy 4. Further evaluation of his right renal mass per primary care team 5. Continue Unasyn, with eventual change to Augmentin 875 mg po every 12 hours, upon removal of the catheter, for one additional week of treatment
[2017-09-19 14:28] VITALS: BP 130/75
--- NOTE | 2017-09-19 16:08 | CT SCAN REPORT ---
EXAMINATION: CT ABDOMEN AND PELVIS WITHOUT CONTRAST CLINICAL INFORMATION: White blood cell count. Known recurrent abscess. Intra-abdominal abscess status post drainage. COMPARISON: The scan of the abdomen and pelvis dated 09/12/2017, 09/06/2017, 09/03/2017. TECHNIQUE: Multidetector volumetric imaging was performed from the superior aspect of the liver through the pubic symphysis. 900 mL of oral Redicat contrast was given. No intravenous contrast was given as per referring provider request. Sagittal and coronal reformatted images were obtained on the technologist workstation. DLP: 1137.29 mGy-cm. FINDINGS: LUNG BASES: Mild bibasilar atelectatic changes are noted. LIVER, GALLBLADDER, AND BILIARY TREE: The liver is mildly enlarged, measuring approximately 20 cm longitudinally. No focal hepatic lesion on noncontrast imaging. No biliary ductal dilatation is present. The gallbladder is unremarkable with no evidence of radiopaque gallstones, gallbladder wall thickening, or obvious pericholecystic inflammatory changes. PANCREAS: Mild fatty infiltration of the pancreas is seen. Pancreas is otherwise unremarkable. SPLEEN, ADRENAL GLANDS: Unremarkable on noncontrast imaging. KIDNEYS AND URETERS: The kidneys are normal in size, shape, and attenuation. At the anterior cortex of the right mid kidney, less well visualized than on prior contrast-enhanced exams, a partially exophytic solid mass is seen (series 2, image 38), measuring approximately 2.5 x 2.3 mm on this exam. This is suspicious for a solid renal neoplasm. There is an additional indeterminate 0.9 x 0.6 cm partially exophytic upper pole right renal mass with mean attenuation values of 28 Hounsfield units (series 2, image 34), unchanged from prior studies, possibly a hyperdense cyst or other solid mass. The left kidney is unremarkable. No hydronephrosis, hydroureter, or calculi seen. No perinephric stranding. BLADDER: Unremarkable. PELVIC VISCERA: Unremarkable. GASTROINTESTINAL TRACT AND ABDOMINAL WALL: The orally administered contrast is seen extending all the way down to the anus. No contrast extravasation is seen. The left mid abdomen abscess cavity is nearly completely decompressed by a pigtail catheter with only a small amount of phlegmonous change remaining intermixed between multiple small bowel loops (series 2, images 58 through 63), which appears thick-walled but not abnormally dilated. The residual phlegmonous change measures approximately 5.5 x 7.3 x 4.7 cm in size as compared to 9.8 x 11.5 x 10.0 cm previously. There may be adhesive changes between the abscess and these small bowel loops. There is extensive free air still present throughout the abdomen and pelvis, perhaps slightly decreased in overall volume compared to the most recent prior study. Descending and sigmoid colonic diverticulosis is again seen with wall thickening but no acute diverticulitis and no evidence of contrast extravasation from the colon. There is continued mild edema and stranding in the anterior omentum. There is also some edema in the anterior abdominal wall in the umbilical and periumbilical region. This is similar to the 09/12/2017 exam. Cutaneous edita have been removed. LYMPH NODES, VASCULAR: The abdominal aorta is normal in caliber and shows mild atherosclerotic calcifications. Small subcentimeter sized periportal lymph nodes are seen. No significant pelvic or abdominal adenopathy is seen. OSSEOUS STRUCTURES: Mild vertebral spondylosis seen throughout the thoracolumbar spine. Moderate degenerative disc disease at the lumbosacral junction. Mild facet arthropathy at the lumbosacral junction. IMPRESSION: 1. The left mid abdominal abscess cavity has decompressed around the drainage catheter with only a small amount of phlegmonous change still remaining as discussed above. The cavity remains fixed to adjacent small bowel loops, suggesting adhesive changes. No definite contrast extravasation into the abscess cavity is seen. 2. Extensive free air still remains in the abdomen and pelvis. Findings remain suspicious for a occult risk is perforation, most likely related to small bowel. Surgical correlation is recommended. 3. Sigmoid colonic and descending colonic diverticulosis with no evidence of acute diverticulitis. 4. Persistent edema and stranding in the anterior abdominal wall periumbilical region, likely due to postsurgical changes. Clinical correlation requested. 5. Persistent abnormal right mid renal mass is seen, suspicious for a renal cell carcinoma. Additional smaller upper pole right renal mass is seen, too small to further characterize, possibly a hyperdense cyst or a solid lesion. These findings will require workup once the patient is stable. Urology consult is recommended. 6. Hepatomegaly. 7. Bibasilar subsegmental atelectasis. This critical result was discussed with Javier Goodman 09/19/2017, 4:00 PM and it was ascertained that the content and urgency of this report was understood at the time of direct communication.
--- NOTE | 2017-09-19 16:44 | PN- General Surgery ---
Surgical Brief Attending Note Brief Attending Note: Ct reviewed with radiology. There is moderate free without free fluid. drain in adequate position with small residual collection. No extravasation of oral contrast as with previous two other contrast CT. Patient is comfortable and pain free and nontender. Will observe. Not suitable for discharge. Overall impression is that of persistent microperforation of sigmoid colon, or more likely by imaging characteristics, small bowel. Patient adamant to leave. I was able to convince him to stay. Offered surgical second opionion but declines at this point. Overall impression is that of very small enteric perforation. It appears that when his diet is advanced to solid food, that he regresses from an containment standpoint. Plan is to downgrade to full liquid diet. Give oral methylene blue to see if there is any exravasation into drain. Repeat abdominal multiview tomorrow to evaluate resolution/worsening of free air. Patient agreeable.
[2017-09-19 23:04] VITALS: BP 150/94
[2017-09-20 06:55] VITALS: BP 130/84
--- NOTE | 2017-09-20 08:49 | PN- General Surgery ---
Subjective Subjective: Awake, alert, OOB Feels good, no problems overnight Tolerating full liquid diet without pain or nausea Wants to go home Objective Vital Signs and I&Os Vital Signs Date Time Temp Pulse Resp B/P B/P Pulse O2 O2 Flow FiO2 Mean Ox Delivery Rate 09/20 0655 97.9 100 20 130/84 96 Room Air 09/19 2304 97.2 106 18 150/94 100 09/19 1428 98.1 101 18 130/75 97 09/19 1018 102 114/80 Intake & Output 09/20 1600 09/20 0800 09/20 0000 09/19 1600 09/19 0800 09/19 0000 Intake Total 278 878 8196 900 Output Total 2236 665 9047 2600 380 Balance -985 -380 Intake, IV 120 220 150 300 Intake, Oral 683 859 2961 600 Number 0 0 0 0 Bowel Movements Output, 5 Drainage Output, Urine 6387 602 0137 2600 380 Physical Exam: HR tachy to 106, all other vitals stable *Pt ingested methylene blue approx 1 cc mixed with about 4 oz water yesterday evening around 7pm in an effort to see if it comes through the drain. General: alert and oriented times three Abd: soft, nondistended, nontender even to deep palpation Wd: well healed, steri strips in place, drain site clean and dry Drain: minimal yellow-purulent drainage - unchanged from yesterday - no indication of any methylene blue in drain or catheter. Documented 5cc total in 24 hrs Assessment/Plan Assessment/Plan 47yo male POD 8 sp IR drainage of recurrent intraabdominal abscess, POD17 sp ex lap, drainage of intraabdominal abscess CT yesterday revealed free air once again - although his exam seems benign for a perforation See Dr Leon note from 09/19 Met blue ingestion yesterday at 7 pm - no indication of leakage per drain eval follow up cbc this am follow up multi view this am Plan/further recommendations following results of above Core Measures Venous Thromboembolism VTE Risk Factors Surgery No Mechanical VTE Prophylaxis d/t N/A MechProphylax Ordered No VTE Pharm Prophylaxis d/t NA PharmProphylax ordered
[2017-09-20 08:52] VITALS: BP 130/84
[2017-09-20 09:35] LABS: ABSOLUTE BASOPHIL COUNT 0.1 /CUMM (0.0-0.2); ABSOLUTE EOSINOPHIL COUNT 0.5 /CUMM (0.0-0.7); ABSOLUTE GRANULOCYTE CT 6.9 /CUMM (1.4-6.5); ABSOLUTE LYMPH COUNT 2.1 /CUMM (1.2-3.4); ABSOLUTE MONOCYTE COUNT 0.8 /CUMM (0.10-0.60); BASOPHIL % 0.9 % (0.0-2.0); EOSINOPHIL % 4.9 % (0-5); GRANULOCYTE % 66.1 % (42.2-75.2); HEMATOCRIT 33.7 % (42-52); MEAN CORPUSCULAR HGB 28.1 PG (27.0-31.0); MEAN CORPUSCULAR HGB CONC 33.4 G/DL (33.0-37.0); MEAN CORPUSCULAR VOLUME 84.1 FL (80.0-94.0); MEAN PLATELET VOLUME 8.5 FL (7.4-10.4); PLATELET COUNT 377 /CUMM (130-400); RBC DISTRIBUTION WIDTH 16.8 % (11.5-14.5); RED BLOOD CELL CT 4.01 /CUMM (4.70-6.10); WHITE BLOOD CELL COUNT 10.4 /CUMM (4.8-10.8)
--- NOTE | 2017-09-20 10:14 | RADIOLOGY REPORT ---
EXAMINATION: XR ABDOMEN MULTIPLE VIEWS CLINICAL INDICATION: History of intra-abdominal abscess and drainage. Evaluating for leak after methylene blue ingestion. COMPARISON: CT images of the abdomen from 09/19/2017. TECHNIQUE: 2 views of the abdomen. FINDINGS: The tip of the pigtail drainage catheter is located within the left mid abdomen, unchanged in position compared to 09/19/2017. The visualized small and large bowel are normal in caliber. Enteric contrast is present within the colon. Persistent pneumoperitoneum. No overt evidence of contrast material within the peritoneal cavity. The visualized bones are intact. IMPRESSION: 1. No evidence of bowel obstruction. 2. Persistent pneumoperitoneum.
[2017-09-20] MEDS ORDERED: AUGMENTIN 875-1 EACH PO ×2 (11:29→11:33)
[2017-09-20] MEDS ORDERED: EFFEXOR XR75 M1 PO ×2 (11:48→11:49)
[2017-09-20] MEDS ORDERED: PRILOSEC OTC20 M1 PO (11:51)
--- NOTE | 2017-09-20 13:22 | PN- General Surgery ---
Surgical Brief Attending Note Brief Attending Note: wbc normal today after full liq diet initiated. needs full liquid at home. augmentin 14 days. f/u with me in office tuesday after outpatient CT.
--- NOTE | 2017-09-20 14:12 | PN- Infect Dx ---
Subjective Subjective: Afebrile without complaints Objective Last 24 Hrs of Vital Signs/I&O Vital Signs Date Time Temp Pulse Resp B/P B/P Pulse O2 O2 Flow FiO2 Mean Ox Delivery Rate 09/20 0852 100 130/84 09/20 0655 97.9 100 20 130/84 96 Room Air 09/19 2304 97.2 106 18 150/94 100 09/19 1428 98.1 101 18 130/75 97 Intake & Output 09/20 1600 09/20 0800 09/20 0000 Intake Total 420 520 Output Total 1405 300 Balance -985 220 Intake, IV 120 220 Intake, Oral 300 300 Number 0 0 Bowel Movements Output, 5 Drainage Output, Urine 1400 300 Physical Exam Other Physical Findings: He appears comfortable in no acute distress Abdomen is soft, nontender with positive bowel sounds; left lower quadrant drainage catheter remains in place with no output Results Last 24 Hours of Lab Results: Laboratory Tests 09/20 09/20 0850 0700 Hematology CBC w Diff NO MAN DIFF REQ Cancelled WBC (4.8 - 10.8 /CUMM) 10.4 Cancelled RBC (4.70 - 6.10 /CUMM) 4.01 L Cancelled Hgb (14.0 - 18.0 G/DL) 11.3 L Cancelled Hct (42 - 52 %) 33.7 L Cancelled MCV (80.0 - 94.0 FL) 84.1 Cancelled MCH (27.0 - 31.0 PG) 28.1 Cancelled MCHC (33.0 - 37.0 G/DL) 33.4 Cancelled RDW (11.5 - 14.5 %) 16.8 H Cancelled Plt Count (130 - 400 /CUMM) 377 Cancelled MPV (7.4 - 10.4 FL) 8.5 Cancelled Gran % (42.2 - 75.2 %) 66.1 Lymphocytes % (20.5 - 51.1 %) 20.1 L Monocytes % (1.7 - 9.3 %) 8.0 Eosinophils % (0 - 5 %) 4.9 Basophils % (0.0 - 2.0 %) 0.9 Absolute Granulocytes (1.4 - 6.5 /CUMM) 6.9 H Absolute Lymphocytes (1.2 - 3.4 /CUMM) 2.1 Absolute Monocytes (0.10 - 0.60 /CUMM) 0.8 H Absolute Eosinophils (0.0 - 0.7 /CUMM) 0.5 Absolute Basophils (0.0 - 0.2 /CUMM) 0.1 Last 24 Hours of Rosalino Results: No new cultures Recent Imaging Studies: CT of the abdomen and pelvis reveals near complete decompression of the left mid abdomen abscess cavity with only a small amount of phlegmonous change, measuring 5.5 x 7.3 x 4.7 cm, remaining; extensive free air still present throughout the abdomen and pelvis, perhaps slightly decreased compared to the previous study; no evidence of contrast extravasation from the colon; persistent abnormal right mid renal mass, suspicious for a renal cell carcinoma Assessment/Plan ID Impression: Overall improved, with temperatures and white blood cell count now normal, on Unasyn status post exchange of the abdominal drainage catheter 5 days ago to provide more effective drainage of the residual abdominal abscess, with the recent CT scan still revealing phlegmonous changes but with no discrete collection and with no evidence of extravasation, though there remains a significant amount of free air, raising concern for a persistent leak, now 17 days status post exploratory laparotomy for a perforated viscus, with the source never identified. As previously noted the isolation of strep bovis from his OR culture warrants further evaluation for an underlying colonic malignancy. The solitary mass in the right kidney, suspicious for renal cell carcinoma, also warrants further evaluation. Suggestion: 1. Further management of his drainage catheter per Surgery 2. GI referral for colonoscopy as an outpatient 3. Urology evaluation for his right renal mass (can be as an outpatient) 4. Discontinue Unasyn 5. Begin Augmentin 875 mg po every 12 hours for at least 1 week after the catheter has been removed
--- NOTE | 2017-09-21 11:08 | Surgical Discharge Summary ---
Visit Information Visit Dates Admission Date: 09/03/17 Discharge Date: 09/20/17 History of Present Illness Chief Complaint: abdominal pain Medical History Neurological: NONE EENT: NONE Cardiovascular: hypertension, PVD Respiratory: NONE Gastrointestinal: NONE Hepatic: NONE Renal: NONE Musculoskeletal: NONE Psychiatric: depression Endocrine: diabetes Blood Disorders: NONE Cancer(s): NONE History of MRSA: No History of VRE: No History of CDIFF: No Isolation History: Standard Influenza Vaccine: 09/05/17 Surgical History Pertinent Surgical History: hernia repair-inguinal (bilateral), ex lap with intraperitoneal abscess drainage x3 09/03/17 Psychosocial History Where Do You Live? Home What is Your Primary Language? Turkish ETOH Use: occasional use Review of Systems: see hp Hospital Course Course Attending Physician: Efrain Leon MD Primary Care Physician: Merrill Gunderson MD Hospital Course: Patient was evaluated emergency room and found to have free peritoneal air as well as a large intraperitoneal abscess with air-fluid level. He was taken to the operating room for exploration. She see operative dictation for details. A large intraperitoneal abscess was identified and drained. There was, however, no visceral perforation identified. The entire gastrointestinal tract was evaluated and there is no hole identified. I placed one drain into the region where the abscess was and the other in the pelvis. Postoperatively he did well and had a resultant severe leukocytosis. 48 hours after surgery patient became confused and tachycardic. The following morning he was obtunded and intubated due to hypoxemia. Repeat CT scan of the chest abdomen and pelvis was performed with oral contrast. There is no evidence of persistent intra-abdominal infection and no extravasation of contrast from the bowel. Family was concerned about his deterioration and requested transfer to [facility]. Arrangements were made and preparations were begun to transfer the patient. The following morning patient was able to be extubated and upon awakening, patient elected to stay at [facility]. He was transferred out of the ICU and begun on a clear liquid diet. His diet was advanced but had persistent leukocytosis. His bowel function was normal and he was tolerating a regular diet, but there was persistent leukocytosis of 20,000. Repeat CT scan of the abdomen pelvis showed recurrence of the abscess in a similar location and appearance as it was preoperatively. Again oral contrast was given and there was no extravasation of contrast any visceral structure. The abscess appeared be contained within some loops of small bowel and the mesentery of the left colon. However it seemed to be quite remote to the bowel wall of the colon per se. Percutaneous drainage of the abscess was undertaken by interventional radiology. Purulent material was drained and leukocytosis slowly resolved over the course of the next 3-4 days. Follow-up fistulogram through the catheter revealed no evident fistula tract. He was restarted on a diet advanced. His white count normalized. There is persistent feculent-looking material in the drain which tended to clear up with flushing. After his diet was advanced to regular, he had mild increase in his leukocytosis and repeat CT scan was performed. Again there was no extravasation of contrast. There was a tiny residual abscess well controlled by the drain. There were bubbles of free into peritoneal air. Clinically he appeared well and he was downgraded to a full liquid diet. Following morning his leukocytosis resolved. Repeat x-ray showed diminution of the free intraperitoneal air. Thought process worse that he has a tiny small bowel perforation that is controlled with the drain and seems to be tolerant of a full liquid diet but not regular. He was therefore discharged home on a full liquid diet with plans for follow-up CT scan as an outpatient in 1 week. He was given antibiotics orally correlating to the culture results from the most recent drainage. During his hospital stay his antibiotics were managed by infectious disease. Allergies: Coded Allergies: No Known Allergies (08/20/17) Significant Procedures: Exploratory laparotomy with drainage of intraperineal abscess Disposition Summary Disposition Principal Diagnosis: Peritoneal abscess Additional Diagnosis: None Discharge Disposition: home health services Discharge Instructions General Discharge Information Code Status: Full Code Patient's Diet: Full liquid Patient's Activity: No lifting greater than 20 pounds Follow-Up Instructions/Appts: [address] scan and CBC Medications at Discharge Discharge Medications: Stop taking the following medications: Prednisone (Prednisone) 20 MG TABLET ORAL TWICE DAILY Qty = 10 Continue taking these medications: Albuterol Sulfate (Proair Hfa) 90 MCG HFA.AER.AD 2 Puff Inhale through mouth EVERY 4-6 HOURS NEEDED as needed for SOB Qty = 1 Comments: DID NOT TAKE IN HOSPITAL Albuterol Sulfate (Albuterol Sulfate) 1.25 MG/3 ML VIAL.NEB 1 Vial Inhale Solution EVERY 4-6 HOURS as needed for COUGH/SOB Qty = 15 Comments: DID NOT TAKE IN HOSPITAL Venlafaxine HCl (Effexor XR) 75 MG CAP.ER.24H 1 Capsule ORAL DAILY Qty = 30 Comments: Last Taken:09/20/17 Time:0900 This prescription has been renewed Start taking the following new medications: Amoxicillin/Potassium Clav (Augmentin 875-125 Tablet) 875 MG-125 MG TABLET 1 Tablet ORAL TWICE DAILY Qty = 20 No Refills Comments: DID NOT START MEDICATION Omeprazole Magnesium (Prilosec Otc) 20 MG TABLET.DR 1 Tablet ORAL DAILY Qty = 90 No Refills Comments: Last Taken:09/20/17 Time:0900 USED [facility] Copies To: Jalyn TAPIA,Merrill Reza
== END 2017-09-20 14:35 | disposition home health service (06) | DRG 853 ==
LOC: ERH 05:17 → CRI 14:50 → PACUH 14:50 → EDBEDREQ 15:16 → ENRESERV 15:49 → ENTRNSPT 16:08 → EDTRNSPTSTS 16:22 → CRI 16:53 → CMPTRNSPT 16:58 → ENRESERV 09-04 23:58 → CANRESERV 09-04 23:58 → ENTRNSPT 09-05 21:52 → EDTRNSPT 09-05 22:14 → EDTRNSPTSTS 09-05 22:14 → CMPTRNSPT 09-05 22:34 → CRI 09-06 08:41 → ENTRNSPT 09-07 16:11 → EDTRNSPT 09-07 16:31 → EDTRNSPTSTS 09-07 16:31 → 2NA 09-07 17:19 → CMPTRNSPT 09-07 17:21 → 2NA 09-18 11:18
PROVIDERS: Internal Medicine; Nurse Practitioner; Pediatrics; Physician Assistant Surgical; Surgery
PROC: 0W9G00Z Drainage of Peritoneal Cavity with Drainage Device, Open Approach (ICD-10-PCS; 2017-09-03)
PROC: 3E0T3BZ Introduction of Anesthetic Agent into Peripheral Nerves and Plexi, Percutaneous Approach (ICD-10-PCS; 2017-09-03)
PROC: 02HV33Z Insertion of Infusion Device into Superior Vena Cava, Percutaneous Approach (ICD-10-PCS; 2017-09-04)
PROC: BW111ZZ Fluoroscopy of Abdomen and Pelvis using Low Osmolar Contrast (ICD-10-PCS; principal; 2017-09-15)
DX: A41.9 Sepsis, unspecified organism (principal); K65.1 Peritoneal abscess; J96.01 Acute respiratory failure with hypoxia; J69.0 Pneumonitis due to inhalation of food and vomit; K63.1 Perforation of intestine (nontraumatic); N17.9 Acute kidney failure, unspecified; E87.1 Hypo-osmolality and hyponatremia; E66.2 Morbid (severe) obesity with alveolar hypoventilation; E11.65 Type 2 diabetes mellitus with hyperglycemia; Z79.51 Long term (current) use of inhaled steroids; Z79.52 Long term (current) use of systemic steroids; I73.9 Peripheral vascular disease, unspecified; Z87.891 Personal history of nicotine dependence; N28.89 Other specified disorders of kidney and ureter; Z91.14 Patient's other noncompliance with medication regimen; F32.9 Major depressive disorder, single episode, unspecified; Z68.35 Body mass index [BMI] 35.0-35.9, adult; E87.5 Hyperkalemia; R79.89 Other specified abnormal findings of blood chemistry; I12.9 Hypertensive chronic kidney disease with stage 1 through stage 4 chronic kidney disease, or unspecified chronic kidney disease; B95.2 Enterococcus as the cause of diseases classified elsewhere; B95.7 Other staphylococcus as the cause of diseases classified elsewhere; B95.4 Other streptococcus as the cause of diseases classified elsewhere; B96.20 Unspecified Escherichia coli [E. coli] as the cause of diseases classified elsewhere; D47.3 Essential (hemorrhagic) thrombocythemia; N18.9 Chronic kidney disease, unspecified
CPT/HCPCS: 2NAP; 87075; 87184; CCU; 36415; 36592; 71045; 71046; 74021; 74176; 74177; 75989; 76080; 81001; 82436; 87070; 87071; 87086; 87147; 93005; 93010; 96361; 96365; 96375; 97110-GO; 97116-GO; 97161-GP; 99232; C9399; G0480; J0131; J0743; J1200; J1644; J1720; J1815; J2175; J2185; J2250; J2270; J2310; J2543; J3010; J3370; J7040; J7042; J7060; J7120; Q2036

== ENCOUNTER 2017-11-23 02:50 | Inpatient (IN) | payer OTHER ==
[~2017-11-23] VITALS: Ht 177.8 cm; Wt 110.0 kg
[~2017-11-23 02:50] MED LIST changes: +EFFEXOR XR75 M1 PO; +HEPARIN SO5000 UNIT3 SC; +PANTOPRAZOLE SO40 M2 IV; +PRILOSEC OTC20 M1 PO
--- NOTE | 2017-11-23 12:01 | Operative Report ---
Operative/Inv Procedure Report Surgery Date: 11/23/17 Name of Procedure: Exploratory laparotomy with low anterior resection of the rectum Drainage of intraperitoneal abscess Pre-Operative Diagnosis: Intra-abdominal abscess with enteric fistula Post-Operative Diagnosis: Diverticular abscess with fistula Colocolonic fistula Estimated Blood Loss: 50ml to 100ml Surgeon/Air Conditioning Coil Assembler: Edward TAPIA,Efrain Riddle/Nikky KING Anesthesia: general endotracheal tube Specimens: Rectosigmoid Operative Indication: 47-year-old male status post exporter laparotomy with drainage of intraperitoneal abscess. Index surgery failed to identify an enteric source of the infection. There is recurrence of the abscess which was drained percutaneously with CT scan guidance. He now presents after resolution of the abscess with what appears to be drain-controlled fistula to sigmoid colon. Operative/Procedure Note Note: After consent is brought to the operating room laid supine. General anesthesia was obtained, he was placed in lithotomy position and his abdomen was prepped and draped. His skin in the midline was incised sharply through pre-existing scar. We gave this obtains tissues and incised with cautery. The fascia was incised with cautery and the peritoneum entered sharply. The wound was fully explored. It was clear that we needed more room so the incision was lengthened. There were numerous adhesions of omentum to the anterior abdominal wall which were taken down with blunt and cautery dissection. We then lifted the omentum superiorly and encountered small bowel loops. There were adhesions, wispy in nature, which were taken down sharply. The drain was identified coursing through the peritoneal cavity. There is a fibrous tract around it. We placed a Bookwalter retraction system to assist in dissection. The abscess cavity portion of the operation was quite difficult as the abscess cavity was very small however chronic inflammatory reaction around it made dissection difficult. There was a solitary loop of small bowel plastered up to the drain. We entered the abscess cavity between it and the left colon mesentery. We identified the catheter and open the cavity. There is a scant amount of residual purulence. Small bowel was disconnected from it and inspected. Abscess cavity did not traverse the bowel. There is no enteric leakage. We then traced a fibrous tract along the colon. It appeared to course towards an area inferior down into the bowel. This was into the proximal sigmoid colon. The area was probed with a clamp and were able to identify the fistulous tract. We took down the peritoneum laterally to mobilize the left colon. This was achieved with cautery. We then dissected down inferiorly. There was redundant sigmoid colon and it was densely adhered to the rectum. This area of adhesion was distal to the drain controlled fistula. Small bowel was then packed up into the right upper quadrant to facilitate dissection. We dissected the colonic loop but could not disassociate it. There appeared to be a fistulous communication between 2 portions of sigmoid and rectum.. Rather than taken down, I elected to include in our resection. This would take us from the proximal sigmoid down to the upper rectum. We chose a proximal line of transection and divided the mesentery with cautery. The bowel was divided with a JUAN stapler. The mesentery was then divided with the LigaSure device. We took her dissection down to the mid to upper rectum. This area was then divided with a TA stapler. The specimen was passed off the field. There is no need for taking down the splenic flexure due to the redundancy of the sigmoid and the previous mobilization of left colon. We placed an automatic pursestring or an open the proximal bowel. It was sized to a 31 EEA stapler. The anvil was placed and pursestring cinched down. We then defatted the staple line. I then broke scrub and went down below. Rigid proctoscopy was unrevealing. I placed the EEA stapler up to the rectum and deployed the anvil. An end-to-end anastomosis was created without incident. Testing of the anastomosis underwater revealed no gas leaks. I then scrubbed back in and inspected the staple line. There is no concern. The perineal cavity was then irrigated with normal saline. All small bowel adhesions were lysed. We reinspected the abscess cavity on the small bowel and it appeared to be not a concern. The omentum was placed back over the small bowel. The fascia was closed with running 0 Maxon suture. Skin incisions closed with edita. Sterile dressings were applied. Sponge and needle counts are correct. CC: Jass TAPIA,Rayshawn
--- NOTE | 2017-11-23 12:24 | Admission Core Measures ---
Acute Coronary Syndrome (CM) ACS Core Measures Acute Coronary Syndrome Diagnosis No Congestive Heart Failure (NEW) CHF Core Measures Congestive Heart Failure Diagnosis No Cerebrovascular Accident (NEW) CVA Core Measures CVA/TIA Diagnosis No Venous Thromboembolism VTE Core Delaney (View Protocol) VTE Risk Factors Surgery No Mechanical VTE Prophylaxis d/t N/A MechProphylax Ordered No VTE Pharm Prophylaxis d/t NA PharmProphylax ordered Problem List As ranked by this Provider includes Assessment & Plan 1. Peritoneal abscess 2. Bowel perforation 3. S/P colon resection HOME MEDS Home Med List Amoxicillin/Potassium Clav (Augmentin 875-125 Tablet) 875 MG-125 MG TABLET 1 TAB PO BID intra abdominal infection Venlafaxine HCl (Effexor XR) 75 MG CAP.ER.24H 1 CAP PO DAILY depression
[2017-11-23 14:15] VITALS: BP 118/70
--- NOTE | 2017-11-23 14:15 | PN- General Surgery ---
Subjective Subjective: POC feeling ok, some bad pain, still very tired- just arrioved to floor from pacu. +up via lyman. no po intake, no bowl fxn. wants lyman out- explained reasons for keeping it in until tomorrow and pt agreeable Objective Vital Signs and I&Os 118/70 hr 90 99%2L rr 18 97.4 fs: 284 Physical Exam: GEN- NAD CARD- s1s2 PULM- ctab ABD- obese, softly distended, incision w cdi dressing, ttp, no bs EXT- calves soft nt Assessment/Plan Assessment/Plan A- POD0 sp LAR for hx intraabd abscess/colocolonic fistula, stable P- unasyn x23hr postop prn pain meds- avoid narcs if possible hep sq, alps oob, ambulate riss, fs ?no home dm meds clrs strict i&os lyman- dc in am ivf await bowel fxn will dw attending Core Measures Venous Thromboembolism VTE Risk Factors Surgery No Mechanical VTE Prophylaxis d/t N/A MechProphylax Ordered No VTE Pharm Prophylaxis d/t NA PharmProphylax ordered
[2017-11-23 18:00] VITALS: BP 112/60
[2017-11-23 22:19] VITALS: BP 134/70
[2017-11-24 03:20] VITALS: BP 132/80
[2017-11-24 05:47] VITALS: BP 122/86
--- NOTE | 2017-11-24 07:49 | PN- General Surgery ---
See Addendum Subjective Subjective: pt sitting in chair, very concerned that he passed a small amount of blood from rectum this morning. Minimal pain, 4/10. Tolerated small amount of clears, no N /V. Concerned that the inferior aspect of abd dressing shows blood on it. Pierson removed, voided spontaneously. ambulating Deneis Cp/SOB,fevers Objective Vital Signs and I&Os Vital Signs Date Time Temp Pulse Resp B/P B/P Pulse O2 O2 Flow FiO2 Mean Ox Delivery Rate 11/24 0547 98.7 100 22 122/86 96 Room Air 11/24 0320 98.6 100 20 132/80 95 Nasal 2.0L Cannula 11/24 0000 97 Nasal 2.0L Cannula 11/23 2219 97.5 108 20 134/70 99 11/23 1800 98.2 107 20 112/60 95 Nasal Cannula 11/23 1600 Nasal 2.0L Cannula 11/23 1415 99 Nasal 2.0L Cannula 11/23 1415 97.4 90 22 118/70 99 Nasal 2.0L Cannula Intake & Output 11/24 0800 11/24 0000 11/23 1600 11/23 0800 11/23 0000 11/22 1600 Intake Total 1240 1675 0 Output Total 100 1900 250 Balance 1140 -225 -250 Intake, IV 1000 875 Intake, Oral 240 800 0 Output, Urine 100 1900 250 Patient 237 lb 240 lb Weight Weight Bed scale Measurement Method Physical Exam: gen- NAD resp- clear cardiac- RRR abd- obese, +BS, soft, mild tenderness in RLQ. minline dressing with blood on inferior aspect, did not take down Current Medications: Current Medications Sig/Lorie Start time Last Medication Dose Route Stop Time Status Admin Acetaminophen 1,000 MG Q6P PRN 11/23 1430 AC 11/24 N/A 1 UNIT IV 0417 Ampicillin Sodium/ 1,500 MG Q6 11/23 1800 DC 11/24 Sulbactam Sodium IV 11/24 0629 0520 Sodium Chloride 100 ML Ampicillin Sodium/ 3,000 MG ONCE 11/23 0000 DC Sulbactam Sodium IV 11/23 2359 Sodium Chloride 100 ML Dexamethasone 4 MG .STK-MED ONE 11/23 1229 DC IM 11/23 1230 Dextrose/Sodium 1,000 ML .Q8H 11/23 1430 AC 11/24 Chloride IV 0327 Diphenhydramine HCl 50 MG .STK-MED ONE 11/23 1255 DC IM 11/23 1256 Heparin Sodium 5,000 UNIT Q8 11/23 2200 AC 11/23 (Porcine) SC 2101 Insulin Aspart 0 AT BEDTIME 11/23 2100 AC 11/23 SC 2101 Insulin Aspart 0 TIDAC 11/23 1700 AC 11/23 SC 1725 Ketorolac 15 MG Q8P PRN 11/23 1430 AC Tromethamine IV Metoclopramide HCl 10 MG .STK-MED ONE 11/23 1236 DC IM 11/23 1237 Morphine Sulfate 2 MG Q3P PRN 11/23 1430 AC IV Ondansetron HCl 4 MG Q6P PRN 11/23 1430 AC IV Oxycodone HCl 5 MG Q4 HRS NEEDED PRN 11/23 1430 AC PO Oxycodone HCl 10 MG Q4 HRS NEEDED PRN 11/23 1430 AC PO Venlafaxine HCl 75 MG DAILY 11/24 0900 DC PO Venlafaxine HCl 75 MG DAILY 11/24 0900 AC PO Assessment/Plan Assessment/Plan A-47yo M sp LAR for hx intraabd abscess/colocolonic fistula POD1, stable Educated pt and girlfriend that small amount of blood from rectum is normal after bowel surgery especially with very low anastamosis. P- unasyn x23hr postop prn pain meds- avoid narcs if possible hep sq, alps oob, ambulate RISS, FS ?no home dm meds clrs strict i&os ivf until I&Os improve reinforce abdominal dressing with ABD IS will dw attending Core Measures Venous Thromboembolism VTE Risk Factors Surgery No Mechanical VTE Prophylaxis d/t N/A MechProphylax Ordered No VTE Pharm Prophylaxis d/t NA PharmProphylax ordered
[2017-11-24 09:59] LABS: ABSOLUTE BASOPHIL COUNT 0 /CUMM (0.0-0.2); ABSOLUTE EOSINOPHIL COUNT 0 /CUMM (0.0-0.7); ABSOLUTE GRANULOCYTE CT 14.5 /CUMM (1.4-6.5); ABSOLUTE LYMPH COUNT 1.6 /CUMM (1.2-3.4); ABSOLUTE MONOCYTE COUNT 1.7 /CUMM (0.10-0.60); BASOPHIL % 0 % (0.0-2.0); EOSINOPHIL % 0 % (0-5); GRANULOCYTE % 81.4 % (42.2-75.2); MEAN CORPUSCULAR HGB 26.8 PG (27.0-31.0); MEAN CORPUSCULAR HGB CONC 32.5 G/DL (33.0-37.0); MEAN CORPUSCULAR VOLUME 82.6 FL (80.0-94.0); MEAN PLATELET VOLUME 9.2 FL (7.4-10.4); PLATELET COUNT 171 /CUMM (130-400); RED BLOOD CELL CT 5.57 /CUMM (4.70-6.10)
[2017-11-24 10:25] LABS: WHITE BLOOD CELL COUNT 17.9 /CUMM (4.8-10.8)
[2017-11-24 12:22] VITALS: BP 138/102
[2017-11-24 16:08] VITALS: BP 142/110
[2017-11-24 21:30] VITALS: BP 140/98
[2017-11-25 00:06] VITALS: BP 136/92
[2017-11-25 05:59] VITALS: BP 140/98
--- NOTE | 2017-11-25 08:24 | PN- General Surgery ---
See Addendum Subjective Subjective: 47 y/o male S/P rectosig feeling well this am, hungry passing gas and had small bloody BM yesterday comfortable and has been ambulating Review of Systems: no fevers or chills no nausea Objective Vital Signs and I&Os Vital Signs Date Time Temp Pulse Resp B/P B/P Pulse O2 O2 Flow FiO2 Mean Ox Delivery Rate 11/25 0559 98.2 100 20 140/98 94 Room Air 11/25 0006 98.5 100 20 136/92 98 Room Air 11/24 2154 Room Air 11/24 2130 98.8 109 140/98 100 Room Air 11/24 1608 98.8 108 20 142/110 98 Room Air 11/24 1222 98.8 112 20 138/102 98 Room Air Intake & Output 11/25 1600 11/25 0800 11/25 0000 11/24 1600 11/24 0800 11/24 0000 Intake Total 279 854 3060 1240 1675 Output Total 860 286 661 5966 Balance -220 355 051 3349 -225 Intake, IV 400 681 456 5343 875 Intake, Oral 240 480 720 240 800 Number 3 Bowel Movements Output, Urine 860 527 922 7047 Patient 242 lb 237 lb Weight Physical Exam: lying in be, comfortable, present chest - CTA symmetric heart- RRR without MRG Abdomen- wound -CDI, no erythema dressings changed legs -no edema, calves soft Assessment/Plan Assessment/Plan POD 2 rectosigmoidectomy advance diet to LRD heplock fulids consider D/C today if comfortable and tolarating diet Core Measures Venous Thromboembolism VTE Risk Factors Obesity No Mechanical VTE Prophylaxis d/t N/A MechProphylax Ordered No VTE Pharm Prophylaxis d/t NA PharmProphylax ordered
--- NOTE | 2017-11-25 09:24 | Patient Discharge Instructions ---
Discharge Instructions General Discharge Information You were seen/treated for: Diverticular abscess with fistula Colocolonic fistula You had these procedures: Surgery Date: 11/23/17 Name of Procedure: Exploratory laparotomy with low anterior resection of the rectum, drainage of intraperitoneal abscess Watch for these problems: fever>101.3, increased pain, redness/swelling/drainage, dizziness, shortness of breath, chest pains No bath, but you may shower: Yes Other wound care: ok to shower. keep incisions clean and dry. do not remove white steri strips. Diet Continue normal diet: No Recommended Diet: Low Residue Activity Full Activity/No Limits: No Activity Self Limited: Yes Pounds, do NOT lift more than: 10 Other activity limits: no heavy lifting. no strenuous activity. Acute Coronary Syndrome Inclusion Criteria At DC or during hospital stay patient has or had the following: ACS DIAGNOSIS No Discharge Core Measures Meds if any: Prescribed or Continued at Discharge Meds if any: NOT Prescribed or Continued at Discharge Congestive Heart Failure Inclusion Criteria At DC or during hospital stay patient has or had the following: CHF DIAGNOSIS No Discharge Core Measures Meds if any: Prescribed or Continued at Discharge Meds if any: NOT Prescribed or Continued at Discharge Cerebrovascular accident Inclusion Criteria At DC or during hospital stay patient has or had the following: CVA/TIA Diagnosis No Discharge Core Measures Meds if any: Prescribed or Continued at Discharge Meds if any: NOT Prescribed or Continued at Discharge Venous thromboembolism Inclusion Criteria VTE Diagnosis No VTE Type NONE VTE Confirmed by (Test) NONE Discharge Core Measures - Per Current guidelines, there needs to be overlap - treatment for the first 5 days of Warfarin therapy. - If discharged on Warfarin prior to 5 days of - overlap therapy, the patient will need to be - assessed for post discharge needs including - *Post discharge parental anticoagulation - *Warfarin and/or parental anticoagulation education - *Follow up date to check INR post discharge At least 5 days overlap therapy as Inpatient No Meds if any: Prescribed or Continued at Discharge Note: Overlap Therapy is Warfarin and Anticoagulant Meds if any: NOT Prescribed or Continued at Discharge
[2017-11-25] MEDS ORDERED: OXYCODONE HCL5 M1 PO (09:34)
[2017-11-25] MEDS ORDERED: IBUPROFEN400 M1 PO (09:34)
[2017-11-25] MEDS ORDERED: TYLENOL EXTRA500 M2 PO (09:34)
[2017-11-25 12:00] VITALS: BP 122/70
[2017-11-25 14:50] VITALS: BP 140/90
== END 2017-11-25 16:46 | DRG 330 ==
LOC: SDA 02:50 → ENRESERV 13:01 → ENTRNSPT 13:41 → EDTRNSPTSTS 14:07 → EDTRNSPT 14:07 → 2NB 14:16 → CMPTRNSPT 14:25 → 2NB 11-25 16:46
PROVIDERS: Physician Assistant Surgical
PROC: 0DTP0ZZ Resection of Rectum, Open Approach (ICD-10-PCS; principal; 2017-11-23)
PROC: 0DBN0ZZ Excision of Sigmoid Colon, Open Approach (ICD-10-PCS; principal; 2017-11-23)
PROC: 3E0T3BZ Introduction of Anesthetic Agent into Peripheral Nerves and Plexi, Percutaneous Approach (ICD-10-PCS; principal; 2017-11-23)
DX: K65.1 Peritoneal abscess (principal); K63.2 Fistula of intestine; E11.8 Type 2 diabetes mellitus with unspecified complications; I10 Essential (primary) hypertension; G47.33 Obstructive sleep apnea (adult) (pediatric)
CPT/HCPCS: 2NBP; 36415; 82436; 87086; C9290; C9399; J0131; J1100; J1200; J1644; J1885; J2405; J2765; J7042